=== PATIENT | male | born 1960 | race Caucasian/White ===

== ENCOUNTER 2023-12-04 20:27 | Inpatient (IN) ==
[2023-12-04 21:48] LABS: Basophils # (auto) 0.18 K/uL (0.00-0.20); Basophils % (auto) 0.8 %; Eosinophils # (auto) 0.02 K/uL (0.00-0.50); Eosinophils % (auto) 0.1 %; Hematocrit (blood only) 40.4 % (42.0-52.0); Hemoglobin 13.7 g/dl (14.0-18.0); Immature Granulocytes # (auto) 0.19 K/uL (0.01-0.20); Immature Granulocytes % (auto) 0.9 %; Lymphocytes # (auto) 1.76 K/uL (1.20-3.40); Lymphocytes % (auto) 8.3 %; Mean Corpuscular Hemoglobin 30.2 pg (25.0-34.0); Mean Corpuscular Hgb Conc 33.9 g/dL (32.0-36.0); Mean Corpuscular Volume 89.2 fL (80.0-100.0); Mean Platelet Volume 13.4 fL (9.4-12.4); Monocytes # (auto) 1.16 K/uL (0.11-0.59); Monocytes % (auto) 5.5 %; Neutrophils # (auto) 17.92 K/uL (1.40-6.50); Neutrophils % (auto) 84.4 %; Platelet Count 162 K/uL (130-400); RDW Coefficient of Variation 16.5 % (11.5-14.5); RDW Standard Deviation 53.7 fL (36.4-46.3); Red Blood Count 4.53 M/uL (4.70-6.10); White Blood Count 21.23 K/ul (4.8-10.8)
[2023-12-04 22:14] LABS: Alanine Aminotransferase 20 U/L (7-52); Albumin Globulin Ratio 0.8 (0.9-2); Alkaline Phosphatase 147 U/L (34-104); Anion Gap 19 (3-11); Aspartate Aminotransferase 32 U/L (13-39); BUN Creatinine Ratio 7.9 (10-20); Bilirubin,Total 0.8 mg/dl (0.2-1.0); Blood Urea Nitrogen 39 mg/dl (6-23); Calcium 5.8 mg/dl (8.6-10.3); Carbon Dioxide 15 mmol/L (21-32); Chloride 106 mmol/L (98-107); Est GFR (African American) 13.6 ml/min; Est GFR (Non-African American) 11.8 ml/min; Globulin 4.9 gm/dl (2.5-4.0); Glucose 110 mg/dl (70-99(Fasting)); Lipase 91 U/L (11-82); Potassium 2.3 mmol/L (3.5-5.1); Sodium 140 mmol/L (136-145); Total Protein 8.9 gm/dl (6.0-8.3)
--- NOTE | 2023-12-04 22:50 | Emergency Department Note ---
Impression & Plan Severe sepsis, Hypocalcemia, Acute renal failure (ARF), Hypomagnesemia, Acute dehydration, Complicated urinary tract infection ED Provider Note NAME: DOREEN HERNANDEZ AGE: 62 SEX: M : 1960 ARRIVES VIA: Walk-In INFORMANT: Patient, ED PROVIDER(S): Andrea Lyons MD CHIEF COMPLAINT: Weakness MEDICAL DECISION MAKING: Patient presented due to concern for increasing weakness IV was established and blood work was obtained. Patient did have significant electrolyte derangements and associated acute renal failure. Patient is still making urine. Patient does have a history of complicated UTI and was ordered empiric antibiotics and CT abdomen pelvis without contrast. Patient's blood work showed a white count of 20 with mild anemia hemoglobin 13. Platelet count is unremarkable. Acute renal failure noted creatinine 4.9. Per review of the patient's prior baseline kidney function this was in the twos. Calcium of 5.8. The patient was ordered a calcium for appointment. Lactate of 2 with a magnesium 1.1. The patient states he is still making urine. Procalcitonin not elevated at 0.4. Bacteria leuks and whites noted in the urine with epithelial cells noted. Patient CT abdomen pelvis shows bladder wall thickening renal atrophy with perirenal edema. 1.4 cm nodular structure noted off of the mid right kidney. Chest x-ray negative. Given the patient's white counts and acute renal failure and electrolyte derangements I did speak with the on-call hospitalist and the patient was admitted by Dr. Gongora. Critical Care: I have personally spent 35 minutes of critical care time in direct management of this patient. This includes bedside care, interpretation of diagnostic studies, and testing, discussion with consultants, patient, and family members, and other require inpatient management activities. This 35 minutes is in excess of all separately billable procedures. Discussion w/ other healthcare providers: Dr. Gongora inpatient medicine [facility] Prior /Outside records reviewed: Reviewed prior outside kidney function w/ creat of around 2 Differential diagnosis: Infection, dehydration, metabolic abnormality, hypo/hyperglycemia, electrolyte imbalance, anemia, UTI, pneumonia, thyroid dysfunction among others were considered. Diagnostics, as interpreted by me: ECG: none Cardiac monitoring: An order was placed for continuous cardiac monitoring. The monitor shows a rate of 92 with sinus rhythm. Patient was placed on pulse oximetry Medical decision rules: none Imaging studies: I informally interpreted the patient's CXR w/o obvious PNA or PNX with formal report to follow. HPI: Patient presents due to concern for decreased p.o. intake. Patient reportedly does have a history of neurogenic bladder and did have a history of childhood polymyositis. Patient did have bronchitis about 2 weeks prior and did receive antibiotic prescription Z-Herminio. Patient states that his breathing had improved his appetite was relatively poor patient has lost weight since the time of his illness. Patient does have some abdominal discomfort no nausea or vomiting and the patient denies any chest pain or shortness of breath. The patient has felt increasingly weak. Patient denies any recent falls or trauma. The patient does have to intermittently self catheter due to his his history of polio. PAST MEDICAL HISTORY: See Below PAST SURGICAL HISTORY: See Below SOCIAL HISTORY: See Below HOME MEDICATIONS: See Below ALLERGIES: See Below VITALS: See Below PHYSICAL EXAMINATION: GENERAL: NAD, non-toxic. EYE EXAM: Normal conjunctiva. PERRL, no anisocoria and EOM's grossly intact w/o pain. OROPHARYNX: Dry mucus membranes, grossly normal dentition. NECK: Trachea midline, no stridor. Supple, no nuchal rigidity, no adenopathy, non-tender. No signs of meningismus. FROM of the neck with good chin to chest and neck extension. LUNGS: Clear to auscultation. Normal chest wall mechanics. HEART: NSR, no MRG. ABDOMEN: Abdomen soft, mild diffuse pain, not peritonitic, no masses, no rebound or guarding. BACK: No CVA TTP. SKIN: No rashes and no bruising. UPPER EXTREMITIES: Upper extremities are grossly normal. LOWER EXTREMITIES: Grossly normal, no edema. NEURO EXAM: A&O x3, cranial nerves II-XII grossly intact, normal speech, moves all 4 extremities. 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 Beliefs That Will Affect Care: None Current Living Situation: Spouse Feels Safe at Home: Yes Assistive Devices: Walker and Wheelchair Allergies Allergies Allergy/AdvReac Type Severity Reaction Status Date / Time No Known Allergies Allergy Unverified 12/09/23 11:07 Home Meds Home Medications Medication Instructions Recorded Confirmed citalopram 40 mg tablet 40 mg PO QAM 12/05/23 12/05/23 cyanocobalamin (vitamin B-12) 1,000 mcg IM MONTHLY 12/05/23 12/05/23 1,000 mcg/mL injection solution doxepin 25 mg capsule 50 mg PO HS 12/05/23 12/05/23 metoprolol succinate 50 mg 50 mg PO QAM 12/05/23 12/05/23 tablet,extended release 24 hr tramadol 50 mg tablet 50 mg PO BID PRN Pain 12/05/23 12/05/23 Previous Rx's Medication Instructions Recorded amiloride 5 mg tablet 5 mg PO BID #60 tabs 12/10/23 calcitriol 0.25 mcg capsule 0.5 mcg (2 x 0.25 mcg) PO DAILY 90 12/10/23 days #180 caps calcium carbonate 500 mg-vitamin 2.5 tab PO TID #90 tabs 12/10/23 D3 15 mcg (600 unit) tablet (Os-Andre 500 + D3) cholecalciferol (vitamin D3) 25 25 mcg PO QAM 90 days #90 caps 12/10/23 mcg (1,000 unit) capsule loperamide 2 mg capsule 4 mg (2 x 2 mg) PO TID PRN 12/10/23 diarrhea #20 caps magnesium chloride 64 mg 64 mg PO BID #60 tabs 12/10/23 (magnesium chloride) tablet,delayed release (Mag 64) potassium bicarbonate-citric acid 40 meq (2 x 20 mEq) PO TID #90 ea 12/10/23 20 mEq effervescent tablet Results & Data (ED) Vital Signs Vital Signs - 24 hr 12/04/23 20:38 12/04/23 20:42 12/04/23 21:05 Temperature 36.9 C Temperature Source Temporal Artery Scan Pulse Rate 92 H 88 94 H Pulse Rhythm Regular Respiratory Rate 19 16 Respiratory Effort / Characteristics Non-Labored Spontaneous Respiratory Depth Normal Blood Pressure 107/75 Blood Pressure Mean 85 Pulse Oximetry 95 98 Oxygen Delivery Method Room Air Room Air Sepsis Recent Fever Within 48 Hours No Sepsis New/Unexplained Change in Mental Status N/A Sepsis Action Taken by Nursing No Action Required Home Medications Current Medication List: was personally reviewed by me Laboratory Data Attestation: I reviewed the patient's lab results. 12/10/23 07:43 12/10/23 07:43 Lab Results 12/04/23 12/04/23 12/04/23 Range/Units 21:06 22:59 23:53 WBC 21.23 H (4.8-10.8) K/ul RBC 4.53 L (4.70-6.10) M/uL Hgb 13.7 L (14.0-18.0) g/dl Hct 40.4 L (42.0-52.0) % MCV 89.2 (80.0-100.0) fL MCH 30.2 (25.0-34.0) pg MCHC 33.9 (32.0-36.0) g/dL RDW Std Deviation 53.7 H (36.4-46.3) fL RDW Coeff of Thao 16.5 H (11.5-14.5) % Plt Count 162 (130-400) K/uL MPV 13.4 H (9.4-12.4) fL Immature Gran % (Auto) 0.9 % Neut % (Auto) 84.4 % Lymph % (Auto) 8.3 % Cooke % (Auto) 5.5 % Eos % (Auto) 0.1 % Baso % (Auto) 0.8 % Neut # (Auto) 17.92 H (1.40-6.50) K/uL Lymph # (Auto) 1.76 (1.20-3.40) K/uL Cooke # (Auto) 1.16 H (0.11-0.59) K/uL Eos # (Auto) 0.02 (0.00-0.50) K/uL Baso # (Auto) 0.18 (0.00-0.20) K/uL Immature Gran # (Auto) 0.19 (0.01-0.20) K/uL Sodium 140 (136-145) mmol/L Potassium 2.3 L* (3.5-5.1) mmol/L Chloride 106 (98-107) mmol/L Carbon Dioxide 15 L (21-32) mmol/L Anion Gap 19 H (3-11) BUN 39 H (6-23) mg/dl Creatinine 4.93 H* (0.6-1.4) mg/dl Est Cr Clr Drug Dosing Not Reportable Est GFR ( Amer) 13.6 ml/min Est GFR (Non-Af Amer) 11.8 ml/min BUN/Creatinine Ratio 7.9 L (10-20) Glucose 110 H (70-99(Fasting)) mg/dl Lactate 2.0 (0.4-2.0) mmol/L Calcium 5.8 L* (8.6-10.3) mg/dl Magnesium 1.1 L (1.7-2.4) mg/dl Total Bilirubin 0.8 (0.2-1.0) mg/dl AST 32 (13-39) U/L ALT 20 (7-52) U/L Alkaline Phosphatase 147 H (34-104) U/L Total Protein 8.9 H (6.0-8.3) gm/dl Albumin 4.0 (3.4-5.0) gm/dl Globulin 4.9 H (2.5-4.0) gm/dl Albumin/Globulin Ratio 0.8 L (0.9-2) Lipase 91 H (11-82) U/L Procalcitonin 0.44 (0-0.5) ng/ml Urine Color Yellow Urine Appearance Cloudy A (Clear) Urine pH 6.0 (4.5-7.5) Ur Specific Manning 1.013 (1.000-1.030) Urine Protein 2+ H (Negative) Urine Glucose (UA) Negative (Negative) Urine Ketones Trace H (Negative) Urine Blood 2+ H (Negative) Urine Nitrite Negative (Negative) Urine Bilirubin Negative (Negative) Urine Urobilinogen Negative (Negative) Ur Leukocyte Esterase 3+ H (Negative) Urine WBC (Auto) >50 H (0-5) /hpf Urine RBC (Auto) 3-5 H (0-2) /hpf U Hyaline Cast (Auto) 0-2 (0-2) /lpf U Epithel Cells (Auto) 3-5 H (0-2) /hpf Urine Bacteria (Auto) 2+ H (None Seen) Administered Medications Discontinued Medications Amiloride HCl (Amiloride Hcl 5 Mg Tab) 5 mg PO DAILY THOMAS Stop: 01/05/24 09:59 Last Admin: 12/06/23 10:27 Dose: Not Given Documented By: KANDICE Amiloride HCl (Amiloride Hcl 5 Mg Tab) 5 mg PO NOW STA Stop: 12/06/23 10:01 Last Admin: 12/06/23 10:54 Dose: 5 mg Documented By: KANDICE Amiloride HCl (Amiloride Hcl 5 Mg Tab) 5 mg PO DAILY THOMAS Stop: 01/06/24 08:59 Last Admin: 12/07/23 09:33 Dose: Not Given Documented By: KANDICE Amiloride HCl (Amiloride Hcl 5 Mg Tab) 5 mg PO BID THOMAS Stop: 01/06/24 20:59 Last Admin: 12/10/23 08:26 Dose: 5 mg Documented By: Admin: 12/09/23 20:52 Dose: 5 mg Documented By: Admin: 12/09/23 09:51 Dose: 5 mg Documented By: Admin: 12/08/23 21:12 Dose: 5 mg Documented By: Admin: 12/08/23 08:34 Dose: 5 mg Documented By: Admin: 12/07/23 20:57 Dose: 5 mg Documented By: KATIE Calcitriol (Calcitriol 0.25 Mcg Capsule) 0.5 mcg PO BID THOMAS Stop: 01/04/24 12:29 Last Admin: 12/06/23 20:05 Dose: 0.5 mcg Documented By: Admin: 12/06/23 09:24 Dose: 0.5 mcg Documented By: RAMONA Co-signed By: RASHMI Admin: 12/05/23 20:15 Dose: 0.5 mcg Documented By: Admin: 12/05/23 13:26 Dose: 0.5 mcg Documented By: NIDHI Calcitriol (Calcitriol 0.25 Mcg Capsule) 0.5 mcg PO DAILY THOMAS Stop: 01/06/24 08:59 Last Admin: 12/10/23 08:26 Dose: 0.5 mcg Documented By: Admin: 12/09/23 09:49 Dose: 0.5 mcg Documented By: Admin: 12/08/23 08:34 Dose: 0.5 mcg Documented By: Admin: 12/07/23 09:27 Dose: 0.5 mcg Documented By: KANDICE Calcium Carbonate (Calcium Carbonate 1250mg Tab) 1,250 mg PO BID THOMAS Stop: 01/04/24 12:29 Last Admin: 12/07/23 09:33 Dose: Not Given Documented By: Admin: 12/06/23 20:05 Dose: 1,250 mg Documented By: Admin: 12/06/23 09:24 Dose: 1,250 mg Documented By: RAMONA Co-signed By: RASHMI Admin: 12/05/23 20:16 Dose: 1,250 mg Documented By: Admin: 12/05/23 13:26 Dose: 1,250 mg Documented By: NIDHI Calcium Carbonate (Calcium Carbonate 1250mg Tab) 1,250 mg PO TID THOMAS Stop: 01/06/24 13:59 Last Admin: 12/10/23 13:55 Dose: 1,250 mg Documented By: Admin: 12/10/23 08:26 Dose: 1,250 mg Documented By: Admin: 12/09/23 20:52 Dose: 1,250 mg Documented By: Admin: 12/09/23 13:02 Dose: 1,250 mg Documented By: Admin: 12/09/23 09:49 Dose: 1,250 mg Documented By: Admin: 12/08/23 21:12 Dose: 1,250 mg Documented By: Admin: 12/08/23 13:53 Dose: 1,250 mg Documented By: Admin: 12/08/23 08:35 Dose: 1,250 mg Documented By: Admin: 12/07/23 20:56 Dose: 1,250 mg Documented By: Admin: 12/07/23 13:56 Dose: 1,250 mg Documented By: KANDICE Ciprofloxacin (Ciprofloxacin Hcl 0.3% Op Soln 2.5 Ml Btl) 2 drops OP Q4H THOMAS Stop: 12/13/23 20:59 Last Admin: 12/10/23 13:52 Dose: 2 drops Documented By: Admin: 12/10/23 08:28 Dose: 2 drops Documented By: Admin: 12/10/23 04:17 Dose: 2 drops Documented By: Admin: 12/10/23 00:49 Dose: 2 drops Documented By: Admin: 12/09/23 20:51 Dose: 2 drops Documented By: Admin: 12/09/23 17:05 Dose: 2 drops Documented By: Admin: 12/09/23 13:01 Dose: 2 drops Documented By: Admin: 12/09/23 09:49 Dose: 2 drops Documented By: Admin: 12/09/23 04:20 Dose: 2 drops Documented By: Admin: 12/09/23 01:13 Dose: 2 drops Documented By: Admin: 12/08/23 21:56 Dose: 2 drops Documented By: Admin: 12/08/23 17:12 Dose: 2 drops Documented By: Admin: 12/08/23 13:54 Dose: 2 drops Documented By: Admin: 12/08/23 08:35 Dose: 2 drops Documented By: Admin: 12/08/23 04:27 Dose: 2 drops Documented By: Admin: 12/08/23 01:34 Dose: 2 drops Documented By: Admin: 12/07/23 20:56 Dose: 2 drops Documented By: Admin: 12/07/23 17:16 Dose: 2 drops Documented By: Admin: 12/07/23 13:57 Dose: 2 drops Documented By: Admin: 12/07/23 09:25 Dose: 2 drops Documented By: Admin: 12/07/23 05:35 Dose: 2 drops Documented By: Admin: 12/07/23 01:53 Dose: 2 drops Documented By: Admin: 12/06/23 21:57 Dose: 2 drops Documented By: KATIE Citalopram Hydrobromide (Citalopram 40 Mg Tab) 40 mg PO QAM THOMAS Stop: 01/04/24 08:59 Last Admin: 12/05/23 09:09 Dose: 40 mg Documented By: AMS Sodium Chloride (Nss) 1,000 mls @ 999 mls/hr IV .Q1H1M ONE Stop: 12/05/23 00:04 Last Infusion: 12/05/23 02:14 Dose: Infused Documented By: Admin: 12/04/23 23:59 Dose: 999 mls/hr Documented By: Sodium Chloride (Nss) 500 mls @ 999 mls/hr IV .Q31M ONE Stop: 12/04/23 23:34 Last Infusion: 12/05/23 02:32 Dose: Infused Documented By: Admin: 12/05/23 02:00 Dose: 999 mls/hr Documented By: Calcium Gluconate () 1,000 mg in 60 mls @ 240 mls/hr IV Q15M THOMAS Stop: 12/04/23 23:44 Last Infusion: 12/05/23 01:05 Dose: Infused Documented By: Admin: 12/05/23 00:39 Dose: 240 mls/hr Documented By: Infusion: 12/05/23 00:38 Dose: Infused Documented By: Admin: 12/04/23 23:59 Dose: 240 mls/hr Documented By: Piperacillin Sod/Tazobactam Sod (Zosyn) 4.5 gm in 100 mls @ 200 mls/hr IV NOW ONE Stop: 12/04/23 23:33 Last Infusion: 12/05/23 01:54 Dose: Infused Documented By: Infusion: 12/05/23 01:54 Dose: Infused Documented By: Admin: 12/05/23 01:06 Dose: 200 mls/hr Documented By: Magnesium Sulfate/Dextrose (Magnesium Sulfate / D5w) 1 gm in 100 mls @ 50 mls/hr IV Q2H THOMAS Stop: 12/05/23 07:59 Last Infusion: 12/05/23 09:15 Dose: Infused Documented By: Admin: 12/05/23 06:55 Dose: 50 mls/hr Documented By: Infusion: 12/05/23 06:55 Dose: Infused Documented By: Admin: 12/05/23 05:02 Dose: 50 mls/hr Documented By: Infusion: 12/05/23 05:01 Dose: Infused Documented By: Admin: 12/05/23 03:03 Dose: 50 mls/hr Documented By: Lactated Ringer's (Lr) 1,000 mls @ 100 mls/hr IV .Q10H ONE Stop: 12/05/23 12:50 Last Infusion: 12/05/23 12:44 Dose: Infused Documented By: Admin: 12/05/23 03:03 Dose: 100 mls/hr Documented By: Piperacillin Sod/Tazobactam (Sod 4.5 gm/ Dextrose) 100 mls @ 25 mls/hr IV Q12H THOMAS; Protocol Stop: 12/07/23 15:00 Last Infusion: 12/07/23 13:56 Dose: Infused Documented By: Admin: 12/07/23 09:46 Dose: 25 mls/hr Documented By: Infusion: 12/07/23 00:17 Dose: Infused Documented By: Admin: 12/06/23 20:02 Dose: 25 mls/hr Documented By: Infusion: 12/06/23 13:36 Dose: Infused Documented By: Admin: 12/06/23 09:26 Dose: 25 mls/hr Documented By: RAMONA Co-signed By: RASHMI Infusion: 12/06/23 00:19 Dose: Infused Documented By: Admin: 12/05/23 20:14 Dose: 25 mls/hr Documented By: Infusion: 12/05/23 14:47 Dose: Infused Documented By: Admin: 12/05/23 10:47 Dose: 25 mls/hr Documented By: GEOFFREY Promethazine HCl 6.25 mg/ (Sodium Chloride) 50.25 mls @ 201 mls/hr IV Q6H PRN PRN Reason: Nausea And Vomiting Stop: 01/04/24 02:58 Last Infusion: 12/10/23 11:12 Dose: Infused Documented By: Admin: 12/10/23 10:47 Dose: 201 mls/hr Documented By: Infusion: 12/08/23 16:00 Dose: Infused Documented By: Admin: 12/08/23 15:41 Dose: 201 mls/hr Documented By: Infusion: 12/07/23 10:02 Dose: Infused Documented By: Admin: 12/07/23 09:24 Dose: 201 mls/hr Documented By: Infusion: 12/05/23 10:43 Dose: Infused Documented By: Admin: 12/05/23 10:12 Dose: 201 mls/hr Documented By: GEOFFREY Potassium Chloride (K Wero / Wtr) 10 meq in 100 mls @ 100 mls/hr IV Q1H THOMAS Stop: 12/05/23 08:14 Last Infusion: 12/05/23 10:43 Dose: Infused Documented By: Admin: 12/05/23 08:59 Dose: 100 mls/hr Documented By: Infusion: 12/05/23 08:58 Dose: Infused Documented By: Admin: 12/05/23 07:52 Dose: 100 mls/hr Documented By: Infusion: 12/05/23 07:52 Dose: Infused Documented By: Admin: 12/05/23 06:55 Dose: 100 mls/hr Documented By: Infusion: 12/05/23 06:55 Dose: Infused Documented By: Admin: 12/05/23 05:37 Dose: 100 mls/hr Documented By: Calcium Gluconate 1,000 mg/ (Sodium Chloride) 60 mls @ 240 mls/hr IV Q15M THOMAS Stop: 12/05/23 12:14 Last Infusion: 12/05/23 13:24 Dose: Infused Documented By: GinaKP Admin: 12/05/23 12:57 Dose: 240 mls/hr Documented By: Infusion: 12/05/23 12:53 Dose: Infused Documented By: GinaKP Admin: 12/05/23 12:38 Dose: 240 mls/hr Documented By: GinaKP Potassium Chloride 40 meq/ (Parenteral Electrolytes) 1,020 mls @ 70 mls/hr IV .[id number] THOMAS Stop: 01/04/24 12:14 Last Infusion: 12/07/23 14:00 Dose: Infused Documented By: Infusion: 12/07/23 12:50 Dose: 70 mls/hr Documented By: Infusion: 12/07/23 10:47 Dose: 0 mls/hr Documented By: Admin: 12/07/23 09:54 Dose: 70 mls/hr Documented By: Infusion: 12/07/23 09:44 Dose: Infused Documented By: Admin: 12/06/23 18:30 Dose: 70 mls/hr Documented By: Infusion: 12/06/23 18:10 Dose: Infused Documented By: Infusion: 12/06/23 16:15 Dose: 70 mls/hr Documented By: Admin: 12/06/23 09:46 Dose: 150 mls/hr Documented By: Infusion: 12/06/23 09:46 Dose: Infused Documented By: Admin: 12/06/23 04:57 Dose: Not Given Documented By: Infusion: 12/06/23 04:56 Dose: 150 mls/hr Documented By: Infusion: 12/05/23 22:10 Dose: 0 mls/hr Documented By: [facility] Admin: 12/05/23 20:11 Dose: 150 mls/hr Documented By: Infusion: 12/05/23 20:11 Dose: Infused Documented By: Admin: 12/05/23 13:26 Dose: 150 mls/hr Documented By: NIDHI Potassium Chloride (K Wero / Wtr) 10 meq in 100 mls @ 100 mls/hr IV Q1H THOMAS Stop: 12/06/23 01:14 Last Infusion: 12/06/23 04:57 Dose: Infused Documented By: [facility] Admin: 12/06/23 03:39 Dose: 60 mls/hr Documented By: Infusion: 12/06/23 03:15 Dose: Infused Documented By: [facility] Admin: 12/06/23 01:34 Dose: 60 mls/hr Documented By: Infusion: 12/06/23 01:34 Dose: Infused Documented By: [facility] Admin: 12/05/23 23:56 Dose: 60 mls/hr Documented By: [facility] Infusion: 12/05/23 23:10 Dose: Infused Documented By: [facility] Admin: 12/05/23 22:10 Dose: 100 mls/hr Documented By: DANILO Magnesium Sulfate/Dextrose (Magnesium Sulfate / D5w) 1 gm in 100 mls @ 50 mls/hr IV ONE ONE Stop: 12/06/23 02:55 Last Infusion: 12/06/23 03:39 Dose: Infused Documented By: [facility] Admin: 12/06/23 01:34 Dose: 50 mls/hr Documented By: DANILO Calcium Gluconate 1,000 mg/ (Sodium Chloride) 60 mls @ 240 mls/hr IV Q15M THOMAS Stop: 12/06/23 10:44 Last Infusion: 12/06/23 12:05 Dose: Infused Documented By: Admin: 12/06/23 11:47 Dose: 240 mls/hr Documented By: Infusion: 12/06/23 11:47 Dose: Infused Documented By: Admin: 12/06/23 11:46 Dose: 240 mls/hr Documented By: Infusion: 12/06/23 11:09 Dose: Infused Documented By: Admin: 12/06/23 10:54 Dose: 240 mls/hr Documented By: KANDICE Calcium Gluconate 1,000 mg/ (Sodium Chloride) 60 mls @ 240 mls/hr IV Q15M THOMAS Stop: 12/07/23 09:29 Last Infusion: 12/07/23 11:44 Dose: Infused Documented By: Admin: 12/07/23 11:15 Dose: 240 mls/hr Documented By: Infusion: 12/07/23 10:02 Dose: Infused Documented By: Admin: 12/07/23 09:47 Dose: 240 mls/hr Documented By: KANDICE Magnesium Sulfate/Dextrose (Magnesium Sulfate / D5w) 1 gm in 100 mls @ 50 mls/hr IV Q2H THOMAS Stop: 12/07/23 12:59 Last Infusion: 12/07/23 14:00 Dose: Infused Documented By: Admin: 12/07/23 11:41 Dose: 50 mls/hr Documented By: Infusion: 12/07/23 11:41 Dose: Infused Documented By: Admin: 12/07/23 09:47 Dose: 50 mls/hr Documented By: KANDICE Calcium Gluconate 1,000 mg/ (Sodium Chloride) 60 mls @ 240 mls/hr IV Q15M THOMAS Stop: 12/07/23 10:44 Last Infusion: 12/07/23 12:03 Dose: Infused Documented By: Admin: 12/07/23 11:40 Dose: 240 mls/hr Documented By: Infusion: 12/07/23 11:30 Dose: Infused Documented By: Admin: 12/07/23 11:15 Dose: 240 mls/hr Documented By: Infusion: 12/07/23 11:04 Dose: Infused Documented By: Admin: 12/07/23 10:49 Dose: 240 mls/hr Documented By: KANDICE Piperacillin Sod/Tazobactam (Sod 4.5 gm/ Dextrose) 100 mls @ 25 mls/hr IV Q8H THOMAS; Protocol Stop: 12/21/23 19:59 Last Admin: 12/10/23 10:53 Dose: 25 mls/hr Documented By: Infusion: 12/10/23 08:29 Dose: Infused Documented By: Admin: 12/10/23 04:14 Dose: 25 mls/hr Documented By: Infusion: 12/10/23 04:09 Dose: Infused Documented By: Infusion: 12/10/23 00:49 Dose: 25 mls/hr Documented By: Infusion: 12/09/23 21:30 Dose: 0 mls/hr Documented By: Admin: 12/09/23 20:50 Dose: 25 mls/hr Documented By: Infusion: 12/09/23 17:05 Dose: Infused Documented By: Admin: 12/09/23 13:00 Dose: 25 mls/hr Documented By: Infusion: 12/09/23 08:33 Dose: Infused Documented By: Admin: 12/09/23 04:19 Dose: 25 mls/hr Documented By: Infusion: 12/09/23 01:44 Dose: Infused Documented By: Admin: 12/08/23 21:11 Dose: 25 mls/hr Documented By: Infusion: 12/08/23 16:00 Dose: Infused Documented By: Admin: 12/08/23 11:55 Dose: 25 mls/hr Documented By: Infusion: 12/08/23 08:45 Dose: Infused Documented By: Admin: 12/08/23 04:28 Dose: 25 mls/hr Documented By: Infusion: 12/08/23 00:18 Dose: Infused Documented By: Admin: 12/07/23 20:50 Dose: 25 mls/hr Documented By: KATIE Loperamide HCl (Loperamide Hcl 2 Mg Cap) 2 mg PO BID PRN PRN Reason: Diarrhea Stop: 01/06/24 11:38 Last Admin: 12/10/23 10:47 Dose: 2 mg Documented By: Admin: 12/09/23 21:03 Dose: 2 mg Documented By: Admin: 12/09/23 09:51 Dose: 2 mg Documented By: Admin: 12/08/23 21:11 Dose: 2 mg Documented By: Admin: 12/08/23 08:42 Dose: 2 mg Documented By: Admin: 12/07/23 13:57 Dose: 2 mg Documented By: KANDICE Magnesium Chloride (Magnesium Chloride W/Calcium 64mg Delayed Rel Tab) 64 mg PO BID THOMAS Stop: 01/06/24 20:59 Last Admin: 12/10/23 08:28 Dose: 64 mg Documented By: Admin: 12/09/23 20:52 Dose: 64 mg Documented By: Admin: 12/09/23 09:47 Dose: 64 mg Documented By: Admin: 12/08/23 21:12 Dose: 64 mg Documented By: Admin: 12/08/23 08:34 Dose: 64 mg Documented By: Admin: 12/07/23 20:57 Dose: 64 mg Documented By: KATIE Metoprolol Succinate (Metoprolol Succ 50mg Ext Rel Tab) 50 mg PO QAM [facility] Stop: 01/04/24 08:59 Last Admin: 12/09/23 09:50 Dose: Not Given Documented By: Admin: 12/08/23 08:34 Dose: 50 mg Documented By: Admin: 12/07/23 09:27 Dose: Not Given Documented By: Admin: 12/06/23 09:25 Dose: 50 mg Documented By: RAMONA Co-signed By: RASHMI Admin: 12/05/23 09:08 Dose: 50 mg Documented By: GEOFFREY Metoprolol Succinate (Metoprolol Succ 25mg Ext Rel Tab) 25 mg PO QAM [facility] Stop: 01/09/24 08:59 Last Admin: 12/10/23 08:28 Dose: 25 mg Documented By: NANO Miscellaneous Information (Patient's Allergy Info Needs Entered) 1 each N/A NOW STA Stop: 12/05/23 04:21 Last Admin: 12/05/23 05:29 Dose: Not Given Documented By: Miscellaneous Information (Patient's Allergy Info Needs Entered) 1 each N/A Q30M [facility] Stop: 01/08/24 09:59 Last Admin: 12/09/23 10:52 Dose: 1 each Documented By: VIKA Morphine Sulfate (Morphine Sulfate 2 Mg/Ml Carp) 2 mg IV NOW STA Stop: 12/05/23 01:50 Last Admin: 12/05/23 01:58 Dose: 2 mg Documented By: Pantoprazole Sodium (Pantoprazole 40 Mg Tab) 40 mg PO BID [facility] Stop: 01/04/24 10:14 Last Admin: 12/10/23 08:29 Dose: 40 mg Documented By: Admin: 12/09/23 20:52 Dose: 40 mg Documented By: Admin: 12/09/23 10:48 Dose: 40 mg Documented By: Admin: 12/08/23 21:12 Dose: 40 mg Documented By: Admin: 12/08/23 08:34 Dose: 40 mg Documented By: Admin: 12/07/23 20:57 Dose: 40 mg Documented By: Admin: 12/07/23 09:27 Dose: 40 mg Documented By: Admin: 12/06/23 20:05 Dose: 40 mg Documented By: Admin: 12/06/23 09:25 Dose: 40 mg Documented By: RAMONA Co-signed By: RASHMI Admin: 12/05/23 20:16 Dose: 40 mg Documented By: Admin: 12/05/23 11:08 Dose: 40 mg Documented By: NIDHI Potassium Chloride (Potassium Chloride Pwd 20 Meq Pack) 40 meq PO NOW STA Stop: 12/05/23 02:00 Last Admin: 12/05/23 03:16 Dose: Not Given Documented By: Potassium Chloride (Potassium Chloride Crtab 20 Meq Tabcr) 40 meq PO NOW STA Stop: 12/05/23 02:43 Last Admin: 12/05/23 03:29 Dose: 40 meq Documented By: Potassium Chloride (Potassium Chloride Crtab 20 Meq Tabcr) 40 meq PO ONE ONE Stop: 12/05/23 05:01 Last Admin: 12/05/23 05:37 Dose: 40 meq Documented By: Potassium Chloride (Potassium Chloride Pwd 20 Meq Pack) 40 meq PO QID THOMAS Stop: 01/04/24 12:59 Last Admin: 12/05/23 19:27 Dose: Not Given Documented By: Admin: 12/05/23 12:38 Dose: 40 meq Documented By: NIDHI Potassium Chloride (Potassium Chloride Crtab 20 Meq Tabcr) 40 meq PO NOW STA Stop: 12/05/23 18:34 Last Admin: 12/05/23 21:07 Dose: Not Given Documented By: ALKatelin Potassium Chloride (Potassium Chloride Crtab 20 Meq Tabcr) 40 meq PO QID THOMAS Stop: 01/04/24 18:40 Last Admin: 12/06/23 20:05 Dose: 40 meq Documented By: Admin: 12/06/23 17:09 Dose: 40 meq Documented By: JOSH Co-signed By: PRAKASH Admin: 12/06/23 13:01 Dose: 40 meq Documented By: Admin: 12/06/23 09:27 Dose: 40 meq Documented By: RAMONA Co-signed By: LUCINDAR Admin: 12/05/23 20:21 Dose: Not Given Documented By: Admin: 12/05/23 20:15 Dose: 40 meq Documented By: DANILO Potassium Chloride (Potassium Chloride Crtab 20 Meq Tabcr) 40 meq PO TID THOMAS Stop: 01/06/24 08:59 Last Admin: 12/08/23 08:35 Dose: 40 meq Documented By: Admin: 12/07/23 20:56 Dose: 40 meq Documented By: Admin: 12/07/23 13:56 Dose: 40 meq Documented By: Admin: 12/07/23 09:26 Dose: 40 meq Documented By: KANDICE Potassium Citrate (Potassium Citrate 10 Meq Tab) 40 meq PO TID THOMAS Stop: 01/07/24 13:59 Last Admin: 12/10/23 08:29 Dose: 40 meq Documented By: Admin: 12/09/23 20:52 Dose: 40 meq Documented By: Admin: 12/09/23 13:02 Dose: 40 meq Documented By: Admin: 12/09/23 09:50 Dose: 40 meq Documented By: Admin: 12/08/23 21:12 Dose: 40 meq Documented By: Admin: 12/08/23 13:53 Dose: 40 meq Documented By: VIKA Tramadol HCl (Tramadol Hcl 50 Mg Tablet) 25 - 50 mg PO Q4H PRN PRN Reason: Pain Stop: 01/04/24 02:58 Last Admin: 12/05/23 22:11 Dose: 50 mg Documented By: DANILO Vitamin D (Cholecalciferol 25 Mcg (1000 Units) Tab) 25 mcg PO QAM THOMAS Stop: 01/06/24 08:59 Last Admin: 12/10/23 08:27 Dose: 25 mcg Documented By: Admin: 12/09/23 09:47 Dose: 25 mcg Documented By: Admin: 12/08/23 08:34 Dose: 25 mcg Documented By: Admin: 12/07/23 09:45 Dose: 25 mcg Documented By: KANDICE Imaging Data Radiologist's Impression: Abdomen/Pelvis CT 12/04/23 23:04 Exam(s): CT ABDOMEN + PELVIS Without Contrast EXAM: CT Abdomen and Pelvis Without Intravenous Contrast CLINICAL HISTORY: Reason for exam: abdominal pain, straight cath, WBC 20s. TECHNIQUE: Axial computed tomography images of the abdomen and pelvis without intravenous contrast. CTDI is 24.84 mGy and DLP is 1187.28 mGy-cm. Automated exposure control was utilized for the study. A dose lowering technique was utilized adhering to the principles of ALARA. COMPARISON: No relevant prior studies available. FINDINGS: Lung bases: Unremarkable. No mass. No consolidation. ABDOMEN: Liver: Unremarkable. Gallbladder and bile ducts: Previous cholecystectomy. No biliary duct dilation is seen. Pancreas: Unremarkable. No ductal dilation. Spleen: Unremarkable. No splenomegaly. Adrenals: Unremarkable. No mass. Kidneys and ureters: Mild bilateral renal atrophy with slight perirenal edema. There is mild thickening of the wall of the renal pelvis bilaterally. Consider ascending urinary tract infection. 1.4 cm nodular structure extending anteriorly off the mid right kidney measuring 45 HU. No obstructing stones. No hydronephrosis. Stomach and bowel: Bowel loops are nondilated. No acute inflammatory changes are seen involving the bowel. No mucosal thickening. PELVIS: Appendix: No findings to suggest acute appendicitis. Bladder: There is a 1 cm circumferential urinary bladder wall thickening. No stones. Reproductive: Unremarkable as visualized. ABDOMEN and PELVIS: Intraperitoneal space: Unremarkable. No free air. No significant fluid collection. Bones/joints: Moderate to severe multilevel degenerative throughout the spine. No developmental hypoplasia and fusion of T10-T12. No acute fracture is seen. Right hip arthroplasty. There are moderate degenerative changes in the left hip. No acute fracture or dislocation. Soft tissues: See above. Vasculature: Unremarkable. No abdominal aortic aneurysm. Lymph nodes: Unremarkable. No enlarged lymph nodes. IMPRESSION: 1. There is a 1 cm circumferential urinary bladder wall thickening. This may be due to cystitis or decompressed status. 2. Mild bilateral renal atrophy with slight perirenal edema. There is mild thickening of the wall of the renal pelvis bilaterally. Consider ascending urinary tract infection. 3. 1.4 cm nodular structure extending anteriorly off the mid right kidney measuring 45 HU. This is nonspecific. Recommend MRI or CT without and with intravenous contrast. 4. Bowel loops are nondilated. No acute inflammatory changes are seen involving the bowel. Electronically signed by: Willem Tapia MD 12/05/23 01:25 AM Chest X-Ray 12/05/23 01:56 XR chest 1V portable HISTORY: 62 years-old Male arf acute shortness of breath with renal failure COMPARISON: CT of same day TECHNIQUE: AP view of the chest FINDINGS: Patient is mildly rotated. The cardiac silhouette is upper limits of normal in size. No pneumothorax, pleural effusion, airspace consolidation or pulmonary edema. Eventration of the right hemidiaphragm. Bones appear grossly intact. IMPRESSION: No acute process. ACT 112: Negative or not required by law. The above report was generated using voice recognition software. It may contain grammatical, syntax or spelling errors. Electronically signed by: Jose Redmond M.D. 12/05/2023 6:51 AM Discharge Plan Visit Data Chief Complaint: Nausea Stated Complaint: POOR APPETITE, DIZZY, NAUSEA ED Provider: Andrea Lyons Discharge Problem: Severe sepsis, Hypocalcemia, Acute renal failure (ARF), Hypomagnesemia, Acute dehydration, Complicated urinary tract infection Patient Disposition: Admitted As Inpatient Discharge Instructions Interventions: ED Discharge Assessment Last Done: 12/05/23 14:41 Discharge Problem: Acute renal failure (ARF) Qualifiers: Acute renal failure type: unspecified Qualified Code(s): N17.9 - Acute kidney failure, unspecified
[2023-12-04 23:23] LABS: Appearance Urine Cloudy (Clear); Bacteria Urine Automated 2+ (None Seen); Bilirubin Urine Negative (Negative); Blood Urine 2+ (Negative); Color Urine Yellow; Glucose Urine UA Negative (Negative); Ketones Urine Trace (Negative); Leukocyte Esterase Urine 3+ (Negative); Nitrite Urine Negative (Negative); Protein Urine 2+ (Negative); Specific Gravity Urine 1.013 (1.000-1.030); Urobilinogen Urine Negative (Negative); WBC Urine Automated >50 /hpf (0-5)
[2023-12-04 23:33] LABS: Cast Urine Automated 0-2 /lpf (0-2)
[2023-12-04] MEDS: CALCIUM GLUCONATE 1,000 MG/60 ML BAG IV SCH (23:59)
[2023-12-04] MEDS: SODIUM CHLORIDE 0.9% 1,000 ML IV ONE (23:59)
[2023-12-05] MEDS: PIPERACILLIN/TAZOBACTAM 4.5 GM/100 ML BAG IV ONE (01:06)
--- NOTE | 2023-12-05 01:25 | CT Scan Report ---
Exam(s): CT ABDOMEN + PELVIS Without Contrast EXAM: CT Abdomen and Pelvis Without Intravenous Contrast CLINICAL HISTORY: Reason for exam: abdominal pain, straight cath, WBC 20s. TECHNIQUE: Axial computed tomography images of the abdomen and pelvis without intravenous contrast. CTDI is 24.84 mGy and DLP is 1187.28 mGy-cm. Automated exposure control was utilized for the study. A dose lowering technique was utilized adhering to the principles of ALARA. COMPARISON: No relevant prior studies available. FINDINGS: Lung bases: Unremarkable. No mass. No consolidation. ABDOMEN: Liver: Unremarkable. Gallbladder and bile ducts: Previous cholecystectomy. No biliary duct dilation is seen. Pancreas: Unremarkable. No ductal dilation. Spleen: Unremarkable. No splenomegaly. Adrenals: Unremarkable. No mass. Kidneys and ureters: Mild bilateral renal atrophy with slight perirenal edema. There is mild thickening of the wall of the renal pelvis bilaterally. Consider ascending urinary tract infection. 1.4 cm nodular structure extending anteriorly off the mid right kidney measuring 45 HU. No obstructing stones. No hydronephrosis. Stomach and bowel: Bowel loops are nondilated. No acute inflammatory changes are seen involving the bowel. No mucosal thickening. PELVIS: Appendix: No findings to suggest acute appendicitis. Bladder: There is a 1 cm circumferential urinary bladder wall thickening. No stones. Reproductive: Unremarkable as visualized. ABDOMEN and PELVIS: Intraperitoneal space: Unremarkable. No free air. No significant fluid collection. Bones/joints: Moderate to severe multilevel degenerative throughout the spine. No developmental hypoplasia and fusion of T10-T12. No acute fracture is seen. Right hip arthroplasty. There are moderate degenerative changes in the left hip. No acute fracture or dislocation. Soft tissues: See above. Vasculature: Unremarkable. No abdominal aortic aneurysm. Lymph nodes: Unremarkable. No enlarged lymph nodes. IMPRESSION: 1. There is a 1 cm circumferential urinary bladder wall thickening. This may be due to cystitis or decompressed status. 2. Mild bilateral renal atrophy with slight perirenal edema. There is mild thickening of the wall of the renal pelvis bilaterally. Consider ascending urinary tract infection. 3. 1.4 cm nodular structure extending anteriorly off the mid right kidney measuring 45 HU. This is nonspecific. Recommend MRI or CT without and with intravenous contrast. 4. Bowel loops are nondilated. No acute inflammatory changes are seen involving the bowel. Electronically signed by: Willem Tapia MD 12/05/23 01:25 AM
[2023-12-05] MEDS: MoRPHine SULFATE 2 MG/ML CARP IV STA (01:58)
[2023-12-05] MEDS: SODIUM CHLORIDE 0.9% 500 ML IV ONE (02:00)
--- NOTE | 2023-12-05 02:41 | History & Physical Report ---
Date of Service December 05, 2023 Assessment & Plan (1) Severe sepsis: Plan: SIRS plus ARF on CKD Secondary to complicated UTI history of neurogenic bladder attributed to childhood poliomyelitis Patient does intermittent straight cath at home. Progressive dysphagia to solids HTN, stable Hypokalemia, hypocalcemia, hypomagnesemia secondary to illness IBS, diarrhea predominant chronic anemia, hemoglobin at baseline Hyperglycemia rule out DM Incidental finding of right kidney nodule on CT mood disorder, stable hx medical noncompliance PCU given multiple electrolyte abnormalities CS, Zosyn Monitor creatinine response to IVF Replace electrolytes Nephrology consult Re: ARF on CKD, multiple electrolyte abnormalities Retrieve outpatient [facility] PCP and Nephrology records. GI consult re: progressive dysphagia to solids Check hemoglobin A1c Outpatient follow-up with [facility] urologist regarding right kidney nodule DVT prophylaxis. Heparin subcu Full code Patient requesting updates providers. Ms. Hannah Gonzalez, contact #[phone]. Text document was generated using [email or web address] voice recognition software. It may contain grammatical or spelling errors. Kindly contact undersigned for clarification of any documentation item in question. History of Present Illness Chief Complaint: Weakness, poor appetite Primary Care Provider: Som Silvestre MD History obtained from patient, family, and records. Medical history significant for HTN, history of neurogenic bladder attributed to childhood poliomyelitis, chronic diarrhea from IBS, CRI (baseline creatinine 1.8-2s from 2020), recurrent hypokalemia, chronic anemia (baseline hemoglobin 12-13), mood disorder, medical noncompliance. Patient has had kidney problems for a number of years now as per . Did not like last [facility] entry level sales consultant seen about 5 years ago. Patient does not like going for blood work. Last blood draw was in 2020 as per . Patient has not been feeling well since bronchitis episode from 2 weeks ago status post Z-Herminio Rx. Breathing symptoms better but appetite not good. More than 10 pound weight loss since illness as per patient/family. Denies depression. Solid food dysphagia. Intermittent abdominal pain. Chronic diarrhea symptoms from IBS. Denies flank discomfort or hematuria symptoms. No chest pain, no SOB. Increasing weakness. Patient consulted [facility] ER last night because [facility] ER was too busy. IV Zosyn administered at the ER. Medical History as above Surgical History : Cholecystectomy, hip fracture surgery Family History : DM Personal/Social history : Non-smoker, no EtOH intake, disabled Allergies Allergy/AdvReac Type Severity Reaction Status Date / Time milk Allergy Diarrhea Verified 12/05/23 01:29 Home Medications Medication Instructions Recorded Confirmed Type citalopram 40 mg tablet 40 mg PO QAM 12/05/23 12/05/23 History cyanocobalamin (vitamin B-12) 1,000 mcg IM MONTHLY 12/05/23 12/05/23 History 1,000 mcg/mL injection solution doxepin 25 mg capsule 50 mg PO HS 12/05/23 12/05/23 History loperamide 2 mg capsule 4 mg PO TID PRN diarrhea 12/05/23 12/05/23 History metoprolol succinate 50 mg 50 mg PO QAM 12/05/23 12/05/23 History tablet,extended release 24 hr ondansetron HCl 4 mg tablet 4 mg PO TID 12/05/23 12/05/23 History tramadol 50 mg tablet 50 mg PO BID PRN Pain 12/05/23 12/05/23 History Past Med/Surg History Social History Smoking Status: Never smoker Hx Alcohol Use: No Hx Substance Use: No Preferred Language: Chinese Communication Ability: Effective 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 Beliefs That Will Affect Care: None Current Living Situation: Spouse Feels Safe at Home: Yes Assistive Devices: Cane and Wheelchair Review of Systems Review of Systems: As per HPI, all other systems reviewed and negative Physical Exam Physical Exam: GENERAL: Comfortable, slightly anxious, obese, no respiratory distress SKIN: Pallor, warm HEENT: Alopecia, pale palpebral conjunctivae, no ptosis, dry buccal mucosa NECK : Supple, no tenderness CHEST : CTA, no tenderness HEART : RRR, no obvious murmurs ABDOMEN: Some distention, minimal hypogastric tenderness EXTREMITIES : Erythema over both lower legs (chronic as per patient), no tenderness, no other conspicuous deformities noted NEUROLOGIC : Coherent, no facial asymmetry, no other gross focality Results & Data Results & Data Vital Signs (Past 12 Hours) Vital Signs Temp Pulse Resp BP Pulse Ox O2 Del Method 12/05/23 02:00 79 17 140/77 100 12/05/23 01:30 83 18 136/82 96 12/05/23 01:01 91 H 12/05/23 01:00 106 H 17 136/79 12/05/23 00:00 89 22 113/87 94 12/04/23 23:30 106 H 16 95/79 L 12/04/23 23:00 97 H 28 H 120/83 96 Room Air 12/04/23 22:30 92 H 22 109/86 12/04/23 22:00 116 H 19 92/74 L 12/04/23 21:30 91 H 19 124/61 12/04/23 21:12 95 H 17 111/86 12/04/23 21:06 94 H 18 12/04/23 21:05 94 H 12/04/23 20:42 88 16 98 Room Air 12/04/23 20:38 36.9 C 92 H 19 107/75 95 Room Air Laboratory Results Laboratory Results WBC 21.23 K/ul (4.8-10.8) H 12/04/23 21:06 RBC 4.53 M/uL (4.70-6.10) L 12/04/23 21:06 Hgb 13.7 g/dl (14.0-18.0) L 12/04/23 21:06 Hct 40.4 % (42.0-52.0) L 12/04/23 21:06 MCV 89.2 fL (80.0-100.0) 12/04/23 21:06 MCH 30.2 pg (25.0-34.0) 12/04/23 21:06 MCHC 33.9 g/dL (32.0-36.0) 12/04/23 21:06 RDW Std Deviation 53.7 fL (36.4-46.3) H 12/04/23 21:06 RDW Coeff of Thao 16.5 % (11.5-14.5) H 12/04/23 21:06 Plt Count 162 K/uL (130-400) 12/04/23 21:06 MPV 13.4 fL (9.4-12.4) H 12/04/23 21:06 Immature Gran % (Auto) 0.9 % 12/04/23 21:06 Neut % (Auto) 84.4 % 12/04/23 21:06 Lymph % (Auto) 8.3 % 12/04/23 21:06 Roberts % (Auto) 5.5 % 12/04/23 21:06 Eos % (Auto) 0.1 % 12/04/23 21:06 Baso % (Auto) 0.8 % 12/04/23 21:06 Neut # (Auto) 17.92 K/uL (1.40-6.50) H 12/04/23 21:06 Lymph # (Auto) 1.76 K/uL (1.20-3.40) 12/04/23 21:06 Roberts # (Auto) 1.16 K/uL (0.11-0.59) H 12/04/23 21:06 Eos # (Auto) 0.02 K/uL (0.00-0.50) 12/04/23 21:06 Baso # (Auto) 0.18 K/uL (0.00-0.20) 12/04/23 21:06 Immature Gran # (Auto) 0.19 K/uL (0.01-0.20) 12/04/23 21:06 Sodium 140 mmol/L (136-145) 12/04/23 21:06 Potassium 2.3 mmol/L (3.5-5.1) L* 12/04/23 21:06 Chloride 106 mmol/L (98-107) 12/04/23 21:06 Carbon Dioxide 15 mmol/L (21-32) L 12/04/23 21:06 Anion Gap 19 (3-11) H 12/04/23 21:06 BUN 39 mg/dl (6-23) H 12/04/23 21:06 Creatinine 4.93 mg/dl (0.6-1.4) H* 12/04/23 21:06 Est Cr Clr Drug Dosing Not Reportable 12/04/23 21:06 Est GFR ( Amer) 13.6 ml/min 12/04/23 21:06 Est GFR (Non-Af Amer) 11.8 ml/min 12/04/23 21:06 BUN/Creatinine Ratio 7.9 (10-20) L 12/04/23 21:06 Glucose 110 mg/dl (70-99(Fasting)) H 12/04/23 21:06 Lactate 2.0 mmol/L (0.4-2.0) 12/04/23 23:53 Calcium 5.8 mg/dl (8.6-10.3) L* 12/04/23 21:06 Magnesium 1.1 mg/dl (1.7-2.4) L 12/04/23 23:53 Total Bilirubin 0.8 mg/dl (0.2-1.0) 12/04/23 21:06 AST 32 U/L (13-39) 12/04/23 21:06 ALT 20 U/L (7-52) 12/04/23 21:06 Alkaline Phosphatase 147 U/L (34-104) H 12/04/23 21:06 Total Protein 8.9 gm/dl (6.0-8.3) H 12/04/23 21:06 Albumin 4.0 gm/dl (3.4-5.0) 12/04/23 21:06 Globulin 4.9 gm/dl (2.5-4.0) H 12/04/23 21:06 Albumin/Globulin Ratio 0.8 (0.9-2) L 12/04/23 21:06 Lipase 91 U/L (11-82) H 12/04/23 21:06 Procalcitonin 0.44 ng/ml (0-0.5) 12/04/23 23:53 Urine Color Yellow 12/04/23 22:59 Urine Appearance Cloudy (Clear) A 12/04/23 22:59 Urine pH 6.0 (4.5-7.5) 12/04/23 22:59 Ur Specific [place] 1.013 (1.000-1.030) 12/04/23 22:59 Urine Protein 2+ (Negative) H 12/04/23 22:59 Urine Glucose (UA) Negative (Negative) 12/04/23 22:59 Urine Ketones Trace (Negative) H 12/04/23 22:59 Urine Blood 2+ (Negative) H 12/04/23 22:59 Urine Nitrite Negative (Negative) 12/04/23 22:59 Urine Bilirubin Negative (Negative) 12/04/23 22:59 Urine Urobilinogen Negative (Negative) 12/04/23 22:59 Ur Leukocyte Esterase 3+ (Negative) H 12/04/23 22:59 Urine WBC (Auto) >50 /hpf (0-5) H 12/04/23 22:59 Urine RBC (Auto) 3-5 /hpf (0-2) H 12/04/23 22:59 U Hyaline Cast (Auto) 0-2 /lpf (0-2) 04/09/24 22:59 U Epithel Cells (Auto) 3-5 /hpf (0-2) H 12/04/23 22:59 Urine Bacteria (Auto) 2+ (None Seen) H 12/04/23 22:59 Impressions Abdomen/Pelvis CT 12/04/23 23:04 Exam(s): CT ABDOMEN + PELVIS Without Contrast EXAM: CT Abdomen and Pelvis Without Intravenous Contrast CLINICAL HISTORY: Reason for exam: abdominal pain, straight cath, WBC 20s. TECHNIQUE: Axial computed tomography images of the abdomen and pelvis without intravenous contrast. CTDI is 24.84 mGy and DLP is 1187.28 mGy-cm. Automated exposure control was utilized for the study. A dose lowering technique was utilized adhering to the principles of ALARA. COMPARISON: No relevant prior studies available. FINDINGS: Lung bases: Unremarkable. No mass. No consolidation. ABDOMEN: Liver: Unremarkable. Gallbladder and bile ducts: Previous cholecystectomy. No biliary duct dilation is seen. Pancreas: Unremarkable. No ductal dilation. Spleen: Unremarkable. No splenomegaly. Adrenals: Unremarkable. No mass. Kidneys and ureters: Mild bilateral renal atrophy with slight perirenal edema. There is mild thickening of the wall of the renal pelvis bilaterally. Consider ascending urinary tract infection. 1.4 cm nodular structure extending anteriorly off the mid right kidney measuring 45 HU. No obstructing stones. No hydronephrosis. Stomach and bowel: Bowel loops are nondilated. No acute inflammatory changes are seen involving the bowel. No mucosal thickening. PELVIS: Appendix: No findings to suggest acute appendicitis. Bladder: There is a 1 cm circumferential urinary bladder wall thickening. No stones. Reproductive: Unremarkable as visualized. ABDOMEN and PELVIS: Intraperitoneal space: Unremarkable. No free air. No significant fluid collection. Bones/joints: Moderate to severe multilevel degenerative throughout the spine. No developmental hypoplasia and fusion of T10-T12. No acute fracture is seen. Right hip arthroplasty. There are moderate degenerative changes in the left hip. No acute fracture or dislocation. Soft tissues: See above. Vasculature: Unremarkable. No abdominal aortic aneurysm. Lymph nodes: Unremarkable. No enlarged lymph nodes. IMPRESSION: 1. There is a 1 cm circumferential urinary bladder wall thickening. This may be due to cystitis or decompressed status. 2. Mild bilateral renal atrophy with slight perirenal edema. There is mild thickening of the wall of the renal pelvis bilaterally. Consider ascending urinary tract infection. 3. 1.4 cm nodular structure extending anteriorly off the mid right kidney measuring 45 HU. This is nonspecific. Recommend MRI or CT without and with intravenous contrast. 4. Bowel loops are nondilated. No acute inflammatory changes are seen involving the bowel. Electronically signed by: Willem Tapia MD 12/05/23 01:25 AM Diagnostic Findings Chest x-ray as per my interpretation borderline cardiomegaly, elevated right hemidiaphragm
[2023-12-05] MEDS ORDERED: LORazepam 0.5 MG TAB PO PRN (02:59)
[2023-12-05] MEDS: LACTATED RINGER'S 1,000 ML IV ONE (03:03)
[2023-12-05] MEDS: MAGNESIUM SULFATE / D5W 1 GM/100 ML BAG IV SCH (03:03)
[2023-12-05] MEDS: POTASSIUM CHLORIDE PWD 20 MEQ PACK PO STA (03:16)
[2023-12-05] MEDS: POTASSIUM CHLORIDE CRTAB 20 MEQ TABCR PO STA ×2 (03:29→21:07)
[2023-12-05 03:38] LABS: Base Excess VBG -10.6 mEq/L; HCO3 VBG 15 mmol/L; Oxygen Saturation VBG < 60.0 %; PCO2 VBG 33 mmHg (38-50); PO2 VBG 32 mmHg; pH VBG 7.27 (7.36-7.41)
[2023-12-05 03:57] LABS: Basophils # (auto) 0.12 K/uL (0.00-0.20); Basophils % (auto) 0.6 %; Eosinophils # (auto) 0.03 K/uL (0.00-0.50); Eosinophils % (auto) 0.2 %; Hematocrit (blood only) 34.4 % (42.0-52.0); Hemoglobin 11.6 g/dl (14.0-18.0); Immature Granulocytes # (auto) 0.12 K/uL (0.01-0.20); Immature Granulocytes % (auto) 0.6 %; Lymphocytes # (auto) 2.23 K/uL (1.20-3.40); Lymphocytes % (auto) 11.8 %; Mean Corpuscular Hgb Conc 33.7 g/dL (32.0-36.0); Mean Corpuscular Volume 88.9 fL (80.0-100.0); Mean Platelet Volume 13.9 fL (9.4-12.4); Monocytes # (auto) 1.06 K/uL (0.11-0.59); Monocytes % (auto) 5.6 %; Neutrophils # (auto) 15.31 K/uL (1.40-6.50); Neutrophils % (auto) 81.2 %; Platelet Count 120 K/uL (130-400); RDW Coefficient of Variation 16.6 % (11.5-14.5); RDW Standard Deviation 53.9 fL (36.4-46.3); Red Blood Count 3.87 M/uL (4.70-6.10); White Blood Count 18.87 K/ul (4.8-10.8)
[2023-12-05 04:10] LABS: Anion Gap 16 (3-11); BUN Creatinine Ratio 7.9 (10-20); Blood Urea Nitrogen 38 mg/dl (6-23); Calcium 5.6 mg/dl (8.6-10.3); Carbon Dioxide 14 mmol/L (21-32); Chloride 110 mmol/L (98-107); Est GFR (Non-African American) 12.1 ml/min; Glucose 90 mg/dl (70-99(Fasting)); Sodium 140 mmol/L (136-145)
[2023-12-05 04:56] LABS: Magnesium 1.1 mg/dl (1.7-2.4)
[2023-12-05] MEDS: Patient's ALLERGY Info needs ENTERED STA (05:29)
[2023-12-05] MEDS: POTASSIUM CHLORIDE CRTAB 20 MEQ TABCR PO ONE (05:37)
[2023-12-05] MEDS: POTASSIUM CHLORIDE / WTR 10 MEQ/100 ML PLCT IV SCH ×2 (05:37→22:10)
--- NOTE | 2023-12-05 06:52 | XRay Report ---
XR chest 1V portable HISTORY: 62 years-old Male arf acute shortness of breath with renal failure COMPARISON: CT of same day TECHNIQUE: AP view of the chest FINDINGS: Patient is mildly rotated. The cardiac silhouette is upper limits of normal in size. No pneumothorax, pleural effusion, airspace consolidation or pulmonary edema. Eventration of the right hemidiaphragm. Bones appear grossly intact. IMPRESSION: No acute process. ACT 112: Negative or not required by law. The above report was generated using voice recognition software. It may contain grammatical, syntax o r spelling errors. Electronically signed by: Jose Redmond M.D. 12/05/2023 6:51 AM
[2023-12-05 07:57] LABS: Estimated Average Glucose 100 mg/dl; Hemoglobin A1C 5.1 % (4.5-5.6)
[2023-12-05] MEDS: METOPROLOL SUCC 50MG EXT REL TAB PO SCH (09:08)
[2023-12-05] MEDS: CITALOPRAM 40 MG TAB PO SCH (09:09)
--- NOTE | 2023-12-05 10:09 | Gastrointestinal Consultation ---
Date of Consultation December 05, 2023 Assessment & Plan (1) Nausea: (2) Pelvic pain: Plan I suspect that his urinary issues and electrolyte abnormalities are causing many of his symptoms including the nausea and the pelvic pain. Suspect that as these are corrected that symptoms should improve. He denies any dysphagia specifically, and tells me it is more of a nausea issue. He reports unremarkable EGD recently from [facility] in [facility]. - will start protonix 40mg PO BID in case there is a component of gastritis. - recommend supportive care and correction of electrolyte abnormalities. Supervising Physician Co-Signing Physician Notes Agree with WINSTON Saleh as above Interviewed and examined patient and agree with above noted findings Abd: Soft, NT, ND, +BS Continue current therapy and supportive care Will obtain records from prior EGD Further recommendations to follow History of Present Illness Reason for Consultation: dysphagia Requesting Physician: Darien Gongora MD Attending Physician: Armando Logan MD History of Present Illness Patient is a 62 year old male with history of neurogenic bladder secondary to childhood polio, who presented to the ED for evaluation of nausea that had been ongoing for the past 2 weeks. He tells me that the nausea has been fairly constant but can be worse with eating. He has had episodes of vomiting. GI was consulted for dysphagia, but patient specifically denies any feelings of dysphagia. He tells me it is more the nausea sensation that he feels. He does have some lower pelvic pain, but otherwise no other pain. bowel movements are regular. no bleeding or melena. rest of GI ROS unremarkable. He tells me that he has had recent egd and colonoscopy through [facility] in [facility], but he was not sure of results though doesn't believe there was much on there. I do not have these records. 12/05/23 wbc 18.87, hgb 11.6, potassium 2, BUN 38, creatinine 4.82, calcium 5.6, mg 1.1. CT 12/04/23 bladder wall thickening, b/l renal atrophy with slight edema concerning for an ascending UTI. no acute inflammatory change of bowel. Allergies Allergy/AdvReac Type Severity Reaction Status Date / Time milk Allergy Diarrhea Verified 12/05/23 01:29 Home Medications Medication Instructions Recorded Confirmed Type citalopram 40 mg tablet 40 mg PO QAM 12/05/23 12/05/23 History cyanocobalamin (vitamin B-12) 1,000 mcg IM MONTHLY 12/05/23 12/05/23 History 1,000 mcg/mL injection solution doxepin 25 mg capsule 50 mg PO HS 12/05/23 12/05/23 History loperamide 2 mg capsule 4 mg PO TID PRN diarrhea 12/05/23 12/05/23 History metoprolol succinate 50 mg 50 mg PO QAM 12/05/23 12/05/23 History tablet,extended release 24 hr ondansetron HCl 4 mg tablet 4 mg PO TID 12/05/23 12/05/23 History tramadol 50 mg tablet 50 mg PO BID PRN Pain 12/05/23 12/05/23 History Patient History Medical History (Updated 12/05/23 @ 11:54 by Nichole Corbin MD, PhD) Poliomyelitis as child CKD (chronic kidney disease) stage 4, GFR 15-29 ml/min baseline creat 2 in 2020 Neurogenic bladder Surgical History (Updated 12/05/23 @ 11:51 by Nichole Corbin MD, PhD) History of hip surgery Hx of cholecystectomy Family History (Updated 12/05/23 @ 11:50 by Nichole Corbin MD, PhD) Other Diabetes Social History Smoking Status: Never smoker Hx Alcohol Use: No Hx Substance Use: No Preferred Language: French Communication Ability: Effective Wrapper Layer Required: No Beliefs That Will Affect Care: None Current Living Situation: Spouse Feels Safe at Home: Yes Assistive Devices: Cane and Wheelchair Review of Systems Review of Systems: All systems reviewed & are unremarkable except as noted in HPI & below Physical Exam Constitutional: WD/WN, vitals as above Respiratory: normal respiratory effort, lungs clear to auscultation Cardiovascular: RRR, no murmur, no edema Gastrointestinal (Abdomen): normal bowel sounds, soft, nontender, no hepatosplenomegaly Skin: no rashes, warm and dry Psychiatric: Orientation: alert and oriented x 3 Affect: euthymic affect Results & Data Vital Signs (Past 12 Hours) Vital Signs Pulse Pulse Resp BP BP Pulse Ox O2 Del Method 12/05/23 09:07 74 17 133/66 98 Room Air 12/05/23 07:13 78 12/05/23 05:00 85 16 12/05/23 04:01 112/73 12/05/23 04:01 82 19 100 04/10/24 04:00 86 20 126/82 99 12/05/23 03:01 90 16 12/05/23 03:00 93 H 17 114/72 12/05/23 02:31 93 H 13 117/80 12/05/23 02:00 79 17 140/77 100 12/05/23 01:30 83 18 136/82 96 12/05/23 01:01 91 H 12/05/23 01:00 106 H 17 136/79 12/05/23 00:00 89 22 113/87 94 12/04/23 23:30 106 H 16 95/79 L 12/04/23 23:00 97 H 28 H 120/83 96 Room Air 12/04/23 22:30 92 H 22 109/86 Coding Level of Care Code 31784 IN/OBS CONSULT LVL 4,60M Diagnoses Nausea R11.0 Pelvic pain R10.2
[2023-12-05] MEDS: PROMETHAZINE HCL 6.25 MG in SODIUM CHLORIDE 0.9% 50 ML IV PRN (10:12)
[2023-12-05 10:42] LABS: Base Excess VBG -10.4 mEq/L; HCO3 VBG 16 mmol/L; Oxygen Saturation VBG < 60.0 %; PCO2 VBG 38 mmHg (38-50); PO2 VBG 24 mmHg; pH VBG 7.24 (7.36-7.41)
[2023-12-05] MEDS: PIPERACILLIN/TAZOBACTAM 4.5 GM in DEXTROSE 5% MINI-B 100 ML IV SCH (10:47)
[2023-12-05] MEDS: PANTOprazole 40 MG TAB PO SCH (11:08)
[2023-12-05 11:23] LABS: Albumin Level 3.5 gm/dl (3.4-5.0); BUN Creatinine Ratio 7.7 (10-20); Calcium 5.9 mg/dl (8.6-10.3); Creatinine Clr Calc Pharmacy 15.7 ml/min; Phosphorus 2.6 mg/dl (2.5-4.9); Potassium 2.2 mmol/L (3.5-5.1)
[2023-12-05] MEDS ORDERED: STAT IV/IM STA (11:38)
--- NOTE | 2023-12-05 11:39 | Nephrology Consultation ---
Date of Consultation December 05, 2023 Assessment & Plan (1) Disorders of fluid, electrolyte, and acid-base balance: critical mag, K, calcium on presentation and ongoing; acuity undetermined. hypocalcemia likeliest d/t hypomagnesemia and less likely to renal dz. anion gap metabolic acidosis from renal failure +/- starvation ketoacidosis > lactate has normalized >continuous residential monitor >changed LR to plasmalyte w/ added K for high K & mag content, lower Cl >> plasmalyte + 40 mEq/L K at 150 mL hourly and hold if pt refuses labs (d/t renal function, K) >start slow mag IF mag drops again > which it may well do after IV repletion >started calcitriol 0.5 mcg bid >started calcium supplements po -cont qid po K 40 mEq as well as IV K as needed >needs labs likely at least TID and timed to be drawn AFTER infusions of lytes completed > so next one 1400 ; then 2000 >> will repeat bmp again AM given minimal response so far ->monitor phosphorus daily >> wnl currently but may be relatively elevated d/t renal dz -f/u 25 OHD; TSH, PTH are both appropriate (PTH appropriately elevated for low Ca at least in part) (2) Renal insufficiency: unknown baseline creatinine recently w/ last known creat of 2 in 2020 > eGFR by CKD EPI of 38 and this is quite certainly an overestimation given his weight, stature, polio hx all of which point to relatively less mm mass than average 63 y/o M. Presume therefore baseline CKD4. -avoid nephrotoxins -frequent BMP > at least BID hector w/ aggressive K repletion and poor function -strict I/o History of Present Illness Reason for Consultation: DARRIAN on CKD w/ multiple electrolyte abnormalities Requesting Physician: Dr Gongora Attending Physician: Armando Logan MD History of Present Illness 62 y/o M whom I'm asked to see for DARRIAN on CKD and multiple electrolyte abnormalities was admitted overnight for same in the wake of 2 weeks of nausea, dry heaves, diarrhea, poor po intake. PMH includes neurogenic bladder after childhood polio on [facility]IC, presumably advanced CKD, IBS-D, recurrent hypokalemia, mood disorder NOS, nonadherence to medical recommendations. Past hip fracture surgery and cholecystectomy. Pt w/ long hx of CKD but no recent bloodwork or nephrology care; last baseline creatinine from 2020 and 1.8-2. He had bronchitis about 2 wks back treated w/ Zpak in wake of which above sx started. His gives most of the hx and reports poor po intake x weeks. his presenting K was 2, mag 1.1, ca 5.6, creatinine 4.8; WBC 19. He had 2L NS and was changed to LR at 100 mL/hr. He has had massive electrolyte repletion > 80 mEq po K so far w/ 40 mEq qid ordered to start soon; also 40 mEq IV K plus 3 gm mag IV plus 2 gm calcium IV and 2 more gm IV to start soon. Blood and urine cxs are pending. He was started on zosyn; GI evaluated pt and is waiting on outside EGD/colo report but not inclined to dx acute GI concern. N/v much improved. some lower abdominal pain else none; no musculoskeletal c/o cramp or pain. ongoing diarrhea/fecal urgency; no constipation. no dysuria/gross hematuria/flank pain - no issues w/ CIC. no rash or F; at least 10 lb wt loss past few wks and worsening weakness. Lives in [place] but came here b/c too long a wait at that ER Allergies Allergy/AdvReac Type Severity Reaction Status Date / Time milk Allergy Diarrhea Verified 12/05/23 01:29 Home Medications Medication Instructions Recorded Confirmed Type citalopram 40 mg tablet 40 mg PO QAM 12/05/23 12/05/23 History cyanocobalamin (vitamin B-12) 1,000 mcg IM MONTHLY 12/05/23 12/05/23 History 1,000 mcg/mL injection solution doxepin 25 mg capsule 50 mg PO HS 12/05/23 12/05/23 History loperamide 2 mg capsule 4 mg PO TID PRN diarrhea 12/05/23 12/05/23 History metoprolol succinate 50 mg 50 mg PO QAM 12/05/23 12/05/23 History tablet,extended release 24 hr ondansetron HCl 4 mg tablet 4 mg PO TID 12/05/23 12/05/23 History tramadol 50 mg tablet 50 mg PO BID PRN Pain 12/05/23 12/05/23 History Patient History Medical History (Updated 12/05/23 @ 11:54 by Nichole Corbin MD, PhD) Poliomyelitis as child CKD (chronic kidney disease) stage 4, GFR 15-29 ml/min baseline creat 2 in 2020 Neurogenic bladder Surgical History (Updated 12/05/23 @ 11:51 by Nichole Corbin MD, PhD) History of hip surgery Hx of cholecystectomy Family History (Updated 12/05/23 @ 11:50 by Nichole Corbin MD, PhD) Other Diabetes Social History Smoking Status: Never smoker Second Hand Exposure: No; Do You Dip or Chew Tobacco: No; Hx Alcohol Use: No Hx Substance Use: No Preferred Language: Samoan Communication Ability: Effective Communication Ability Comment: Hard of hearing Motor Vehicle Lecturer Required: No Beliefs That Will Affect Care: None Current Living Situation: Spouse Feels Safe at Home: Yes Assistive Devices: Denture - Upper, Glasses, Walker and Other Review of Systems 2 Review of Systems: All systems reviewed & are unremarkable except as noted in HPI & below Physical Exam 2 Constitutional: well developed (small stature), well nourished and + physical limitations; no acute distress Eyes: EOM intact bilaterally ENMT: Ears: no external ear abnormality Nose: no external nose abnormality Mouth: + dry oral mucous membranes Neck: no nuchal rigidity Respiratory: normal respiratory effort Auscultation: + diminished lung sounds Gastrointestinal (Abdomen): Inspection/Auscultation: normal bowel sounds P ercussion/Palpation: abdomen soft; abdomen nontender Musculoskeletal: Extremities: strength 5/5 throughout Skin: no rashes, warm and dry Neurologic: alcala, fluent speech, no tremor Results & Data Vital Signs (Past 12 Hours) Vital Signs Pulse Pulse Resp BP BP Pulse Ox O2 Del Method 12/05/23 09:07 74 17 133/66 98 Room Air 12/05/23 07:13 78 12/05/23 05:00 85 16 12/05/23 04:01 112/73 12/05/23 04:01 82 19 100 12/05/23 04:00 86 20 126/82 99 12/05/23 03:01 90 16 12/05/23 03:00 93 H 17 114/72 12/05/23 02:31 93 H 13 117/80 12/05/23 02:00 79 17 140/77 100 12/05/23 01:30 83 18 136/82 96 12/05/23 01:01 91 H 12/05/23 01:00 106 H 17 136/79 12/05/23 00:00 89 22 113/87 94 Laboratory Results 12/05/23 03:23 12/05/23 10:[address] a/p no con Lung bases: Unremarkable. No mass. No consolidation. ABDOMEN: Liver: Unremarkable. Gallbladder and bile ducts: Previous cholecystectomy. No biliary duct dilation is seen. Pancreas: Unremarkable. No ductal dilation. Spleen: Unremarkable. No splenomegaly. Adrenals: Unremarkable. No mass. Kidneys and ureters: Mild bilateral renal atrophy with slight perirenal edema. There is mild thickening of the wall of the renal pelvis bilaterally. Consider ascending urinary tract infection. 1.4 cm nodular structure extending anteriorly off the mid right kidney measuring 45 HU. No obstructing stones. No hydronephrosis. Stomach and bowel: Bowel loops are nondilated. No acute inflammatory changes are seen involving the bowel. No mucosal thickening. PELVIS: Appendix: No findings to suggest acute appendicitis. Bladder: There is a 1 cm circumferential urinary bladder wall thickening. No stones. Reproductive: Unremarkable as visualized. ABDOMEN and PELVIS: Intraperitoneal space: Unremarkable. No free air. No significant fluid collection. Bones/joints: Moderate to severe multilevel degenerative throughout the spine. No developmental hypoplasia and fusion of T10-T12. No acute fracture is seen. Right hip arthroplasty. There are moderate degenerative changes in the left hip. No acute fracture or dislocation. Soft tissues: See above. Vasculature: Unremarkable. No abdominal aortic aneurysm. Lymph nodes: Unremarkable. No enlarged lymph nodes. IMPRESSION: 1. There is a 1 cm circumferential urinary bladder wall thickening. This may be due to cystitis or decompressed status. 2. Mild bilateral renal atrophy with slight perirenal edema. There is mild thickening of the wall of the renal pelvis bilaterally. Consider ascending urinary tract infection. 3. 1.4 cm nodular structure extending anteriorly off the mid right kidney measuring 45 HU. This is nonspecific. Recommend MRI or CT without and with intravenous contrast. 4. Bowel loops are nondilated. No acute inflammatory changes are seen involving the bowel.
[2023-12-05] MEDS ORDERED: ACETAMINOPHEN 325 MG TAB PO PRN (11:44)
[2023-12-05] MEDS ORDERED: HYDROmorphone INJ 0.5 MG/0.5 ML SYR IV PRN (11:44)
[2023-12-05 12:04] LABS: Thyroid Stimulating Hormone 1.361 uIu/ml (0.300-4.500)
[2023-12-05] MEDS: CALCIUM GLUCONATE 10% 1,000 MG in SODIUM CHLOR 0.9% MINI-B 50 ML IV SCH (12:38)
[2023-12-05] MEDS: POTASSIUM CHLORIDE PWD 20 MEQ PACK PO SCH (12:38)
[2023-12-05] MEDS: POTASSIUM CHLORIDE 40 MEQ in PLASMA-LYTE A 1,000 ML IV SCH (13:26)
[2023-12-05] MEDS: CALCIUM CARBONATE 1250MG TAB PO SCH (13:26)
[2023-12-05] MEDS: CALCITRIOL 0.25 MCG CAPSULE PO SCH (13:26)
[2023-12-05 15:21] LABS: Calcium 6.1 mg/dl (8.6-10.3); Creatinine Clr Calc Pharmacy 16.3 ml/min; Est GFR (African American) 15.7 ml/min; Est GFR (Non-African American) 13.6 ml/min; Magnesium 1.9 mg/dl (1.7-2.4); Phosphorus 2.7 mg/dl (2.5-4.9); Potassium 2.3 mmol/L (3.5-5.1)
--- NOTE | 2023-12-05 17:24 | Communication Note ---
Date of Service: December 05, 2023 Patient seen and examined in the ED. He is lying in the bed comfortably; not in distress. Work-up reveals persistent hypokalemia, DARRIAN on CKD or Progressive CKD (unknown baseline, remote creatinine of 2 in 2020) Replete potassium with IV and oral supplement IV fluid with Plasma-Lyte with potassium Started on calcitriol and calcium supplement Continue antibiotics for possible UTI. Urine culture and blood culture pending Full progress note to follow tomorrow Straight cath as necessary On physical exam; Constitutional: Alert oriented x 3; not in any distress. Respiratory: Bilateral vesicular breath sound Cardiovascular: RRR, no murmur, no edema Vessels: no JVD or carotid bruit Chest: normal inspection of chest Abdomen: normal bowel sounds, soft, nontender, no hepatosplenomegaly Neurologic: PERRL, EOMI, accommodation nl, no face palsy, no dysarthria CN's II- XI intact bilaterally and moves all extremities Psychiatric: A+Ox3, euthymic affect
[2023-12-05] MEDS: POTASSIUM CHLORIDE CRTAB 20 MEQ TABCR PO SCH (20:15)
[2023-12-05 21:05] LABS: BUN Creatinine Ratio 7.8 (10-20); Calcium 6.1 mg/dl (8.6-10.3); Creatinine Clr Calc Pharmacy 16.4 ml/min; Est GFR (African American) 15.8 ml/min; Est GFR (Non-African American) 13.6 ml/min; Potassium 2.4 mmol/L (3.5-5.1)
[2023-12-05] MEDS: traMADol HCL 50 MG TABLET PO PRN (22:11)
[2023-12-06 00:13] LABS: BUN Creatinine Ratio 7.8 (10-20); Calcium 6.1 mg/dl (8.6-10.3); Creatinine Clr Calc Pharmacy 16.9 ml/min; Est GFR (African American) 16.4 ml/min; Est GFR (Non-African American) 14.2 ml/min; Potassium 2.6 mmol/L (3.5-5.1)
[2023-12-06] MEDS: MAGNESIUM SULFATE / D5W 1 GM/100 ML BAG IV ONE (01:34)
[2023-12-06 03:36] LABS: Adenovirus F 40/41 PCR Not Detected (NotDetected); Astrovirus PCR Not Detected (NotDetected); Campylobacter PCR Not Detected (NotDetected); Cryptosporidium PCR Not Detected (NotDetected); Cyclospora cayetanensis PCR Not Detected (NotDetected); Entamoeba histolytica PCR Not Detected (NotDetected); Enteroaggregative E.coli(EAEC) Not Detected (NotDetected); Enteropathogenic E.coli (EPEC) Not Detected (NotDetected); Enterotoxigenic E.coli (ETEC) Not Detected (NotDetected); Giardia lamblia PCR Not Detected (NotDetected); Plesiomonas shigelloides PCR Not Detected (NotDetected); Rotavirus A PCR Not Detected (NotDetected); Salmonella PCR Not Detected (NotDetected); Sapovirus PCR Not Detected (NotDetected); Shiga-like Toxin E.coli (STEC) Not Detected (NotDetected); Shigella/Enteroinvasive E.coli Not Detected (NotDetected); Vibrio cholerae PCR Not Detected (NotDetected); Vibrio species PCR Not Detected (NotDetected); Yersinia enterocolitica PCR Not Detected (NotDetected)
[2023-12-06 03:51] LABS: Norovirus GI/GII PCR DETECTED (NotDetected)
[2023-12-06 08:10] LABS: Basophils % (auto) 1.3 %; Eosinophils # (auto) 0.52 K/uL (0.00-0.50); Eosinophils % (auto) 3.3 %; Hematocrit (blood only) 30.2 % (42.0-52.0); Hemoglobin 10.4 g/dl (14.0-18.0); Immature Granulocytes # (auto) 0.11 K/uL (0.01-0.20); Immature Granulocytes % (auto) 0.7 %; Lymphocytes # (auto) 2.76 K/uL (1.20-3.40); Lymphocytes % (auto) 17.3 %; Mean Corpuscular Hemoglobin 30.1 pg (25.0-34.0); Mean Corpuscular Hgb Conc 34.4 g/dL (32.0-36.0); Mean Corpuscular Volume 87.3 fL (80.0-100.0); Monocytes # (auto) 0.93 K/uL (0.11-0.59); Monocytes % (auto) 5.8 %; Neutrophils # (auto) 11.39 K/uL (1.40-6.50); Neutrophils % (auto) 71.6 %; Platelet Count 113 K/uL (130-400); RDW Coefficient of Variation 16.9 % (11.5-14.5); RDW Standard Deviation 53.5 fL (36.4-46.3); Red Blood Count 3.46 M/uL (4.70-6.10); White Blood Count 15.91 K/ul (4.8-10.8)
[2023-12-06 08:31] LABS: BUN Creatinine Ratio 7.1 (10-20); Creatinine Clr Calc Pharmacy 17.9 ml/min; Est GFR (African American) 17.1 ml/min; Est GFR (Non-African American) 14.8 ml/min; Magnesium 1.9 mg/dl (1.7-2.4); Potassium 2.7 mmol/L (3.5-5.1)
[2023-12-06] MEDS ORDERED: STAT IV/IM STA (09:57)
[2023-12-06] MEDS: aMILoride HCL 5 MG TAB PO SCH (10:27)
[2023-12-06] MEDS: CALCIUM GLUCONATE 10% 1,000 MG in SODIUM CHLOR 0.9% MINI-B 50 ML IV SCH (10:54)
[2023-12-06] MEDS: aMILoride HCL 5 MG TAB PO STA (10:54)
--- NOTE | 2023-12-06 13:11 | Nephrology Progress Note ---
Date of Service December 06, 2023 Assessment & Plan Admission and Anticipated Discharge Date Admission Date: December 05, 2023 Subjective Assessment & Plan (1) Disorders of fluid, electrolyte, and acid-base balance: critical low mag, K, calcium on presentation and ongoing. hypocalcemia likeliest d/t hypomagnesemia and less likely to renal dz. present at bedside. according to the and the patient-- he has had low potassium and low magnesium for many years. " interestingly even as a little child patient was given a concoction of mashed banana to give extra potassium"-- this could very well mean that he had low potassium and magnesium even as a little kid. 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 in this situation it becomes increasingly difficult almost impossible no matter how much supplement we give. would like to try amiloride 5 mg now and continue current oral and intravenous potassium supplementation. amiloride can reverse or slow down the renal potassium and magnesium wasting. (2) Renal insufficiency: unknown baseline creatinine recently w/ last known creat of 2 in 2020 > eGFR by CKD EPI of 38 and this is quite certainly an overestimation given his weight, stature, polio hx all of which point to relatively less mm mass than average 63 y/o M. Presume therefore baseline CKD4. I will like to see his previous outpatient labs. he has seen portfolio administrator in [place] but has not gone back and would like to follow with [facility]. I have asked my clinic nurse to obtain his outpatient labs from PCP office. S---Feels little bit Better. Less weak and less cramps. making urine. Blood pressure somewhat low. No longer has diarrhea Physical Exam Constitutional: well developed (small stature), well nourished and + physical limitations; no acute distress Eyes: EOM intact bilaterally ENMT: Ears: no external ear abnormality Nose: no external nose abnormality Mouth: + dry oral mucous membranes Neck: no nuchal rigidity Respiratory: normal respiratory effort Auscultation: + diminished lung sounds Gastrointestinal (Abdomen): Inspection/Auscultation: normal bowel sounds Percussion/Palpation: abdomen soft; abdomen nontender Musculoskeletal: Extremities: strength 5/5 throughout Skin: no rashes, warm and dry Neurologic: alcala, fluent speech, no tremor Results & Data Vital Signs (Past 12 Hours) Vital Signs Temp Pulse Pulse Pulse Resp BP BP 12/06/23 11:22 36.4 C L 62 18 99/63 L 12/06/23 09:58 64 12/06/23 09:02 70 105/70 12/06/23 08:37 68 112/70 12/06/23 07:49 36.7 C 61 18 98/67 L 12/06/23 03:43 36.3 C L 57 L 16 104/68 Pulse Ox O2 Del Method 12/06/23 11:22 100 Room Air 12/06/23 09:58 12/06/23 09:02 12/06/23 08:37 99 Room Air 12/06/23 07:49 100 Room Air 12/06/23 03:43 100 Room Air
[2023-12-06] MEDS ORDERED: ARTIFICIAL TEARS OPB PRN (13:35)
--- NOTE | 2023-12-06 13:38 | Hospitalist Progress Note ---
Date of Service December 06, 2023 Assessment & Plan (1) Severe sepsis: Plan: Sepsis, POA Catheter-associated UTI due to self catheterization for neurogenic bladder history of neurogenic bladder attributed to childhood poliomyelitis Norovirus infection History of neurogenic bladder; patient does intermittent straight cath at home. Presents with tiredness and fatigue and fever Leukocytosis present Urine culture positive for gram-negative bacilli, Staphylococcus species. Blood culture no growth in 24 hours Continue on current antibiotics; follow-up on final culture and sensitivity Continue intermittent cath; history of difficult Shea catheterization in the past. Uses sterile technique DARRIAN on CKD Severe hypokalemia Hypomagnesemia Hypocalcemia, vitamin D deficiency Presented with creatinine of 4.93; remote creatinine of 2 in 2020. Unknown recent baseline Downtrending with IV hydration to 4.08 History of severe hypokalemia; suspect renal wasting. Vitamin D level less than 7 ng/per DL Continue repletion. Started on amiloride IV fluids as per nephrology Strict input and output monitoring Incidental finding of right kidney nodule on CT- follow up on outpatient. mood disorder, stable - continue citalopram Time spent evaluating patient, direct bedside care, chart review, placing orders, interpretation of diagnostic studies, discussion with consultants, patient, and family members, as well as other required patient management activities is 50 minutes Please note the above document was generated using voice recognition software. It may contain grammatical, syntax or spelling errors. Any formal questions or concerns about the content, text or information contained within the body of this dictation should be directly addressed to the provider for clarification Admission and Anticipated Discharge Date Admission Date: December 05, 2023 Subjective Patient seen and examined at bedside. Comfortable; not in distress. Denies fever, chills, chest pain, shortness of breath, abdominal pain or urinary symptoms. No significant overnight events Review of Systems Review of Systems: All systems reviewed & are unremarkable except as noted in Subjective Physical Exam Physical Exam: Constitutional: Alert oriented x 3; not in any distress. Respiratory: Bilateral vesicular breath sound Cardiovascular: RRR, no murmur, no edema Vessels: no JVD or carotid bruit Chest: normal inspection of chest Abdomen: normal bowel sounds, soft, nontender, no hepatosplenomegaly Neurologic: PERRL, EOMI, accommodation nl, no face palsy, no dysarthria CN's II- XI intact bilaterally and moves all extremities Psychiatric: A+Ox3, euthymic affect Results & Data Results & Data Vital Signs (Past 12 Hours) Vital Signs Temp Pulse Pulse Pulse Resp BP BP 12/06/23 11:22 36.4 C L 62 18 99/63 L 12/06/23 09:58 64 12/06/23 09:02 70 105/70 12/06/23 08:37 68 112/70 12/06/23 07:49 36.7 C 61 18 98/67 L 12/06/23 03:43 36.3 C L 57 L 16 104/68 Pulse Ox O2 Del Method 12/06/23 11:22 100 Room Air 12/06/23 09:58 12/06/23 09:02 12/06/23 08:37 99 Room Air 12/06/23 07:49 100 Room Air 12/06/23 03:43 100 Room Air
[2023-12-06 15:09] LABS: Potassium Random Urine 9.2 mmol/L
[2023-12-06 15:18] LABS: Creatinine Urine Random 54.4 mg/dl
[2023-12-06 15:22] LABS: Albumin Level 3.1 gm/dl (3.4-5.0); BUN Creatinine Ratio 6.7 (10-20); Calcium 6.9 mg/dl (8.6-10.3); Creatinine Clr Calc Pharmacy 19.6 ml/min; Est GFR (African American) 19.1 ml/min; Est GFR (Non-African American) 16.5 ml/min; Magnesium 1.9 mg/dl (1.7-2.4); Potassium 3.3 mmol/L (3.5-5.1)
[2023-12-06] MEDS: CIPROFLOXACIN HCL 0.3% OP SOLN 2.5 ML BTL OP SCH (21:57)
[2023-12-07 08:08] LABS: Basophils # (auto) 0.19 K/uL (0.00-0.20); Basophils % (auto) 1.4 %; Eosinophils # (auto) 0.72 K/uL (0.00-0.50); Eosinophils % (auto) 5.2 %; Hemoglobin 10.3 g/dl (14.0-18.0); Immature Granulocytes # (auto) 0.09 K/uL (0.01-0.20); Immature Granulocytes % (auto) 0.6 %; Lymphocytes # (auto) 2.26 K/uL (1.20-3.40); Lymphocytes % (auto) 16.3 %; Mean Corpuscular Hemoglobin 29.9 pg (25.0-34.0); Mean Corpuscular Hgb Conc 33.2 g/dL (32.0-36.0); Mean Corpuscular Volume 90.1 fL (80.0-100.0); Mean Platelet Volume 13.1 fL (9.4-12.4); Monocytes # (auto) 0.63 K/uL (0.11-0.59); Monocytes % (auto) 4.5 %; Neutrophils # (auto) 9.98 K/uL (1.40-6.50); Platelet Count 103 K/uL (130-400); RDW Coefficient of Variation 17.4 % (11.5-14.5); RDW Standard Deviation 57.5 fL (36.4-46.3); Red Blood Count 3.44 M/uL (4.70-6.10); White Blood Count 13.87 K/ul (4.8-10.8)
[2023-12-07 08:10] LABS: BUN Creatinine Ratio 5.7 (10-20); Calcium 6.5 mg/dl (8.6-10.3); Est GFR (African American) 21.7 ml/min; Est GFR (Non-African American) 18.7 ml/min; Magnesium 1.7 mg/dl (1.7-2.4); Potassium 3.2 mmol/L (3.5-5.1)
[2023-12-07] MEDS ORDERED: STAT IV/IM STA ×2 (08:47→09:09)
--- NOTE | 2023-12-07 09:06 | Nephrology Progress Note ---
Date of Service December 07, 2023 Assessment & Plan Admission and Anticipated Discharge Date Admission Date: December 05, 2023 Subjective Assessment & Plan (1) Disorders of fluid, electrolyte, and acid-base balance: critical low mag, K, calcium on presentation and ongoing. hypocalcemia likeliest d/t hypomagnesemia and less likely to renal dz. present at bedside. according to the and the patient-- he has had low potassium and low magnesium for many years. " interestingly even as a little child patient was given a concoction of mashed banana to give extra potassium"-- this could very well mean that he had low potassium and magnesium even as a little kid. 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 in this situation it becomes increasingly difficult almost impossible no matter how much supplement we give. would like to try amiloride 5 mg bid now and continue oral and intravenous potassium supplementation. Lowered Kcl to 40 tid. amiloride can reverse or slow down the renal potassium and magnesium wasting. However Correcting Ca has been very difficult--Ca actually went down.so---Add Cholecalciferol ( vit d < 7) , Raise oral ca++ to 1250 tid. Give Ca gluconate 1 gm iv slowly x 5. Add Slow-mag 64 bid + iv mag. (2) Renal insufficiency: unknown baseline creatinine recently w/ last known creat of 2 in 2020. Creat trending down with iv fluids. I will like to see his previous outpatient labs. His last labs were from --ca was low 7 creat 1.8 k was low 3. he has seen button riveter in [place] but has not gone back and would like to follow with [facility]. S---Feels little bit Better. Less weak and less cramps. making urine. Blood pressure somewhat low. No longer has diarrhea Physical Exam Constitutional: well developed (small stature), well nourished and + physical limitations; no acute distress Eyes: EOM intact bilaterally ENMT: Ears: no external ear abnormality Nose: no external nose abnormality Mouth: + dry oral mucous membranes Neck: no nuchal rigidity Respiratory: normal respiratory effort Auscultation: + diminished lung sounds Gastrointestinal (Abdomen): Inspection/Auscultation: normal bowel sounds Percussion/Palpation: abdomen soft; abdomen nontender Musculoskeletal: Extremities: strength 5/5 throughout Skin: no rashes, warm and dry Neurologic: alcala, fluent speech, no tremor Results & Data Vital Signs (Past 12 Hours) Vital Signs Temp Pulse Pulse Resp BP Pulse Ox O2 Del Method 12/07/23 07:59 36.5 C 77 18 98/62 L 99 Room Air 12/07/23 03:54 36.6 C 62 16 101/66 98 Room Air 12/06/23 23:03 66 12/06/23 22:51 36.6 C 60 16 105/65 98 Room Air
[2023-12-07] MEDS: POTASSIUM CHLORIDE CRTAB 20 MEQ TABCR PO SCH (09:26)
[2023-12-07] MEDS: CALCITRIOL 0.25 MCG CAPSULE PO SCH (09:27)
[2023-12-07] MEDS: aMILoride HCL 5 MG TAB PO SCH ×2 (09:33→20:57)
[2023-12-07] MEDS: CHOLECALCIFEROL 25 MCG (1000 UNITS) TAB PO SCH (09:45)
[2023-12-07] MEDS: CALCIUM GLUCONATE 10% 1,000 MG in SODIUM CHLOR 0.9% MINI-B 50 ML IV SCH ×2 (09:47→10:49)
[2023-12-07] MEDS: MAGNESIUM SULFATE / D5W 1 GM/100 ML BAG IV SCH (09:47)
--- NOTE | 2023-12-07 13:39 | Hospitalist Progress Note ---
Date of Service December 07, 2023 Assessment & Plan (1) Severe sepsis: Plan: Sepsis, POA Catheter-associated UTI due to self catheterization for neurogenic bladder history of neurogenic bladder attributed to childhood poliomyelitis Norovirus infection History of neurogenic bladder; patient does intermittent straight cath at home. Presents with tiredness and fatigue and fever Leukocytosis present Urine culture positive for Pseudomonas aeruginosa Staphylococcus species. Blood culture no growth in 24 hours Continue on Zosyn; will require 7 days of antibiotic treatment Continue intermittent cath; history of difficult Shea catheterization in the past. Recommended to use sterile technique Monitor for diarrhea DARRIAN on CKD Severe hypokalemia Hypomagnesemia Hypocalcemia, vitamin D deficiency Presented with creatinine of 4.93; remote creatinine of 2 in 2020. Unknown recent baseline Downtrending with IV hydration History of severe hypokalemia; suspect renal wasting. Vitamin D level less than 7 ng/per DL Continue repletion. Started on amiloride Strict input and output monitoring Incidental finding of right kidney nodule on CT- follow up on outpatient. mood disorder, stable -citalopram on hold due to elevated QTc Time spent evaluating patient, direct bedside care, chart review, placing orders, interpretation of diagnostic studies, discussion with consultants, patient, and family members, as well as other required patient management activities is 50 minutes Please note the above document was generated using voice recognition software. It may contain grammatical, syntax or spelling errors. Any formal questions or concerns about the content, text or information contained within the body of this dictation should be directly addressed to the provider for clarification Admission and Anticipated Discharge Date Admission Date: December 05, 2023 Subjective Patient reports tiredness and fatigue. He continues to have diarrhea. No significant event overnight Review of Systems Review of Systems: All systems reviewed & are unremarkable except as noted in Subjective Physical Exam Physical Exam: Constitutional: Alert oriented x 3; not in any distress. Appears tired Respiratory: Bilateral vesicular breath sound Cardiovascular: RRR, no murmur, no edema Vessels: no JVD or carotid bruit Chest: normal inspection of chest Abdomen: normal bowel sounds, soft, nontender, no hepatosplenomegaly Neurologic: PERRL, EOMI, accommodation nl, no face palsy, no dysarthria CN's II- XI intact bilaterally and moves all extremities Psychiatric: A+Ox3, euthymic affect Results & Data Results & Data Vital Signs (Past 12 Hours) Vital Signs Temp Pulse Pulse Resp BP Pulse Ox O2 Del Method 12/07/23 11:35 36.6 C 77 18 114/70 98 Room Air 12/07/23 10:46 75 12/07/23 07:59 36.5 C 77 18 98/62 L 99 Room Air 12/07/23 03:54 36.6 C 62 16 101/66 98 Room Air
[2023-12-07] MEDS: CALCIUM CARBONATE 1250MG TAB PO SCH (13:56)
[2023-12-07] MEDS: LOPERAMIDE HCL 2 MG CAP PO PRN (13:57)
[2023-12-07] MEDS: PIPERACILLIN/TAZOBACTAM 4.5 GM in DEXTROSE 5% MINI-B 100 ML IV SCH (20:50)
[2023-12-07] MEDS: MAGNESIUM CHLORIDE W/CALCIUM 64MG DELAYED REL TAB PO SCH (20:57)
--- NOTE | 2023-12-07 22:40 | Electrocardiogram Report ---
Test Reason : Blood Pressure : / mmHG Vent. Rate : 063 BPM Atrial Rate : 063 BPM P-R Int : 144 ms QRS Dur : 104 ms QT Int : 532 ms P-R-T Axes : 035 017 041 degrees QTc Int : 544 ms Normal sinus rhythm Nonspecific T wave abnormality Prolonged QT Abnormal ECG No previous ECGs available Confirmed by Wellington Fish ([id number]) on 12/07/2023 10:39:39 PM Referred By: REFERRED SELF Confirmed By:Wellington Fish
[2023-12-08 08:48] LABS: Basophils % (auto) 1.4 %; Eosinophils # (auto) 0.57 K/uL (0.00-0.50); Eosinophils % (auto) 3.9 %; Hematocrit (blood only) 34.7 % (42.0-52.0); Hemoglobin 11.3 g/dl (14.0-18.0); Immature Granulocytes # (auto) 0.14 K/uL (0.01-0.20); Lymphocytes # (auto) 1.99 K/uL (1.20-3.40); Lymphocytes % (auto) 13.6 %; Mean Corpuscular Hemoglobin 29.7 pg (25.0-34.0); Mean Corpuscular Hgb Conc 32.6 g/dL (32.0-36.0); Mean Corpuscular Volume 91.3 fL (80.0-100.0); Mean Platelet Volume 12.9 fL (9.4-12.4); Monocytes # (auto) 0.88 K/uL (0.11-0.59); Neutrophils # (auto) 10.82 K/uL (1.40-6.50); Neutrophils % (auto) 74.1 %; Platelet Count 130 K/uL (130-400); RDW Coefficient of Variation 17.8 % (11.5-14.5)
[2023-12-08 09:06] LABS: Calcium 7.2 mg/dl (8.6-10.3); Creatinine Clr Calc Pharmacy 24.7 ml/min; Est GFR (African American) 25.1 ml/min; Est GFR (Non-African American) 21.7 ml/min; Magnesium 1.7 mg/dl (1.7-2.4); Potassium 3.4 mmol/L (3.5-5.1)
--- NOTE | 2023-12-08 12:16 | Hospitalist Progress Note ---
Date of Service December 08, 2023 Assessment & Plan (1) Severe sepsis: Plan: Sepsis, POA Catheter-associated UTI due to self catheterization for neurogenic bladder history of neurogenic bladder attributed to childhood poliomyelitis Norovirus infection History of neurogenic bladder; patient does intermittent straight cath at home. Presents with tiredness and fatigue and fever Leukocytosis present Urine culture positive for Pseudomonas aeruginosa Staphylococcus species. Blood culture no growth in 24 hours Continue on Zosyn; will require 7 days of antibiotic treatment Continue intermittent cath; history of difficult Shea catheterization in the past. Recommended to use sterile technique Monitor for diarrhea DARRIAN on CKD Severe hypokalemia Hypomagnesemia Hypocalcemia, vitamin D deficiency Presented with creatinine of 4.93; remote creatinine of 2 in 2020. Unknown recent baseline Downtrending with IV hydration History of severe hypokalemia; suspect renal wasting. Vitamin D level less than 7 ng/per DL Continue supplement of potassium with potassium citrate 40 mEq tid. Also ordered magnesium, calcium supplement. Strict input and output monitoring Incidental finding of right kidney nodule on CT- follow up on outpatient. mood disorder, stable -citalopram on hold due to elevated QTc. QTc personally reviewed; QTc of 510 Time spent evaluating patient, direct bedside care, chart review, placing orders, interpretation of diagnostic studies, discussion with consultants, patient, and family members, as well as other required patient management activities is 50 minutes Please note the above document was generated using voice recognition software. It may contain grammatical, syntax or spelling errors. Any formal questions or concerns about the content, text or information contained within the body of this dictation should be directly addressed to the provider for clarification Admission and Anticipated Discharge Date Admission Date: December 05, 2023 Subjective Patient reports that he is feeling slightly better. No significant events overnight. Urine output of 2200 cc in last 24 hours Continues to have intermittent diarrhea Review of Systems Review of Systems: All systems reviewed & are unremarkable except as noted in Subjective Physical Exam Physical Exam: Constitutional: Alert oriented x 3; not in any distress. Appears tired Respiratory: Bilateral vesicular breath sound Cardiovascular: RRR, no murmur, no edema Vessels: no JVD or carotid bruit Chest: normal inspection of chest Abdomen: normal bowel sounds, soft, nontender, no hepatosplenomegaly Neurologic: PERRL, EOMI, accommodation nl, no face palsy, no dysarthria CN's II- XI intact bilaterally and moves all extremities Psychiatric: A+Ox3, euthymic affect Results & Data Results & Data Vital Signs (Past 12 Hours) Vital Signs Temp Pulse Pulse Pulse Resp BP BP 12/08/23 11:18 36.6 C 89 18 119/73 12/08/23 08:00 12/08/23 07:42 94 H 12/08/23 07:20 36.7 C 95 H 17 111/76 12/08/23 03:00 36.4 C L 82 16 120/62 Pulse Ox O2 Del Method 12/08/23 11:18 92 Room Air 12/08/23 08:00 Room Air 12/08/23 07:42 12/08/23 07:20 99 Room Air 12/08/23 03:00 97 Room Air
[2023-12-08] MEDS: POTASSIUM CITRATE 10 MEQ TAB PO SCH (13:53)
--- NOTE | 2023-12-09 07:19 | Electrocardiogram Report ---
Test Reason : Blood Pressure : / mmHG Vent. Rate : 101 BPM Atrial Rate : 101 BPM P-R Int : 140 ms QRS Dur : 096 ms QT Int : 394 ms P-R-T Axes : 012 -16 053 degrees QTc Int : 510 ms Sinus tachycardia Possible Inferior infarct , age undetermined Poor R wave progression, consider anterior [place] vs. lead placement vs. LVH Abnormal ECG When compared with ECG of 06-DEC-2023 00:51, Vent. rate has increased BY 38 BPM Borderline criteria for Inferior infarct are now Present Nonspecific T wave abnormality now evident in Lateral leads Confirmed by Zac Florian ([id number]) on 12/09/2023 7:18:52 AM Referred By: REFERRED SELF Confirmed By:Ron Florian
[2023-12-09 08:36] LABS: Calcium 7.5 mg/dl (8.6-10.3); Creatinine Clr Calc Pharmacy 26.4 ml/min; Est GFR (African American) 27.2 ml/min; Est GFR (Non-African American) 23.5 ml/min; Potassium 3.9 mmol/L (3.5-5.1)
[2023-12-09 08:42] LABS: Basophils # (auto) 0.19 K/uL (0.00-0.20); Basophils % (auto) 1.4 %; Eosinophils # (auto) 0.56 K/uL (0.00-0.50); Hematocrit (blood only) 35.9 % (42.0-52.0); Hemoglobin 11.4 g/dl (14.0-18.0); Immature Granulocytes # (auto) 0.14 K/uL (0.01-0.20); Lymphocytes # (auto) 2.18 K/uL (1.20-3.40); Lymphocytes % (auto) 15.7 %; Mean Corpuscular Hemoglobin 29.8 pg (25.0-34.0); Mean Corpuscular Hgb Conc 31.8 g/dL (32.0-36.0); Mean Platelet Volume 13.2 fL (9.4-12.4); Monocytes # (auto) 0.84 K/uL (0.11-0.59); Neutrophils # (auto) 10.01 K/uL (1.40-6.50); Neutrophils % (auto) 71.9 %; Platelet Count 120 K/uL (130-400); RDW Standard Deviation 61.9 fL (36.4-46.3); Red Blood Count 3.82 M/uL (4.70-6.10); White Blood Count 13.92 K/ul (4.8-10.8)
[2023-12-09] MEDS: Patient's ALLERGY Info needs ENTERED SCH (10:52)
--- NOTE | 2023-12-09 12:24 | Hospitalist Progress Note ---
Date of Service December 09, 2023 Assessment & Plan (1) Severe sepsis: Plan: Sepsis, POA Catheter-associated UTI due to self catheterization for neurogenic bladder history of neurogenic bladder attributed to childhood poliomyelitis Norovirus infection History of neurogenic bladder; patient does intermittent straight cath at home. Presents with tiredness and fatigue and fever Leukocytosis present Urine culture positive for Pseudomonas aeruginosa coagulase-negative Staphylococcus species. Blood culture no growth in 24 hours Continue on Zosyn; will require 7 days of antibiotic treatment Continue intermittent cath; history of difficult Shea catheterization in the past. Recommended to use sterile technique Monitor for diarrhea DARRIAN on CKD Severe hypokalemia Hypomagnesemia Hypocalcemia, vitamin D deficiency Presented with creatinine of 4.93; remote creatinine of 2 in 2020. Unknown recent baseline Downtrended with IV hydration History of severe hypokalemia; suspect renal wasting. Vitamin D level less than 7 ng/per DL Continue supplement of potassium with potassium citrate 40 mEq tid. Also ordered magnesium, calcium supplement. Strict input and output monitoring Incidental finding of right kidney nodule on CT- follow up on outpatient. mood disorder, stable -citalopram on hold due to elevated QTc. EKG personally reviewed; QTc of 510 Time spent evaluating patient, direct bedside care, chart review, placing orders, interpretation of diagnostic studies, discussion with consultants, patient, and family members, as well as other required patient management activities is 50 minutes Please note the above document was generated using voice recognition software. It may contain grammatical, syntax or spelling errors. Any formal questions or concerns about the content, text or information contained within the body of this dictation should be directly addressed to the provider for clarification Admission and Anticipated Discharge Date Admission Date: December 05, 2023 Subjective Patient seen and examined at bedside. Patient is comfortable; reports improvement in tiredness and fatigue Urine output is improving No significant events overnight Review of Systems Review of Systems: All systems reviewed & are unremarkable except as noted in Subjective Physical Exam Physical Exam: Constitutional: Alert oriented x 3; not in any distress. Appears tired Respiratory: Bilateral vesicular breath sound Cardiovascular: RRR, no murmur, no edema Vessels: no JVD or carotid bruit Chest: normal inspection of chest Abdomen: normal bowel sounds, soft, nontender, no hepatosplenomegaly Neurologic: PERRL, EOMI, accommodation nl, no face palsy, no dysarthria CN's II- XI intact bilaterally and moves all extremities Psychiatric: A+Ox3, euthymic affect Results & Data Results & Data Vital Signs (Past 12 Hours) Vital Signs Temp Pulse Pulse Resp BP Pulse Ox O2 Del Method 12/09/23 11:37 86 18 94/66 L 96 Room Air 12/09/23 08:00 Room Air 12/09/23 07:48 72 18 96/64 L 99 Room Air 12/09/23 07:39 68 12/09/23 02:30 36.8 C 74 18 105/64 98 Room Air
--- NOTE | 2023-12-09 14:16 | Nephrology Progress Note ---
Date of Service December 09, 2023 Assessment & Plan (1) Disorders of fluid, electrolyte, and acid-base balance: Plan: critical mag, K, calcium on presentation and ongoing; acuity undetermined. hypocalcemia likeliest d/t hypomagnesemia and less likely to renal dz. anion gap metabolic acidosis from renal failure +/- starvation ketoacidosis > lactate has normalized Electrolytes stable now. Continue current calcium supplements, calcitriol and vitamin-D. - Potassium of 3.9 today which is at goal. Continue amiloride and potassium citrate 40 mEq three times daily (2) Renal insufficiency: Plan: unknown baseline creatinine recently w/ last known creat of 2 in 2020 > eGFR by CKD EPI of 38 and this is quite certainly an overestimation given his weight, stature, polio hx all of which point to relatively less mm mass than average 63 y/o M. Presume therefore baseline CKD4. creatinine of 2.78 today -avoid nephrotoxins - daily BMP -strict I/o Admission and Anticipated Discharge Date Admission Date: December 05, 2023 Subjective seen for acute kidney injury on CKD and electrolyte abnormalities. No shortness of breath. Still has loose bowel movements. Main complaint is weakness and poor appetite. at the bedside. Review of Systems 2 Review of Systems: All other systems were reviewed and negative except as noted in HPI Physical Exam 2 Physical Exam: General exam: Appears comfortable, no acute distress HEENT: Pupils are equal and reactive to light Neck: No JVD, neck is supple trachea is midline Respiratory system: Clear breath sounds bilaterally. Gastrointestinal: Abdomen is soft, non distended, non tender, bowel sounds are present CVS: Regular rate and rhythm. No murmurs, rubs or gallops Musculoskeletal: No joint or muscle tenderness Extremities: Non tender, no edema, peripheral pulses are present Neuro: Oriented, no tremors, no focal neurological deficits Skin: No rashes Results & Data Vital Signs (Past 12 Hours) Vital Signs Temp Pulse Pulse Resp BP Pulse Ox O2 Del Method 12/09/23 11:37 86 18 94/66 L 96 Room Air 12/09/23 08:00 Room Air 12/09/23 07:48 72 18 96/64 L 99 Room Air 12/09/23 07:39 68 12/09/23 02:30 36.8 C 74 18 105/64 98 Room Air Laboratory Results 12/09/23 07:49 04/14/24 07:49 WBC 13.92 H RBC 3.82 L MCV 94.0 MCH 29.8 MCHC 31.8 L RDW Std Deviation 61.9 H RDW Coeff of Thao 18.0 H Plt Count 120 L MPV 13.2 H
[2023-12-10 08:21] LABS: Basophils # (auto) 0.21 K/uL (0.00-0.20); Basophils % (auto) 1.5 %; Eosinophils # (auto) 0.68 K/uL (0.00-0.50); Eosinophils % (auto) 4.9 %; Hematocrit (blood only) 32.5 % (42.0-52.0); Hemoglobin 10.7 g/dl (14.0-18.0); Immature Granulocytes # (auto) 0.13 K/uL (0.01-0.20); Immature Granulocytes % (auto) 0.9 %; Lymphocytes # (auto) 1.82 K/uL (1.20-3.40); Lymphocytes % (auto) 13.1 %; Mean Corpuscular Hemoglobin 30.1 pg (25.0-34.0); Mean Corpuscular Hgb Conc 32.9 g/dL (32.0-36.0); Mean Corpuscular Volume 91.5 fL (80.0-100.0); Mean Platelet Volume 13.3 fL (9.4-12.4); Monocytes # (auto) 0.82 K/uL (0.11-0.59); Monocytes % (auto) 5.9 %; Neutrophils # (auto) 10.28 K/uL (1.40-6.50); Neutrophils % (auto) 73.7 %; Platelet Count 133 K/uL (130-400); RDW Coefficient of Variation 17.9 % (11.5-14.5); RDW Standard Deviation 59.7 fL (36.4-46.3); Red Blood Count 3.55 M/uL (4.70-6.10); White Blood Count 13.94 K/ul (4.8-10.8)
[2023-12-10] MEDS: METOPROLOL SUCC 25MG EXT REL TAB PO SCH (08:28)
[2023-12-10 08:31] LABS: Calcium 7.6 mg/dl (8.6-10.3); Creatinine Clr Calc Pharmacy 29.1 ml/min; Est GFR (African American) 30.5 ml/min; Est GFR (Non-African American) 26.3 ml/min; Potassium 3.8 mmol/L (3.5-5.1)
[2023-12-10 09:54] LABS: Magnesium 1.5 mg/dl (1.7-2.4); Phosphorus 3.1 mg/dl (2.5-4.9)
--- NOTE | 2023-12-10 10:30 | Nephrology Progress Note ---
Date of Service December 10, 2023 Assessment & Plan Admission and Anticipated Discharge Date Admission Date: December 05, 2023 Subjective Assessment & Plan (1) Disorders of fluid, electrolyte, and acid-base balance: critical low mag, K, calcium on presentation and ongoing. hypocalcemia likeliest d/t hypomagnesemia and less likely to renal dz. present at bedside. according to the and the patient-- he has had low potassium and low magnesium for many years. " interestingly even as a little child patient was given a concoction of mashed banana to give extra potassium"-- this could very well mean that he had low potassium and magnesium even as a little kid. 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 (2) Renal insufficiency: unknown baseline creatinine recently w/ last known creat of 2 in 2020. Creat trending down with iv fluids. For Discharge: Discussed with patient and primary team 1 f/u with me within 1 week. 2 Amiloride 5 bid. 3 next labs to be ordered by ravi PENALOZA for 12/11 at [facility]. renal panel, Mag and Ionized Ca++. 4 ma AM and 64 PM of Slowmag 5 Ca--Continue current dose of Calcitriol, Vit D and Calcium Supplement. 6 K---K citrate is expensive and he is not liking the taste. Can try potassium bicarbonate given current low Bicarb---equivalent dose of 40 meq tid. Hospital does not have in formulary but can be available outpt even OTC. S---Feels little bit Better. Less weak and less cramps. making urine. Blood pressure somewhat low. No longer has diarrhea Physical Exam Constitutional: well developed (small stature), well nourished and + physical limitations; no acute distress Eyes: EOM intact bilaterally ENMT: Ears: no external ear abnormality Nose: no external nose abnormality Mouth: + dry oral mucous membranes Neck: no nuchal rigidity Respiratory: normal respiratory effort Auscultation: + diminished lung sounds Gastrointestinal (Abdomen): Inspection/Auscultation: normal bowel sounds Percussion/Palpation: abdomen soft; abdomen nontender Musculoskeletal: Extremities: strength 5/5 throughout Skin: no rashes, warm and dry Neurologic: alcala, fluent speech, no tremor Results & Data Vital Signs (Past 12 Hours) Vital Signs Temp Pulse Pulse Resp BP BP Pulse Ox 12/10/23 07:21 36.4 C L 94 H 18 108/75 98 12/10/23 02:01 36.6 C 105 H 20 95/59 L 96 12/09/23 23:22 36.7 C 94 H 20 100/71 98 12/09/23 23:03 89 O2 Del Method 12/10/23 07:21 Room Air 12/10/23 02:01 Room Air 12/09/23 23:22 Room Air 12/09/23 23:03
--- NOTE | 2023-12-12 10:58 | Discharge Summary ---
Date of Service December 10, 2023 Admission HPI Per Admitting Provider History obtained from patient, family, and records. Medical history significant for HTN, history of neurogenic bladder attributed to childhood poliomyelitis, chronic diarrhea from IBS, CRI (baseline creatinine 1.8-2s from 2020), recurrent hypokalemia, chronic anemia (baseline hemoglobin 12-13), mood disorder, medical noncompliance. Patient has had kidney problems for a number of years now as per . Did not like last [facility] [employer] j[employer] and fixture [employer] seen about 5 years ago. Patient does not like going for blood work. Last blood draw was in 2020 as per . Patient has not been feeling well since bronchitis episode from 2 weeks ago status post Z-Herminio Rx. Breathing symptoms better but appetite not good. More than 10 pound weight loss since illness as per patient/family. Denies depression. Solid food dysphagia. Intermittent abdominal pain. Chronic diarrhea symptoms from IBS. Denies flank discomfort or hematuria symptoms. No chest pain, no SOB. Increasing weakness. Patient consulted [facility] ER last night because [facility] ER was too busy. IV Zosyn administered at the ER. Medical History as above Surgical History : Cholecystectomy, hip fracture surgery Family History : DM Personal/Social history : Non-smoker, no EtOH intake, disabled Principal Diagnosis Sepsis, POA Catheter-associated UTI due to self catheterization for neurogenic bladder history of neurogenic bladder attributed to childhood poliomyelitis Norovirus infection DARRIAN on CKD Severe hypokalemia Hypomagnesemia Hypocalcemia, vitamin D deficiency Discharge Exam Constitutional: Alert oriented x 3; not in any distress. Appears tired Respiratory: Bilateral vesicular breath sound Cardiovascular: RRR, no murmur, no edema Vessels: no JVD or carotid bruit Chest: normal inspection of chest Abdomen: normal bowel sounds, soft, nontender, no hepatosplenomegaly Neurologic: PERRL, EOMI, accommodation nl, no face palsy, no dysarthria CN's II- XI intact bilaterally and moves all extremities Psychiatric: A+Ox3, euthymic affect Discharge Data Allergies Allergy/AdvReac Type Severity Reaction Status Date / Time No Known Allergies Allergy Unverified 12/09/23 11:07 Consultations 12/05/23 01:46 ED Decision to Admit Stat 12/05/23 04:17 Consult Gastroenterology Routine Consult Nephrology Routine 12/05/23 04:18 HIM [Consult Health Information Management] Routine Ordered Studies 12/04/23 23:04 CT abd pelvis wo con Stat Hospital Course (1) Severe sepsis: Sepsis, POA Catheter-associated UTI due to self catheterization for neurogenic bladder history of neurogenic bladder attributed to childhood poliomyelitis Norovirus infection History of neurogenic bladder; patient does intermittent straight cath at home. Presents with tiredness and fatigue and fever Leukocytosis present on admission Urine culture positive for Pseudomonas aeruginosa coagulase-negative Staphylococcus species. Blood culture no growth in 24 hours During the hospitalization, patient was treated with iv zosyn for the uti. He reported improvement in the symptoms. patient has hx of neurogenic bladder requiring self-cancerization. Discussed with patient and regarding sterile technique for self-catheterization. DARRIAN on CKD Severe hypokalemia Hypomagnesemia Hypocalcemia, vitamin D deficiency Presented with creatinine of 4.93; remote creatinine of 2 in 2020. Unknown recent baseline Downtrended with IV hydration History of severe hypokalemia; suspect renal wasting. Vitamin D level less than 7 ng/per DL Creatinine downtrended with iv hydration. electrolytes were replaced. Nephrology was consulted for co-management. At discharge, patient was place on amiloride as per nephrology as patient is suspected to have potassium wasting through his urine. He was also prescribed calcium, vitamin d supplements. Patient to follow up with his PCP and Nephrology as outpatient for follow up. Please note the above document was generated using voice recognition software. It may contain grammatical, syntax or spelling errors. Any formal questions or concerns about the content, text or information contained within the body of this dictation should be directly addressed to the provider for clarification Total Time Total Time Spent Total Time Spent (In Minutes): 34 Total Time Includes: Examination of the Patient, Discharge Planning, Medication Reconciliation, Communication With Other Providers and Other Discharge Plan Discharge Items Patient Disposition: Home - Home Health Services Reason For Visit: HYPOKALEMIA, COMP UTI Discharge Diagnosis: DARRIAN on CKD Severe hypokalemia Hypomagnesemia Hypocalcemia, vitamin D deficiency Activity: Resume your previous activity Non-emergency contact: Primary Care Provider Call non-emergency contact if: you have any medication questions and your sympto ms worsen Follow-up/Referrals: Sunil Ge MD [Surgeon] - (The Nephrology office will contact you for a follow up appointment/ lab work.) Som Silvestre MD [Primary Care Provider] - 12/11/23 4:45 pm Diet: Regular Addtl Attending Provider Instructions: You were admitted to the hospital due to UTI, acute on chronic kidney failure, low potassium, low calcium levels. He was treated with antibiotics during the hospitalization. You are prescribed following medications: 1)Take a amiloride 5 mg twice a day. This is to help increase your potassium level. 2)Take calcitriol 0.5 mcg( 2 tablets of 0.25) once a day along with vitamin D 25 mcg once a day for low vitamin D level. You are also prescribed calcium carbonate; please take 3 tablets each day. 3) You are prescribed magnesium supplement to be taken twice daily as well. 4) You are prescribed potassium bicarb tablets; take 2 tablets 3 times a day. Please follow-up with your primary care doctor tomorrow as scheduled. Obtain following blood work: BMP Serum magnesium Ionized calcium You will receive a call from nephrology office for appointment Pending Studies at Discharge: No Stand-Alone Forms: My [facility] [employer], Smoking Cessation Medications and DC Order Prescriptions: New amiloride 5 mg Tablet 5 mg PO BID Qty: 60 0RF calcium carbonate-vitamin D3 [Os-Andre 500 + D3] 500 mg-15 mcg (600 unit) Tablet 2.5 tab PO TID Qty: 90 0RF calcitriol 0.25 mcg Capsule 0.5 mcg PO DAILY 90 Days Qty: 180 0RF cholecalciferol (vitamin D3) 25 mcg (1,000 unit) Capsule 25 mcg PO QAM 90 Days Qty: 90 0RF Mag 64 64 mg Tablet,Delayed Release (Dr/Ec) 64 mg PO BID Qty: 60 0RF potassium bicarb-citric acid 20 mEq tablet, effervescent 40 meq PO TID Qty: 90 0RF Continued metoprolol succinate 50 mg tablet extended release 24 hr 50 mg PO QAM citalopram 40 mg tablet 40 mg PO QAM doxepin 25 mg capsule 50 mg PO HS cyanocobalamin (vitamin B-12) 1,000 mcg/mL solution 1,000 mcg IM MONTHLY tramadol 50 mg tablet 50 mg PO BID PRN (Reason: Pain) Rx Instructions: has some left over from previous order that loperamide 2 mg capsule 4 mg PO TID PRN (Reason: diarrhea ) Qty: 20 0RF Discontinued ondansetron HCl 4 mg tablet 4 mg PO TID Discharge Orders: Discharge Order (Routine); Ordered 12/10/23 Ordered By: Armando Logan Admission Data Admit Date/Time: 12/05/23 02:55 Attending Provider: Armando Logan Admit Provider: Darien Gongora Primary Care Provider: Som Silvestre Other Providers: Darien Gongora; John Ryder; Adiel Harris; Lata Kulkarni; Amara Pastrana; Peri Hoff; Alexandrea Velazquez; Laura Grey; Zacarias Chance; Rashel Pryor; Young Valencia; Venita Morris; Irma Sanderson; Zahraa Garcia; Peggy Rubio; Bettina Gustafson; Rebecca Bazan; Robert Mathis; Balwinder Goddard; Teodoro Morrissey; Miracle La; Alec Fuentes Jr; Nichole Corbin; Sunil Ge; Flory Rondon; Bella Galvin; Nancie Conklin; [facility] Other Interventions: Discharge Summary Assessment (RN) Last Done: 12/10/23 12:56
== END 2023-12-10 14:15 | disposition home health service (06) | DRG 698 ==
LOC: ED 20:27 → EDINP 12-05 02:55 → 2S 12-05 14:41

== ENCOUNTER 2024-08-18 19:07 | Inpatient (IN) ==
[2024-08-18 19:57] LABS: Basophils # (auto) 0.08 K/uL (0.00-0.20); Basophils % (auto) 0.4 %; Eosinophils # (auto) 0.03 K/uL (0.00-0.50); Eosinophils % (auto) 0.2 %; Hematocrit (blood only) 43.7 % (42.0-52.0); Immature Granulocytes # (auto) 0.15 K/uL (0.01-0.20); Immature Granulocytes % (auto) 0.8 %; Lymphocytes # (auto) 1.58 K/uL (1.20-3.40); Lymphocytes % (auto) 8.5 %; Mean Corpuscular Hemoglobin 31.2 pg (25.0-34.0); Mean Corpuscular Hgb Conc 34.3 g/dL (32.0-36.0); Mean Corpuscular Volume 90.9 fL (80.0-100.0); Mean Platelet Volume 12.8 fL (9.4-12.4); Monocytes # (auto) 0.74 K/uL (0.11-0.59); Neutrophils # (auto) 15.98 K/uL (1.40-6.50); Neutrophils % (auto) 86.1 %; Nucleated RBC # (auto) 0.04 K/uL (0.00-0.12); Nucleated RBC % (auto) 0.2 %; Platelet Count 210 K/uL (130-400); RDW Coefficient of Variation 18.6 % (11.5-14.5); RDW Standard Deviation 59.1 fL (36.4-46.3); Red Blood Count 4.81 M/uL (4.70-6.10); White Blood Count 18.56 K/ul (4.8-10.8)
[2024-08-18 20:13] LABS: Alanine Aminotransferase 59 U/L (7-52); Albumin Level 4.4 gm/dl (3.4-5.0); Alkaline Phosphatase 155 U/L (34-104); Anion Gap 12 (3-11); Aspartate Aminotransferase 61 U/L (13-39); BUN Creatinine Ratio 8.6 (10-20); Bilirubin,Total 0.8 mg/dl (0.2-1.0); Blood Urea Nitrogen 35 mg/dl (6-23); Calcium 7.8 mg/dl (8.6-10.3); Carbon Dioxide 13 mmol/L (21-32); Chloride 109 mmol/L (98-107); Globulin 4.2 gm/dl (2.5-4.0); Glucose 104 mg/dl (70-99(Fasting)); Potassium 2.7 mmol/L (3.5-5.1); Sodium 134 mmol/L (136-145); Total Protein 8.6 gm/dl (6.0-8.3)
[2024-08-18] MEDS: ONDANSETRON INJ 2 MG/ML 2 ML VIAL IV STA (20:24)
[2024-08-18] MEDS: MoRPHine SULFATE 4 MG/ML 1 ML CARP\\VIAL IV STA (20:25)
[2024-08-18 20:31] LABS: Adenovirus PCR Not Detected (NotDetected); Bordetella parapertussis PCR Not Detected (NotDetected); Bordetella pertussis PCR Not Detected (NotDetected); Chlamydia pneumoniae PCR Not Detected (NotDetected); Coronavirus 229E PCR Not Detected (NotDetected); Coronavirus CoV-2 (COVID19)PCR Not Detected (NotDetected); Coronavirus HKU1 PCR Not Detected (NotDetected); Coronavirus NL63 PCR Not Detected (NotDetected); Coronavirus OC43PCR Not Detected (NotDetected); Human Metapneumovirus PCR Not Detected (NotDetected); Influenza A PCR Not Detected (NotDetected); Influenza B PCR Not Detected (NotDetected); Mycoplasma pneumoniae PCR Not Detected (NotDetected); Parainfluenza Virus 1 PCR Not Detected (NotDetected); Parainfluenza Virus 2 PCR Not Detected (NotDetected); Parainfluenza Virus 3 PCR Not Detected (NotDetected); Parainfluenza Virus 4 PCR Not Detected (NotDetected); Respiratory Syncytial VirusPCR Not Detected (NotDetected); Rhinovirus/Enterovirus PCR Not Detected (NotDetected)
--- NOTE | 2024-08-18 20:31 | Emergency Department Note ---
Impression & Plan Weakness, Hypocalcemia, Acute dehydration, DARRIAN (acute kidney injury), Acute UTI, Esophageal mass, Hypokalemia ED Provider Note NAME: DOREEN HERNANDEZ AGE: 63 SEX: M : 1960 ARRIVES VIA: Walk-In INFORMANT: [Patient][] ED PROVIDER(S): [Shaun Matos MD] CHIEF COMPLAINT: Illness HISTORY OF PRESENT ILLNESS: The patient is a 63-year-old male who presents to the ER with 10 days of symptoms. He is had no appetite, feels thirsty and weak. There has been no fever. The patient does self catheterize and his doctors felt he may have a UTI. They placed him on Bactrim however, the urine culture returned negative. The patient does complain of some right lower quadrant abdominal pain. This seems to come and go. He states he has had some nausea and some dry heaves as well as a slight cough. He is using Zofran for the nausea. Because of concerns for dehydration, he presents for evaluation. PMHx/PSHx/Social Hx: See Below PHYSICAL EXAM: GENERAL: Patient is in no acute distress. HEENT: No acute trauma, normocephalic atraumatic, mucous membranes dry, no nasal congestion. NECK: No stridor, no adenopathy, no meningismus, trachea is midline. LUNGS: Clear to auscultation bilaterally, no wheeze, no rhonchi, breath sounds equal. HEART: Without murmurs gallops or rubs, regular rate and rhythm. Heart tones are distant. ABDOMEN: Soft, mildly tender along the entire right side of the abdomen, no distention. EXTREMITIES: No cyanosis, full range of motion of all the joints without pain or difficulty. Mild bilateral pedal edema. NEUROLOGIC: Oriented x 3, seen to move all extremities. SKIN: No jaundice, no diaphoresis. DIFFERENTIAL DIAGNOSIS: Dehydration, renal failure, electrolyte imbalance, UTI, pyelonephritis, appendicitis or diverticulitis, among others. EMERGENCY DEPARTMENT PROCEDURES: MEDICAL DECISION MAKING: Patient does have a leukocytosis which would be consistent with infection. There was a normal hemoglobin. There was a normal platelet count. Renal panel testing shows acute kidney injury with a creatinine over 4. The patient has a low potassium, lower sodium and low calcium. Lactic acid level was not elevated making severe sepsis less likely. There were some liver enzyme elevations however, the bilirubin was normal. No evidence for pancreatitis. The patient appeared to be in a euthyroid state. ECG shows a normal sinus rhythm, no obvious ST elevation. Cardiac enzyme testing x 1 is not consistent with acute cardiac injury. Urinalysis does show potential infection. Respiratory bio fire was negative. Chest x-ray does not show pneumonia or CHF. Abdominal and pelvis CT shows a potential esophageal mass, no urinary obstruction or acute surgical pathology. On exam, the patient was dehydrated. The patient received IV saline, IV potassium, IV Zofran, IV morphine and IV calcium. He was given IV Zosyn as antibiotic coverage. Patient presents with weakness, dehydration. He has electrolyte abnormalities, a white count elevation and a UTI. He has acute kidney injury. Hospitalization is indicated. The patient has been aggressively managed, he is currently resting comfortably and doing well. I did speak with the patient and his family. I spoke with case management. The on-call hospitalist was consulted. Prior/Outside records/notes reviewed: None ECG per my interpretation: Indication was weakness. The ECG shows a normal sinus rhythm with a rate of 74. There is a potential old inferior infarct. There is no acute ST elevation, no PVCs. The QTc is 599. Continuous Cardiac Monitoring per my interpretation: An order was placed for continuous cardiac monitoring. The monitor shows a rate of 71 with normal sinus rhythm. Imaging/x-ray results per my interpretation: Chest x-ray does not show mediastinal widening, pneumonia or pneumothorax. Chronic Medical/Social conditions affecting care: History of self- catheterization. Care/Management discussed with: Case management, the on-call hospitalist. Level of care consideration(s): After review of the information above and other included data: --I believe the patient requires escalation of care to admission Critical Care Note: I have personally spent 46 minutes of critical care time in the direct management of this patient. This includes bedside care, interpretation of diagnostic studies, and testing, discussion with consultants, patient, and family members, and other required patient management activities. This 46 minutes is in excess of all separately billable procedures. DISPOSITION: Admission Past Med/Surg History Problem List (Updated 08/18/24 @ 23:21 by Shaun Matos MD) Hypokalemia (Acute) Esophageal mass (Acute) Acute UTI (Acute) DARRIAN (acute kidney injury) (Acute) Acute dehydration (Acute) Hypocalcemia (Acute) Weakness (Acute) Complicated urinary tract infection (Acute) Acute dehydration (Acute) Hypomagnesemia (Acute) Acute renal failure (ARF) (Acute) Hypocalcemia (Acute) Disorders of fluid, electrolyte, and acid-base balance Pelvic pain Nausea Severe sepsis (Acute) Medical History Renal insufficiency Poliomyelitis as child CKD (chronic kidney disease) stage 4, GFR 15-29 ml/min baseline creat 2 in 2020 Neurogenic bladder Surgical History History of hip surgery Hx of cholecystectomy Family History Other Diabetes Social History Smoking Status: Never smoker Second Hand Exposure: No; Do You Dip or Chew Tobacco: No; Hx Alcohol Use: No Hx Substance Use: No Preferred Language: Vietnamese Communication Ability: Effective Communication Ability Comment: Hard of hearing 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 Beliefs That Will Affect Care: None Current Living Situation: Spouse Feels Safe at Home: Yes Assistive Devices: Walker and Wheelchair Allergies Allergies Allergy/AdvReac Type Severity Reaction Status Date / Time No Known Allergies Allergy Unverified 12/09/23 11:07 Home Meds Home Medications Medication Instructions Recorded Confirmed citalopram 40 mg tablet 40 mg PO QAM 12/05/23 12/05/23 cyanocobalamin (vitamin B-12) 1,000 mcg IM MONTHLY 12/05/23 12/05/23 1,000 mcg/mL injection solution doxepin 25 mg capsule 50 mg PO HS 12/05/23 12/05/23 metoprolol succinate 50 mg 50 mg PO QAM 12/05/23 12/05/23 tablet,extended release 24 hr tramadol 50 mg tablet 50 mg PO BID PRN Pain 12/05/23 12/05/23 Previous Rx's Medication Instructions Recorded amiloride 5 mg tablet 5 mg PO BID #60 tabs 12/10/23 calcium 500 mg (as 2.5 tab PO TID #90 tabs 12/10/23 carbonate)-vitamin D3 15 mcg (600 unit) tablet (Os-Andre 500 + D3) loperamide 2 mg capsule 4 mg (2 x 2 mg) PO TID PRN 12/10/23 diarrhea #20 caps magnesium chloride 64 mg 64 mg PO BID #60 tabs 12/10/23 (magnesium chloride) tablet,delayed release (Mag 64) potassium bicarbonate-citric acid 40 meq (2 x 20 mEq) PO TID #90 ea 12/10/23 20 mEq effervescent tablet Results & Data (ED) Vital Signs Vital Signs - 24 hr 08/18/24 19:12 08/18/24 20:52 08/18/24 21:03 Temperature 36.3 C L Temperature Source Skin Pulse Rate 85 72 71 Pulse Rate [Finger] Pulse Rate from SpO2 Sensor Respiratory Rate 16 16 Blood Pressure 107/71 Blood Pressure [Right Arm] Blood Pressure Mean 83 Blood Pressure Mean [Right Arm] Pulse Oximetry 97 Oxygen Delivery Method Room Air Sepsis Recent Fever Within 48 Hours No Sepsis New/Unexplained Change in Mental Status No Sepsis Action Taken by Nursing No Action Required 08/18/24 21:43 08/18/24 22:00 08/18/24 23:00 Temperature Temperature Source Pulse Rate 79 110 H Pulse Rate [Finger] 71 Pulse Rate from SpO2 Sensor 81 Respiratory Rate 18 16 17 Blood Pressure 109/77 103/73 Blood Pressure [Right Arm] 130/71 Blood Pressure Mean 87 83 Blood Pressure Mean [Right Arm] 90 Pulse Oximetry 99 99 Oxygen Delivery Method Room Air Room Air Sepsis Recent Fever Within 48 Hours Sepsis New/Unexplained Change in Mental Status Sepsis Action Taken by Assisted Medications Current Medication List: was personally reviewed by me Laboratory Data Attestation: I reviewed the patient's lab results. 08/18/24 19:39 08/18/24 19:39 Lab Results 08/18/24 08/18/24 08/18/24 Range/Units 19:32 19:39 20:26 WBC 18.56 H (4.8-10.8) K/ul RBC 4.81 (4.70-6.10) M/uL Hgb 15.0 (14.0-18.0) g/dl Hct 43.7 (42.0-52.0) % MCV 90.9 (80.0-100.0) fL MCH 31.2 (25.0-34.0) pg MCHC 34.3 (32.0-36.0) g/dL RDW Std Deviation 59.1 H (36.4-46.3) fL RDW Coeff of Thao 18.6 H (11.5-14.5) % Plt Count 210 (130-400) K/uL MPV 12.8 H (9.4-12.4) fL Immature Gran % (Auto) 0.8 % Neut % (Auto) 86.1 % Lymph % (Auto) 8.5 % [place] % (Auto) 4.0 % Eos % (Auto) 0.2 % Baso % (Auto) 0.4 % Neut # (Auto) 15.98 H (1.40-6.50) K/uL Lymph # (Auto) 1.58 (1.20-3.40) K/uL [place] # (Auto) 0.74 H (0.11-0.59) K/uL Eos # (Auto) 0.03 (0.00-0.50) K/uL Baso # (Auto) 0.08 (0.00-0.20) K/uL Immature Gran # (Auto) 0.15 (0.01-0.20) K/uL Absolute Nucleated RBC 0.04 (0.00-0.12) K/uL Nucleated RBC % (auto) 0.2 % Sodium 134 L (136-145) mmol/L Potassium 2.7 L (3.5-5.1) mmol/L Chloride 109 H (98-107) mmol/L Carbon Dioxide 13 L (21-32) mmol/L Anion Gap 12 H (3-11) BUN 35 H (6-23) mg/dl Creatinine 4.07 H (0.6-1.4) mg/dl Est Cr Clr Drug Dosing Not Reportable eGFR 15.79 BUN/Creatinine Ratio 8.6 L (10-20) Glucose 104 H (70-99(Fasting)) mg/dl Lactate 1.2 (0.4-2.0) mmol/L Calcium 7.8 L (8.6-10.3) mg/dl Magnesium 1.7 (1.7-2.4) mg/dl Total Bilirubin 0.8 (0.2-1.0) mg/dl AST 61 H (13-39) U/L ALT 59 H (7-52) U/L Alkaline Phosphatase 155 H (34-104) U/L Troponin I High Sens 15.4 (0-20) pg/ml Total Protein 8.6 H (6.0-8.3) gm/dl Albumin 4.4 (3.4-5.0) gm/dl Globulin 4.2 H (2.5-4.0) gm/dl Albumin/Globulin Ratio 1.0 (0.9-2) Lipase 73 (11-82) U/L TSH 2.014 (0.300-4.500) uIu/ml Urine Color Urine Appearance (Clear) Urine pH (4.5-7.5) Ur Specific [place] (1.000-1.030) Urine Protein (Negative) Urine Glucose (UA) (Negative) Urine Ketones (Negative) Urine Blood (Negative) Urine Nitrite (Negative) Urine Bilirubin (Negative) Urine Urobilinogen (Negative) Ur Leukocyte Esterase (Negative) Urine WBC (Auto) (0-5) /hpf Urine RBC (Auto) (0-2) /hpf U Hyaline Cast (Auto) (0-2) /lpf U Epithel Cells (Auto) (0-2) /hpf Urine Bacteria (Auto) (None Seen) Hyaline Casts (None Presnt) /lpf Adenovirus (PCR) Not Detected (NotDetected) B. pertussis DNA (PCR) Not Detected (NotDetected) B.parapertussis DNA PCR Not Detected (NotDetected) C. pneumoniae DNA (PCR) Not Detected (NotDetected) Coronavirus OC43 (PCR) Not Detected (NotDetected) Coronavirus HKU1 (PCR) Not Detected (NotDetected) Coronavirus 229E (PCR) Not Detected (NotDetected) SARS-CoV-2 (PCR) Not Detected (NotDetected) Coronavirus NL63 (PCR) Not Detected (NotDetected) Human Metapneumovir PCR Not Detected (NotDetected) Influenza Type A (PCR) Not Detected (NotDetected) Influenza Type B (PCR) Not Detected (NotDetected) M. pneumoniae (PCR) Not Detected (NotDetected) Parainfluenza 1 (PCR) Not Detected (NotDetected) Parainfluenza 2 (PCR) Not Detected (NotDetected) Parainfluenza 3 (PCR) Not Detected (NotDetected) Parainfluenza 4 (PCR) Not Detected (NotDetected) RSV (PCR) Not Detected (NotDetected) Entero/Rhino (PCR) Not Detected (NotDetected) 08/18/24 Range/Units 21:40 WBC (4.8-10.8) K/ul RBC (4.70-6.10) M/uL Hgb (14.0-18.0) g/dl Hct (42.0-52.0) % MCV (80.0-100.0) fL MCH (25.0-34.0) pg MCHC (32.0-36.0) g/dL RDW Std Deviation (36.4-46.3) fL RDW Coeff of Thao (11.5-14.5) % Plt Count (130-400) K/uL MPV (9.4-12.4) fL Immature Gran % (Auto) % Neut % (Auto) % Lymph % (Auto) % [place] % (Auto) % Eos % (Auto) % Baso % (Auto) % Neut # (Auto) (1.40-6.50) K/uL Lymph # (Auto) (1.20-3.40) K/uL [place] # (Auto) (0.11-0.59) K/uL Eos # (Auto) (0.00-0.50) K/uL Baso # (Auto) (0.00-0.20) K/uL Immature Gran # (Auto) (0.01-0.20) K/uL Absolute Nucleated RBC (0.00-0.12) K/uL Nucleated RBC % (auto) % Sodium (136-145) mmol/L Potassium (3.5-5.1) mmol/L Chloride (98-107) mmol/L Carbon Dioxide (21-32) mmol/L Anion Gap (3-11) BUN (6-23) mg/dl Creatinine (0.6-1.4) mg/dl Est Cr Clr Drug Dosing eGFR BUN/Creatinine Ratio (10-20) Glucose (70-99(Fasting)) mg/dl Lactate (0.4-2.0) mmol/L Calcium (8.6-10.3) mg/dl Magnesium (1.7-2.4) mg/dl Total Bilirubin (0.2-1.0) mg/dl AST (13-39) U/L ALT (7-52) U/L Alkaline Phosphatase (34-104) U/L Troponin I High Sens (0-20) pg/ml Total Protein (6.0-8.3) gm/dl Albumin (3.4-5.0) gm/dl Globulin (2.5-4.0) gm/dl Albumin/Globulin Ratio (0.9-2) Lipase (11-82) U/L TSH (0.300-4.500) uIu/ml Urine Color Yellow Urine Appearance Clear (Clear) Urine pH 6.0 (4.5-7.5) Ur Specific [place] 1.012 (1.000-1.030) Urine Protein 2+ H (Negative) Urine Glucose (UA) Negative (Negative) Urine Ketones Negative (Negative) Urine Blood 2+ H (Negative) Urine Nitrite Negative (Negative) Urine Bilirubin Negative (Negative) Urine Urobilinogen Negative (Negative) Ur Leukocyte Esterase 2+ H (Negative) Urine WBC (Auto) 21-50 H (0-5) /hpf Urine RBC (Auto) 3-5 H (0-2) /hpf U Hyaline Cast (Auto) 6-10 H (0-2) /lpf U Epithel Cells (Auto) 0-2 (0-2) /hpf Urine Bacteria (Auto) None Seen (None Seen) Hyaline Casts Present A (None Presnt) /lpf Adenovirus (PCR) (NotDetected) B. pertussis DNA (PCR) (NotDetected) B.parapertussis DNA PCR (NotDetected) C. pneumoniae DNA (PCR) (NotDetected) Coronavirus OC43 (PCR) (NotDetected) Coronavirus HKU1 (PCR) (NotDetected) Coronavirus 229E (PCR) (NotDetected) SARS-CoV-2 (PCR) (NotDetected) Coronavirus NL63 (PCR) (NotDetected) Human Metapneumovir PCR (NotDetected) Influenza Type A (PCR) (NotDetected) Influenza Type B (PCR) (NotDetected) M. pneumoniae (PCR) (NotDetected) Parainfluenza 1 (PCR) (NotDetected) Parainfluenza 2 (PCR) (NotDetected) Parainfluenza 3 (PCR) (NotDetected) Parainfluenza 4 (PCR) (NotDetected) RSV (PCR) (NotDetected) Entero/Rhino (PCR) (NotDetected) Administered Medications Discontinued Medications Sodium Chloride (Nss) 1,000 mls @ 999 mls/hr IV .Q1H1M ONE Stop: 08/18/24 21:13 Last Infusion: 08/18/24 22:36 Dose: Infused Documented By: Admin: 08/18/24 21:14 Dose: 999 mls/hr Documented By: RYAN Potassium Chloride (K Wero / Wtr) 10 meq in 100 mls @ 100 mls/hr IV ONE ONE Stop: 08/18/24 21:17 Last Infusion: 08/18/24 22:36 Dose: Infused Documented By: Admin: 08/18/24 21:14 Dose: 100 mls/hr Documented By: RYAN Calcium Gluconate () 1,000 mg in 60 mls @ 240 mls/hr IV NOW STA Stop: 08/18/24 22:23 Last Admin: 08/18/24 23:04 Dose: 240 mls/hr Documented By: RYAN Morphine Sulfate (Morphine Sulfate 4 Mg/Ml 1 Ml Carp\Vial) 4 mg IV NOW STA Stop: 08/18/24 20:14 Last Admin: 08/18/24 20:25 Dose: 4 mg Documented By: RYAN Ondansetron HCl (Ondansetron Inj 2 Mg/Ml 2 Ml Vial) 4 mg IV NOW STA Stop: 08/18/24 20:14 Last Admin: 08/18/24 20:24 Dose: 4 mg Documented By: RYAN Imaging Data Radiologist's Impression: Abdomen/Pelvis CT 08/18/24 20:17 Exam(s): CT ABDOMEN + PELVIS Without Contrast EXAM: CT Abdomen and Pelvis Without Intravenous Contrast CLINICAL HISTORY: Reason for exam: right sided pain. TECHNIQUE: Axial computed tomography images of the abdomen and pelvis without intravenous contrast. CTDI is 24.69 mGy and DLP is 1217.21 mGy-cm. Automated exposure control was utilized for the study. A dose lowering technique was utilized adhering to the principles of ALARA. COMPARISON: 12/05/2023 FINDINGS: Lung bases: See below. Mediastinum: 1.9 x 1.2 cm mass at the distal esophagus concerning for underlying neoplasm. Direct visual inspection recommended. ABDOMEN: Liver: Unremarkable. Gallbladder and bile ducts: Unremarkable. No calcified stones. No ductal dilation. Pancreas: Unremarkable. No ductal dilation. Spleen: Unremarkable. No splenomegaly. Adrenals: Unremarkable. No mass. Kidneys and ureters: 1.2 cm soft tissue density projecting off of the right kidney. This is unchanged from prior exam. Subtle inflammatory changes about the left renal hilum. This is unchanged from prior exam. No obstructing stones. No hydronephrosis. Stomach and bowel: Unremarkable. No obstruction. No mucosal thickening. PELVIS: Appendix: No findings to suggest acute appendicitis. Bladder: Circumferential wall thickening of the urinary bladder. No stones. Reproductive: Unremarkable as visualized. ABDOMEN and PELVIS: Intraperitoneal space: Unremarkable. No free air. No significant fluid collection. Bones/joints: Postoperative changes right hip arthroplasty. No acute fracture. No dislocation. Soft tissues: Unremarkable. Vasculature: Unremarkable. No abdominal aortic aneurysm. Lymph nodes: Unremarkable. No enlarged lymph nodes. IMPRESSION: 1.9 cm soft tissue density within the distal esophagus. Findings are concerning for underlying neoplasm. Direct visual inspection is recommended Circumferential wall thickening urinary bladder. This may represent cystitis in the appropriate clinical setting 1.4 cm nodularity projecting off of the right kidney measures greater than fluid density. This is stable when compared with prior exam. In the postcontrast CT of the abdomen and pelvis and renal ultrasound may be obtained for further evaluation Electronically signed by: Benton Motley MD 08/18/24 21:54 PM Discharge Plan Visit Data Chief Complaint: Illness Stated Complaint: DEHYDRATED, NAUSEA, NO APPETITE ED Provider: Shaun Matos Discharge Problem: Weakness, Hypocalcemia, Acute dehydration, DARRIAN (acute kidney injury), Acute UTI, Esophageal mass, Hypokalemia Patient Disposition: Admitted As Inpatient Condition: Fair Forms Stand Alone Forms: My [employer] Prescriptions Prescriptions: No Action metoprolol succinate 50 mg tablet extended release 24 hr 50 mg PO QAM citalopram 40 mg tablet 40 mg PO QAM doxepin 25 mg capsule 50 mg PO HS cyanocobalamin (vitamin B-12) 1,000 mcg/mL solution 1,000 mcg IM MONTHLY tramadol 50 mg tablet 50 mg PO BID PRN (Reason: Pain) Rx Instructions: has some left over from previous order that amiloride 5 mg Tablet 5 mg PO BID Qty: 60 0RF calcium carbonate-vitamin D3 [Os-Andre 500 + D3] 500 mg-15 mcg (600 unit) Tablet 2.5 tab PO TID Qty: 90 0RF Mag 64 64 mg Tablet,Delayed Release (Dr/Ec) 64 mg PO BID Qty: 60 0RF potassium bicarb-citric acid 20 mEq tablet, effervescent 40 meq PO TID Qty: 90 0RF loperamide 2 mg capsule 4 mg PO TID PRN (Reason: diarrhea ) Qty: 20 0RF Referrals Referrals: Som Silvestre MD [Primary Care Provider] -
[2024-08-18 20:34] LABS: Lipase 73 U/L (11-82); Magnesium 1.7 mg/dl (1.7-2.4)
[2024-08-18 20:50] LABS: Thyroid Stimulating Hormone 2.014 uIu/ml (0.300-4.500)
[2024-08-18 21:00] LABS: Troponin I High Sensitivity 15.4 pg/ml (0-20)
[2024-08-18] MEDS: SODIUM CHLORIDE 0.9% 1,000 ML IV ONE (21:14)
[2024-08-18] MEDS: POTASSIUM CHLORIDE / WTR 10 MEQ/100 ML PLCT IV ONE (21:14)
--- NOTE | 2024-08-18 21:55 | CT Scan Report ---
Exam(s): CT ABDOMEN + PELVIS Without Contrast EXAM: CT Abdomen and Pelvis Without Intravenous Contrast CLINICAL HISTORY: Reason for exam: right sided pain. TECHNIQUE: Axial computed tomography images of the abdomen and pelvis without intravenous contrast. CTDI is 24.69 mGy and DLP is 1217.21 mGy-cm. Automated exposure control was utilized for the study. A dose lowering technique was utilized adhering to the principles of ALARA. COMPARISON: 12/05/2023 FINDINGS: Lung bases: See below. Mediastinum: 1.9 x 1.2 cm mass at the distal esophagus concerning for underlying neoplasm. Direct visual inspection recommended. ABDOMEN: Liver: Unremarkable. Gallbladder and bile ducts: Unremarkable. No calcified stones. No ductal dilation. Pancreas: Unremarkable. No ductal dilation. Spleen: Unremarkable. No splenomegaly. Adrenals: Unremarkable. No mass. Kidneys and ureters: 1.2 cm soft tissue density projecting off of the right kidney. This is unchanged from prior exam. Subtle inflammatory changes about the left renal hilum. This is unchanged from prior exam. No obstructing stones. No hydronephrosis. Stomach and bowel: Unremarkable. No obstruction. No mucosal thickening. PELVIS: Appendix: No findings to suggest acute appendicitis. Bladder: Circumferential wall thickening of the urinary bladder. No stones. Reproductive: Unremarkable as visualized. ABDOMEN and PELVIS: Intraperitoneal space: Unremarkable. No free air. No significant fluid collection. Bones/joints: Postoperative changes right hip arthroplasty. No acute fracture. No dislocation. Soft tissues: Unremarkable. Vasculature: Unremarkable. No abdominal aortic aneurysm. Lymph nodes: Unremarkable. No enlarged lymph nodes. IMPRESSION: 1.9 cm soft tissue density within the distal esophagus. Findings are concerning for underlying neoplasm. Direct visual inspection is recommended Circumferential wall thickening urinary bladder. This may represent cystitis in the appropriate clinical setting 1.4 cm nodularity projecting off of the right kidney measures greater than fluid density. This is stable when compared with prior exam. In the postcontrast CT of the abdomen and pelvis and renal ultrasound may be obtained for further evaluation Electronically signed by: Benton Motley MD 08/18/24 21:54 PM
[2024-08-18 22:11] LABS: Appearance Urine Clear (Clear); Bacteria Urine Automated None Seen (None Seen); Bilirubin Urine Negative (Negative); Blood Urine 2+ (Negative); Color Urine Yellow; Epithelial Cell Urine Auto 0-2 /hpf (0-2); Glucose Urine UA Negative (Negative); Hyaline Casts Urine Present /lpf (None Presnt); Ketones Urine Negative (Negative); Leukocyte Esterase Urine 2+ (Negative); Nitrite Urine Negative (Negative); Protein Urine 2+ (Negative); Specific Gravity Urine 1.012 (1.000-1.030); Urobilinogen Urine Negative (Negative); WBC Urine Automated 21-50 /hpf (0-5)
[2024-08-18] MEDS: CALCIUM GLUCONATE 1,000 MG/60 ML BAG IV STA (23:04)
[2024-08-18] MEDS: PIPERACILLIN/TAZOBACTAM 4.5 GM/100 ML BAG IV ONE (23:21)
--- NOTE | 2024-08-18 23:22 | XRay Report ---
Exam(s): XR CXR 1 VIEW EXAM: XR Chest, 1 View CLINICAL HISTORY: Reason for exam: weak. TECHNIQUE: Frontal view of the chest. COMPARISON: 12/05/2023 FINDINGS: Lungs: Unremarkable. No consolidation. Pleural space: Unremarkable. No pneumothorax. Heart: Unremarkable. No cardiomegaly. Mediastinum: Unremarkable. Normal mediastinal contour. Bones/joints: Unremarkable. No acute fracture. IMPRESSION: Normal chest x-ray. Electronically signed by: Benton Motley MD 08/18/24 23:21 PM
[2024-08-19] MEDS: MAGNESIUM SULFATE / D5W 1 GM/100 ML BAG IV ONE (00:32)
[2024-08-19] MEDS: POTASSIUM CHLORIDE 20 MEQ/15 ML UDC PO STA (00:43)
[2024-08-19] MEDS: POTASSIUM CHLORIDE CRTAB 20 MEQ TABCR PO STA (01:10)
[2024-08-19] MEDS ORDERED: NITROGLYCERIN SL 0.4 MG/TAB TAB SL PRN (02:20)
[2024-08-19] MEDS ORDERED: ONDANSETRON INJ 2 MG/ML 2 ML VIAL IV PRN (02:20)
[2024-08-19] MEDS ORDERED: ACETAMINOPHEN 325 MG TAB PO PRN (02:20)
[2024-08-19] MEDS: POTASSIUM CHLORIDE / WTR 10 MEQ/100 ML PLCT IV SCH (03:12)
[2024-08-19] MEDS: SODIUM CHLORIDE 0.9% 1,000 ML IV SCH (03:13)
[2024-08-19] MEDS: DAPTOmycin 250 MG in SYRINGE 0 ML IV SCH (03:13)
[2024-08-19] MEDS: PIPERACILLIN/TAZOBACTAM 4.5 GM/100 ML BAG IV SCH (05:17)
--- NOTE | 2024-08-19 06:06 | History & Physical Report ---
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 Not eating much from last 7 to 10 days. Patient straight caths thought could be UTI. Patient supposed to start Bactrim but as per he did not started yet. Patient also complains some abdominal discomfort. Has nausea and dry heaves. Denies any headache. Says his mouth is very dry. When his mouth is dry he has difficulty swallowing. Denies chest pain or shortness of breath. His stools are loose. Micturating a lot as per . Ambulates okay. Currently resting comfortably and hemodynamically stable. Labs showed DARRIAN and hypokalemia and UA is positive for UTI. DARRIAN on CKD Baseline creatinine around 2 presented with creatinine of 4 Poor appetite since last around [address] abdomen pelvis shows possible cystitis and 1.4 cm nodular on the right kidney Will follow renal ultrasound Patient straight caths for neurogenic bladder Gentle fluids Avoid nephrotoxic agents Follow repeat labs Close monitor Nephrology consult for further recommendations Hypokalemia Hypocalcemia Has history of electrolyte abnormalities Will replace Follow repeat labs At home o p.o. calcium carbonate and potassium supplements Will check vitamin D levels Nephrology consulted Acute UTI History of Pseudomonas and coag negative staph in cultures Empiric Zosyn and Dapto Will follow cultures Prolonged QTc QTc 599 History of prolonged QT Will correct electrolytes Avoid QT prolonging drugs Follow repeat EKG Esophageal lesion on CAT scan N.p.o. IV Protonix GI consult Mood disorder Will hold citalopram and doxepin as QTc prolonged Hypertension On metoprolol succinate and amiloride Will hold amiloride as blood pressure is soft Close monitor DVT prophylaxis SCDs for now Disposition Telemetry Full code. 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 Not eating much from last 7 to 10 days. Patient straight caths thought could be UTI. Patient supposed to start Bactrim but as per he did not started yet. Patient also complains some abdominal discomfort. Has nausea and dry heaves. Denies any headache. Says his mouth is very dry. When his mouth is dry he has difficulty swallowing. Denies chest pain or shortness of breath. His stools are loose. Micturating a lot as per . Ambulates okay. Currently resting comfortably and hemodynamically stable. Labs showed DARRIAN and hypokalemia and UA is positive for UTI. Past medical history. As mentioned above Past surgical history. Cholecystectomy. Fracture surgery. Social history. No smoking. No alcohol use. Disabled. Family history. Significant for diabetes. Allergies Allergy/AdvReac Type Severity Reaction Status Date / Time No Known Allergies Allergy Unverified 12/09/23 11:07 Home Medications Medication Instructions Recorded Confirmed Type amiloride 5 mg tablet 5 mg PO DAILY 08/19/24 08/19/24 History calcitriol 0.25 mcg capsule 0.25 mcg PO DAILY 08/19/24 08/19/24 History calcium 500 mg (as 1 tab PO BID 08/19/24 08/19/24 History carbonate)-vitamin D3 15 mcg (600 unit) tablet citalopram 40 mg tablet 40 mg PO DAILY 08/19/24 08/19/24 History cyanocobalamin (vitamin B-12) 1,000 mcg IM MONTHLY 08/19/24 08/19/24 History 1,000 mcg/mL injection solution doxepin 25 mg capsule 25 mg PO HS 08/19/24 08/19/24 History metoprolol succinate 25 mg 25 mg PO DAILY 08/19/24 08/19/24 History tablet,extended release 24 hr potassium chloride 20 mEq 20 meq PO DAILY 08/19/24 08/19/24 History tablet,extended release tramadol 50 mg tablet 50 mg PO BID PRN Pain 08/19/24 08/19/24 History Past Med/Surg History Problem List (Updated 08/19/24 @ 02:14 by Ronak Hendrix) Hypokalemia (Acute) Esophageal mass (Acute) Acute UTI (Acute) DARRIAN (acute kidney injury) (Acute) Acute dehydration (Acute) Hypocalcemia (Acute) Weakness (Acute) Complicated urinary tract infection (Acute) Acute dehydration (Acute) Hypomagnesemia (Acute) Acute renal failure (ARF) (Acute) Hypocalcemia (Acute) Disorders of fluid, electrolyte, and acid-base balance Pelvic pain Nausea Severe sepsis (Acute) Medical History Renal insufficiency Poliomyelitis as child CKD (chronic kidney disease) stage 4, GFR 15-29 ml/min baseline creat 2 in 2020 Neurogenic bladder Surgical History History of hip surgery Hx of cholecystectomy Family History Other Diabetes Social History Smoking Status: Never smoker Second Hand Exposure: No; Do You Dip or Chew Tobacco: No; Tobacco Cessation Education Requested by Patient: No Hx Alcohol Use: No Hx Substance Use: No Preferred Language: Slovenian Communication Ability: Effective Communication Ability Comment: Hard of Heading Business Systems Technician Required: No Beliefs That Will Affect Care: None Current Living Situation: Spouse Other Information That Helps Us Care for You: No Feels Safe at Home: Yes Safety Concerns: Feels Safe At This Time Assistive Devices: Denture - Upper and Walker Review of Systems Review of Systems: All systems reviewed & are unremarkable except as noted in HPI & below Physical Exam Physical Exam: General- Not in acute distress Head- atraumatic Eyes- PERRL. ENT- oropharynx dry Neck- supple, no JVD. Lungs- clear to auscultation no wheezing or crackles Heart- regular rate and rhythm; no murmur, no gallop. Abdomen- normal bowel sounds, soft, nontender, no distension Extremities- chronic skin changes seen in lower extremities. Neuro- alert, oriented PERRL, no facial palsy; no dysarthria; moves extremities Results & Data Results & Data Vital Signs (Past 12 Hours) Vital Signs Temp Pulse Pulse Resp BP BP Pulse Ox 08/19/24 00:50 70 08/18/24 23:00 103 H 18 103/73 95 08/18/24 23:00 110 H 17 103/73 08/18/24 22:00 79 16 109/77 99 08/18/24 21:43 71 18 130/71 99 08/18/24 21:03 71 16 08/18/24 20:52 72 08/18/24 19:12 36.3 C L 85 16 107/71 97 O2 Del Method 08/19/24 00:50 08/18/24 23:00 Room Air 08/18/24 23:00 08/18/24 22:00 Room Air 08/18/24 21:43 Room Air 08/18/24 21:03 08/18/24 20:52 08/18/24 19:12 Room Air Diagnostic Findings Laboratory Results WBC 18.56 K/ul (4.8-10.8) H 08/18/24 19:39 RBC 4.81 M/uL (4.70-6.10) 08/18/24 19:39 Hgb 15.0 g/dl (14.0-18.0) 08/18/24 19:39 Hct 43.7 % (42.0-52.0) 08/18/24 19:39 MCV 90.9 fL (80.0-100.0) 08/18/24 19:39 MCH 31.2 pg (25.0-34.0) 08/18/24 19:39 MCHC 34.3 g/dL (32.0-36.0) 08/18/24 19:39 RDW Std Deviation 59.1 fL (36.4-46.3) H 08/18/24 19:39 RDW Coeff of Thao 18.6 % (11.5-14.5) H 08/18/24 19:39 Plt Count 210 K/uL (130-400) 08/18/24 19:39 MPV 12.8 fL (9.4-12.4) H 08/18/24 19:39 Immature Gran % (Auto) 0.8 % 08/18/24 19:39 Neut % (Auto) 86.1 % 08/18/24 19:39 Lymph % (Auto) 8.5 % 08/18/24 19:39 [place] % (Auto) 4.0 % 08/18/24 19:39 Eos % (Auto) 0.2 % 08/18/24 19:39 Baso % (Auto) 0.4 % 08/18/24 19:39 Neut # (Auto) 15.98 K/uL (1.40-6.50) H 08/18/24 19:39 Lymph # (Auto) 1.58 K/uL (1.20-3.40) 08/18/24 19:39 [place] # (Auto) 0.74 K/uL (0.11-0.59) H 08/18/24 19:39 Eos # (Auto) 0.03 K/uL (0.00-0.50) 08/18/24 19:39 Baso # (Auto) 0.08 K/uL (0.00-0.20) 08/18/24 19:39 Immature Gran # (Auto) 0.15 K/uL (0.01-0.20) 08/18/24 19:39 Absolute Nucleated RBC 0.04 K/uL (0.00-0.12) 08/18/24 19:39 Nucleated RBC % (auto) 0.2 % 08/18/24 19:39 Sodium 134 mmol/L (136-145) L 08/18/24 19:39 Potassium 2.7 mmol/L (3.5-5.1) L 08/18/24 19:39 Chloride 109 mmol/L (98-107) H 08/18/24 19:39 Carbon Dioxide 13 mmol/L (21-32) L 08/18/24 19:39 Anion Gap 12 (3-11) H 08/18/24 19:39 BUN 35 mg/dl (6-23) H 08/18/24 19:39 Creatinine 4.07 mg/dl (0.6-1.4) H 08/18/24 19:39 Est Cr Clr Drug Dosing Not Reportable 08/18/24 19:39 eGFR 15.79 08/18/24 19:39 BUN/Creatinine Ratio 8.6 (10-20) L 08/18/24 19:39 Glucose 104 mg/dl (70-99(Fasting)) H 08/18/24 19:39 Lactate 1.2 mmol/L (0.4-2.0) 08/18/24 20:26 Calcium 7.8 mg/dl (8.6-10.3) L 08/18/24 19:39 Magnesium 1.7 mg/dl (1.7-2.4) 08/18/24 19:39 Total Bilirubin 0.8 mg/dl (0.2-1.0) 08/18/24 19:39 AST 61 U/L (13-39) H 08/18/24 19:39 ALT 59 U/L (7-52) H 08/18/24 19:39 Alkaline Phosphatase 155 U/L (34-104) H 08/18/24 19:39 Troponin I High Sens 15.4 pg/ml (0-20) 08/18/24 19:39 Total Protein 8.6 gm/dl (6.0-8.3) H 08/18/24 19:39 Albumin 4.4 gm/dl (3.4-5.0) 08/18/24 19:39 Globulin 4.2 gm/dl (2.5-4.0) H 08/18/24 19:39 Albumin/Globulin Ratio 1.0 (0.9-2) 08/18/24 19:39 Lipase 73 U/L (11-82) 08/18/24 19:39 TSH 2.014 uIu/ml (0.300-4.500) 08/18/24 19:39 Urine Color Yellow 08/18/24 21:40 Urine Appearance Clear (Clear) 08/18/24 21:40 Urine pH 6.0 (4.5-7.5) 08/18/24 21:40 Ur Specific [place] 1.012 (1.000-1.030) 08/18/24 21:40 Urine Protein 2+ (Negative) H 08/18/24 21:40 Urine Glucose (UA) Negative (Negative) 08/18/24 21:40 Urine Ketones Negative (Negative) 08/18/24 21:40 Urine Blood 2+ (Negative) H 08/18/24 21:40 Urine Nitrite Negative (Negative) 08/18/24 21:40 Urine Bilirubin Negative (Negative) 08/18/24 21:40 Urine Urobilinogen Negative (Negative) 08/18/24 21:40 Ur Leukocyte Esterase 2+ (Negative) H 08/18/24 21:40 Urine WBC (Auto) 21-50 /hpf (0-5) H 08/18/24 21:40 Urine RBC (Auto) 3-5 /hpf (0-2) H 08/18/24 21:40 U Hyaline Cast (Auto) 6-10 /lpf (0-2) H 08/18/24 21:40 U Epithel Cells (Auto) 0-2 /hpf (0-2) 08/18/24 21:40 Urine Bacteria (Auto) None Seen (None Seen) 08/18/24 21:40 Hyaline Casts Present /lpf (None Presnt) A 08/18/24 21:40 Adenovirus (PCR) Not Detected (NotDetected) 08/18/24 19:32 B. pertussis DNA (PCR) Not Detected (NotDetected) 08/18/24 19:32 B.parapertussis DNA PCR Not Detected (NotDetected) 08/18/24 19:32 C. pneumoniae DNA (PCR) Not Detected (NotDetected) 08/18/24 19:32 Coronavirus OC43 (PCR) Not Detected (NotDetected) 08/18/24 19:32 Coronavirus HKU1 (PCR) Not Detected (NotDetected) 08/18/24 19:32 Coronavirus 229E (PCR) Not Detected (NotDetected) 08/18/24 19:32 SARS-CoV-2 (PCR) Not Detected (NotDetected) 08/18/24 19:32 Coronavirus NL63 (PCR) Not Detected (NotDetected) 08/18/24 19:32 Human Metapneumovir PCR Not Detected (NotDetected) 08/18/24 19:32 Influenza Type A (PCR) Not Detected (NotDetected) 08/18/24 19:32 Influenza Type B (PCR) Not Detected (NotDetected) 08/18/24 19:32 M. pneumoniae (PCR) Not Detected (NotDetected) 08/18/24 19:32 Parainfluenza 1 (PCR) Not Detected (NotDetected) 08/18/24 19:32 Parainfluenza 2 (PCR) Not Detected (NotDetected) 08/18/24 19:32 Parainfluenza 3 (PCR) Not Detected (NotDetected) 08/18/24 19:32 Parainfluenza 4 (PCR) Not Detected (NotDetected) 08/18/24 19:32 RSV (PCR) Not Detected (NotDetected) 08/18/24 19:32 Entero/Rhino (PCR) Not Detected (NotDetected) 08/18/24 19:32 Impressions Chest X-Ray 08/18/24 20:13 Exam(s): XR CXR 1 VIEW EXAM: XR Chest, 1 View CLINICAL HISTORY: Reason for exam: weak. TECHNIQUE: Frontal view of the chest. COMPARISON: 12/05/2023 FINDINGS: Lungs: Unremarkable. No consolidation. Pleural space: Unremarkable. No pneumothorax. Heart: Unremarkable. No cardiomegaly. Mediastinum: Unremarkable. Normal mediastinal contour. Bones/joints: Unremarkable. No acute fracture. IMPRESSION: Normal chest x-ray. Electronically signed by: Benton Motley MD 08/18/24 23:21 PM Abdomen/Pelvis CT 08/18/24 20:17 Exam(s): CT ABDOMEN + PELVIS Without Contrast EXAM: CT Abdomen and Pelvis Without Intravenous Contrast CLINICAL HISTORY: Reason for exam: right sided pain. TECHNIQUE: Axial computed tomography images of the abdomen and pelvis without intravenous contrast. CTDI is 24.69 mGy and DLP is 1217.21 mGy-cm. Automated exposure control was utilized for the study. A dose lowering technique was utilized adhering to the principles of ALARA. COMPARISON: 12/05/2023 FINDINGS: Lung bases: See below. Mediastinum: 1.9 x 1.2 cm mass at the distal esophagus concerning for underlying neoplasm. Direct visual inspection recommended. ABDOMEN: Liver: Unremarkable. Gallbladder and bile ducts: Unremarkable. No calcified stones. No ductal dilation. Pancreas: Unremarkable. No ductal dilation. Spleen: Unremarkable. No splenomegaly. Adrenals: Unremarkable. No mass. Kidneys and ureters: 1.2 cm soft tissue density projecting off of the right kidney. This is unchanged from prior exam. Subtle inflammatory changes about the left renal hilum. This is unchanged from prior exam. No obstructing stones. No hydronephrosis. Stomach and bowel: Unremarkable. No obstruction. No mucosal thickening. PELVIS: Appendix: No findings to suggest acute appendicitis. Bladder: Circumferential wall thickening of the urinary bladder. No stones. Reproductive: Unremarkable as visualized. ABDOMEN and PELVIS: Intraperitoneal space: Unremarkable. No free air. No significant fluid collection. Bones/joints: Postoperative changes right hip arthroplasty. No acute fracture. No dislocation. Soft tissues: Unremarkable. Vasculature: Unremarkable. No abdominal aortic aneurysm. Lymph nodes: Unremarkable. No enlarged lymph nodes. IMPRESSION: 1.9 cm soft tissue density within the distal esophagus. Findings are concerning for underlying neoplasm. Direct visual inspection is recommended Circumferential wall thickening urinary bladder. This may represent cystitis in the appropriate clinical setting 1.4 cm nodularity projecting off of the right kidney measures greater than fluid density. This is stable when compared with prior exam. In the postcontrast CT of the abdomen and pelvis and renal ultrasound may be obtained for further evaluation Electronically signed by: Benton Motley MD 08/18/24 21:54 PM ECG Additional Comments: ECG. Normal sinus rhythm rate of 74. Prolonged QT at 599. Code Status & VTE Plan VTE Prophylaxis Plan VTE Prophylaxis will be ordered: Yes
[2024-08-19 06:32] LABS: Albumin Level 3.4 gm/dl (3.4-5.0); Bilirubin Direct 0.2 mg/dl (0-0.2); Bilirubin,Total 0.8 mg/dl (0.2-1.0)
[2024-08-19] MEDS: METOPROLOL SUCC 25MG EXT REL TAB PO SCH (08:11)
[2024-08-19] MEDS: CALCITRIOL 0.25 MCG CAPSULE PO SCH (08:11)
[2024-08-19] MEDS: CALCIUM CARBONATE 1250MG TAB PO SCH (08:11)
[2024-08-19] MEDS: PANTOprazole 40 MG/10 ML SYR IV SCH (08:11)
[2024-08-19 08:12] LABS: BUN Creatinine Ratio 8.4 (10-20); Calcium 7.4 mg/dl (8.6-10.3); Creatinine Clr Calc Pharmacy 17.2 ml/min; Phosphorus 3.3 mg/dl (2.5-4.9); Potassium 2.6 mmol/L (3.5-5.1)
--- NOTE | 2024-08-19 09:10 | Ultrasound Report ---
RENAL ULTRASOUND CLINICAL HISTORY: right kidney nodule? COMPARISON STUDY: CT of the abdomen and pelvis August 18, 2024. TECHNIQUE: Sonography of the kidneys and the urinary bladder was performed. FINDINGS: Moderate bilateral renal atrophy is noted. The right kidney measures 11.3 cm in maximal dim ension and the left measures 10.6 cm. There is no hydronephrosis. Several bilateral anechoic renal le sions represent cysts, including a 1.3 cm right mid pole renal lesion which corresponds to the lesion on CT of August 18, 2024. There are no renal calculi. Ureteral jets were not visualized. IMPRESSION: 1. 1.3 cm right renal cyst which corresponds to the lesion shown on CT of August 18, 2024. This is suggestive of a proteinaceous cyst and is benign. 2. Moderate bilateral renal atrophy. 3. No hydronephrosis. ACT 112: Negative or not required by law. Electronically signed by: Andres Paris M.D. 08/19/2024 9:09 AM
[2024-08-19] MEDS ORDERED: STAT IV/IM STA ×2 (09:35→17:19)
[2024-08-19 09:37] LABS: Basophils # (auto) 0.11 K/uL (0.00-0.20); Basophils % (auto) 0.6 %; Eosinophils # (auto) 0.08 K/uL (0.00-0.50); Eosinophils % (auto) 0.4 %; Hematocrit (blood only) 35.9 % (42.0-52.0); Hemoglobin 12.1 g/dl (14.0-18.0); Immature Granulocytes # (auto) 0.45 K/uL (0.01-0.20); Immature Granulocytes % (auto) 2.5 %; Lymphocytes % (auto) 15.3 %; Mean Corpuscular Hemoglobin 30.9 pg (25.0-34.0); Mean Corpuscular Hgb Conc 33.7 g/dL (32.0-36.0); Mean Corpuscular Volume 91.8 fL (80.0-100.0); Mean Platelet Volume 12.8 fL (9.4-12.4); Monocytes # (auto) 1.02 K/uL (0.11-0.59); Monocytes % (auto) 5.6 %; Neutrophils # (auto) 13.88 K/uL (1.40-6.50); Neutrophils % (auto) 75.6 %; Nucleated RBC # (auto) 0.02 K/uL (0.00-0.12); Nucleated RBC % (auto) 0.1 %; Platelet Count 164 K/uL (130-400); RDW Coefficient of Variation 18.3 % (11.5-14.5); RDW Standard Deviation 60.5 fL (36.4-46.3); Red Blood Count 3.91 M/uL (4.70-6.10); White Blood Count 18.34 K/ul (4.8-10.8)
--- NOTE | 2024-08-19 09:37 | Gastrointestinal Consultation ---
Date of Consultation August 19, 2024 Assessment & Plan (1) Esophageal mass: Plan 63 year old male w/ history of neurogenic bladder secondary to childhood polio, CKD, IBS-D, recurrent hypokalemia, mood disorder and others below admitted through the ED w/ decreased appetite and nausea, CT w/ a 1.9 cm soft tissue density within the distal esophagus. NPO EGD this AM pending AM labs AM labs returned. Persistent e-lyte abnormalities. I was updated by the primary service who recommend optimization prior to EGD and request that we reschedule todays procedure as it is elective. We appreciate assistance in the management of any serological abnormality and corrections to include: hemoglobin >7, INR <2, platelets >50,000, potassium levels >3.5 but <5.3, and sodium levels within 5 points of the reference range prior to endoscopic evaluation. Thank you for allowing us to participate in the care of this patient. Please call with any acute changes, questions or concerns. Please see addendum below with additional recommendation from my supervising physician. I spent a total of 60 minutes on the date of service in review of patient's record, and previously obtained information in person and appropriate medical visit, discussion and education of plan, with patient and/or caregiver, placing orders for tests/referral/procedures as medically necessary and documentation of pertinent clinical information in patient's medical records for their visit today. Supervising Physician Co-Signing Physician Notes I examined the patient and reviewed the medical record, laboratory data and imaging studies. I agree with the assessment and plan of care as suggested by the advanced practice provider. Patient appears comfortable had a detailed discussion with patient and his he does not really have any symptoms of dysphagia per se but has this abnormal imaging on CAT scan in view of his electrolyte abnormalities will wait till they resolve and we will plan for an upper endoscopy to evaluate the lesion seen in the meantime can take diet as tolerated and will follow clinically further recommendations after upper endoscopy Thank you for allowing us to take part in the care of your patient we will continue to follow him with you History of Present Illness Reason for Consultation: ?esophageal mass Requesting Physician: Armando Logan MD Attending Physician: Armando Logan MD History of Present Illness 63 year old male w/ history of neurogenic bladder secondary to childhood polio, CKD, IBS-D, recurrent hypokalemia, mood disorder and others below admitted through the ED w/ decreased appetite and nausea - GI was asked to evaluate for abnormal imaging. Pt was seen and evaluated, chart reviewed. Family aids in history. Suggests he has had some decreased appetite and nausea intermittent for quite some time. They relate this to chronic urinary infections as this is when symptoms seem pronounced. He has had intermittent dysphagia but this is not consistent either. Reports of recent has been tolerating oral intake. Intermittent GERD type symptoms. No fever, chills, CP, SOB. CTAP 2023: 1.9 cm soft tissue density within the distal esophagus. Findings are concerning for underlying neoplasm. Direct visual inspection is recommended EGD 2019: duodenitis, gastritis, small HH, reflux esophagitis Allergies Allergy/AdvReac Type Severity Reaction Status Date / Time No Known Allergies Allergy Unverified 12/09/23 11:07 Home Medications Medication Instructions Recorded Confirmed Type amiloride 5 mg tablet 5 mg PO DAILY 08/19/24 08/19/24 History calcitriol 0.25 mcg capsule 0.25 mcg PO DAILY 08/19/24 08/19/24 History calcium 500 mg (as 1 tab PO BID 08/19/24 08/19/24 History carbonate)-vitamin D3 15 mcg (600 unit) tablet citalopram 40 mg tablet 40 mg PO DAILY 08/19/24 08/19/24 History cyanocobalamin (vitamin B-12) 1,000 mcg IM MONTHLY 08/19/24 08/19/24 History 1,000 mcg/mL injection solution doxepin 25 mg capsule 25 mg PO HS 08/19/24 08/19/24 History metoprolol succinate 25 mg 25 mg PO DAILY 08/19/24 08/19/24 History tablet,extended release 24 hr potassium chloride 20 mEq 20 meq PO DAILY 08/19/24 08/19/24 History tablet,extended release tramadol 50 mg tablet 50 mg PO BID PRN Pain 08/19/24 08/19/24 History Patient History Medical History Renal insufficiency Poliomyelitis as child CKD (chronic kidney disease) stage 4, GFR 15-29 ml/min baseline creat 2 in 2020 Neurogenic bladder Surgical History History of hip surgery Hx of cholecystectomy Family History Other Diabetes Social History Smoking Status: Never smoker Second Hand Exposure: No; Do You Dip or Chew Tobacco: No; Tobacco Cessation Education Requested by Patient: No Hx Alcohol Use: No Hx Substance Use: No Preferred Language: Kyrgyz Communication Ability: Effective Communication Ability Comment: Hard of Heading Medical Record Administrator Required: No Beliefs That Will Affect Care: None Current Living Situation: Spouse Other Information That Helps Us Care for You: No Feels Safe at Home: Yes Safety Concerns: Feels Safe At This Time Assistive Devices: Denture - Upper and Walker Review of Systems Review of Systems: All other findings negative except as noted in HPI. Physical Exam Constitutional: WD/WN, vitals as above Respiratory: normal respiratory effort Cardiovascular: Rate/Rhythm: regular rate and regular rhythm Gastrointestinal (Abdomen): normal bowel sounds, soft, nontender, no hepatosplenomegaly Skin: no rashes, warm and dry Results & Data Vital Signs (Past 12 Hours) Vital Signs Temp Pulse Pulse Resp BP BP Pulse Ox 08/19/24 08:00 79 08/19/24 03:38 71 08/19/24 03:00 36.5 C 69 19 108/70 99 08/19/24 02:25 36.5 C 69 20 108/70 99 08/19/24 01:44 36.8 C 97 H 18 121/83 100 08/19/24 01:00 119 H 20 121/83 100 08/19/24 00:50 70 08/18/24 23:00 103 H 18 103/73 95 08/18/24 23:00 110 H 17 103/73 08/18/24 22:00 79 16 109/77 99 08/18/24 21:43 71 18 130/71 99 O2 Del Method 08/19/24 08:00 08/19/24 03:38 08/19/24 03:00 Room Air 08/19/24 02:25 Room Air 08/19/24 01:44 Room Air 08/19/24 01:00 Room Air 08/19/24 00:50 08/18/24 23:00 Room Air 08/18/24 23:00 08/18/24 22:00 Room Air 08/18/24 21:43 Room Air Laboratory Results 08/19/24 08/19/24 08/19/24 Range/Units 09:13 05:58 05:55 WBC Pending (4.8-10.8) K/ul RBC Pending (4.70-6.10) M/uL Hgb Pending (14.0-18.0) g/dl Hct Pending (42.0-52.0) % MCV Pending (80.0-100.0) fL MCH Pending (25.0-34.0) pg MCHC Pending (32.0-36.0) g/dL RDW Std Deviation (36.4-46.3) fL RDW Coeff of Thao (11.5-14.5) % Plt Count Pending (130-400) K/uL MPV (9.4-12.4) fL Immature Gran % (Auto) % Neut % (Auto) % Lymph % (Auto) % [place] % (Auto) % Eos % (Auto) % Baso % (Auto) % Neut # (Auto) (1.40-6.50) K/uL Lymph # (Auto) (1.20-3.40) K/uL [place] # (Auto) (0.11-0.59) K/uL Eos # (Auto) (0.00-0.50) K/uL Baso # (Auto) (0.00-0.20) K/uL Immature Gran # (Auto) (0.01-0.20) K/uL Absolute Nucleated RBC (0.00-0.12) K/uL Nucleated RBC % (auto) % Sodium Cancelled 137 (136-145) mmol/L Potassium Cancelled 2.6 L (3.5-5.1) mmol/L Chloride Cancelled 115 H (98-107) mmol/L Carbon Dioxide Cancelled 11 L (21-32) mmol/L Anion Gap Cancelled 11 (3-11) BUN Cancelled 34 H (6-23) mg/dl Creatinine Cancelled 4.06 H (0.6-1.4) mg/dl Est Cr Clr Drug Dosing Cancelled 17.2 eGFR Cancelled 15.84 BUN/Creatinine Ratio Cancelled 8.4 L (10-20) Glucose Cancelled 85 (70-99(Fasting)) mg/dl Lactate (0.4-2.0) mmol/L Calcium Cancelled 7.4 L (8.6-10.3) mg/dl Phosphorus Cancelled 3.3 (2.5-4.9) mg/dl Magnesium Cancelled 2.0 (1.7-2.4) mg/dl Total Bilirubin Cancelled 0.8 (0.2-1.0) mg/dl Direct Bilirubin 0.2 (0-0.2) mg/dl AST Cancelled 46 H (13-39) U/L ALT Cancelled 44 (7-52) U/L Alkaline Phosphatase Cancelled 126 H (34-104) U/L Troponin I High Sens (0-20) pg/ml Total Protein Cancelled 7.0 (6.0-8.3) gm/dl Albumin Cancelled 3.4 (3.4-5.0) gm/dl Globulin Cancelled Pending (2.5-4.0) gm/dl Albumin/Globulin Ratio Cancelled Pending (0.9-2) Lipase (11-82) U/L 25-OH Vitamin D Total Pending TSH (0.300-4.500) uIu/ml Urine Color Urine Appearance (Clear) Urine pH (4.5-7.5) Ur Specific [place] (1.000-1.030) Urine Protein (Negative) Urine Glucose (UA) (Negative) Urine Ketones (Negative) Urine Blood (Negative) Urine Nitrite (Negative) Urine Bilirubin (Negative) Urine Urobilinogen (Negative) Ur Leukocyte Esterase (Negative) Urine WBC (Auto) (0-5) /hpf Urine RBC (Auto) (0-2) /hpf U Hyaline Cast (Auto) (0-2) /lpf U Epithel Cells (Auto) (0-2) /hpf Urine Bacteria (Auto) (None Seen) Hyaline Casts (None Presnt) /lpf Adenovirus (PCR) (NotDetected) B. pertussis DNA (PCR) (NotDetected) B.parapertussis DNA PCR (NotDetected) C. pneumoniae DNA (PCR) (NotDetected) Coronavirus OC43 (PCR) (NotDetected) Coronavirus HKU1 (PCR) (NotDetected) Coronavirus 229E (PCR) (NotDetected) SARS-CoV-2 (PCR) (NotDetected) Coronavirus NL63 (PCR) (NotDetected) Human Metapneumovir PCR (NotDetected) Influenza Type A (PCR) (NotDetected) Influenza Type B (PCR) (NotDetected) M. pneumoniae (PCR) (NotDetected) Parainfluenza 1 (PCR) (NotDetected) Parainfluenza 2 (PCR) (NotDetected) Parainfluenza 3 (PCR) (NotDetected) Parainfluenza 4 (PCR) (NotDetected) RSV (PCR) (NotDetected) Entero/Rhino (PCR) (NotDetected) 08/18/24 08/18/24 08/18/24 Range/Units 21:40 20:26 19:39 WBC 18.56 H (4.8-10.8) K/ul RBC 4.81 (4.70-6.10) M/uL Hgb 15.0 (14.0-18.0) g/dl Hct 43.7 (42.0-52.0) % MCV 90.9 (80.0-100.0) fL MCH 31.2 (25.0-34.0) pg MCHC 34.3 (32.0-36.0) g/dL RDW Std Deviation 59.1 H (36.4-46.3) fL RDW Coeff of Thao 18.6 H (11.5-14.5) % Plt Count 210 (130-400) K/uL MPV 12.8 H (9.4-12.4) fL Immature Gran % (Auto) 0.8 % Neut % (Auto) 86.1 % Lymph % (Auto) 8.5 % [place] % (Auto) 4.0 % Eos % (Auto) 0.2 % Baso % (Auto) 0.4 % Neut # (Auto) 15.98 H (1.40-6.50) K/uL Lymph # (Auto) 1.58 (1.20-3.40) K/uL [place] # (Auto) 0.74 H (0.11-0.59) K/uL Eos # (Auto) 0.03 (0.00-0.50) K/uL Baso # (Auto) 0.08 (0.00-0.20) K/uL Immature Gran # (Auto) 0.15 (0.01-0.20) K/uL Absolute Nucleated RBC 0.04 (0.00-0.12) K/uL Nucleated RBC % (auto) 0.2 % Sodium 134 L (136-145) mmol/L Potassium 2.7 L (3.5-5.1) mmol/L Chloride 109 H (98-107) mmol/L Carbon Dioxide 13 L (21-32) mmol/L Anion Gap 12 H (3-11) BUN 35 H (6-23) mg/dl Creatinine 4.07 H (0.6-1.4) mg/dl Est Cr Clr Drug Dosing Not Reportable eGFR 15.79 BUN/Creatinine Ratio 8.6 L (10-20) Glucose 104 H (70-99(Fasting)) mg/dl Lactate 1.2 (0.4-2.0) mmol/L Calcium 7.8 L (8.6-10.3) mg/dl Phosphorus (2.5-4.9) mg/dl Magnesium 1.7 (1.7-2.4) mg/dl Total Bilirubin 0.8 (0.2-1.0) mg/dl Direct Bilirubin (0-0.2) mg/dl AST 61 H (13-39) U/L ALT 59 H (7-52) U/L Alkaline Phosphatase 155 H (34-104) U/L Troponin I High Sens 15.4 (0-20) pg/ml Total Protein 8.6 H (6.0-8.3) gm/dl Albumin 4.4 (3.4-5.0) gm/dl Globulin 4.2 H (2.5-4.0) gm/dl Albumin/Globulin Ratio 1.0 (0.9-2) Lipase 73 (11-82) U/L 25-OH Vitamin D Total Cancelled TSH 2.014 (0.300-4.500) uIu/ml Urine Color Yellow Urine Appearance Clear (Clear) Urine pH 6.0 (4.5-7.5) Ur Specific [place] 1.012 (1.000-1.030) Urine Protein 2+ H (Negative) Urine Glucose (UA) Negative (Negative) Urine Ketones Negative (Negative) Urine Blood 2+ H (Negative) Urine Nitrite Negative (Negative) Urine Bilirubin Negative (Negative) Urine Urobilinogen Negative (Negative) Ur Leukocyte Esterase 2+ H (Negative) Urine WBC (Auto) 21-50 H (0-5) /hpf Urine RBC (Auto) 3-5 H (0-2) /hpf U Hyaline Cast (Auto) 6-10 H (0-2) /lpf U Epithel Cells (Auto) 0-2 (0-2) /hpf Urine Bacteria (Auto) None Seen (None Seen) Hyaline Casts Present A (None Presnt) /lpf Adenovirus (PCR) (NotDetected) B. pertussis DNA (PCR) (NotDetected) B.parapertussis DNA PCR (NotDetected) C. pneumoniae DNA (PCR) (NotDetected) Coronavirus OC43 (PCR) (NotDetected) Coronavirus HKU1 (PCR) (NotDetected) Coronavirus 229E (PCR) (NotDetected) SARS-CoV-2 (PCR) (NotDetected) Coronavirus NL63 (PCR) (NotDetected) Human Metapneumovir PCR (NotDetected) Influenza Type A (PCR) (NotDetected) Influenza Type B (PCR) (NotDetected) M. pneumoniae (PCR) (NotDetected) Parainfluenza 1 (PCR) (NotDetected) Parainfluenza 2 (PCR) (NotDetected) Parainfluenza 3 (PCR) (NotDetected) Parainfluenza 4 (PCR) (NotDetected) RSV (PCR) (NotDetected) Entero/Rhino (PCR) (NotDetected) 08/18/24 Range/Units 19:32 WBC (4.8-10.8) K/ul RBC (4.70-6.10) M/uL Hgb (14.0-18.0) g/dl Hct (42.0-52.0) % MCV (80.0-100.0) fL MCH (25.0-34.0) pg MCHC (32.0-36.0) g/dL RDW Std Deviation (36.4-46.3) fL RDW Coeff of Thao (11.5-14.5) % Plt Count (130-400) K/uL MPV (9.4-12.4) fL Immature Gran % (Auto) % Neut % (Auto) % Lymph % (Auto) % [place] % (Auto) % Eos % (Auto) % Baso % (Auto) % Neut # (Auto) (1.40-6.50) K/uL Lymph # (Auto) (1.20-3.40) K/uL [place] # (Auto) (0.11-0.59) K/uL Eos # (Auto) (0.00-0.50) K/uL Baso # (Auto) (0.00-0.20) K/uL Immature Gran # (Auto) (0.01-0.20) K/uL Absolute Nucleated RBC (0.00-0.12) K/uL Nucleated RBC % (auto) % Sodium (136-145) mmol/L Potassium (3.5-5.1) mmol/L Chloride (98-107) mmol/L Carbon Dioxide (21-32) mmol/L Anion Gap (3-11) BUN (6-23) mg/dl Creatinine (0.6-1.4) mg/dl Est Cr Clr Drug Dosing eGFR BUN/Creatinine Ratio (10-20) Glucose (70-99(Fasting)) mg/dl Lactate (0.4-2.0) mmol/L Calcium (8.6-10.3) mg/dl Phosphorus (2.5-4.9) mg/dl Magnesium (1.7-2.4) mg/dl Total Bilirubin (0.2-1.0) mg/dl Direct Bilirubin (0-0.2) mg/dl AST (13-39) U/L ALT (7-52) U/L Alkaline Phosphatase (34-104) U/L Troponin I High Sens (0-20) pg/ml Total Protein (6.0-8.3) gm/dl Albumin (3.4-5.0) gm/dl Globulin (2.5-4.0) gm/dl Albumin/Globulin Ratio (0.9-2) Lipase (11-82) U/L 25-OH Vitamin D Total TSH (0.300-4.500) uIu/ml Urine Color Urine Appearance (Clear) Urine pH (4.5-7.5) Ur Specific [place] (1.000-1.030) Urine Protein (Negative) Urine Glucose (UA) (Negative) Urine Ketones (Negative) Urine Blood (Negative) Urine Nitrite (Negative) Urine Bilirubin (Negative) Urine Urobilinogen (Negative) Ur Leukocyte Esterase (Negative) Urine WBC (Auto) (0-5) /hpf Urine RBC (Auto) (0-2) /hpf U Hyaline Cast (Auto) (0-2) /lpf U Epithel Cells (Auto) (0-2) /hpf Urine Bacteria (Auto) (None Seen) Hyaline Casts (None Presnt) /lpf Adenovirus (PCR) Not Detected (NotDetected) B. pertussis DNA (PCR) Not Detected (NotDetected) B.parapertussis DNA PCR Not Detected (NotDetected) C. pneumoniae DNA (PCR) Not Detected (NotDetected) Coronavirus OC43 (PCR) Not Detected (NotDetected) Coronavirus HKU1 (PCR) Not Detected (NotDetected) Coronavirus 229E (PCR) Not Detected (NotDetected) SARS-CoV-2 (PCR) Not Detected (NotDetected) Coronavirus NL63 (PCR) Not Detected (NotDetected) Human Metapneumovir PCR Not Detected (NotDetected) Influenza Type A (PCR) Not Detected (NotDetected) Influenza Type B (PCR) Not Detected (NotDetected) M. pneumoniae (PCR) Not Detected (NotDetected) Parainfluenza 1 (PCR) Not Detected (NotDetected) Parainfluenza 2 (PCR) Not Detected (NotDetected) Parainfluenza 3 (PCR) Not Detected (NotDetected) Parainfluenza 4 (PCR) Not Detected (NotDetected) RSV (PCR) Not Detected (NotDetected) Entero/Rhino (PCR) Not Detected (NotDetected) PG Care Time/CCT Total # of Minutes Spent Total Time Spent with Patient: Total time spent is greater than 50% in coordination of care (as documented) at patient's floor/unit and/or counseling patient: Coding Level of Care Code 78085 INT INP/OBS CARE 2/55MIN Diagnoses Esophageal mass K22.89
[2024-08-19] MEDS: POTASSIUM CHLORIDE CRTAB 20 MEQ TABCR PO SCH ×2 (09:44→18:14)
--- NOTE | 2024-08-19 09:56 | Anesthesiology Consultation ---
Date of Service August 19, 2024 Assessment & Plan Chart Review Chart Review: Pending: Refer to Additional Notes / Consult section and Patient NOT seen in Pre Admission Testing Consults Requested medical ASA ASA4 Proposed Anesthesia Anesthesia Type: MAC History Surgery Operation Date: 08/21/24 16:30 Proposed Procedures p Esophagogastroduodenoscopy Karissa Hancock MD Height/Weight Height: 5 ft 2 in Weight: 79.3 kg Allergies Allergy/AdvReac Type Severity Reaction Status Date / Time No Known Allergies Allergy Unverified 12/09/23 11:07 Medications Home Medications Medication Instructions Recorded Confirmed Last Taken amiloride 5 mg tablet 5 mg PO DAILY 08/19/24 08/19/24 Unknown calcitriol 0.25 mcg capsule 0.25 mcg PO DAILY 08/19/24 08/19/24 Unknown calcium 500 mg (as 1 tab PO BID 08/19/24 08/19/24 Unknown carbonate)-vitamin D3 15 mcg (600 unit) tablet citalopram 40 mg tablet 40 mg PO DAILY 08/19/24 08/19/24 Unknown cyanocobalamin (vitamin B-12) 1,000 mcg IM MONTHLY 08/19/24 08/19/24 Unknown 1,000 mcg/mL injection solution doxepin 25 mg capsule 25 mg PO HS 08/19/24 08/19/24 Unknown metoprolol succinate 25 mg 25 mg PO DAILY 08/19/24 08/19/24 Unknown tablet,extended release 24 hr potassium chloride 20 mEq 20 meq PO DAILY 08/19/24 08/19/24 Unknown tablet,extended release tramadol 50 mg tablet 50 mg PO BID PRN Pain 08/19/24 08/19/24 Unknown Active Medications Generic Name Dose Route Start Last Admin Trade Name Suzy PRN Reason Stop Dose Admin Calcitriol 0.25 mcg 08/19/24 09:00 08/19/24 08:11 Calcitriol 0.25 Mcg Capsule PO 09/18/24 08:59 0.25 mcg DAILY THOMAS Administration Calcium Carbonate 1 tab 08/19/24 09:00 08/19/24 08:11 Calcium Carbonate 1250mg Tab PO 09/18/24 08:59 1 tab BID THOMAS Administration Piperacillin Sod/Tazobactam Sod 4.5 gm in 100 mls @ 25 mls/hr 08/19/24 06:00 08/19/24 09:17 Zosyn IV 08/29/24 05:59 Infused Q12H THOMAS Infusion Protocol Daptomycin 250 mg/ Syringe 5 mls @ 2.5 mls/min 08/19/24 03:00 08/19/24 03:13 IV 08/29/24 02:59 2.5 mls/min Q48H THOMAS Administration Protocol Pantoprazole Sodium 40 mg in 10 mls @ 5 mls/min 08/19/24 09:00 08/19/24 08:11 Protonix IV 09/18/24 08:59 5 mls/min DAILY THOMAS Administration Metoprolol Succinate 25 mg 08/19/24 09:00 08/19/24 08:11 Metoprolol Succ 25mg Ext Rel Tab PO 09/18/24 08:59 25 mg DAILY THOMAS Administration Potassium Chloride 20 meq 08/19/24 09:00 08/19/24 09:44 Potassium Chloride Crtab 20 Meq Tabcr PO 09/18/24 08:59 20 meq DAILY THOMAS Administration Past Medical History Medical History Renal insufficiency Poliomyelitis as child CKD (chronic kidney disease) stage 4, GFR 15-29 ml/min baseline creat 2 in 2020 Neurogenic bladder Exercise / Class Metabolic Activity II 4-5 Yardwork/Stairs/Walk up hill Past Family History Family History Other Diabetes Past Surgical History Surgical History History of hip surgery Hx of cholecystectomy Past Anesthesia History No Hx of Anesthesia Complications and No Family Hx of Anesthesia Complications History of PONV No Hx of PONV and No Hx of Motion Sickness Social History Smoking Status: Never smoker Do You Dip or Chew Tobacco: No Hx Alcohol Use: No Hx Substance Use: No Physical Exam Vital Signs Last Vital Signs Temp 36.7 C 08/19/24 09:30 Pulse 62 08/19/24 09:30 Resp 18 08/19/24 09:30 BP 100/67 08/19/24 09:30 Pulse Ox 98 08/19/24 09:30 O2 Del Method Room Air 08/19/24 09:30 Testing Laboratory Results 08/19/24 05:58 08/19/24 05:58 Urine Color Yellow 08/18/24 21:40 Urine Appearance Clear (Clear) 08/18/24 21:40 Urine pH 6.0 (4.5-7.5) 08/18/24 21:40 Ur Specific [place] 1.012 (1.000-1.030) 08/18/24 21:40 Urine Protein 2+ (Negative) H 08/18/24 21:40 Urine Glucose (UA) Negative (Negative) 08/18/24 21:40 Urine Ketones Negative (Negative) 08/18/24 21:40 Urine Nitrite Negative (Negative) 08/18/24 21:40 Ur Leukocyte Esterase 2+ (Negative) H 08/18/24 21:40 Urine WBC (Auto) 21-50 /hpf (0-5) H 08/18/24 21:40 Urine RBC (Auto) 3-5 /hpf (0-2) H 08/18/24 21:40 U Hyaline Cast (Auto) 6-10 /lpf (0-2) H 08/18/24 21:40 U Epithel Cells (Auto) 0-2 /hpf (0-2) 08/18/24 21:40 Urine Bacteria (Auto) None Seen (None Seen) 08/18/24 21:40 Electrocardiogram Date: 08/18/24 Findings: + NSR @ (@ 74;? infer. infarct,age ?;prolonged QT) Chest X-Ray Date: 08/18/24 Findings: + NAD
--- NOTE | 2024-08-19 09:57 | Communication Note ---
Date of Service: August 19, 2024 Pt. potassium is 2.6;case cannot proceed until this is corrected to the extent possible.
[2024-08-19 10:05] LABS: Albumin Globulin Ratio 0.9 (0.9-2); Globulin 3.6 gm/dl (2.5-4.0)
--- NOTE | 2024-08-19 10:25 | Communication Note ---
Date of Service: August 19, 2024 Patient seen and examined at bedside. He is comfortable; not in distress He denies fever, chills, chest pain, abdomen pain or urinary symptoms No significant events overnight On physical examination; Constitutional: Alert oriented x 3; not in any distress. Appears tired Respiratory: Bilateral vesicular breath sound Cardiovascular: RRR, no murmur, no edema Vessels: no JVD or carotid bruit Chest: normal inspection of chest Abdomen: normal bowel sounds, soft, nontender, no hepatosplenomegaly Neurologic: PERRL, EOMI, accommodation nl, no face palsy, no dysarthria CN's II- XI intact bilaterally and moves all extremities Psychiatric: A+Ox3, euthymic affect Assessment/plan DARRIAN on CKD Severe persistent hypokalemia Possible UTI Neurogenic bladder with history of self-catheterization Patient currently on bicarb drip with potassium; continue to replete potassium aggressively. Nephrology on board Continue on antibiotics; will follow-up on final culture results Abnormal CT abdomen/pelvis CT abdomen pelvis shows 1.9 cm soft tissue density within distal esophagus. GI consulted; EGD postponed for now given severe hypokalemia/DARRIAN. Possible EGD in next couple of days Continue IV Protonix for now Continue other home medication as appropriate. Please note the above document was generated using voice recognition software. It may contain grammatical, syntax or spelling errors. Any formal questions or concerns about the content, text or information contained within the body of this dictation should be directly addressed to the provider for clarification
[2024-08-19] MEDS: SODIUM BICARBONATE 8.4% 150 MEQ, POTASSIUM CHLORIDE 20 MEQ in DEXTROSE 5% 1,000 ML IV SCH (10:35)
[2024-08-19] MEDS: aMILoride HCL 5 MG TAB PO SCH ×2 (10:36→20:01)
[2024-08-19 11:06] LABS: BUN Creatinine Ratio 8.3 (10-20); Calcium 7.4 mg/dl (8.6-10.3); Potassium 2.7 mmol/L (3.5-5.1)
--- NOTE | 2024-08-19 13:01 | Nephrology Consultation ---
Date of Consultation August 19, 2024 Assessment & Plan (1) DARRIAN (acute kidney injury): he does have baseline CKD stage IIIB with a baseline creatinine in the low 2s. given his history of nausea poor appetite and not eating drinking for the last 1 week we have to assume this is prerenal. however severe prerenal state with hypotension can progress to ATN and we would know this in the next 24-48 hours. despite IV fluid creatinine has not changed in the last 12 hours and has remained at around same level of 4.1. Obstructive uropathy has already been ruled out as he does not have hydronephrosis and he has a Shea catheter at this time. if his renal function does not improve within the next 24-48 hours then ATN becomes the most likely diagnosis. for the next 24 hours will continue the IV fluid. his bicarb is very low so I would like to give him bicarb drip. But then his potassium is also very low. electrolyte derangements will be discussed below (2) Hypokalemia: patient has longstanding history of hypomagnesemia as well as hypokalemia and hypocalcemia. This was established during his previous hospitalization and his outpatient visit with me in January 2024. he has apparently had low magnesium low calcium and low potassium for most of his life. but he has severe problem with nonadherence and intermittent adherence which makes management of electrolytes very difficult. in any case since the addition of amiloride as electrolyte derangements has been managed relatively easily compared to before the amiloride. as outpatient he was supposed to take 1 tablet of Slow-Mag 20 mEq of potassium calcium supplement with calcitriol and amiloride 5 daily. on this regimen he had normal electrolytes when checked as an outpatient. at this time patient has not been eating well and I am not sure whether he is actually taking his med indications. this maybe the reason why his potassium is so low. aggressively correct the potassium with both oral and intravenous route. restart amiloride 5 mg daily to help correct the potassium faster and easier. will check BMP every 6 hours will also restart his magnesium supplement once daily follow-up calcium magnesium potassium and bicarb very closely with the blood work. his potassium was 2.6 which means the deficit is more than 140 mEq. The true deficit might even be more given that this level was with presence of metabolic acidosis. (3) Esophageal mass: supposed to have gastro evaluation with endoscopy today. I discussed with hospitalist and had delayed the procedure for now as we will try to fix the electrolyte derangements as with the acute kidney injury before we do this procedure. 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 Follow urine culture and empiric antibiotics for now. for now he is getting Zosyn and daptomycin. This is being used to cover both complicated UTI as well as pneumonia which was reported on the imaging Plan Case complexity high. Total time spent was 65 minutes History of Present Illness Reason for Consultation: Acute kidney injury severe electrolyte derangements Attending Physician: Armando Logan MD History of Present Illness 63-year-old male with pre-existing CKD 3B with the last baseline creatinine in the low 2s, neurogenic bladder chronic intermittent catheterization, severe multiple electrolyte derangements including hypokalemia hypomagnesemia hypocalcemia, Chronic anemia, mood disorder, chronic diarrhea from IBS, severe medical nonadherence. he presented to the hospital last night because of not feeling well, poor appetite and nausea. Not eating much from last 7 to 10 days. Patient straight caths and he was thought to have UTI. Patient wassupposed to start Bactrim but as per he has not started yet. Patient also complains some abdominal discomfort. Has nausea and dry heaves. patient is sleeping and was not really able to give me any detailed history but was at the bedside and provided clinical details. labs done in the emergency department is significant for acute renal failure with a creatinine up to 4+ very low potassium of 2.6. has been getting IV fluid as well as potassium supplementation. he has a Shea catheter. renal ultrasound did not show hydronephrosis. CT abdomen and pelvis showed concerning lesion in the esophagus for which Gastroenterology has been consulted. he was supposed to have endoscopy today Review of systems as detailed in HPI. Unless stated otherwise 12 systems reviewed and negative Physical Exam Physical Exam: General- Not in acute distress Head- atraumatic Eyes- PERRL. ENT- oropharynx dry Neck- supple, no JVD. Lungs- clear to auscultation no wheezing or crackles Heart- regular rate and rhythm; no murmur, no gallop. Abdomen- normal bowel sounds, soft, nontender, no distension Extremities- chronic skin changes seen in lower extremities. Neuro- alert, oriented PERRL, no facial palsy; no dysarthria; moves extremities Allergies Allergy/AdvReac Type Severity Reaction Status Date / Time No Known Allergies Allergy Unverified 12/09/23 11:07 Home Medications Medication Instructions Recorded Confirmed Type amiloride 5 mg tablet 5 mg PO DAILY 08/19/24 08/19/24 History calcitriol 0.25 mcg capsule 0.25 mcg PO DAILY 08/19/24 08/19/24 History calcium 500 mg (as 1 tab PO BID 08/19/24 08/19/24 History carbonate)-vitamin D3 15 mcg (600 unit) tablet citalopram 40 mg tablet 40 mg PO DAILY 08/19/24 08/19/24 History cyanocobalamin (vitamin B-12) 1,000 mcg IM MONTHLY 08/19/24 08/19/24 History 1,000 mcg/mL injection solution doxepin 25 mg capsule 25 mg PO HS 08/19/24 08/19/24 History metoprolol succinate 25 mg 25 mg PO DAILY 08/19/24 08/19/24 History tablet,extended release 24 hr potassium chloride 20 mEq 20 meq PO DAILY 08/19/24 08/19/24 History tablet,extended release tramadol 50 mg tablet 50 mg PO BID PRN Pain 08/19/24 08/19/24 History Patient History Medical History Renal insufficiency Poliomyelitis as child CKD (chronic kidney disease) stage 4, GFR 15-29 ml/min baseline creat 2 in 2020 Neurogenic bladder Surgical History History of hip surgery Hx of cholecystectomy Family History Other Diabetes Social History Smoking Status: Never smoker Second Hand Exposure: No; Do You Dip or Chew Tobacco: No; Tobacco Cessation Education Requested by Patient: No Hx Alcohol Use: No Hx Substance Use: No Preferred Language: Yi Communication Ability: Effective Communication Ability Comment: Hard of Heading Audio Visual Engineer Required: No Beliefs That Will Affect Care: None Current Living Situation: Spouse Other Information That Helps Us Care for You: No Feels Safe at Home: Yes Safety Concerns: Feels Safe At This Time Assistive Devices: Denture - Upper and Walker Results & Data Vital Signs (Past 12 Hours) Vital Signs Temp Pulse Pulse Resp BP BP Pulse Ox 08/19/24 09:30 36.7 C 62 18 100/67 98 08/19/24 08:00 79 08/19/24 03:38 71 08/19/24 03:00 36.5 C 69 19 108/70 99 08/19/24 02:25 36.5 C 69 20 108/70 99 08/19/24 01:44 36.8 C 97 H 18 121/83 100 08/19/24 01:00 119 H 20 121/83 100 O2 Del Method 08/19/24 09:30 Room Air 08/19/24 08:00 08/19/24 03:38 08/19/24 03:00 Room Air 08/19/24 02:25 Room Air 08/19/24 01:44 Room Air 08/19/24 01:00 Room Air Laboratory Results CBC renal panel from this admission as well as a previous admission in November 2023 as well as outpatient was reviewed in detail Diagnostic Findings chest x-ray renal ultrasound and CT abdomen and pelvis done this admission reviewed
[2024-08-19] MEDS: MAGNESIUM CHLORIDE W/CALCIUM 64MG DELAYED REL TAB PO SCH (13:07)
[2024-08-19] MEDS: POTASSIUM CHLORIDE 20 MEQ/15 ML UDC PO SCH (13:07)
[2024-08-19] MEDS: CHOLECALCIFEROL 25 MCG (1000 UNITS) TAB PO SCH (13:36)
--- NOTE | 2024-08-19 16:18 | Electrocardiogram Report ---
Test Reason : Blood Pressure : */* mmHG Vent. Rate : 74 BPM Atrial Rate : 74 BPM P-R Int : 138 ms QRS Dur : 106 ms QT Int : 540 ms P-R-T Axes : 49 13 50 degrees QTcB Int : 599 ms Normal sinus rhythm Prolonged QT Abnormal ECG When compared with ECG of 08-Dec-2023 09:04, Nonspecific T wave abnormality no longer evident in Anterolateral leads QT has lengthened Confirmed by Zac Florian ([id number]) on 08/19/2024 4:18:19 PM Referred By: REFERRED SELF Confirmed By: Zac Florian
--- NOTE | 2024-08-19 16:24 | Electrocardiogram Report ---
Test Reason : Blood Pressure : */* mmHG Vent. Rate : 60 BPM Atrial Rate : 60 BPM P-R Int : 150 ms QRS Dur : 116 ms QT Int : 542 ms P-R-T Axes : 57 8 42 degrees QTcB Int : 542 ms Normal sinus rhythm Inferior infarct (cited on or before 08-Dec-2023) Prolonged QT Abnormal ECG When compared with ECG of 18-Aug-2024 21:19, (unconfirmed) QT has shortened Confirmed by Zac Florian ([id number] on 08/19/2024 4:23:38 PM Referred By: REFERRED SELF Confirmed By: Zac Florian
[2024-08-19] MEDS ORDERED: POTASSIUM CHLORIDE CRTAB 20 MEQ TABCR PO SCH (17:00)
[2024-08-19 17:04] LABS: Potassium 4.1 mmol/L (3.5-5.1)
[2024-08-19 17:05] LABS: BUN Creatinine Ratio 8.7 (10-20); Calcium 7.3 mg/dl (8.6-10.3); Creatinine Clr Calc Pharmacy 17.8 ml/min
--- NOTE | 2024-08-19 17:23 | Communication Note ---
Date of Service: August 19, 2024 Recent BMP reviewed; serum potassium improved. However bicarb is 9 with normal anion gap. Suspect hyperchloremic metabolic acidosis. Will change bicarb drip without potassium chloride. Continue to monitor BMP; will prefer potassium citrate over potassium chloride.
[2024-08-19 17:51] LABS: Base Excess VBG -15.1 mEq/L; HCO3 VBG 13 mmol/L; Oxygen Saturation VBG < 60.0 %; PCO2 VBG 37 mmHg (38-50); PO2 VBG 27 mmHg; pH VBG 7.15 (7.36-7.41)
[2024-08-19] MEDS: SODIUM BICARBONATE 8.4% 150 MEQ in DEXTROSE 5% 1,000 ML IV SCH (18:15)
[2024-08-19 22:21] LABS: BUN Creatinine Ratio 7.4 (10-20); Calcium 6.9 mg/dl (8.6-10.3); Creatinine Clr Calc Pharmacy 16.7 ml/min; Potassium 2.8 mmol/L (3.5-5.1)
[2024-08-19] MEDS: HYDROmorphone INJ 0.5 MG/0.5 ML SYR IV STA (22:38)
[2024-08-20] MEDS: SODIUM CHLORIDE 0.9% 500 ML IV SCH (01:05)
[2024-08-20] MEDS: POTASSIUM CHLORIDE / WTR 10 MEQ/100 ML PLCT IV SCH (08:00)
[2024-08-20] MEDS: LOPERAMIDE HCL 2 MG CAP PO PRN ×2 (10:23→17:02)
[2024-08-20] MEDS: MICONAZOLE NITRATE POWDER 85 GM EXT PRN (10:24)
--- NOTE | 2024-08-20 12:34 | Nephrology Progress Note ---
Date of Service August 20, 2024 Assessment & Plan Admission and Anticipated Discharge Date Admission Date: August 19, 2024 Subjective Assessment & Plan (1) DARRIAN (acute kidney injury): he does have baseline CKD stage IIIB with a baseline creatinine in the low 2s with b/l renal Atrophy already noted. given his history of nausea poor appetite and not eating drinking for the last 1 week we have to assume this is prerenal. however severe prerenal state with hypotension can progress to ATN and we would know this in the next 24-48 hours. despite IV fluid creatinine has not changed in the last 36 hours and has remained at around same level of 4.3 . Obstructive uropathy has already been ruled out as he does not have hydronephrosis and he has a Shea catheter at this time. if his renal function does not improve within the next 24-48 hours then ATN becomes the most likely diagnosis. for the next 24 hours will continue the IV fluid. his bicarb is very low so I would like to give him bicarb drip. But then his potassium is also very low. electrolyte derangements will be discussed below Change to d5with 150 sodium bicarb + 20 meq kcl at 100/hr (2) Hypokalemia: patient has longstanding history of hypomagnesemia as well as hypokalemia and hypocalcemia. This was established during his previous hospitalization and his outpatient visit with me in January 2024. he has apparently had low magnesium low calcium and low potassium for most of his life. but he has severe problem with nonadherence and intermittent adherence which makes management of electrolytes very difficult. in any case since the addition of amiloride as electrolyte derangements has been managed relatively easily compared to before the amiloride. as outpatient he was supposed to take 1 tablet of Slow-Mag 20 mEq of potassium calcium supplement with calcitriol and amiloride 5 daily. on this regimen he had normal electrolytes when checked as an outpatient. at this time patient has not been eating well and I am not sure whether he is actually taking his med indications. this maybe the reason why his potassium is so low. aggressively correct the potassium with both oral and intravenous route. Continue amiloride 5 mg twice daily to help correct the potassium faster and easier. will check BMP every 8 hours magnesium supplement once daily follow-up calcium magnesium potassium and bicarb very closely with the blood work. will do urgent Renal panel, Ca++, mag and PTH now,. his potassium was 2.8 on last check which means the deficit is more than 140 mEq. The true deficit might even be more given that this level was with presence of metabolic acidosis. Discussed in detail with RN and discussed labs that are being done multiple times a day. (3) Esophageal mass: supposed to have gastro evaluation with endoscopy today. I discussed with hospitalist and had delayed the procedure for now as we will try to fix the electrolyte derangements as well as the acute kidney injury before we do this procedure. 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 Follow urine culture and empiric antibiotics for now. for now he is getting Zosyn and daptomycin. This is being used to cover both complicated UTI as well as pneumonia which was reported on the imaging time spent 50 mins. S--having Some Diarrhea and Not able to eat much. still has nausea. No labs this AM Physical Exam Physical Exam: General- Not in acute distress Head- atraumatic Eyes- PERRL. ENT- oropharynx dry Neck- supple, no JVD. Lungs- clear to auscultation no wheezing or crackles Heart- regular rate and rhythm; no murmur, no gallop. Abdomen- normal bowel sounds, soft, nontender, no distension Extremities- chronic skin changes seen in lower extremities. Neuro- alert, oriented PERRL, no facial palsy; no dysarthria; moves extremities Results & Data Vital Signs (Past 12 Hours) Vital Signs Temp Pulse Pulse Resp BP BP Pulse Ox 08/20/24 11:47 36.3 C L 64 14 127/84 100 08/20/24 08:33 36.4 C L 63 19 103/69 99 08/20/24 08:00 54 L 08/20/24 02:11 36.6 C 59 L 18 109/63 99 08/20/24 00:50 36.4 C L 100 H 16 87/71 L 97 O2 Del Method 08/20/24 11:47 Room Air 08/20/24 08:33 Room Air 08/20/24 08:00 08/20/24 02:11 Room Air 08/20/24 00:50 Room Air
[2024-08-20] MEDS: SODIUM BICARBONATE 8.4% 150 MEQ, POTASSIUM CHLORIDE 20 MEQ in DEXTROSE 5% 1,000 ML IV SCH (13:18)
[2024-08-20] MEDS: CALCIUM CARBONATE 1250MG TAB PO SCH (13:18)
[2024-08-20 13:24] LABS: Albumin Level 3.4 gm/dl (3.4-5.0); BUN Creatinine Ratio 7.4 (10-20); Calcium 6.9 mg/dl (8.6-10.3); Creatinine Clr Calc Pharmacy 17.9 ml/min; Magnesium 1.7 mg/dl (1.7-2.4); Potassium 2.7 mmol/L (3.5-5.1)
--- NOTE | 2024-08-20 13:53 | Gastroenterology Progress Note ---
Date of Service August 20, 2024 Assessment & Plan (1) Esophageal mass: Plan: Patient is not having any dysphagia per se at present clinically from the GI standpoint he is stable his electrolytes are still abnormal I discussed with nephrology who hope that they will improve by tomorrow we will plan EGD in a.m. if the electrolytes are normal further recommendations after upper endoscopy Admission and Anticipated Discharge Date Admission Date: August 19, 2024 Subjective Patient appears more awake alert and a little better today his electrolytes are still abnormal he denies any dysphagia per se and as per the nurse he is also wants to eat but he does not like the food that he is given no nausea vomiting or abdominal pain no new GI complaints and is feeling better Review of Systems Review of Systems: A 10 point review of systems was done Physical Exam Physical Exam: Middle-aged male appears comfortable Constitutional: Well-developed and well-nourished developed and well-nourished Eyes: Sclera anicteric Neck: Supple Respiratory: Clear anteriorly Cardiovascular: S1 and S2 Gastrointestinal (Abdomen): Soft no tenderness or masses appreciated Results & Data Results & Data Vital Signs (Past 12 Hours) Vital Signs Temp Pulse Pulse Resp BP Pulse Ox O2 Del Method 08/20/24 11:47 36.3 C L 64 14 127/84 100 Room Air 08/20/24 08:33 36.4 C L 63 19 103/69 99 Room Air 08/20/24 08:00 54 L 08/20/24 02:11 36.6 C 59 L 18 109/63 99 Room Air PG Care Time/CCT Total # of Minutes Spent Total Time Spent with Patient: Total time spent is greater than 50% in coordination of care (as documented) at patient's floor/unit and/or counseling patient: Coding Level of Care Code 44441 SUB INP/OBS CARE 2/35MIN Diagnoses Esophageal mass K22.89
[2024-08-20] MEDS ORDERED: POTASSIUM PHOS 3 MMOL/1 ML INFUSION IV STA (14:02)
[2024-08-20] MEDS: POTASSIUM CHLORIDE CRTAB 20 MEQ TABCR PO STA (14:39)
[2024-08-20] MEDS: aMILoride HCL 5 MG TAB PO SCH (14:40)
[2024-08-20] MEDS: CALCIUM GLUCONATE 1,000 MG/60 ML BAG IV SCH (14:40)
[2024-08-20] MEDS: POTASSIUM PHOSPHATE 30 MMOL in SODIUM CHLORIDE 0.9% 500 ML IV ONE (14:40)
--- NOTE | 2024-08-20 15:04 | Hospitalist Progress Note ---
Date of Service August 20, 2024 Assessment & Plan (1) Hypokalemia: (2) Metabolic acidosis: (3) Esophageal mass: (4) Hypocalcemia: (5) Acute renal failure superimposed on stage 4 chronic kidney disease: (6) Hypomagnesemia: Plan Patient with ongoing severe hypokalemia and metabolic acidosis despite aggressive replacement Continue to replace potassium Continue bicarb drip Replace calcium Imodium for loose stool x 1 Nephrology notes reviewed GI hoping to proceed with EGD tomorrow if electrolytes improved Continue telemetry monitoring due to severe hypokalemia Updated via phone Admission and Anticipated Discharge Date Admission Date: August 19, 2024 Subjective Patient just not feeling well. Not really to eat a build to eat much. Having some diarrhea Physical Exam Physical Exam: Constitutional: Alert, ill in appearance HEENT: Mucous membranes moist. Lungs: Clear to auscultation, decreased, no wheezes rales or rhonchi CV: S1-S2, regular Abdomen: Soft, nontender, nondistended Extremities: No significant edema Neuro: No focal deficits, generalized weakness Psych: Cooperative, normal mood Results & Data Results & Data Vital Signs (Past 12 Hours) Vital Signs Temp Pulse Pulse Resp BP Pulse Ox O2 Del Method 08/20/24 11:47 36.3 C L 64 14 127/84 100 Room Air 08/20/24 08:33 36.4 C L 63 19 103/69 99 Room Air 08/20/24 08:00 54 L Diagnostic Findings Reviewed imaging, laboratory and diagnostic studies. Pertinent findings as below. Potassium 2.7 Bicarb 16 Creatinine 3.92 Phosphorus 2.0 Ionized calcium 1.0 PTH intact 60.8 Stool for C. difficile negative
[2024-08-20 18:40] LABS: Albumin Globulin Ratio 0.9 (0.9-2); Albumin Level 3.1 gm/dl (3.4-5.0); Bilirubin,Total 0.8 mg/dl (0.2-1.0); Calcium 7.6 mg/dl (8.6-10.3); Creatinine Clr Calc Pharmacy 18.9 ml/min; Globulin 3.6 gm/dl (2.5-4.0); Magnesium 1.7 mg/dl (1.7-2.4); Phosphorus 2.6 mg/dl (2.5-4.9); Potassium 2.9 mmol/L (3.5-5.1); Total Protein 6.7 gm/dl (6.0-8.3)
[2024-08-20] MEDS: POTASSIUM CHLORIDE CRTAB 20 MEQ TABCR PO ONE (19:42)
[2024-08-21 00:48] LABS: BUN Creatinine Ratio 6.3 (10-20); Calcium 7.1 mg/dl (8.6-10.3); Creatinine Clr Calc Pharmacy 19.3 ml/min; Potassium 3.3 mmol/L (3.5-5.1)
[2024-08-21] MEDS: CALCIUM GLUCONATE 1,000 MG/60 ML BAG IV STA (01:17)
[2024-08-21] MEDS: POTASSIUM CHLORIDE CRTAB 20 MEQ TABCR PO STA (01:23)
[2024-08-21] MEDS: MAGNESIUM SULFATE / D5W 1 GM/100 ML BAG IV ONE (01:39)
[2024-08-21 08:02] LABS: BUN Creatinine Ratio 6.2 (10-20); Calcium 7.4 mg/dl (8.6-10.3); Creatinine Clr Calc Pharmacy 20.9 ml/min; Magnesium 1.8 mg/dl (1.7-2.4); Phosphorus 2.5 mg/dl (2.5-4.9); Potassium 3.3 mmol/L (3.5-5.1)
[2024-08-21 08:05] LABS: Hematocrit (blood only) 35.2 % (42.0-52.0); Hemoglobin 11.5 g/dl (14.0-18.0); Mean Corpuscular Hemoglobin 30.1 pg (25.0-34.0); Mean Corpuscular Hgb Conc 32.7 g/dL (32.0-36.0); Mean Corpuscular Volume 92.1 fL (80.0-100.0); Mean Platelet Volume 12.4 fL (9.4-12.4); Platelet Count 143 K/uL (130-400); RDW Coefficient of Variation 19.5 % (11.5-14.5); RDW Standard Deviation 63.3 fL (36.4-46.3); Red Blood Count 3.82 M/uL (4.70-6.10); White Blood Count 13.15 K/ul (4.8-10.8)
[2024-08-21] MEDS: STAT IV/IM STA (08:55)
--- NOTE | 2024-08-21 08:58 | Anesthesiology Consultation ---
Date of Service August 21, 2024 Assessment & Plan ASA ASA3 Proposed Anesthesia Anesthesia Type: MAC Risk / Benefits Reviewed With: PT / POA / Parent / Guardian, Accepts Plan and Informed Consent Obtained History Surgery Operation Date: 08/21/24 16:30 Proposed Procedures p Esophagogastroduodenoscopy Karissa Hancock MD Height/Weight Height: 5 ft 2 in Weight: 81.1 kg Allergies Allergy/AdvReac Type Severity Reaction Status Date / Time No Known Allergies Allergy Unverified 12/09/23 11:07 Medications Home Medications Medication Instructions Recorded Confirmed Last Taken amiloride 5 mg tablet 5 mg PO DAILY 08/19/24 08/19/24 Unknown calcitriol 0.25 mcg capsule 0.25 mcg PO DAILY 08/19/24 08/19/24 Unknown calcium 500 mg (as 1 tab PO BID 08/19/24 08/19/24 Unknown carbonate)-vitamin D3 15 mcg (600 unit) tablet citalopram 40 mg tablet 40 mg PO DAILY 08/19/24 08/19/24 Unknown cyanocobalamin (vitamin B-12) 1,000 mcg IM MONTHLY 08/19/24 08/19/24 Unknown 1,000 mcg/mL injection solution doxepin 25 mg capsule 25 mg PO HS 08/19/24 08/19/24 Unknown metoprolol succinate 25 mg 25 mg PO DAILY 08/19/24 08/19/24 Unknown tablet,extended release 24 hr potassium chloride 20 mEq 20 meq PO DAILY 08/19/24 08/19/24 Unknown tablet,extended release tramadol 50 mg tablet 50 mg PO BID PRN Pain 08/19/24 08/19/24 Unknown Active Medications Generic Name Dose Route Start Last Admin Trade Name Johnq PRN Reason Stop Dose Admin Amiloride HCl 5 mg 08/20/24 14:00 08/20/24 21:28 Amiloride Hcl 5 Mg Tab PO 09/19/24 13:59 5 mg TID THOMAS Administration Calcitriol 0.25 mcg 08/19/24 09:00 08/20/24 07:48 Calcitriol 0.25 Mcg Capsule PO 09/18/24 08:59 0.25 mcg DAILY THOMAS Administration Calcium Carbonate 1 tab 08/20/24 14:00 08/20/24 21:29 Calcium Carbonate 1250mg Tab PO 09/19/24 13:59 1 tab TID THOMAS Administration Pantoprazole Sodium 40 mg in 10 mls @ 5 mls/min 08/19/24 09:00 08/20/24 07:47 Protonix IV 09/18/24 08:59 5 mls/min DAILY THOMAS Administration Sodium Bicarbonate 150 meq/ 1,160 mls @ 100 mls/hr 08/20/24 13:00 08/21/24 01:12 Potassium Chloride 20 meq/ IV 09/18/24 17:29 100 mls/hr Dextrose .[id number] THOMAS Administration Loperamide HCl 2 mg 08/20/24 15:18 08/21/24 01:31 Loperamide Hcl 2 Mg Cap PO 09/19/24 10:02 2 mg Q8H PRN Administration Diarrhea Magnesium Chloride 64 mg 08/19/24 12:45 08/20/24 07:48 Magnesium Chloride W/Calcium 64mg Delayed Rel Tab PO 09/18/24 12:44 64 mg QAM THOMAS Administration Metoprolol Succinate 25 mg 08/19/24 09:00 08/20/24 07:48 Metoprolol Succ 25mg Ext Rel Tab PO 09/18/24 08:59 Not Given DAILY THOMAS Miconazole Nitrate 1 appln 08/20/24 09:19 08/20/24 10:24 Miconazole Nitrate Powder 85 Gm EXT 09/19/24 09:18 1 appln PRN PRN Administration Affected Skin Folds Potassium Chloride 40 meq 08/19/24 17:00 08/20/24 21:29 Potassium Chloride Crtab 20 Meq Tabcr PO 09/18/24 16:59 40 meq QID THOMAS Administration Vitamin D 25 mcg 08/19/24 13:00 08/20/24 07:49 Cholecalciferol 25 Mcg (1000 Units) Tab PO 09/18/24 12:59 25 mcg QAM THOMAS Administration NPO Date Last Intake of Fluids: 08/21/24 Time Last Intake of Fluids: 07:00 Date Last Intake of Solids: 08/20/24 Time Last Intake of Solids: 21:00 Past Medical History Medical History Renal insufficiency Poliomyelitis as child CKD (chronic kidney disease) stage 4, GFR 15-29 ml/min baseline creat 2 in 2020 Neurogenic bladder Exercise / Class Metabolic Activity II 4-5 Yardwork/Stairs/Walk up hill Past Family History Family History Other Diabetes Past Surgical History Surgical History History of hip surgery Hx of cholecystectomy Past Anesthesia History No Hx of Anesthesia Complications and No Family Hx of Anesthesia Complications History of PONV No Hx of PONV and No Hx of Motion Sickness Social History Smoking Status: Never smoker Do You Dip or Chew Tobacco: No Hx Alcohol Use: No Hx Substance Use: No Review of Systems denies fever/cough/ colds/ chest pain/ SOB/ PHYLLIS denies PHYLLIS Physical Exam Vital Signs Last Vital Signs Temp 36.5 C 08/21/24 08:35 Pulse 75 08/21/24 08:35 Resp 16 08/21/24 08:35 BP 103/67 08/21/24 08:35 Pulse Ox 100 08/21/24 08:35 O2 Del Method Room Air 08/21/24 08:35 ENMT Mouth: + poor dentition Thyromental Distance: > or= 3.5 Finger Breadths Mallampati Class: II Neck neck extension not limited Respiratory normal respiratory effort; no respiratory distress Auscultation: lungs clear to auscultation bilaterally Cardiovascular Rate/Rhythm: regular rate and regular rhythm Neurologic moves all extremities Psychiatric Orientation: alert and oriented x 3 Testing Laboratory Results 08/21/24 06:29 08/21/24 06:29 Urine Color Yellow 08/18/24 21:40 Urine Appearance Clear (Clear) 08/18/24 21:40 Urine pH 6.0 (4.5-7.5) 08/18/24 21:40 Ur Specific [place] 1.012 (1.000-1.030) 08/18/24 21:40 Urine Protein 2+ (Negative) H 08/18/24 21:40 Urine Glucose (UA) Negative (Negative) 08/18/24 21:40 Urine Ketones Negative (Negative) 08/18/24 21:40 Urine Nitrite Negative (Negative) 08/18/24 21:40 Ur Leukocyte Esterase 2+ (Negative) H 08/18/24 21:40 Urine WBC (Auto) 21-50 /hpf (0-5) H 08/18/24 21:40 Urine RBC (Auto) 3-5 /hpf (0-2) H 08/18/24 21:40 U Hyaline Cast (Auto) 6-10 /lpf (0-2) H 08/18/24 21:40 U Epithel Cells (Auto) 0-2 /hpf (0-2) 08/18/24 21:40 Urine Bacteria (Auto) None Seen (None Seen) 08/18/24 21:40 08/18/24 21:40 Urine Culture - Final Urine,Clean Catch Three types of organisms present, all low counts probable skin cristiano. No further identifications or sensitivities to follow. 08/18/24 20:26 Aerobic Blood Culture - Preliminary Blood No growth in Aerobic bottle after 48 hours. Anaerobic Blood Culture - Preliminary No growth in Anaerobic bottle after 48 hours. 08/18/24 20:35 Aerobic Blood Culture - Preliminary Blood No growth in Aerobic bottle after 48 hours. Anaerobic Blood Culture - Preliminary No growth in Anaerobic bottle after 48 hours. Electrocardiogram Date: 08/18/24 Findings: + NSR @ (@ 74;? infer. infarct,age ?;prolonged QT) Chest X-Ray Date: 08/18/24 Findings: + NAD
--- NOTE | 2024-08-21 09:10 | Gastroenterology Progress Note ---
Date of Service August 21, 2024 Assessment & Plan (1) Abnormal findings on imaging test: Plan: 63 year old male w/ history of neurogenic bladder secondary to childhood polio, CKD, IBS-D, recurrent hypokalemia, mood disorder and others below admitted through the ED w/ UTI, DARRIAN on CKD - GI was asked to evaluate for decreased appetite and nausea, CT w/ a 1.9 cm soft tissue density within the distal esophagus. Maintain NPO status for EGD evaluation this AM. We appreciate assistance in the management of any serological abnormality and corrections to include: hemoglobin >7, INR <2, platelets >50,000, potassium levels >3.5 but <5.3, and sodium levels within 5 points of the reference range prior to endoscopic evaluation. Thank you for allowing us to participate in the care of this patient. Please call with any acute changes, questions or concerns. Please see addendum below with additional recommendation from my supervising physician. Admission and Anticipated Discharge Date Admission Date: August 19, 2024 Supervising Physician Co-Signing Physician Notes I examined the patient and reviewed the medical record, laboratory data and imaging studies. I agree with the assessment and plan of care as suggested by the advanced practice provider. Patient had EGD and please see recommendations in the EGD report regarding further management Subjective Pt was seen and evaluated in pre-op. No concerns. Remains NPO for EGD this AM. Denies dysphagia. Review of Systems Review of Systems: All other findings negative except as noted in HPI. Physical Exam Constitutional: WD/WN, vitals as above Respiratory: normal respiratory effort, lungs clear to auscultation Cardiovascular: Rate/Rhythm: regular rate and regular rhythm Gastrointestinal (Abdomen): normal bowel sounds, soft, nontender, no hepatosplenomegaly Results & Data Results & Data Vital Signs (Past 12 Hours) Vital Signs Temp Pulse Pulse Resp BP BP Pulse Ox 08/21/24 08:35 36.5 C 75 16 103/67 100 08/21/24 07:46 36.3 C L 64 18 112/78 96 08/21/24 02:56 36.5 C 72 16 131/84 99 08/20/24 23:27 36.7 C 71 20 111/72 99 08/20/24 22:00 70 O2 Del Method 08/21/24 08:35 Room Air 08/21/24 07:46 Room Air 08/21/24 02:56 Room Air 08/20/24 23:27 Room Air 08/20/24 22:00 Laboratory Results 08/21/24 08/21/24 08/20/24 Range/Units 06:29 00:02 18:07 WBC 13.15 H (4.8-10.8) K/ul RBC 3.82 L (4.70-6.10) M/uL Hgb 11.5 L (14.0-18.0) g/dl Hct 35.2 L (42.0-52.0) % MCV 92.1 (80.0-100.0) fL MCH 30.1 (25.0-34.0) pg MCHC 32.7 (32.0-36.0) g/dL RDW Std Deviation 63.3 H (36.4-46.3) fL RDW Coeff of Thao 19.5 H (11.5-14.5) % Plt Count 143 (130-400) K/uL MPV 12.4 (9.4-12.4) fL Sodium 141 141 139 (136-145) mmol/L Potassium 3.3 L 3.3 L 2.9 L (3.5-5.1) mmol/L Chloride 116 H 116 H 114 H (98-107) mmol/L Carbon Dioxide 16 L 16 L 16 L (21-32) mmol/L Anion Gap 9 9 9 (3-11) BUN 21 23 26 H (6-23) mg/dl Creatinine 3.38 H 3.63 H 3.70 H (0.6-1.4) mg/dl Est Cr Clr Drug Dosing 20.9 19.3 18.9 ml/min eGFR 19.73 18.11 17.70 BUN/Creatinine Ratio 6.2 L 6.3 L 7.0 L (10-20) Glucose 88 96 88 (70-99(Fasting)) mg/dl Calcium 7.4 L 7.1 L 7.6 L (8.6-10.3) mg/dl Ionized Calcium (1.12-1.32) mmol/L Phosphorus 2.5 2.6 (2.5-4.9) mg/dl Magnesium 1.8 1.7 (1.7-2.4) mg/dl Total Bilirubin 0.8 (0.2-1.0) mg/dl AST 38 (13-39) U/L ALT 29 (7-52) U/L Alkaline Phosphatase 96 (34-104) U/L Total Protein 6.7 (6.0-8.3) gm/dl Albumin 3.1 L (3.4-5.0) gm/dl Globulin 3.6 (2.5-4.0) gm/dl Albumin/Globulin Ratio 0.9 (0.9-2) PTH Intact (12.0-88.0) pg/ml 08/20/24 Range/Units 12:47 WBC (4.8-10.8) K/ul RBC (4.70-6.10) M/uL Hgb (14.0-18.0) g/dl Hct (42.0-52.0) % MCV (80.0-100.0) fL MCH (25.0-34.0) pg MCHC (32.0-36.0) g/dL RDW Std Deviation (36.4-46.3) fL RDW Coeff of Thao (11.5-14.5) % Plt Count (130-400) K/uL MPV (9.4-12.4) fL Sodium 137 (136-145) mmol/L Potassium 2.7 L (3.5-5.1) mmol/L Chloride 111 H (98-107) mmol/L Carbon Dioxide 16 L (21-32) mmol/L Anion Gap 10 (3-11) BUN 29 H (6-23) mg/dl Creatinine 3.92 H (0.6-1.4) mg/dl Est Cr Clr Drug Dosing 17.9 ml/min eGFR 16.52 BUN/Creatinine Ratio 7.4 L (10-20) Glucose 88 (70-99(Fasting)) mg/dl Calcium 6.9 L (8.6-10.3) mg/dl Ionized Calcium 1.00 L (1.12-1.32) mmol/L Phosphorus 2.0 L D (2.5-4.9) mg/dl Magnesium 1.7 (1.7-2.4) mg/dl Total Bilirubin (0.2-1.0) mg/dl AST (13-39) U/L ALT (7-52) U/L Alkaline Phosphatase (34-104) U/L Total Protein (6.0-8.3) gm/dl Albumin 3.4 (3.4-5.0) gm/dl Globulin (2.5-4.0) gm/dl Albumin/Globulin Ratio (0.9-2) PTH Intact 60.8 (12.0-88.0) pg/ml PG Care Time/CCT Total # of Minutes Spent Total Time Spent with Patient: Total time spent is greater than 50% in coordination of care (as documented) at patient's floor/unit and/or counseling patient: Coding Level of Care Code None Diagnoses Abnormal findings on imaging test R93.89
--- NOTE | 2024-08-21 09:46 | GI REPORT ---
[facility] Patient: DOREEN HERNANDEZ : 1960 Sex at : Male Age: 63 Years Procedure: Upper GI endoscopy Date: 08/21/2024 Attending Physician: Michael Hancock MD Referring MD: Referred Self Indications: - Abnormal imaging nausea and vomiting Medications: - Monitored Anesthesia Care Complications: - No immediate complications. Estimated Blood Loss: - Estimated blood loss: None. Procedure: - The the endoscope was introduced through the mouth and advanced to the second part of the duodenum. - The upper GI endoscopy was accomplished with ease. - The patient tolerated the procedure well. Findings: - Diffuse candidiasis throughout his esophagus brushing done grade D esophagitis diffuse gastritis biopsy done for H. pylori duodenitis in the bulb Impression: - Diffuse candidiasis throughout his esophagus brushing done grade D esophagitis diffuse gastritis biopsy done for H. pylori duodenitis in the bulb Recommendation: - PPI twice daily would empirically treat for candidiasis awaiting brushings avoid NSAIDs repeat EGD in 2 to 3 months after intensive PPI therapy to ensure healing of the esophagus and rule out underlying Bhatt's follow-up with GI as outpatient Procedure Code(s): - 44904, Esophagogastroduodenoscopy, flexible, transoral; diagnostic, including collection of specimen(s) by brushing or washing, when performed (separate procedure) CPT(R) - 2023 copyright [employer]. All Rights Reserved. The CPT codes, CCI edits and ICD codes generated are intended as suggestions and were generated based on input data. These codes are preliminary and upon wet process miller head review may be revised to meet current compliance and payer requirements. The provider is responsible for the final determination of appropriate codes, and modifiers. Michael Hancock MD This document has been electronically signed. Note Initiated:08/21/2024 Note Completed:08/21/2024 9:46 AM \\[email or web address]\LIVE\[id number]
--- NOTE | 2024-08-21 09:55 | Anesthesiology Progress Note ---
Date of Service August 21, 2024 Anesthesia Post Procedure Vital Signs Vital Signs: Temp Pulse Pulse Resp BP BP Pulse Ox 08/21/24 09:46 36 C L 78 14 88/58 L 98 08/21/24 08:35 36.5 C 75 16 103/67 100 08/21/24 07:46 36.3 C L 64 18 112/78 96 08/21/24 02:56 36.5 C 72 16 131/84 99 08/20/24 23:27 36.7 C 71 20 111/72 99 08/20/24 22:00 70 08/20/24 19:25 36.3 C L 68 16 108/71 100 08/20/24 17:30 36.5 C 72 19 116/76 100 08/20/24 16:00 64 08/20/24 11:47 36.3 C L 64 14 127/84 100 O2 Del Method 08/21/24 09:46 Room Air 08/21/24 08:35 Room Air 08/21/24 07:46 Room Air 08/21/24 02:56 Room Air 08/20/24 23:27 Room Air 08/20/24 22:00 08/20/24 19:25 Room Air 08/20/24 17:30 Room Air 08/20/24 16:00 08/20/24 11:47 Room Air Transfer of Care Handoff Completed per policy Notes Mental Status: alert / awake / arousable and participated in evaluation Patient Amnestic to Procedure: Yes Nausea / Vomiting: adequately controlled Pain: adequately controlled Airway Patency, RR, SpO2: stable & adequate BP & HR: stable & adequate Hydration State: stable & adequate Anesthetic Complications: no major complications apparent and Pt Satisfied with anesthetic care
[2024-08-21] MEDS: PROPOFOL IV EMULSION 10 MG/ML 20 ML VIAL IV ONE (11:11)
[2024-08-21] MEDS: LIDOCAINE 2% 2 ML VIAL/AMP(20MG/ML) INFIL ONE (11:11)
[2024-08-21] MEDS: FLUCONAZOLE 100 MG TAB PO ONE (12:05)
--- NOTE | 2024-08-21 15:16 | Hospitalist Progress Note ---
Date of Service August 21, 2024 Assessment & Plan (1) Esophageal candidiasis: (2) Acute renal failure superimposed on stage 4 chronic kidney disease: (3) Hypokalemia: (4) Irritable bowel syndrome with diarrhea: (5) Malnutrition: (6) Metabolic acidosis: (7) Hypocalcemia: (8) Hypomagnesemia: (9) Neurogenic bladder: Plan Start fluconazole for oral candidiasis, loading dose 400 mg x 1 then continue 100 mg daily based on his renal function for total of 21 days Continue potassium supplementation Nephrology to manage bicarb drip, suspect ongoing metabolic alkalosis due to chronic diarrhea. Creatinine slowly improving Education patient of adequate/nutritional diet. Continue to monitor electrolytes and renal function Between patient's IBS diarrhea prominent and Dr. Jacobo diet. Concern patient will have ongoing loose stools with ongoing issues with electrolyte abn ormalities and progressive renal dysfunction. Communication with GI team to coordinate additional interventions on his IBS. Admission and Anticipated Discharge Date Admission Date: August 19, 2024 Subjective Patient seen post EGD. Toller procedure well. Eager to try something to eat. at bedside. informed the nurse that at home patient really does not eat anything at all. The only thing he drinks is Dr. Jacobo. Otherwise very poor nutrition. She also confirmed that he rarely takes his medications as prescribed. Physical Exam Physical Exam: Constitutional: Alert, nontoxic HEENT: Mucous membranes moist. Lungs: Clear to auscultation, decreased, no wheezes rales or rhonchi CV: S1-S2, regular Abdomen: Soft, nontender, nondistended Extremities: No significant edema Neuro: No focal deficits Psych: Cooperative, normal mood Results & Data Results & Data Vital Signs (Past 12 Hours) Vital Signs Temp Pulse Resp BP Pulse Ox O2 Del Method 08/21/24 11:15 36.6 C 79 19 125/87 98 Room Air 08/21/24 10:18 72 16 106/70 99 Room Air 08/21/24 09:46 36 C L 78 14 88/58 L 98 Room Air 08/21/24 08:35 36.5 C 75 16 103/67 100 Room Air 08/21/24 07:46 36.3 C L 64 18 112/78 96 Room Air Diagnostic Findings Reviewed imaging, laboratory and diagnostic studies. Pertinent findings as below. Reviewed EGD report and pictures. Significant esophageal candidiasis WBCs 13.1 Hemoglobin 11.5 Potassium 3.3 Bicarb 16 Creatinine 3.38 Personally reviewed EKG done on 08/21/2024. QT interval significantly improved, less than 500 C. difficile negative Nursing reports patient had 8 loose stools overnight
--- NOTE | 2024-08-21 19:48 | Nephrology Progress Note ---
Date of Service August 21, 2024 Assessment & Plan (1) DARRIAN (acute kidney injury): Plan: Stage 1 DARRIAN on CKD 3B w/ baseline creatinine in the low 2s. presented w/ creat 4.1, down to 3.4 today. given his history of nausea poor appetite and not eating drinking for the last 1 week [employer] we have to assume this is prerenal; also c/w slow/mild response to IVF. Obstructive uropathy has already been ruled out as he does not have hydronephrosis and he has a Shea catheter at this time. -continue bicarb gtt current rate -daily bmp -strict I/O (2) Hypokalemia: Plan: patient has longstanding history of hypomagnesemia as well as hypokalemia and hypocalcemia. This was established during his previous hospitalization and his outpatient visit with me in January 2024. he has apparently had low magnesium low calcium and low potassium for most of his life. but he has severe problem with nonadherence and intermittent adherence which makes management of electrolytes very difficult. in any case since the addition of amiloride as electrolyte derangements has been managed relatively easily compared to before the amiloride. as outpatient he was supposed to take 1 tablet of Slow-Mag 20 mEq of potassium calcium supplement with calcitriol and amiloride 5 daily. on this regimen he had normal electrolytes when checked as an outpatient. >>continue efforts to aggressively correct the potassium with both oral and intravenous route. -continue amiloride 5 mg daily to help correct the potassium faster and easier. -continue potassium chloride 40 mEq qid -continue magnesium supplement once daily > reluctant to do bid given diarrhea -continue rocaltrol, daily D supplements current doses >>non AG metabolic acidosis c/w diarrhea >> stable past few days and significantly improved since admission >>cont daily mag, phos and BMP at least bid his potassium was 2.6 on presentation which means the deficit is more than 140 mEq. The true deficit might even be more given that this level was with presence of metabolic acidosis. (3) Esophageal candidiasis: Plan: EGD today w/ diffuse mid/distal esophageal candidiasis and esophagitis/gastritis >started on fluconazole 100 mg daily >off of abtx Admission and Anticipated Discharge Date Admission Date: August 19, 2024 Subjective 7 BM today; EGD today results as below; seen on evening rounds; pt feeling better; no complaints; at bedside; he is str cathing w/o difficulty; states he often responds better to 2 imodium at a time rather than 1 Review of Systems 2 Review of Systems: All systems reviewed & are unremarkable except as noted in Subjective Physical Exam 2 Constitutional: well developed and well nourished Eyes: EOM intact bilaterally ENMT: Mouth: + dry oral mucous membranes Respiratory: normal respiratory effort Auscultation: + diminished lung sounds Cardiovascular: RRR, no murmur, no edema Gastrointestinal (Abdomen): Inspection/Auscultation: normal bowel sounds P ercussion/Palpation: abdomen soft; abdomen nontender Skin: no rashes, warm and dry Neurologic: generalized weakness, moves LUE easily, fluent speech, no tremor Results & Data Vital Signs (Past 12 Hours) Vital Signs Temp Pulse Resp BP Pulse Ox O2 Del Method 08/21/24 15:24 36.8 C 73 18 117/80 99 Room Air 08/21/24 11:15 36.6 C 79 19 125/87 98 Room Air 08/21/24 10:18 72 16 106/70 99 Room Air 08/21/24 09:46 36 C L 78 14 88/58 L 98 Room Air 08/21/24 08:35 36.5 C 75 16 103/67 100 Room Air 08/21/24 07:46 36.3 C L 64 18 112/78 96 Room Air Laboratory Results 08/21/24 06:29 08/21/24 06:29
[2024-08-21] MEDS: PANTOprazole 40 MG TAB PO SCH (20:20)
[2024-08-21] MEDS: HEPARIN SOD 5,000 UNIT/0.5 ML VIAL SQ SCH (20:20)
[2024-08-21] MEDS: DIPHENOXYLATE/ATROPINE 2.5/0.025MG TAB PO SCH (20:52)
[2024-08-21] MEDS: LOPERAMIDE HCL 2 MG CAP PO STA (21:34)
--- NOTE | 2024-08-22 07:45 | Hospitalist Progress Note ---
Date of Service August 22, 2024 Assessment & Plan (1) Esophageal candidiasis: (2) Acute renal failure superimposed on stage 4 chronic kidney disease: (3) Hypokalemia: (4) Irritable bowel syndrome with diarrhea: (5) Malnutrition: (6) Metabolic acidosis: (7) Hypocalcemia: (8) Hypomagnesemia: (9) Neurogenic bladder: Plan Mr. Gonzalez is a 63 year old male w/ history of neurogenic bladder secondary to childhood polio, CKD, IBS-D, recurrent hypokalemia, mood disorder and others below admitted on 08/19 due to acute UTI and DARRIAN on CKD. GI was asked to evaluate for decreased appetite and nausea, CT w/ a 1.9 cm soft tissue density within the distal esophagus. #Diffuse esophageal candidiasis #Esophageal lesion on imaging EGD on 08/21 with grade D esophagitis continue PPI bid, avoid NSAIDS EGD in 2-3 months started on fluconazole forl candidiasis, loading dose 400 mg x 1 then continue 100 mg daily based on his renal function for total of 21 days ID consult as patient with a propensity for prolonged QTc and would like firm recommendations for contingency plan as an op of follow up QTc prolonged prior to completion of therapy #IBS-D trial of lomitil loperamide prn #DARRIAN on CKD III #NAGMA iso diarrhea Baseline creatinine around 2 presented with creatinine of 4 Poor appetite since last around 10 days, presumptive prerenal CT abdomen pelvis shows possible cystitis and 1.4 cm nodular on the right kidney Nephrology consulted on bicarb drip strict IO #Hypokalemia #Hypocalcemia aggressively placement continue amiloride 5mg TID continue KCL QID continue mag supplement Continue rocaltrol and Vit D #Abnormal UA History of Pseudomonas and coag negative staph in cultures Empiric Zosyn and Dapto started initially, discontinued as UA with skin cristiano #Prolonged QTc resolved QTc 599 History of prolonged QT improved with corrected electrolytes however high risk Repeat EKG in am #Mood disorder Held citalopram and doxepin as QTc prolonged resume as able #Hypertension On metoprolol succinate and amiloride DVT prophylaxis SCDs for now Disposition Telemetry Full code. Admission and Anticipated Discharge Date Admission Date: August 19, 2024 Subjective NAEO reports feeling better today, though still some discomfort with eating Denies chest pain, dizziness, or other acute concerns Discussed the need to finalize safe plan for discharge given so many electrolyte abnormalities Physical Exam Constitutional: chronically ill appearing gentleman Respiratory: normal respiratory effort, lungs clear to auscultation Gastrointestinal (Abdomen): protuberant but soft, actively passing stool on exam Results & Data Results & Data Vital Signs (Past 12 Hours) Vital Signs Temp Pulse Resp BP Pulse Ox O2 Del Method 08/21/24 20:40 36.7 C 72 18 133/80 100 Room Air Laboratory Results Short CBC 08/22/24 Range/Units 08:40 WBC 11.13 H (4.8-10.8) K/ul Hgb 11.1 L (14.0-18.0) g/dl Hct 33.9 L (42.0-52.0) % Plt Count 124 L (130-400) K/uL BMP 08/22/24 08:39 Sodium 139 Potassium 3.2 L Chloride 112 H Carbon Dioxide 21 BUN 14 Creatinine 2.86 H D Glucose 101 H Calcium 7.0 L Medications Administered Home Medications Medication Instructions Recorded Confirmed Last Taken amiloride 5 mg tablet 5 mg PO DAILY 08/19/24 08/19/24 Unknown calcitriol 0.25 mcg capsule 0.25 mcg PO DAILY 08/19/24 08/19/24 Unknown calcium 500 mg (as 1 tab PO BID 08/19/24 08/19/24 Unknown carbonate)-vitamin D3 15 mcg (600 unit) tablet citalopram 40 mg tablet 40 mg PO DAILY 08/19/24 08/19/24 Unknown cyanocobalamin (vitamin B-12) 1,000 mcg IM MONTHLY 08/19/24 08/19/24 Unknown 1,000 mcg/mL injection solution doxepin 25 mg capsule 25 mg PO HS 08/19/24 08/19/24 Unknown metoprolol succinate 25 mg 25 mg PO DAILY 08/19/24 08/19/24 Unknown tablet,extended release 24 hr potassium chloride 20 mEq 20 meq PO DAILY 08/19/24 08/19/24 Unknown tablet,extended release tramadol 50 mg tablet 50 mg PO BID PRN Pain 08/19/24 08/19/24 Unknown Active Medications Generic Name Dose Route Start Last Admin Trade Name Freq PRN Reason Stop Dose Admin Amiloride HCl 5 mg 08/20/24 14:00 08/22/24 07:54 Amiloride Hcl 5 Mg Tab PO 09/19/24 13:59 5 mg TID THOMAS Administration Calcitriol 0.25 mcg 08/19/24 09:00 08/22/24 07:55 Calcitriol 0.25 Mcg Capsule PO 09/18/24 08:59 0.25 mcg DAILY THOMAS Administration Calcium Carbonate 1 tab 08/20/24 14:00 08/22/24 07:55 Calcium Carbonate 1250mg Tab PO 09/19/24 13:59 1 tab TID THOMAS Administration Diphenoxylate HCl/Atropine 1 tab 08/21/24 18:50 08/22/24 08:24 Diphenoxylate/Atropine 2.5/0.025mg Tab PO 09/20/24 18:49 1 tab TID THOMAS Administration Fluconazole 100 mg 08/22/24 09:00 08/22/24 07:54 Fluconazole 100 Mg Tab PO 09/01/24 08:59 100 mg QAM THOMAS Administration Heparin Sodium (Porcine) 5,000 units 08/19/24 09:00 08/22/24 08:00 Heparin Sod 5,000 Unit/0.5 Ml Vial SQ 09/18/24 08:59 5,000 units Q12 THOMAS Administration Sodium Bicarbonate 150 meq/ 1,160 mls @ 100 mls/hr 08/20/24 13:00 08/21/24 23:05 Potassium Chloride 20 meq/ IV 09/18/24 17:29 100 mls/hr Dextrose .[id number] THOMAS Administration Magnesium Chloride 64 mg 08/19/24 12:45 08/22/24 07:55 Magnesium Chloride W/Calcium 64mg Delayed Rel Tab PO 09/18/24 12:44 64 mg QAM THOMAS Administration Metoprolol Succinate 25 mg 08/19/24 09:00 08/22/24 07:55 Metoprolol Succ 25mg Ext Rel Tab PO 09/18/24 08:59 25 mg DAILY THOMAS Administration Miconazole Nitrate 1 appln 08/20/24 09:19 08/20/24 10:24 Miconazole Nitrate Powder 85 Gm EXT 09/19/24 09:18 1 appln PRN PRN Administration Affected Skin Folds Pantoprazole Sodium 40 mg 08/21/24 21:00 08/22/24 08:51 Pantoprazole 40 Mg Tab PO 09/20/24 20:59 40 mg BID THOMAS Administration Potassium Chloride 40 meq 08/19/24 17:00 08/22/24 07:59 Potassium Chloride Crtab 20 Meq Tabcr PO 09/18/24 16:59 40 meq QID THOMAS Administration Vitamin D 25 mcg 08/19/24 13:00 08/22/24 07:54 Cholecalciferol 25 Mcg (1000 Units) Tab PO 09/18/24 12:59 25 mcg QAM THOMAS Administration
[2024-08-22] MEDS: FLUCONAZOLE 100 MG TAB PO SCH (07:54)
[2024-08-22 09:17] LABS: BUN Creatinine Ratio 4.9 (10-20); Creatinine Clr Calc Pharmacy 24.7 ml/min; Potassium 3.2 mmol/L (3.5-5.1)
[2024-08-22 09:33] LABS: Hematocrit (blood only) 33.9 % (42.0-52.0); Hemoglobin 11.1 g/dl (14.0-18.0); Mean Corpuscular Hemoglobin 30.7 pg (25.0-34.0); Mean Corpuscular Hgb Conc 32.7 g/dL (32.0-36.0); Mean Corpuscular Volume 93.6 fL (80.0-100.0); Mean Platelet Volume 12.5 fL (9.4-12.4); Platelet Count 124 K/uL (130-400); RDW Coefficient of Variation 19.5 % (11.5-14.5); RDW Standard Deviation 66.1 fL (36.4-46.3); Red Blood Count 3.62 M/uL (4.70-6.10); White Blood Count 11.13 K/ul (4.8-10.8)
--- NOTE | 2024-08-22 10:08 | Nephrology Progress Note ---
Date of Service August 22, 2024 Assessment & Plan (1) DARRIAN (acute kidney injury): Plan: Stage 1 DARRIAN on CKD 3B w/ baseline creatinine in the low 2s. presented w/ creat 4.1, down to 2.9 today ( a big improvement but w/ early e/o vol OL on exam). given his history of nausea poor appetite and not eating drinking for the last 1 week [employer] we have to assume this is prerenal; also c/w slow/mild response to IVF. Obstructive uropathy has already been ruled out as he does not have hydronephrosis ; he is back to customary intermittent self caths at this time. he is very anxious for hospital d/c. will stop IVF and see how he does; concerns though about ability to maintain on po -hold IVF as of this PM; CXR ordered for AM -daily bmp -strict I/O >platelets are intermittently mildly low and dropped today >monitor daily; doubt role in RF Care coordinated extensively w/ Dr Scruggs by phone re abtx, electrolytes, volume status; we are in agreement. (2) Hypokalemia: Plan: patient has longstanding history of hypomagnesemia as well as hypokalemia and hypocalcemia. This was established during his previous hospitalization and his outpatient visit with Dr Ge in January 2024. he has apparently had low magnesium low calcium and low potassium for most of his life. but he has severe problem with nonadherence and intermittent adherence which makes management of electrolytes very difficult. in any case since the addition of amiloride as electrolyte derangements has been managed relatively easy compared to before the amiloride. as outpatient he was supposed to take 1 tablet of Slow-Mag 20 mEq of potassium calcium supplement with calcitriol and amiloride 5 daily. on this regimen he had normal electrolytes when checked as an outpatient. >>shift focus to maintain/correct potassium by po route alone -continue amiloride 5 mg tid to help correct the potassium faster and easier. -continue potassium chloride 40 mEq qid -continue magnesium supplement once daily > reluctant to do bid given diarrhea -continue rocaltrol, daily D supplements current doses >>non AG metabolic acidosis c/w diarrhea >> better today and overall significantly improved since admission >>cont daily mag, phos and BMP at least daily his potassium was 2.6 on presentation which means the deficit is more than 140 mEq. The true deficit might even be more given that this level was with presence of metabolic acidosis. (3) Esophageal candidiasis: Plan: EGD today w/ diffuse mid/distal esophageal candidiasis and esophagitis/gastritis >started on fluconazole 100 mg daily 08/22; long QTc noted by hospitalist and ID c/s pending for mgt plan/ alternatives >off of abtx Admission and Anticipated Discharge Date Admission Date: August 19, 2024 Subjective no interval events. bedside; pt denies sob, n/v, poor po, edema, or concerns about CIC. 5 BM today. he and (today more ) remain very eager for d/c home soon. Review of Systems 2 Review of Systems: All systems reviewed & are unremarkable except as noted in Subjective Physical Exam 2 Constitutional: well developed and well nourished Eyes: EOM intact bilaterally ENMT: Mouth: + dry oral mucous membranes Respiratory: normal respiratory effort Auscultation: + diminished lung sounds, + crackles (R>L) and + wheezes (exp ) Cardiovascular: RRR, no murmur, no edema Gastrointestinal (Abdomen): Inspection/Auscultation: normal bowel sounds P ercussion/Palpation: abdomen soft; abdomen nontender Skin: no rashes, warm and dry Results & Data Vital Signs (Past 12 Hours) Vital Signs Temp Pulse Resp BP Pulse Ox O2 Del Method 08/22/24 07:45 36.7 C 72 18 104/69 99 Room Air Laboratory Results 08/22/24 08:40 08/22/24 08:39
[2024-08-22] MEDS: POTASSIUM CHLORIDE / WTR 10 MEQ/100 ML PLCT IV SCH (12:03)
[2024-08-22] MEDS: traMADol HCL 50 MG TABLET PO PRN (14:39)
--- NOTE | 2024-08-22 15:47 | Electrocardiogram Report ---
Test Reason : Blood Pressure : */* mmHG Vent. Rate : 73 BPM Atrial Rate : 73 BPM P-R Int : 136 ms QRS Dur : 94 ms QT Int : 416 ms P-R-T Axes : 72 6 40 degrees QTcB Int : 458 ms Poor data quality, interpretation may be adversely affected Normal sinus rhythm Abnormal ECG When compared with ECG of 19-Aug-2024 10:52, QRS duration has decreased QT has shortened Confirmed by Zac Florian ([id number]) on 08/22/2024 3:47:42 PM Referred By: REFERRED SELF Confirmed By: Zac Florian
--- NOTE | 2024-08-22 15:51 | Electrocardiogram Report ---
Test Reason : Blood Pressure : */* mmHG Vent. Rate : 67 BPM Atrial Rate : 67 BPM P-R Int : 138 ms QRS Dur : 90 ms QT Int : 442 ms P-R-T Axes : 21 -1 57 degrees QTcB Int : 467 ms Normal sinus rhythm possible Inferior infarct (cited on or before 08-Dec-2023) Abnormal ECG When compared with ECG of 21-Aug-2024 12:10, (unconfirmed) No significant change was found Confirmed by Zac Florian ([id number]) on 08/22/2024 3:51:01 PM Referred By: REFERRED SELF Confirmed By: Zac Florian
[2024-08-22] MEDS ORDERED: TROLAMINE SALICYLATE 10% CRM 255 APPLN/85 GM TUBE EXT PRN (17:04)
[2024-08-22] MEDS: LOPERAMIDE HCL 2 MG CAP PO PRN (19:37)
[2024-08-22] MEDS: MIDODRINE HCL 2.5 MG TAB PO ONE (19:37)
[2024-08-23 07:10] LABS: Hematocrit (blood only) 34.2 % (42.0-52.0); Mean Corpuscular Hemoglobin 30.8 pg (25.0-34.0); Mean Corpuscular Hgb Conc 32.2 g/dL (32.0-36.0); Mean Corpuscular Volume 95.8 fL (80.0-100.0); Mean Platelet Volume 12.4 fL (9.4-12.4); Platelet Count 118 K/uL (130-400); RDW Coefficient of Variation 19.5 % (11.5-14.5); RDW Standard Deviation 67.2 fL (36.4-46.3); Red Blood Count 3.57 M/uL (4.70-6.10); White Blood Count 11.59 K/ul (4.8-10.8)
[2024-08-23 07:25] LABS: BUN Creatinine Ratio 4.7 (10-20); Calcium 6.9 mg/dl (8.6-10.3); Creatinine Clr Calc Pharmacy 25.7 ml/min; Magnesium 1.6 mg/dl (1.7-2.4); Phosphorus 3.2 mg/dl (2.5-4.9); Potassium 4.2 mmol/L (3.5-5.1)
[2024-08-23] MEDS ORDERED: MIDODRINE HCL 2.5 MG TAB PO SCH (08:00)
[2024-08-23] MEDS: CALCIUM GLUCONATE 1,000 MG/60 ML BAG IV SCH (08:12)
--- NOTE | 2024-08-23 08:41 | XRay Report ---
EXAM: XR chest 1V portable CLINICAL HISTORY: Crackles/wheezes on exam TECHNIQUE: An X-ray image of the chest is obtained in 1 AP projection. COMPARISON: Prior study dated 08/18/2024 FINDINGS: Pulmonary Parenchyma: Lungs are clear bilaterally. No evidence of consolidation, collapse, or focal opacities. No pulmonary nodules are identified. No evidence of pleural effusion or pleural thickening. Heart and Mediastinum: Dilated unfolded aorta Heart size and shape are normal. No mediastinal widening or masses. No hilar or mediastinal lymphadenopathy. Bony Thorax: Bony thorax appears intact without fractures or deformities. Soft Tissues: Soft tissues overlying the chest wall are unremarkable. IMPRESSION: 1. No acute cardiopulmonary abnormalities are identified. 2. Dilated unfolded aorta. 3. No interval changes. Electronically signed by Cindy Vasquez 08-23-2024 08:41 AM
[2024-08-23] MEDS: DICYCLOMINE HCL 10 MG CAP PO SCH (11:37)
[2024-08-23] MEDS: FAMOTIDINE 20MG IV PUSH 20 MG/5 ML SYR IV STA (12:42)
--- NOTE | 2024-08-23 13:28 | Hospitalist Progress Note ---
Date of Service August 23, 2024 Assessment & Plan (1) Esophageal candidiasis: (2) Acute renal failure superimposed on stage 4 chronic kidney disease: (3) Hypokalemia: (4) Irritable bowel syndrome with diarrhea: (5) Malnutrition: (6) Metabolic acidosis: (7) Hypocalcemia: (8) Hypomagnesemia: (9) Neurogenic bladder: Plan Mr. Gonzalez is a 63 year old male w/ history of neurogenic bladder secondary to childhood polio, CKD, IBS-D, recurrent hypokalemia, mood disorder and others below admitted on 08/19 due to acute UTI and DARRIAN on CKD. GI was asked to evaluate for decreased appetite and nausea, CT w/ a 1.9 cm soft tissue density within the distal esophagus. EGD revealed diffuse candidiasis. QTC on admission 599 now 468 on repeat. Nephrology following with multiple IV/PO electrolyte replacements on going. Bicarb drip discontinued 08/22. #Diffuse esophageal candidiasis #Esophageal lesion on imaging EGD on 08/21 with grade D esophagitis continue PPI bid, avoid NSAIDS EGD in 2-3 months started on fluconazole forl candidiasis, loading dose 400 mg x 1 then continue 100 mg daily based on his renal function for total of 21 days ID consult as patient with a propensity for prolonged QTc and would like firm recommendations for contingency plan as an op of follow up QTc prolonged prior to completion of therapy #IBS-D trial of lomitil loperamide prn Bentyl QID #DARRIAN on CKD III #NAGMA iso diarrhea Baseline creatinine around 2 presented with creatinine of 4 Poor appetite since last around 10 days, presumptive prerenal CT abdomen pelvis shows possible cystitis and 1.4 cm nodular on the right kidney Nephrology consulted discontinued bicarb strict IO await final recommendations and stable PO regimen #Hypokalemia #Hypocalcemia aggressively placement continue amiloride 5mg TID continue KCL QID continue mag supplement Continue rocaltrol and Vit D #Abnormal UA History of Pseudomonas and coag negative staph in cultures Empiric Zosyn and Dapto started initially, discontinued as UA with skin cristiano #Prolonged QTc resolved QTc 599 History of prolonged QT improved with corrected electrolytes however high risk EKG 468 #Mood disorder Held citalopram and doxepin as QTc prolonged resume as able #Hypertension On metoprolol succinate and amiloride DVT prophylaxis SCDs for now Disposition Telemetry Full code. Admission and Anticipated Discharge Date Admission Date: August 19, 2024 Subjective NAEO reports notable abdominal cramping discussed possible HH for labs and med management as patient will likely d/c with multiple supplements and will need close follow up--agreed that when d/c coordinated this will be helpful Physical Exam Constitutional: chronically ill appearing gentleman Cardiovascular: coarse breath sounds Gastrointestinal (Abdomen): nontender, protuberant, BS+ Results & Data Results & Data Vital Signs (Past 12 Hours) Vital Signs Temp Pulse Resp BP Pulse Ox O2 Del Method 08/23/24 07:30 Room Air 08/23/24 07:24 36.4 C L 60 18 91/64 L 97 Room Air Laboratory Results Short CBC 08/23/24 Range/Units 05:37 WBC 11.59 H (4.8-10.8) K/ul Hgb 11.0 L (14.0-18.0) g/dl Hct 34.2 L (42.0-52.0) % Plt Count 118 L (130-400) K/uL BMP 08/23/24 05:37 Sodium 140 Potassium 4.2 D Chloride 114 H Carbon Dioxide 21 BUN 13 Creatinine 2.75 H Glucose 81 Calcium 6.9 L Medications Administered Home Medications Medication Instructions Recorded Confirmed Last Taken amiloride 5 mg tablet 5 mg PO DAILY 08/19/24 08/19/24 Unknown calcitriol 0.25 mcg capsule 0.25 mcg PO DAILY 08/19/24 08/19/24 Unknown calcium 500 mg (as 1 tab PO BID 08/19/24 08/19/24 Unknown carbonate)-vitamin D3 15 mcg (600 unit) tablet citalopram 40 mg tablet 40 mg PO DAILY 08/19/24 08/19/24 Unknown cyanocobalamin (vitamin B-12) 1,000 mcg IM MONTHLY 08/19/24 08/19/24 Unknown 1,000 mcg/mL injection solution doxepin 25 mg capsule 25 mg PO HS 08/19/24 08/19/24 Unknown metoprolol succinate 25 mg 25 mg PO DAILY 08/19/24 08/19/24 Unknown tablet,extended release 24 hr potassium chloride 20 mEq 20 meq PO DAILY 08/19/24 08/19/24 Unknown tablet,extended release tramadol 50 mg tablet 50 mg PO BID PRN Pain 08/19/24 08/19/24 Unknown Active Medications Generic Name Dose Route Start Last Admin Trade Name Freq PRN Reason Stop Dose Admin Amiloride HCl 5 mg 08/20/24 14:00 08/23/24 12:45 Amiloride Hcl 5 Mg Tab PO 09/19/24 13:59 5 mg TID THOMAS Administration Calcitriol 0.25 mcg 08/19/24 09:00 08/23/24 08:14 Calcitriol 0.25 Mcg Capsule PO 09/18/24 08:59 0.25 mcg DAILY THOMAS Administration Calcium Carbonate 1 tab 08/20/24 14:00 08/23/24 12:46 Calcium Carbonate 1250mg Tab PO 09/19/24 13:59 1 tab TID THOMAS Administration Dicyclomine HCl 10 mg 08/23/24 10:30 08/23/24 12:11 Dicyclomine Hcl 10 Mg Cap PO 09/22/24 10:29 Not Given QID THOMAS Diphenoxylate HCl/Atropine 1 tab 08/21/24 18:50 08/23/24 12:45 Diphenoxylate/Atropine 2.5/0.025mg Tab PO 09/20/24 18:49 1 tab TID THOMAS Administration Fluconazole 100 mg 08/22/24 09:00 08/23/24 08:16 Fluconazole 100 Mg Tab PO 09/01/24 08:59 100 mg QAM THOMAS Administration Loperamide HCl 2 mg 08/22/24 10:45 08/22/24 19:37 Loperamide Hcl 2 Mg Cap PO 09/21/24 10:44 2 mg Q6H PRN Administration Diarrhea Magnesium Chloride 64 mg 08/19/24 12:45 08/23/24 08:14 Magnesium Chloride W/Calcium 64mg Delayed Rel Tab PO 09/18/24 12:44 64 mg QAM THOMAS Administration Metoprolol Succinate 25 mg 08/19/24 09:00 08/23/24 08:15 Metoprolol Succ 25mg Ext Rel Tab PO 09/18/24 08:59 Not Given DAILY THOMAS Miconazole Nitrate 1 appln 08/20/24 09:19 08/20/24 10:24 Miconazole Nitrate Powder 85 Gm EXT 09/19/24 09:18 1 appln PRN PRN Administration Affected Skin Folds Pantoprazole Sodium 40 mg 08/21/24 21:00 08/23/24 08:14 Pantoprazole 40 Mg Tab PO 09/20/24 20:59 40 mg BID THOMAS Administration Potassium Chloride 40 meq 08/19/24 17:00 08/23/24 12:48 Potassium Chloride Crtab 20 Meq Tabcr PO 09/18/24 16:59 40 meq QID THOMAS Administration Tramadol HCl 50 mg 08/19/24 06:06 08/23/24 11:37 Tramadol Hcl 50 Mg Tablet PO 09/18/24 06:05 50 mg BID PRN Administration Pain Vitamin D 25 mcg 08/19/24 13:00 08/23/24 08:14 Cholecalciferol 25 Mcg (1000 Units) Tab PO 09/18/24 12:59 25 mcg QAM THOMAS Administration
--- NOTE | 2024-08-23 16:42 | Electrocardiogram Report ---
Test Reason : Blood Pressure : */* mmHG Vent. Rate : 60 BPM Atrial Rate : 60 BPM P-R Int : 142 ms QRS Dur : 100 ms QT Int : 468 ms P-R-T Axes : 28 1 39 degrees QTcB Int : 468 ms Normal sinus rhythm Inferior infarct (cited on or before 08-Dec-2023) NS-septal T wave abnormaily Abnormal ECG When compared with ECG of 22-Aug-2024 07:14, No significant change was found Confirmed by Leah Freeman ([id number]) on 08/23/2024 4:42:17 PM Referred By: REFERRED SELF Confirmed By: Leah Freeman
--- NOTE | 2024-08-23 19:14 | Nephrology Progress Note ---
Date of Service August 23, 2024 Assessment & Plan (1) DARRIAN (acute kidney injury): Plan: Stage 1 DARRIAN on CKD 3B w/ baseline creatinine in the low 2s. presented w/ creat 4.1, plateau'd at 2.8 today; e/o vol OL on yesterday's exam better/resolved today; CXR this AM was clear (images personally reviewed). given his history of nausea poor appetite and not eating drinking for the last 1 week [employer] we have to assume this is prerenal; also c/w slow/mild response to IVF. Obstructive uropathy has already been ruled out as he does not have hydronephrosis ; he is back to customary intermittent self caths at this time. he is very anxious for hospital d/c. continue to hold IVF; monitor his ability to maintain on po -daily bmp, mag, phos -strict I/O >platelets are intermittently mildly low and dropped again today to 118 >monitor daily; doubt role in RF Care coordinated w/ Dr Scruggs by phone re electrolyte supplements/doses, volume status; we are in agreement. (2) Hypokalemia: Plan: patient has longstanding history of hypomagnesemia as well as hypokalemia and hypocalcemia. This was established during his previous hospitalization and his outpatient visit with Dr Ge in January 2024. he has apparently had low magnesium low calcium and low potassium for most of his life. but he has severe problem with nonadherence and intermittent adherence which makes management of electrolytes very difficult. in any case since the addition of amiloride as electrolyte derangements has been managed relatively easy compared to before the amiloride. as outpatient he was supposed to take 1 tablet of Slow-Mag 20 mEq of potassium calcium supplement with calcitriol and amiloride 5 daily. on this regimen he had normal electrolytes when checked as an outpatient. >>shift focus to maintain/correct potassium by po route alone -continue amiloride 5 mg tid to help correct the potassium faster and easier. -continue potassium chloride 40 mEq but lower to tid from qid -continue magnesium supplement once daily > reluctant to do bid given diarrhea -continue rocaltrol, daily D and calcium supplements current doses EXCEPT i ncreased D3 from 25 mcg daily > 125 mcg daily and rocaltrol from 0.25 mcg daily to 0.75 mcg daily >>non AG metabolic acidosis c/w diarrhea >> better today and overall significantly improved since admission >>cont daily mag, phos and BMP at least daily his potassium was 2.6 on presentation which means the deficit is more than 140 mEq. The true deficit might even be more given that this level was with presence of metabolic acidosis. (3) Esophageal candidiasis: Plan: EGD today w/ diffuse mid/distal esophageal candidiasis and esophagitis/gastritis >started on fluconazole 100 mg daily 08/22; long QTc noted by hospitalist and ID c/s pending for mgt plan/ alternatives >off of abtx Admission and Anticipated Discharge Date Admission Date: August 19, 2024 Subjective seen on evening rounds; at bedside. diarrhea has slowed some; no sob, no wheezing; still minimal food intake but drinks well Review of Systems 2 Review of Systems: All systems reviewed & are unremarkable except as noted in Subjective Physical Exam 2 Constitutional: well developed and well nourished Eyes: EOM intact bilaterally ENMT: Mouth: + dry oral mucous membranes Respiratory: normal respiratory effort Auscultation: lungs clear to auscultation bilaterally and + diminished lung sounds Cardiovascular: RRR, no murmur, no edema Gastrointestinal (Abdomen): Inspection/Auscultation: normal bowel sounds P ercussion/Palpation: abdomen soft; abdomen nontender Skin: no rashes, warm and dry Results & Data Vital Signs (Past 12 Hours) Vital Signs Temp Pulse Resp BP Pulse Ox O2 Del Method 08/23/24 14:49 36.4 C L 68 16 136/61 97 Room Air 08/23/24 07:30 Room Air 08/23/24 07:24 36.4 C L 60 18 91/64 L 97 Room Air Laboratory Results 08/23/24 05:37 08/23/24 05:37
[2024-08-23 19:54] VITALS: RESP 18
[2024-08-23] MEDS: POTASSIUM CHLORIDE CRTAB 20 MEQ TABCR PO SCH (21:17)
[2024-08-23] MEDS: CHOLECALCIFEROL 125 MCG (5,000 UNITS) TAB PO SCH (21:17)
[2024-08-24 06:40] LABS: Hematocrit (blood only) 37.3 % (42.0-52.0); Hemoglobin 11.9 g/dl (14.0-18.0); Mean Corpuscular Hemoglobin 30.7 pg (25.0-34.0); Mean Corpuscular Hgb Conc 31.9 g/dL (32.0-36.0); Mean Corpuscular Volume 96.4 fL (80.0-100.0); Mean Platelet Volume 12.8 fL (9.4-12.4); Platelet Count 126 K/uL (130-400); RDW Coefficient of Variation 18.6 % (11.5-14.5); RDW Standard Deviation 65.8 fL (36.4-46.3); Red Blood Count 3.87 M/uL (4.70-6.10); White Blood Count 12.74 K/ul (4.8-10.8)
[2024-08-24 07:03] LABS: BUN Creatinine Ratio 5.2 (10-20); Calcium 7.9 mg/dl (8.6-10.3); Creatinine Clr Calc Pharmacy 26.2 ml/min; Magnesium 1.6 mg/dl (1.7-2.4); Phosphorus 3.7 mg/dl (2.5-4.9); Potassium 4.8 mmol/L (3.5-5.1)
[2024-08-24 07:21] VITALS: BP 117/76; PULSE 87; TEMP 98.1; O2SAT 99
[2024-08-24] MEDS: CALCITRIOL 0.25 MCG CAPSULE PO SCH (08:36)
--- NOTE | 2024-08-24 11:49 | Communication Note ---
Date of Service: August 24, 2024 Care reviewed this AM w/ Dr Kemp x 2; pt appropriately for d/c today likely before I arrive to hospital to eval in person d/t other clinical duties. NEPHRO D/C RECS -d/c on the following meds -amiloride 5 mg tid -calcitriol 0.75 mcg daily -Ca/D supplements same tabs and mg/units as prior to admission tid -D3 supplements 5000 units daily -slo mag 2 tablets bid -potassium Cl 40 mEq bid -sodium bicarbonate 650 mg tid -it is very important to take meds as rx'd and to get labs on time; he is at risk for over/undercorrection w/o close monitoring and even with close monitoring >I have placed orders for stat BMP, phos, mag to be drawn 08/26 in AM first thing and again Aug 28 >timing of further labs to depend on results of above >suggest preemptively scheduling appt at [facility] for IV fluids on 08/28 or 08/29; we can always cancel if not needed >needs hospital d/c nephro appt w/ Dr Ge wk of 09/01 > I have messaged neph schedulers Updated Dr Kemp on above via TText; we are in agreement
--- NOTE | 2024-08-24 12:24 | Discharge Summary ---
Discharge Summary Date of Service August 24, 2024 Principal Dx & Hospital Course #1 = Principal Diagnosis (1) Esophageal candidiasis: (2) Acute renal failure superimposed on stage 4 chronic kidney disease: (3) Hypokalemia: (4) Irritable bowel syndrome with diarrhea: (5) Malnutrition: (6) Metabolic acidosis: (7) Hypocalcemia: (8) Hypomagnesemia: (9) Neurogenic bladder: Plan Patient presented to the emergency room with several days of not eating well, poor appetite and nausea and some abdominal discomfort. In the emergency room was noted to have severe electrolyte abnormalities and was referred for further evaluation. Patient was cared for in the hospital. He is on a monitored unit. There is no significant arrhythmias. He was aggressively replaced with his electrolytes. Nephrology consultation was obtained due to his acute on chronic renal failure mostly due to dehydration and severe electrolyte abnormalities. He also had significant metabolic acidosis most likely due to GI losses. Patient has chronic irritable bowel syndrome diarrhea prominent. GI consultation was obtained due to his nausea and abdominal pain. After his electrolyte status stabilized he underwent EGD. EGD revealed extensive esop hageal candidiasis and Bhatt's esophagus. He was placed on aggressive PPI as well as started on fluconazole. On admission the patient did have a significantly prolonged QT, however this corrected when his electrolytes corrected. As long as electrolytes have stabilized I believe we can continue with the fluconazole and risks of severe prolonged QT syndrome is very low. Patient started eating better here in the hospital. Was learned that at home he is really noncompliant with his supplements and drinks Dr. Jacobo as pretty much his solel dietary intake. Along with his at the bedside educated on improved diet. is committed to making sure he takes his supplements and eats at least some solid food and decreases some of his intake of the Pepper. On the day of discharge nephrology made recommendations for home supplement dosing. He was tolerating the fluconazole. His strength was returning. And he was tolerating at least solid meals of his brought him in so Mixon's and he was able to tolerate that without difficulty. Understands he will need follow-up with GI for repeat EGD to ensure improvement of his candidiasis as well as monitoring of his of Bhatt's. He will follow-up with nephrology as his usual. Home health care will assist in monitoring his blood draws and getting his electrolytes monitored. 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 Not eating much from last 7 to 10 days. Patient straight caths thought could be UTI. Patient supposed to start Bactrim but as per he did not started yet. Patient also complains some abdominal discomfort. Has nausea and dry heaves. Denies any headache. Says his mouth is very dry. When his mouth is dry he has difficulty swallowing. Denies chest pain or shortness of breath. His stools are loose. Micturating a lot as per . Ambulates okay. Currently resting comfortably and hemodynamically stable. Labs showed DARRIAN and hypokalemia and UA is positive for UTI. Past medical history. As mentioned above Past surgical history. Cholecystectomy. Fracture surgery. Social history. No smoking. No alcohol use. Disabled. Family history. Significant for diabetes. Admission Exam Per Admitting Provider See H&P Discharge Exam Constitutional: Alert, nontoxic HEENT: Mucous membranes moist. Lungs: Clear to auscultation, decreased, no wheezes rales or rhonchi CV: S1-S2, regular Abdomen: Soft, nontender, nondistended Extremities: No significant edema Neuro: No focal deficits Psych: Cooperative, normal mood Updated Medication List Medication Instructions Recorded Confirmed Type calcium 500 mg (as 1 tab PO BID 08/19/24 08/19/24 History carbonate)-vitamin D3 15 mcg (600 unit) tablet citalopram 40 mg tablet 40 mg PO DAILY 08/19/24 08/19/24 History cyanocobalamin (vitamin B-12) 1,000 mcg IM MONTHLY 08/19/24 08/19/24 History 1,000 mcg/mL injection solution doxepin 25 mg capsule 25 mg PO HS 08/19/24 08/19/24 History metoprolol succinate 25 mg 25 mg PO DAILY 08/19/24 08/19/24 History tablet,extended release 24 hr tramadol 50 mg tablet 50 mg PO BID PRN Pain 08/19/24 08/19/24 History amiloride 5 mg tablet 5 mg PO TID 30 days #90 tabs 08/24/24 Rx calcitriol 0.25 mcg capsule 0.75 mcg (3 x 0.25 mcg) PO DAILY 08/24/24 Rx #90 caps cholecalciferol (vitamin D3) 125 125 mcg PO QAM #30 tabs 08/24/24 Rx mcg (5,000 unit) tablet dicyclomine 10 mg capsule 10 mg PO QID #120 caps 08/24/24 Rx diphenoxylate-atropine 2.5 1 tab PO TID #90 tabs 08/24/24 Rx mg-0.025 mg tablet fluconazole 100 mg tablet 100 mg PO QAM #16 tabs 08/24/24 Rx (Diflucan) magnesium chloride 64 mg 64 mg PO QAM #30 tabs 08/24/24 Rx (magnesium chloride) tablet,delayed release (Mag 64) pantoprazole 40 mg tablet,delayed 40 mg PO BID #60 tabs 08/24/24 Rx release potassium chloride 20 mEq 40 meq (2 x 20 mEq) PO BID #120 08/24/24 Rx tablet,extended release tabs Hospital Stay Data Consultations 08/18/24 22:09 ED Decision to Admit Stat 08/19/24 08:00 Consult Gastroenterology Routine Consult Nephrology Routine 08/22/24 10:31 Consult Infectious Diseases Routine Procedures Performed Operation Date: 08/21/24 16:30 Actual Procedures p EGD Biopsy Cytology - Michael Hancock MD Diagnostic Imagining Performed 08/18/24 20:17 CT abd pelvis wo con Stat 08/19/24 02:20 US Renal Bladder [US renal/blad retro comp] Routine Reviewed imaging, laboratory and diagnostic studies. Pertinent findings as below. WBCs 12.7 Hemoglobin 11.9 Platelets 126 Sodium 136 Potassium 4.8 Bicarb 17 Creatinine 2.7, baseline Phosphorus 3.7 Magnesium 1.6 Renal ultrasound shows renal cyst and moderate atrophy, no hydronephrosis Most recent EKG personally reviewed showed sinus rhythm QT interval 468 ms I refer you to the EGD report for findings on EGD which is extensive Bhatt's and candidiasis Blood cultures no growth Urine culture multiple bacteria growing, no single bacterial growth Pathology of stomach biopsies negative for H. pylori, consistent gastritis Pending Results Patient Have Any Pending Studies at Discharge: No Discharge Instructions Given to Patient (Per Discharging Provider) Recommend that you eat solid foods, if you do not have much appetite recommend several small meals scattered throughout the day BMP, magnesium, phosphorus weekly through home health Follow-up with gastroenterology as coordinated through their office for repeat EGD and follow-up on biopsies Home Health Attestation I certify that this patient is under my care and that I, or a physicians assistant plant manager working with me, had a face to-face encounter that meets the home health [id number] encounter requirements with this patient. The encounter with the patient was in whole, or in part, for the following medical condition, which is the primary reason for home health care (list medical condition): I certify that, based on my findings, the following services are medically necessary home health services: My clinical findings support the need for the above services because: Further, I certify that my clinical findings support that this patient is homebound (i.e. absences from home require considerable and taxing effort and are for medical reasons or scientology services or infrequently or of short dur ation when for other reasons) because: Certification for Home Health Services: Based on the above findings, I certify that this patient is confined to the home and needs intermittent fci care, physical therapy and/or speech therapy or continues to need occupational therapy. The patient is under my care, and I have initiated the establishment of the plan of care. This patient will be followed by a physician who will periodically review the plan of care. Total Time Total Time Spent Total Time Spent (In Minutes): 40
== END 2024-08-24 14:55 | disposition home health service (06) | DRG 683 ==
LOC: ED 19:07 → 2E 08-19 00:59 → SUATTDRO 08-19 00:59 → 2E 08-19 01:44 → 3W 08-21 18:44
DX: R63.0 Anorexia; I12.9 Hypertensive chronic kidney disease with stage 1 through stage 4 chronic kidney disease, or unspecified chronic kidney disease; Z79.899 Other long term (current) drug therapy; E87.6 Hypokalemia; N31.8 Other neuromuscular dysfunction of bladder; E46 Unspecified protein-calorie malnutrition; K29.70 Gastritis, unspecified, without bleeding; E87.20 Acidosis, unspecified; K29.80 Duodenitis without bleeding; N17.9 Acute kidney failure, unspecified; Z86.12 Personal history of poliomyelitis; Z91.148 Patient's other noncompliance with medication regimen for other reason; K22.89 Other specified disease of esophagus; N18.4 Chronic kidney disease, stage 4 (severe); B37.81 Candidal esophagitis; E83.51 Hypocalcemia; N28.89 Other specified disorders of kidney and ureter; F39 Unspecified mood [affective] disorder; E83.42 Hypomagnesemia; Z90.49 Acquired absence of other specified parts of digestive tract; K58.0 Irritable bowel syndrome with diarrhea

== ENCOUNTER 2024-09-02 14:01 | Inpatient (IN) ==
--- NOTE | 2024-09-02 14:15 | ED Triage Note ---
Date of Service September 02, 2024 Provider in Triage Author: Edelmira West History of Present Illness This patient was briefly evaluated while in triage. An abbreviated physical exam was performed. This patient is a 63-year-old Male who presents to the ED for evaluation recent admission until 08/23 for DARRIAN, UTI, hypotension today, was weak and slumped to the floor, seems confused per -->seeing things that aren't there poor eating and drinking straight cath's for urine Physical Exam GENERAL: hypotensive, oriented to person, place CARDIOVASCULAR: RRR RESPIRATORY: CTA ABDOMEN: BS x 4. Nontender to palpation. Initial orders for labs and / or imaging were placed and patient was placed in the waiting area until a bed is available. Please see further documentation for the full ED course.
--- NOTE | 2024-09-02 14:32 | Emergency Department Note ---
Impression & Plan Sepsis, Hypocalcemia, Acute renal failure, Acute hyperkalemia, Acute hyponatremia, Elevated procalcitonin, Acute UTI (urinary tract infection) ED Provider Note HISTORY OF PRESENT ILLNESS: Patient is a 63-year-old male presenting with altered mental status. provides history. Reports that the patient woke up today and seemed his normal self but then started acting strangely and speaking to other people who were in the room. She reports that he is hallucinating and seeing things that are not there. Patient was seen by [facility] this morning and had a slightly low blood pressure. He was being transported to the hospital with his for routine laboratory work today, but the reports that and route the patient's confusion got significantly worse, prompting her to present him to the emergency department. She reports that yesterday he was his normal self. Patient denies any abdominal pain, nausea or vomiting. He is alert to person. No reported fevers per the . Patient does have a history of neurogenic bladder and straight caths at home. ROS: as above PHYSICAL EXAM: Constitutional: Patient appears in no acute distress. HENT: Head: Normocephalic and atraumatic. Eyes: EOMI, PERRL Mouth/Throat: Mucous membranes moist. Neck: Trachea midline. Neck supple. Cardiovascular: Tachycardic with regular rhythm. No murmurs, rubs or gallops. Intact distal pulses. Pulmonary/Chest: No respiratory distress. Breath sounds clear and equal bilaterally. No wheezes or rales. Abdominal: Abdomen soft, no tenderness, rebound or guarding. Musculoskeletal: No edema, tenderness or deformity noted. Skin: Warm and dry. Patient has diffuse excoriations on the bilateral upper and lower extremities. Neurological: Alert to self but confused to place. CN II-XII grossly intact, moving all extremities equally and fully. MDM: - Vitals signs showed hypotension and tachycardia. - History obtained via patient's , given patient's confusion. History as above. - Chronic conditions affecting care: poliomyelitis; CKD stage 4; neurogenic bladder - Differential diagnoses include, but are not limited to: UTI; pneumonia; viral syndrome; dysrhythmia; electrolyte abnormality; uremia; CVA; intracranial hemorrhage - Order placed for continuous cardiac monitoring. At this time, monitor showed rate of 70 bpm with normal sinus rhythm, per my interpretation. - External medical records reviewed. Discharge summary dated 08/24/2024 was reviewed. Patient was admitted at that time for poor appetite, nausea and abdominal pain. He had multiple electrolyte abnormalities during his admission and had acute renal failure superimposed on CKD. - EKG interpreted by myself showed normal sinus rhythm. Rate 77 bpm. QT 392. No acute ischemic changes. - Laboratory workup interpreted by myself showed leukocytosis (WBC 19.19) with neutrophil predominance; anemia (Hgb 12.5); elevated INR (1.5); hyponatremia (Na 123); hyperkalemia (K 6.6); DARRIAN on CKD (Cr 5.63); low biacrb (12); hypocalcemia (Ca 8.2); normal ammonia; normal troponin; elevated procalcitonin (0.98); normal lactate - CXR negative for pneumonia, per my interpretation. - Blood cultures obtained. - Patient was immediately brought back from triage and brought to the resuscitation bay. Repeat blood pressure with a systolic in the 1 teens. Repeat heart rate in the 90s. Patient is confused but provides most of history. IV access obtained and patient given a total of 2 L normal saline. - CT head wo contrast negative for acute pathology. - VBG shows metabolic acidosis with a pH of 7.01. - Multiple attempts were made by nursing staff to attempt to place a Shea catheter for monitoring of the patient's eyes and nose. However, patient has an abnormal urethral meatus and passing Shea's has been difficult. - Viral respiratory panel positive coronavirus type NL63 - Patient given 5 units insulin, 50 mL dextrose and 1g IV calcium for hyperkalemia. - Given IV cefepime for sepsis coverage, as patient has grown Pseudomonas in his urine cultures previously. - Discussed case with hot room attendant on-call, given patient's acidosis, acute renal failure and hyperkalemia. Discussed case with Dr. Ge at 17:15. He states that the patient does not need emergent dialysis at this time. Recommends fluid resuscitation and recommended starting the patient on a bicarb drip (150 mEq bicarb in D5 at 150 cc/hr). He reports treating the patient's sepsis, but does not feel the patient requires emergent dialysis at this time. Bicarb drip was ordered. - Discussion was had with returned case inspector about patient's case and need for admission - UA shows acute infection. - Hospitalist consulted for admission - [facility]. I have personally spent 62 minutes of critical care time in the direct management of this patient. This includes bedside care, interpretation of diagnostic studies, and testing, discussion with consultants, patient, and family members, and other required patient management activities. This 62 minutes is in excess of all separately billable procedures. ASSESSMENT AND PLAN: Diagnosis: Sepsis; acute renal failure; acute hyperkalemia; acute hyponatremia; hypocalcemia; elevated procalcitonin; acute UTI Plan: Admit Past Med/Surg History Problem List (Updated 09/02/24 @ 17:48 by Concepción Rodriguez MD) Acute UTI (urinary tract infection) (Acute) Elevated procalcitonin (Acute) Acute hyponatremia (Acute) Acute hyperkalemia (Acute) Acute renal failure (Acute) Hypocalcemia (Acute) Sepsis (Acute) Irritable bowel syndrome with diarrhea Malnutrition Esophageal candidiasis Abnormal findings on imaging test Acute renal failure superimposed on stage 4 chronic kidney disease Metabolic acidosis Hypokalemia (Acute) Esophageal mass (Acute) Acute UTI (Acute) DARRIAN (acute kidney injury) (Acute) Acute dehydration (Acute) Hypocalcemia (Acute) Weakness (Acute) Complicated urinary tract infection (Acute) Acute dehydration (Acute) Hypomagnesemia (Acute) Acute renal failure (ARF) (Acute) Hypocalcemia (Acute) Disorders of fluid, electrolyte, and acid-base balance Pelvic pain Nausea Severe sepsis (Acute) Medical History Renal insufficiency Poliomyelitis as child CKD (chronic kidney disease) stage 4, GFR 15-29 ml/min baseline creat 2 in 2020 Neurogenic bladder Surgical History History of hip surgery Hx of cholecystectomy Family History Other Diabetes Social History Smoking Status: Never smoker Second Hand Exposure: No; Do You Dip or Chew Tobacco: No; Hx Alcohol Use: No Hx Substance Use: No Preferred Language: Thai Communication Ability: Effective Communication Ability Comment: Hard of Heading Clinical Social Work Therapist Required: No Beliefs That Will Affect Care: None Current Living Situation: Spouse Feels Safe at Home: Yes Assistive Devices: None Allergies Allergies Allergy/AdvReac Type Severity Reaction Status Date / Time No Known Allergies Allergy Unverified 09/02/24 15:30 Home Meds Home Medications Medication Instructions Recorded Confirmed calcium 500 mg (as 1 tab PO BID 08/19/24 09/02/24 carbonate)-vitamin D3 15 mcg (600 unit) tablet citalopram 40 mg tablet 40 mg PO DAILY 08/19/24 09/02/24 cyanocobalamin (vitamin B-12) 1,000 mcg IM MONTHLY 08/19/24 09/02/24 1,000 mcg/mL injection solution doxepin 25 mg capsule 25 - 50 mg PO HS 08/19/24 09/02/24 metoprolol succinate 25 mg 25 mg PO DAILY 08/19/24 09/02/24 tablet,extended release 24 hr tramadol 50 mg tablet 50 mg PO BID Pain 08/19/24 09/02/24 amiloride 5 mg tablet 5 mg PO UD 09/02/24 09/02/24 loperamide 2 mg capsule 4 mg PO TID PRN as directed 09/02/24 09/02/24 Previous Rx's Medication Instructions Recorded calcitriol 0.25 mcg capsule 0.75 mcg (3 x 0.25 mcg) PO DAILY 08/24/24 #90 caps cholecalciferol (vitamin D3) 125 125 mcg PO QAM #30 tabs 08/24/24 mcg (5,000 unit) tablet dicyclomine 10 mg capsule 10 mg PO QID #120 caps 08/24/24 diphenoxylate-atropine 2.5 1 tab PO TID #90 tabs 08/24/24 mg-0.025 mg tablet fluconazole 100 mg tablet 100 mg PO QAM #16 tabs 08/24/24 (Diflucan) magnesium chloride 64 mg 64 mg PO QAM #30 tabs 08/24/24 (magnesium chloride) tablet,delayed release (Mag 64) pantoprazole 40 mg tablet,delayed 40 mg PO BID #60 tabs 08/24/24 release potassium chloride 20 mEq 40 meq (2 x 20 mEq) PO BID #120 08/24/24 tablet,extended release tabs Results & Data (ED) Vital Signs Vital Signs - 24 hr 09/02/24 14:14 09/02/24 14:24 09/02/24 14:26 Temperature 35.9 C L Temperature Source Temporal Artery Scan Pulse Rate 128 H 80 Pulse Rate [Apical] Pulse Rate from SpO2 Sensor 76 Pulse Rhythm [Apical] Pulse Strength [Apical] Respiratory Rate 18 22 Respiratory Effort / Characteristics Non-Labored Spontaneous Respiratory Depth Normal Respiratory Pattern Blood Pressure 61/46 L 114/78 Blood Pressure [Right Arm] Blood Pressure Mean 51 87 Blood Pressure Mean [Right Arm] Pulse Oximetry 95 100 Oxygen Delivery Method Room Air Sepsis Recent Fever Within 48 Hours No Sepsis New/Unexplained Change in Mental Status No Sepsis Action Taken by Nursing Adv Provider Notified 09/02/24 14:30 09/02/24 14:30 09/02/24 14:30 Temperature Temperature Source Pulse Rate Pulse Rate [Apical] 74 Pulse Rate from SpO2 Sensor Pulse Rhythm [Apical] Regular Pulse Strength [Apical] Normal Respiratory Rate 20 Respiratory Effort / Characteristics Non-Labored Respiratory Depth Normal Respiratory Pattern Blood Pressure 114/77 114/77 Blood Pressure [Right Arm] 114/77 Blood Pressure Mean 85 85 Blood Pressure Mean [Right Arm] 89 Pulse Oximetry 100 Oxygen Delivery Method Room Air Sepsis Recent Fever Within 48 Hours Sepsis New/Unexplained Change in Mental Status Sepsis Action Taken by Nursing 09/02/24 14:32 09/02/24 14:41 09/02/24 14:41 Temperature Temperature Source Pulse Rate 82 81 Pulse Rate [Apical] Pulse Rate from SpO2 Sensor Pulse Rhythm [Apical] Pulse Strength [Apical] Respiratory Rate 15 19 Respiratory Effort / Characteristics Respiratory Depth Respiratory Pattern Blood Pressure Blood Pressure [Right Arm] Blood Pressure Mean Blood Pressure Mean [Right Arm] Pulse Oximetry Oxygen Delivery Method Room Air Sepsis Recent Fever Within 48 Hours Sepsis New/Unexplained Change in Mental Status Sepsis Action Taken by Nursing 09/02/24 14:42 09/02/24 14:50 09/02/24 14:50 Temperature Temperature Source Pulse Rate 78 Pulse Rate [Apical] Pulse Rate from SpO2 Sensor Pulse Rhythm [Apical] Pulse Strength [Apical] Respiratory Rate Respiratory Effort / Characteristics Respiratory Depth Respiratory Pattern Blood Pressure 95/60 L 95/60 L Blood Pressure [Right Arm] Blood Pressure Mean 71 71 Blood Pressure Mean [Right Arm] Pulse Oximetry Oxygen Delivery Method Sepsis Recent Fever Within 48 Hours Sepsis New/Unexplained Change in Mental Status Sepsis Action Taken by Nursing 09/02/24 14:50 09/02/24 14:53 09/02/24 14:59 Temperature Temperature Source Pulse Rate 74 73 Pulse Rate [Apical] Pulse Rate from SpO2 Sensor 73 73 Pulse Rhythm [Apical] Pulse Strength [Apical] Respiratory Rate 16 18 Respiratory Effort / Characteristics Respiratory Depth Respiratory Pattern Blood Pressure 95/60 L Blood Pressure [Right Arm] Blood Pressure Mean 71 Blood Pressure Mean [Right Arm] Pulse Oximetry 98 99 Oxygen Delivery Method Sepsis Recent Fever Within 48 Hours Sepsis New/Unexplained Change in Mental Status Sepsis Action Taken by Nursing 09/02/24 15:11 09/02/24 15:11 09/02/24 15:11 Temperature Temperature Source Pulse Rate Pulse Rate [Apical] Pulse Rate from SpO2 Sensor Pulse Rhythm [Apical] Pulse Strength [Apical] Respiratory Rate Respiratory Effort / Characteristics Respiratory Depth Respiratory Pattern Blood Pressure 100/82 100/82 100/82 Blood Pressure [Right Arm] Blood Pressure Mean 93 93 93 Blood Pressure Mean [Right Arm] Pulse Oximetry Oxygen Delivery Method Sepsis Recent Fever Within 48 Hours Sepsis New/Unexplained Change in Mental Status Sepsis Action Taken by Nursing 09/02/24 15:14 09/02/24 15:16 09/02/24 15:16 Temperature Temperature Source Pulse Rate 76 Pulse Rate [Apical] Pulse Rate from SpO2 Sensor 77 Pulse Rhythm [Apical] Pulse Strength [Apical] Respiratory Rate 16 Respiratory Effort / Characteristics Respiratory Depth Respiratory Pattern Blood Pressure 110/56 L 110/56 L Blood Pressure [Right Arm] Blood Pressure Mean 71 71 Blood Pressure Mean [Right Arm] Pulse Oximetry 100 Oxygen Delivery Method Sepsis Recent Fever Within 48 Hours Sepsis New/Unexplained Change in Mental Status Sepsis Action Taken by Nursing 09/02/24 15:26 09/02/24 15:30 09/02/24 15:30 Temperature Temperature Source Pulse Rate 75 Pulse Rate [Apical] Pulse Rate from SpO2 Sensor 76 Pulse Rhythm [Apical] Pulse Strength [Apical] Respiratory Rate 28 H Respiratory Effort / Characteristics Respiratory Depth Respiratory Pattern Blood Pressure 102/85 102/85 Blood Pressure [Right Arm] Blood Pressure Mean 89 89 Blood Pressure Mean [Right Arm] Pulse Oximetry 100 Oxygen Delivery Method Sepsis Recent Fever Within 48 Hours Sepsis New/Unexplained Change in Mental Status Sepsis Action Taken by Nursing 09/02/24 15:39 09/02/24 15:42 09/02/24 15:46 Temperature Temperature Source Pulse Rate 76 75 Pulse Rate [Apical] Pulse Rate from SpO2 Sensor 76 75 Pulse Rhythm [Apical] Pulse Strength [Apical] Respiratory Rate 18 20 Respiratory Effort / Characteristics Respiratory Depth Respiratory Pattern Blood Pressure 110/78 Blood Pressure [Right Arm] Blood Pressure Mean 93 Blood Pressure Mean [Right Arm] Pulse Oximetry 97 96 Oxygen Delivery Method Sepsis Recent Fever Within 48 Hours Sepsis New/Unexplained Change in Mental Status Sepsis Action Taken by Nursing 09/02/24 15:46 09/02/24 15:46 09/02/24 15:51 Temperature Temperature Source Pulse Rate 73 Pulse Rate [Apical] Pulse Rate from SpO2 Sensor 73 Pulse Rhythm [Apical] Pulse Strength [Apical] Respiratory Rate 17 Respiratory Effort / Characteristics Respiratory Depth Respiratory Pattern Blood Pressure 110/78 110/78 Blood Pressure [Right Arm] Blood Pressure Mean 93 93 Blood Pressure Mean [Right Arm] Pulse Oximetry 100 Oxygen Delivery Method Sepsis Recent Fever Within 48 Hours Sepsis New/Unexplained Change in Mental Status Sepsis Action Taken by Nursing 09/02/24 16:00 09/02/24 16:02 09/02/24 16:06 Temperature 36.9 C Temperature Source Oral Pulse Rate 79 83 Pulse Rate [Apical] 73 Pulse Rate from SpO2 Sensor 79 83 Pulse Rhythm [Apical] Regular Pulse Strength [Apical] Normal Respiratory Rate 18 20 20 Respiratory Effort / Characteristics Non-Labored Respiratory Depth Normal Respiratory Pattern Regular Blood Pressure Blood Pressure [Right Arm] 93/69 L Blood Pressure Mean Blood Pressure Mean [Right Arm] 77 Pulse Oximetry 99 100 100 Oxygen Delivery Method Room Air Sepsis Recent Fever Within 48 Hours Sepsis New/Unexplained Change in Mental Status Sepsis Action Taken by Nursing 09/02/24 16:16 09/02/24 16:31 09/02/24 16:31 Temperature Temperature Source Pulse Rate Pulse Rate [Apical] Pulse Rate from SpO2 Sensor Pulse Rhythm [Apical] Pulse Strength [Apical] Respiratory Rate Respiratory Effort / Characteristics Respiratory Depth Respiratory Pattern Blood Pressure 114/67 124/74 124/74 Blood Pressure [Right Arm] Blood Pressure Mean 90 86 86 Blood Pressure Mean [Right Arm] Pulse Oximetry Oxygen Delivery Method Sepsis Recent Fever Within 48 Hours Sepsis New/Unexplained Change in Mental Status Sepsis Action Taken by Nursing 09/02/24 16:31 09/02/24 16:36 09/02/24 16:54 Temperature Temperature Source Pulse Rate 82 75 Pulse Rate [Apical] Pulse Rate from SpO2 Sensor 82 73 Pulse Rhythm [Apical] Pulse Strength [Apical] Respiratory Rate 17 15 Respiratory Effort / Characteristics Respiratory Depth Respiratory Pattern Blood Pressure 124/74 Blood Pressure [Right Arm] Blood Pressure Mean 86 Blood Pressure Mean [Right Arm] Pulse Oximetry 99 100 Oxygen Delivery Method Sepsis Recent Fever Within 48 Hours Sepsis New/Unexplained Change in Mental Status Sepsis Action Taken by Nursing 09/02/24 17:00 09/02/24 17:01 09/02/24 17:01 Temperature Temperature Source Pulse Rate 75 Pulse Rate [Apical] Pulse Rate from SpO2 Sensor 75 Pulse Rhythm [Apical] Pulse Strength [Apical] Respiratory Rate 16 Respiratory Effort / Characteristics Respiratory Depth Respiratory Pattern Blood Pressure 93/69 L 93/69 L Blood Pressure [Right Arm] Blood Pressure Mean 74 74 Blood Pressure Mean [Right Arm] Pulse Oximetry 99 Oxygen Delivery Method Sepsis Recent Fever Within 48 Hours Sepsis New/Unexplained Change in Mental Status Sepsis Action Taken by Nursing 09/02/24 17:01 09/02/24 17:01 09/02/24 17:12 Temperature Temperature Source Pulse Rate 72 Pulse Rate [Apical] Pulse Rate from SpO2 Sensor 73 Pulse Rhythm [Apical] Pulse Strength [Apical] Respiratory Rate 18 Respiratory Effort / Characteristics Respiratory Depth Respiratory Pattern Blood Pressure 93/69 L 93/69 L Blood Pressure [Right Arm] Blood Pressure Mean 74 74 Blood Pressure Mean [Right Arm] Pulse Oximetry 99 Oxygen Delivery Method Sepsis Recent Fever Within 48 Hours Sepsis New/Unexplained Change in Mental Status Sepsis Action Taken by Nursing 09/02/24 17:15 09/02/24 17:15 09/02/24 17:21 Temperature Temperature Source Pulse Rate 68 Pulse Rate [Apical] Pulse Rate from SpO2 Sensor 68 Pulse Rhythm [Apical] Pulse Strength [Apical] Respiratory Rate 14 Respiratory Effort / Characteristics Respiratory Depth Respiratory Pattern Blood Pressure 112/78 112/78 Blood Pressure [Right Arm] Blood Pressure Mean 86 86 Blood Pressure Mean [Right Arm] Pulse Oximetry 99 Oxygen Delivery Method Sepsis Recent Fever Within 48 Hours Sepsis New/Unexplained Change in Mental Status Sepsis Action Taken by Nursing Laboratory Data 09/02/24 14:39 09/02/24 14:39 Lab Results 09/02/24 09/02/24 09/02/24 Range/Units 14:39 15:27 15:36 WBC 19.19 H (4.8-10.8) K/ul RBC 4.10 L (4.70-6.10) M/uL Hgb 12.5 L (14.0-18.0) g/dl Hct 40.1 L (42.0-52.0) % MCV 97.8 (80.0-100.0) fL MCH 30.5 (25.0-34.0) pg MCHC 31.2 L (32.0-36.0) g/dL RDW Std Deviation 62.1 H (36.4-46.3) fL RDW Coeff of Thao 17.2 H (11.5-14.5) % Plt Count 207 (130-400) K/uL MPV 12.5 H (9.4-12.4) fL Immature Gran % (Auto) 0.8 % Neut % (Auto) 82.2 % Lymph % (Auto) 10.4 % Newton % (Auto) 5.7 % Eos % (Auto) 0.2 % Baso % (Auto) 0.7 % Neut # (Auto) 15.79 H (1.40-6.50) K/uL Lymph # (Auto) 1.99 (1.20-3.40) K/uL Newton # (Auto) 1.09 H (0.11-0.59) K/uL Eos # (Auto) 0.03 (0.00-0.50) K/uL Baso # (Auto) 0.13 (0.00-0.20) K/uL Immature Gran # (Auto) 0.16 (0.01-0.20) K/uL Absolute Nucleated RBC 0.08 (0.00-0.12) K/uL Nucleated RBC % (auto) 0.4 % PT 15.6 H (9.0-12.0) Seconds INR 1.5 H (0.9-1.1) APTT 31 (21-31) Seconds PTT Ratio 1.2 VBG pH Cancelled 7.01 L VBG pCO2 Cancelled 43 VBG pO2 Cancelled 36 VBG HCO3 Cancelled 11 VBG O2 Saturation Cancelled < 60.0 VBG Base Excess Cancelled -19.4 Barometric Pressure Cancelled Sodium 123 L (136-145) mmol/L Potassium 6.6 H* (3.5-5.1) mmol/L Chloride 103 (98-107) mmol/L Carbon Dioxide 12 L (21-32) mmol/L Anion Gap 8 (3-11) BUN 41 H (6-23) mg/dl Creatinine 5.63 H* (0.6-1.4) mg/dl Est Cr Clr Drug Dosing 12.3 ml/min eGFR 10.70 BUN/Creatinine Ratio 7.3 L (10-20) Glucose 83 (70-99(Fasting)) mg/dl Lactate 1.6 (0.4-2.0) mmol/L Calcium 8.2 L (8.6-10.3) mg/dl Magnesium 2.4 (1.7-2.4) mg/dl Total Bilirubin 0.4 (0.2-1.0) mg/dl AST 38 (13-39) U/L ALT 14 (7-52) U/L Alkaline Phosphatase 146 H (34-104) U/L Ammonia 24.0 (18-72) umol/L Troponin I High Sens 9.4 (0-20) pg/ml Total Protein 8.5 H (6.0-8.3) gm/dl Albumin 3.9 (3.4-5.0) gm/dl Globulin 4.6 H (2.5-4.0) gm/dl Albumin/Globulin Ratio 0.8 L (0.9-2) Procalcitonin 0.98 H (0-0.5) ng/ml Urine Color Urine Appearance (Clear) Urine pH (4.5-7.5) Ur Specific [place] (1.000-1.030) Urine Protein (Negative) Urine Glucose (UA) (Negative) Urine Ketones (Negative) Urine Blood (Negative) Urine Nitrite (Negative) Urine Bilirubin (Negative) Urine Urobilinogen (Negative) Ur Leukocyte Esterase (Negative) Urine WBC (Auto) (0-5) /hpf Urine RBC (Auto) (0-2) /hpf U Hyaline Cast (Auto) (0-2) /lpf U Epithel Cells (Auto) (0-2) /hpf Urine Bacteria (Auto) (None Seen) Adenovirus (PCR) Not Detected (NotDetected) B. pertussis DNA (PCR) Not Detected (NotDetected) B.parapertussis DNA PCR Not Detected (NotDetected) C. pneumoniae DNA (PCR) Not Detected (NotDetected) Coronavirus OC43 (PCR) Not Detected (NotDetected) Coronavirus HKU1 (PCR) Not Detected (NotDetected) Coronavirus 229E (PCR) Not Detected (NotDetected) SARS-CoV-2 (PCR) Not Detected (NotDetected) Coronavirus NL63 (PCR) DETECTED A (NotDetected) Human Metapneumovir PCR Not Detected (NotDetected) Influenza Type A (PCR) Not Detected (NotDetected) Influenza Type B (PCR) Not Detected (NotDetected) M. pneumoniae (PCR) Not Detected (NotDetected) Parainfluenza 1 (PCR) Not Detected (NotDetected) Parainfluenza 2 (PCR) Not Detected (NotDetected) Parainfluenza 3 (PCR) Not Detected (NotDetected) Parainfluenza 4 (PCR) Not Detected (NotDetected) RSV (PCR) Not Detected (NotDetected) Entero/Rhino (PCR) Not Detected (NotDetected) 09/02/24 Range/Units 16:57 WBC (4.8-10.8) K/ul RBC (4.70-6.10) M/uL Hgb (14.0-18.0) g/dl Hct (42.0-52.0) % MCV (80.0-100.0) fL MCH (25.0-34.0) pg MCHC (32.0-36.0) g/dL RDW Std Deviation (36.4-46.3) fL RDW Coeff of Thao (11.5-14.5) % Plt Count (130-400) K/uL MPV (9.4-12.4) fL Immature Gran % (Auto) % Neut % (Auto) % Lymph % (Auto) % Newton % (Auto) % Eos % (Auto) % Baso % (Auto) % Neut # (Auto) (1.40-6.50) K/uL Lymph # (Auto) (1.20-3.40) K/uL [place] # (Auto) (0.11-0.59) K/uL Eos # (Auto) (0.00-0.50) K/uL Baso # (Auto) (0.00-0.20) K/uL Immature Gran # (Auto) (0.01-0.20) K/uL Absolute Nucleated RBC (0.00-0.12) K/uL Nucleated RBC % (auto) % PT (9.0-12.0) Seconds INR (0.9-1.1) APTT (21-31) Seconds PTT Ratio VBG pH VBG pCO2 VBG pO2 VBG HCO3 VBG O2 Saturation VBG Base Excess Barometric Pressure Sodium (136-145) mmol/L Potassium (3.5-5.1) mmol/L Chloride (98-107) mmol/L Carbon Dioxide (21-32) mmol/L Anion Gap (3-11) BUN (6-23) mg/dl Creatinine (0.6-1.4) mg/dl Est Cr Clr Drug Dosing ml/min eGFR BUN/Creatinine Ratio (10-20) Glucose (70-99(Fasting)) mg/dl Lactate (0.4-2.0) mmol/L Calcium (8.6-10.3) mg/dl Magnesium (1.7-2.4) mg/dl Total Bilirubin (0.2-1.0) mg/dl AST (13-39) U/L ALT (7-52) U/L Alkaline Phosphatase (34-104) U/L Ammonia (18-72) umol/L Troponin I High Sens (0-20) pg/ml Total Protein (6.0-8.3) gm/dl Albumin (3.4-5.0) gm/dl Globulin (2.5-4.0) gm/dl Albumin/Globulin Ratio (0.9-2) Procalcitonin (0-0.5) ng/ml Urine Color Yellow Urine Appearance Turbid A (Clear) Urine pH 5.5 (4.5-7.5) Ur Specific [place] 1.010 (1.000-1.030) Urine Protein 1+ H (Negative) Urine Glucose (UA) Negative (Negative) Urine Ketones Negative (Negative) Urine Blood 3+ H (Negative) Urine Nitrite Positive A (Negative) Urine Bilirubin Negative (Negative) Urine Urobilinogen Negative (Negative) Ur Leukocyte Esterase 3+ H (Negative) Urine WBC (Auto) >50 H (0-5) /hpf Urine RBC (Auto) 0-2 (0-2) /hpf U Hyaline Cast (Auto) >20 H (0-2) /lpf U Epithel Cells (Auto) 0-2 (0-2) /hpf Urine Bacteria (Auto) 3+ H (None Seen) Adenovirus (PCR) (NotDetected) B. pertussis DNA (PCR) (NotDetected) B.parapertussis DNA PCR (NotDetected) C. pneumoniae DNA (PCR) (NotDetected) Coronavirus OC43 (PCR) (NotDetected) Coronavirus HKU1 (PCR) (NotDetected) Coronavirus 229E (PCR) (NotDetected) SARS-CoV-2 (PCR) (NotDetected) Coronavirus NL63 (PCR) (NotDetected) Human Metapneumovir PCR (NotDetected) Influenza Type A (PCR) (NotDetected) Influenza Type B (PCR) (NotDetected) M. pneumoniae (PCR) (NotDetected) Parainfluenza 1 (PCR) (NotDetected) Parainfluenza 2 (PCR) (NotDetected) Parainfluenza 3 (PCR) (NotDetected) Parainfluenza 4 (PCR) (NotDetected) RSV (PCR) (NotDetected) Entero/Rhino (PCR) (NotDetected) Administered Medications Sodium Bicarbonate 150 meq/ (Dextrose) 1,150 mls @ 150 mls/hr IV .[id number] THOMAS Stop: 10/02/24 17:14 Last Admin: 09/02/24 17:35 Dose: 150 mls/hr Documented By: CAW Discontinued Medications Dextrose (Dextrose 50% 50 Ml Syringe) 50 ml IV NOW ONE Stop: 09/02/24 15:27 Last Admin: 09/02/24 15:49 Dose: 50 ml Documented By: TODW Sodium Chloride (Nss) 2,000 mls @ 999 mls/hr IV .Q2H1M ONE Stop: 09/02/24 16:29 Last Infusion: 09/02/24 17:33 Dose: Infused Documented By: Admin: 09/02/24 14:45 Dose: 999 mls/hr Documented By: HB Cefepime HCl (Maxipime 2000mg) 2,000 mg in 20 mls @ 5 mls/min IV NOW STA; Protocol Stop: 09/02/24 14:36 Last Admin: 09/02/24 14:45 Dose: 5 mls/min Documented By: HB Calcium Gluconate () 1,000 mg in 60 mls @ 240 mls/hr IV NOW STA Stop: 09/02/24 15:40 Last Infusion: 09/02/24 17:33 Dose: Infused Documented By: Admin: 09/02/24 15:49 Dose: 240 mls/hr Documented By: JESSE Sodium Chloride (Nss) 1,000 mls @ 999 mls/hr IV .Q1H1M ONE Stop: 09/02/24 17:07 Last Admin: 09/02/24 17:19 Dose: Not Given Documented By: JESSE Insulin Human Regular (Novolin-R Insulin Per Unit Charge) 5 units IV NOW STA Stop: 09/02/24 15:27 Last Admin: 09/02/24 15:49 Dose: 5 units Documented By: JESSE Co-signed By: [facility] Imaging Data Radiologist's Impression: Chest X-Ray 09/02/24 14:29 XR chest 1V portable CLINICAL HISTORY: Sepsis TECHNIQUE: Single frontal radiograph of the chest was obtained. Comparison: Comparison is made to chest radiograph 08/23/2024 FINDINGS: No lines and tubes are seen. The cardiomediastinal silhouette is normal. The lungs are clear. No evidence of pleural effusion or pneumothorax. IMPRESSION: No acute abnormalities and in particular no radiographic evidence of pneumonia. ACT 112: Negative or not required by law. Electronically signed by: Raman Mcgarry M.D. 09/02/2024 2:[address] 09/02/24 14:30 CT head/brain wo con CLINICAL HISTORY: 63 years-old Male with confusion. Acutely altered mental status TECHNIQUE: Multiple axial CT images of the head were obtained without contrast. A dose lowering technique was utilized adhering to the principles of ALARA. CT DOSE: 1016.05 mGy.cm COMPARISON: None. FINDINGS: No acute intracranial hemorrhage, midline shift, intracranial mass, hydrocephalus, territorial ischemia or abnormal extra-axial collection. Involutional changes with white matter hypodensities suggestive of chronic microvascular ischemic disease. Study is motion degraded. Millimeter calcification of the posterior falx cerebri on image 13 series 2. The calvarium is intact. Polypoid mucosal thickening of the maxillary sinuses. The mastoid air cells appear clear. Developmental incomplete bony fusion of all of the posterior arch of C1. IMPRESSION: Motion degraded exam without acute intracranial abnormality identified. ACT 112: Negative or not required by law. The above report was generated using voice recognition software. It may contain grammatical, syntax or spelling errors. Electronically signed by: Jose Redmond M.D. 09/02/2024 3:44 PM Discharge Plan Visit Data Chief Complaint: Confusion Stated Complaint: LETHARGIC, SOME CONFUSION, POSSIBLE DEHYDRATION ED Provider: Concepción Rodriguez Discharge Problem: Sepsis, Hypocalcemia, Acute renal failure, Acute hyperkalemia, Acute hyponatremia, Elevated procalcitonin, Acute UTI (urinary tract infection) Forms Stand Alone Forms: [facility] Prescriptions Prescriptions: No Action citalopram 40 mg tablet 40 mg PO DAILY doxepin 25 mg capsule 25 - 50 mg PO HS tramadol 50 mg tablet 50 mg PO BID cyanocobalamin (vitamin B-12) 1,000 mcg/mL solution 1,000 mcg IM MONTHLY metoprolol succinate 25 mg tablet extended release 24 hr 25 mg PO DAILY calcium carbonate-vitamin D3 500 mg-15 mcg (600 unit) Tablet 1 tab PO BID fluconazole [Diflucan] 100 mg Tablet 100 mg PO QAM Qty: 16 0RF dicyclomine 10 mg Capsule 10 mg PO QID Qty: 120 0RF magnesium chloride [Mag 64] 64 mg Tablet,Delayed Release (Dr/Ec) 64 mg PO QAM Qty: 30 0RF diphenoxylate-atropine 2.5-0.025 mg Tablet 1 tab PO TID Qty: 90 0RF pantoprazole 40 mg Tablet,Delayed Release (Dr/Ec) 40 mg PO BID Qty: 60 0RF cholecalciferol (vitamin D3) 125 mcg (5,000 unit) Tablet 125 mcg PO QAM Qty: 30 0RF calcitriol 0.25 mcg capsule 0.75 mcg PO DAILY Qty: 90 0RF potassium chloride 20 mEq tablet extended release 40 meq PO BID Qty: 120 0RF loperamide 2 mg capsule 4 mg PO TID PRN (Reason: as directed) amiloride 5 mg tablet 5 mg PO UD Referrals Referrals: Som Silvestre MD [Primary Care Provider] -
[2024-09-02] MEDS: SODIUM CHLORIDE 0.9% 2,000 ML IV ONE (14:45)
[2024-09-02] MEDS: CEFEPIME 2000MG 2,000 MG/20 ML SYR IV STA (14:45)
--- NOTE | 2024-09-02 14:54 | XRay Report ---
XR chest 1V portable CLINICAL HISTORY: Sepsis TECHNIQUE: Single frontal radiograph of the chest was obtained. Comparison: Comparison is made to chest radiograph 08/23/2024 FINDINGS: No lines and tubes are seen. The cardiomediastinal silhouette is normal. The lungs are clear. No evid ence of pleural effusion or pneumothorax. IMPRESSION: No acute abnormalities and in particular no radiographic evidence of pneumonia. ACT 112: Negative or not required by law. Electronically signed by: Raman Mcgarry M.D. 09/02/2024 2:52 PM
[2024-09-02 15:06] LABS: Basophils # (auto) 0.13 K/uL (0.00-0.20); Basophils % (auto) 0.7 %; Eosinophils # (auto) 0.03 K/uL (0.00-0.50); Eosinophils % (auto) 0.2 %; Hematocrit (blood only) 40.1 % (42.0-52.0); Hemoglobin 12.5 g/dl (14.0-18.0); Immature Granulocytes # (auto) 0.16 K/uL (0.01-0.20); Immature Granulocytes % (auto) 0.8 %; Lymphocytes # (auto) 1.99 K/uL (1.20-3.40); Lymphocytes % (auto) 10.4 %; Mean Corpuscular Hemoglobin 30.5 pg (25.0-34.0); Mean Corpuscular Hgb Conc 31.2 g/dL (32.0-36.0); Mean Corpuscular Volume 97.8 fL (80.0-100.0); Mean Platelet Volume 12.5 fL (9.4-12.4); Monocytes # (auto) 1.09 K/uL (0.11-0.59); Monocytes % (auto) 5.7 %; Neutrophils # (auto) 15.79 K/uL (1.40-6.50); Neutrophils % (auto) 82.2 %; Nucleated RBC # (auto) 0.08 K/uL (0.00-0.12); Nucleated RBC % (auto) 0.4 %; Platelet Count 207 K/uL (130-400); RDW Coefficient of Variation 17.2 % (11.5-14.5); RDW Standard Deviation 62.1 fL (36.4-46.3); White Blood Count 19.19 K/ul (4.8-10.8)
[2024-09-02 15:26] LABS: INR 1.5 (0.9-1.1); Partial Thromboplastin Ratio 1.2; Partial Thromboplastin Time 31 Seconds (21-31); Prothrombin Time 15.6 Seconds (9.0-12.0)
[2024-09-02 15:27] LABS: Albumin Globulin Ratio 0.8 (0.9-2); Albumin Level 3.9 gm/dl (3.4-5.0); BUN Creatinine Ratio 7.3 (10-20); Bilirubin,Total 0.4 mg/dl (0.2-1.0); Calcium 8.2 mg/dl (8.6-10.3); Creatinine Clr Calc Pharmacy 12.3 ml/min; Globulin 4.6 gm/dl (2.5-4.0); Magnesium 2.4 mg/dl (1.7-2.4); Potassium 6.6 mmol/L (3.5-5.1); Total Protein 8.5 gm/dl (6.0-8.3); Troponin I High Sensitivity 9.4 pg/ml (0-20)
[2024-09-02 15:34] LABS: Base Excess VBG -19.4 mEq/L; HCO3 VBG 11 mmol/L; Oxygen Saturation VBG < 60.0 %; PCO2 VBG 43 mmHg (38-50); PO2 VBG 36 mmHg; pH VBG 7.01 (7.36-7.41)
--- NOTE | 2024-09-02 15:46 | CT Scan Report ---
CT head/brain wo con CLINICAL HISTORY: 63 years-old Male with confusion. Acutely altered mental status TECHNIQUE: Multiple axial CT images of the head were obtained without contrast. A dose lowering tech nique was utilized adhering to the principles of ALARA. CT DOSE: 1016.05 mGy.cm COMPARISON: None. FINDINGS: No acute intracranial hemorrhage, midline shift, intracranial mass, hydrocephalus, territorial ischem ia or abnormal extra-axial collection. Involutional changes with white matter hypodensities suggestiv e of chronic microvascular ischemic disease. Study is motion degraded. Millimeter calcification of th e posterior falx cerebri on image 13 series 2. The calvarium is intact. Polypoid mucosal thickening of the maxillary sinuses. The mastoid air cells appear clear. Developmental incomplete bony fusion of all of the posterior arch of C1. IMPRESSION: Motion degraded exam without acute intracranial abnormality identified. ACT 112: Negative or not required by law. The above report was generated using voice recognition software. It may contain grammatical, syntax o r spelling errors. Electronically signed by: Jose Redmond M.D. 09/02/2024 3:44 PM
[2024-09-02] MEDS: DEXTROSE 50% 50 ML SYRINGE IV ONE (15:49)
[2024-09-02] MEDS: NovoLIN-R INSULIN PER UNIT CHARGE IV STA (15:49)
[2024-09-02] MEDS: CALCIUM GLUCONATE 1,000 MG/60 ML BAG IV STA ×2 (15:49→21:24)
--- NOTE | 2024-09-02 16:22 | Electrocardiogram Report ---
Test Reason : Blood Pressure : */* mmHG Vent. Rate : 77 BPM Atrial Rate : 77 BPM P-R Int : 88 ms QRS Dur : 108 ms QT Int : 392 ms P-R-T Axes : 51 12 52 degrees QTcB Int : 443 ms Sinus rhythm with short TN Low voltage QRS Abnormal ECG When compared with ECG of 23-Aug-2024 06:57, TN interval has decreased T-wave inversion in Septal leads no longer present Confirmed by Joel Steven ([id number]) on 09/02/2024 4:22:21 PM Referred By: Confirmed By: Joel Steven
[2024-09-02 16:36] LABS: Adenovirus PCR Not Detected (NotDetected); Bordetella parapertussis PCR Not Detected (NotDetected); Bordetella pertussis PCR Not Detected (NotDetected); Chlamydia pneumoniae PCR Not Detected (NotDetected); Coronavirus 229E PCR Not Detected (NotDetected); Coronavirus CoV-2 (COVID19)PCR Not Detected (NotDetected); Coronavirus HKU1 PCR Not Detected (NotDetected); Coronavirus NL63 PCR DETECTED (NotDetected); Coronavirus OC43PCR Not Detected (NotDetected); Human Metapneumovirus PCR Not Detected (NotDetected); Influenza A PCR Not Detected (NotDetected); Influenza B PCR Not Detected (NotDetected); Mycoplasma pneumoniae PCR Not Detected (NotDetected); Parainfluenza Virus 1 PCR Not Detected (NotDetected); Parainfluenza Virus 2 PCR Not Detected (NotDetected); Parainfluenza Virus 3 PCR Not Detected (NotDetected); Parainfluenza Virus 4 PCR Not Detected (NotDetected); Respiratory Syncytial VirusPCR Not Detected (NotDetected); Rhinovirus/Enterovirus PCR Not Detected (NotDetected)
[2024-09-02] MEDS: SODIUM CHLORIDE 0.9% 1,000 ML IV ONE (17:19)
[2024-09-02] MEDS: NA BICARBONATE 8.4% 150 MEQ in D5W 1,000 ML IV SCH (17:35)
[2024-09-02 17:40] LABS: Appearance Urine Turbid (Clear); Bacteria Urine Automated 3+ (None Seen); Bilirubin Urine Negative (Negative); Blood Urine 3+ (Negative); Cast Urine Automated >20 /lpf (0-2); Color Urine Yellow; Epithelial Cell Urine Auto 0-2 /hpf (0-2); Glucose Urine UA Negative (Negative); Ketones Urine Negative (Negative); Leukocyte Esterase Urine 3+ (Negative); Nitrite Urine Positive (Negative); Protein Urine 1+ (Negative); RBC Urine Automated 0-2 /hpf (0-2); Urobilinogen Urine Negative (Negative); WBC Urine Automated >50 /hpf (0-5); pH Urine 5.5 (4.5-7.5)
--- NOTE | 2024-09-02 18:00 | History & Physical Report ---
Date of Service September 02, 2024 Assessment & Plan (1) Acute UTI (urinary tract infection): (2) Sepsis: (3) SIRS with acute organ dysfunction due to infectious process: (4) Elevated procalcitonin: (5) Acute hyponatremia: (6) Acute hyperkalemia: (7) Acute renal failure: (8) Esophageal candidiasis: (9) Neurogenic bladder: (10) Poliomyelitis: Plan 63 year old male w/ history of neurogenic bladder secondary to childhood polio, CKD, IBS-D, recurrent hypokalemia, mood disorder and others below admitted through the ED w/ UTI, OMAIRA on CKD. Patient found to have severe sepsis on arrival with uncompensated metabolic acidosis and was given insulin/dextrose and started on a NaHCO3 infusion. Will continue IV abx, await cx results, avoid meds contributing to mental status /nephrotoxicity, and will check BMP [id number]. SIRS urosepsis with urinary retention: hypotensive, tachycardic (128) and leukocytosis (19.19k) on arrival. Procalcitonin 0.98 Urine WBC > 50, Nitrate +, LE3+ Lactate normal, Troponin negative, Mg+ 2.4 Blood cx/Urine cx pending Received 2LNSB in ED; will hold on add'l fluids given that he is on HCO3 Started on Cefepime; will shift to Dapto + Zosyn and adjust based on urine culture results Difficulty with catheter placement; appreciate Urology assistance avoid meds that could contribute to AMS. Strict I/O monitoring NPO for now Uncompensated Metabolic Acidosis: Acute on chronic renal failure: Acute Hyperkalemia: Acute hyponatremia: Serum creatinine 5.63; baseline 2-4. Serum K+ 6.6, serum Na+ 123 pH 7.01, CO2 43, HCO3 11; 2 amps HCO3 given in ED and was started on HCO3 gtt Insulin/Dextrose 5 units administered in ED Check BMP Q4 until hyper K+ normalizes Veltessa ordered Nephro consulted; does not anticipate patient needs urgent HD; will monitor avoid any nephrotoxic agents coronavirus: incidental finding on biofire Droplet precautions Supportive treatment Mucinex Esophageal candidiasis: Previous EGD 08/[address] results indicating a 1.9 cm soft tissue density within the distal esophagus, but no mass was found on EGD Results indicate diffuse mid/distal esophageal candidiasis and esophagitis/gastritis. On 08/22 was started on fluconazole 100 mg daily; continue QTc: 443; was 599 previous admission; close monitoring IBS: On Lomotil; continue Poliomyelitis: Neurogenic bladder: Polio as a child Difficulty with catheter placement; appreciate Urology assistance Disposition: PCP: Code Status: Full Code VTE Prophylaxis: Heparin SQ I spent a total of 84 minutes coordinating, documenting, and providing care for this patient excluding time spent in the performance of separately billed services. All of the aforementioned completed while collaborating with the assigned attending physician for a full treatment plan. Please see their addendum for further details. History of Present Illness Chief Complaint: altered mental status Primary Care Provider: Som Silvestre MD Patient presented to the ED with his with visual/auditory hallucinations and altered mental status. His stated that over the past 48 hours he 'just has not been acting like himself' and talking 'nonsense'. He has a recent inpatient hospitalization from 08/22-08/24. His , was at bedside and was providing all of the information. He has not been drinking a lot of water, was drinking Walter [place] but overall intake has been down. He was found to be septic on arrival with leukocytosis 19.19, hyperk+ 6.6m elevated creatinine 5.63 and elevated procalcitonin 0.98. Troponin was normal. His complex PMH includes: neurogenic bladder secondary to childhood polio, CKD, IBS-D, recurrent hypokalemia, mood disorder and others. Nephrology saw him last admission and obstructive uropathy has already been ruled out as he does not have hydronephrosis. He was placed on Lomotil prior to discharge which was going well for him. Patient is arousable to verbal stimuli and is able to answer simple questions but is not not reliable with ROS. He reports that his stomach was hurting and he is confused. See Dr. Scrgugs addendum for physical exam findings, but roughly he was able to open his eyes to verbal stimuli, but was quite confused and unable to recall the events leading to his hospital stay. I spent a total of 86 minutes coordinating, documenting, and providing care for this patient excluding time spent in the performance of separately billed services. All of the aforementioned completed while collaborating with the assigned attending physician for a full treatment plan. Please see their addendum for further details. Patient will be admitted for further evaluation and management of his urosepsis and uncompensated metabolic acidosis Please see A/P for further details. Allergies Allergy/AdvReac Type Severity Reaction Status Date / Time No Known Allergies Allergy Unverified 09/02/24 15:30 Home Medications Medication Instructions Recorded Confirmed Type calcium 500 mg (as 1 tab PO BID 08/19/24 09/02/24 History carbonate)-vitamin D3 15 mcg (600 unit) tablet citalopram 40 mg tablet 40 mg PO DAILY 08/19/24 09/02/24 History cyanocobalamin (vitamin B-12) 1,000 mcg IM MONTHLY 08/19/24 09/02/24 History 1,000 mcg/mL injection solution doxepin 25 mg capsule 25 - 50 mg PO HS 08/19/24 09/02/24 History metoprolol succinate 25 mg 25 mg PO DAILY 08/19/24 09/02/24 History tablet,extended release 24 hr tramadol 50 mg tablet 50 mg PO BID Pain 08/19/24 09/02/24 History calcitriol 0.25 mcg capsule 0.75 mcg (3 x 0.25 mcg) PO DAILY 08/24/24 09/02/24 Rx #90 caps cholecalciferol (vitamin D3) 125 125 mcg PO QAM #30 tabs 08/24/24 09/02/24 Rx mcg (5,000 unit) tablet dicyclomine 10 mg capsule 10 mg PO QID #120 caps 08/24/24 09/02/24 Rx diphenoxylate-atropine 2.5 1 tab PO TID #90 tabs 08/24/24 09/02/24 Rx mg-0.025 mg tablet fluconazole 100 mg tablet 100 mg PO QAM #16 tabs 08/24/24 09/02/24 Rx (Diflucan) magnesium chloride 64 mg 64 mg PO QAM #30 tabs 08/24/24 09/02/24 Rx (magnesium chloride) tablet,delayed release (Mag 64) pantoprazole 40 mg tablet,delayed 40 mg PO BID #60 tabs 08/24/24 09/02/24 Rx release potassium chloride 20 mEq 40 meq (2 x 20 mEq) PO BID #120 08/24/24 09/02/24 Rx tablet,extended release tabs amiloride 5 mg tablet 5 mg PO UD 09/02/24 09/02/24 History loperamide 2 mg capsule 4 mg PO TID PRN as directed 09/02/24 09/02/24 History Past Med/Surg History Problem List SIRS with acute organ dysfunction due to infectious process Acute UTI (urinary tract infection) (Acute) Elevated procalcitonin (Acute) Acute hyponatremia (Acute) Acute hyperkalemia (Acute) Acute renal failure (Acute) Hypocalcemia (Acute) Sepsis (Acute) Irritable bowel syndrome with diarrhea Malnutrition Esophageal candidiasis Abnormal findings on imaging test Acute renal failure superimposed on stage 4 chronic kidney disease Metabolic acidosis Hypokalemia (Acute) Esophageal mass (Acute) Acute UTI (Acute) OMAIRA (acute kidney injury) (Acute) Acute dehydration (Acute) Hypocalcemia (Acute) Weakness (Acute) Complicated urinary tract infection (Acute) Acute dehydration (Acute) Hypomagnesemia (Acute) Acute renal failure (ARF) (Acute) Hypocalcemia (Acute) Disorders of fluid, electrolyte, and acid-base balance Pelvic pain Nausea Severe sepsis (Acute) Medical History Renal insufficiency Poliomyelitis as child CKD (chronic kidney disease) stage 4, GFR 15-29 ml/min baseline creat 2 in 2020 Neurogenic bladder Surgical History History of hip surgery Hx of cholecystectomy Family History Other Diabetes Social History Smoking Status: Never smoker Second Hand Exposure: No; Do You Dip or Chew Tobacco: No; Hx Alcohol Use: No Hx Substance Use: No Preferred Language: Mozambican Communication Ability: Effective Communication Ability Comment: Hard of Heading Laminating Machine Offbearer Required: No Beliefs That Will Affect Care: None Current Living Situation: Spouse Feels Safe at Home: Yes Assistive Devices: None Review of Systems Review of Systems: Unobtainable due to cognitive status Physical Exam Physical Exam: See Dr. Scruggs addendum for physical exam findings Results & Data Results & Data Vital Signs (Past 12 Hours) Vital Signs Temp Pulse Pulse Resp BP BP Pulse Ox 09/02/24 17:21 68 14 99 09/02/24 17:15 112/78 09/02/24 17:15 112/78 09/02/24 17:12 72 18 99 09/02/24 17:01 93/69 L 09/02/24 17:01 93/69 L 09/02/24 17:01 93/69 L 09/02/24 17:01 93/69 L 09/02/24 17:00 75 16 99 09/02/24 16:54 75 15 100 09/02/24 16:36 82 17 99 09/02/24 16:31 124/74 09/02/24 16:31 124/74 09/02/24 16:31 124/74 09/02/24 16:16 114/67 09/02/24 16:06 83 20 100 09/02/24 16:02 36.9 C 73 20 93/69 L 100 09/02/24 16:00 79 18 99 09/02/24 15:51 73 17 100 09/02/24 15:46 110/78 09/02/24 15:46 110/78 09/02/24 15:46 110/78 09/02/24 15:42 75 20 96 09/02/24 15:39 76 18 97 09/02/24 15:30 102/85 09/02/24 15:30 102/85 09/02/24 15:26 75 28 H 100 09/02/24 15:16 110/56 L 09/02/24 15:16 110/56 L 09/02/24 15:14 76 16 100 09/02/24 15:11 100/82 09/02/24 15:11 100/82 09/02/24 15:11 100/82 09/02/24 14:59 73 18 99 09/02/24 14:53 74 16 98 09/02/24 14:50 95/60 L 09/02/24 14:50 95/60 L 09/02/24 14:50 95/60 L 09/02/24 14:42 78 09/02/24 14:41 81 19 09/02/24 14:41 09/02/24 14:32 82 15 09/02/24 14:30 114/77 09/02/24 14:30 114/77 09/02/24 14:30 74 20 114/77 100 09/02/24 14:26 80 22 100 09/02/24 14:24 114/78 09/02/24 14:14 35.9 C L 128 H 18 61/46 L 95 O2 Del Method 09/02/24 17:21 09/02/24 17:15 09/02/24 17:15 09/02/24 17:12 09/02/24 17:01 09/02/24 17:01 09/02/24 17:01 09/02/24 17:01 09/02/24 17:00 09/02/24 16:54 09/02/24 16:36 09/02/24 16:31 09/02/24 16:31 09/02/24 16:31 09/02/24 16:16 09/02/24 16:06 09/02/24 16:02 Room Air 09/02/24 16:00 09/02/24 15:51 09/02/24 15:46 09/02/24 15:46 09/02/24 15:46 09/02/24 15:42 09/02/24 15:39 09/02/24 15:30 09/02/24 15:30 09/02/24 15:26 09/02/24 15:16 09/02/24 15:16 09/02/24 15:14 09/02/24 15:11 09/02/24 15:11 09/02/24 15:11 09/02/24 14:59 09/02/24 14:53 09/02/24 14:50 09/02/24 14:50 09/02/24 14:50 09/02/24 14:42 09/02/24 14:41 09/02/24 14:41 Room Air 09/02/24 14:32 09/02/24 14:30 09/02/24 14:30 09/02/24 14:30 Room Air 09/02/24 14:26 09/02/24 14:24 09/02/24 14:14 Room Air Laboratory Results Short CBC 09/02/24 Range/Units 14:39 WBC 19.19 H (4.8-10.8) K/ul Hgb 12.5 L (14.0-18.0) g/dl Hct 40.1 L (42.0-52.0) % Plt Count 207 (130-400) K/uL BMP 09/02/24 14:39 Sodium 123 L Potassium 6.6 H* Chloride 103 Carbon Dioxide 12 L BUN 41 H Creatinine 5.63 H* Glucose 83 Calcium 8.2 L Liver Function 09/02/24 Range/Units 14:39 Total Bilirubin 0.4 (0.2-1.0) mg/dl AST 38 (13-39) U/L ALT 14 (7-52) U/L Alkaline Phosphatase 146 H (34-104) U/L Albumin 3.9 (3.4-5.0) gm/dl Urine 09/02/24 Range/Units 16:57 Urine Color Yellow Urine Appearance Turbid A (Clear) Urine pH 5.5 (4.5-7.5) Ur Specific [place] 1.010 (1.000-1.030) Urine Protein 1+ H (Negative) Urine Glucose (UA) Negative (Negative) Diagnostic Findings Chest X-Ray 09/02/24 14:29 XR chest 1V portable CLINICAL HISTORY: Sepsis TECHNIQUE: Single frontal radiograph of the chest was obtained. Comparison: Comparison is made to chest radiograph 08/23/2024 FINDINGS: No lines and tubes are seen. The cardiomediastinal silhouette is normal. The lungs are clear. No evidence of pleural effusion or pneumothorax. IMPRESSION: No acute abnormalities and in particular no radiographic evidence of pneumonia. ACT 112: Negative or not required by law. Electronically signed by: Raman Mcgarry M.D. 09/02/2024 2:[address] 09/02/24 14:30 CT head/brain wo con CLINICAL HISTORY: 63 years-old Male with confusion. Acutely altered mental status TECHNIQUE: Multiple axial CT images of the head were obtained without contrast. A dose lowering technique was utilized adhering to the principles of ALARA. CT DOSE: 1016.05 mGy.cm COMPARISON: None. FINDINGS: No acute intracranial hemorrhage, midline shift, intracranial mass, hydrocephalus, territorial ischemia or abnormal extra-axial collection. Involutional changes with white matter hypodensities suggestive of chronic microvascular ischemic disease. Study is motion degraded. Millimeter calcification of the posterior falx cerebri on image 13 series 2. The calvarium is intact. Polypoid mucosal thickening of the maxillary sinuses. The mastoid air cells appear clear. Developmental incomplete bony fusion of all of the posterior arch of C1. IMPRESSION: Motion degraded exam without acute intracranial abnormality identified. ACT 112: Negative or not required by law. The above report was generated using voice recognition software. It may contain grammatical, syntax or spelling errors. Electronically signed by: Jose Redmond M.D. 09/02/2024 3:44 PM Code Status & VTE Plan Code Status Full Code in the event of cardiac or respiratory arrest VTE Prophylaxis Plan VTE Prophylaxis will be ordered: Yes Supervising Physician Co-Signing Physician Notes I have seen and discussed the case with the collaborating advanced practitioner. I agree with the above H&P. I have reviewed and confirmed the patients medical history, the findings on physical examination, and the patients diagnosis and treatment plan with David DEMPSEY and agree with the information documented. Mr. Gonzalez is a 63 year old male w/ history of neurogenic bladder secondary to childhood polio, CKD, IBS-D, recurrent hypokalemia, CKD 3B who is being readmitted with OMAIRA on CKD, hyperkalemia, and coronavirus. Per , patient doing well up until 48 hours when he became confused/dis oriented and hallucinating. Patient unable to participate meaningfully in exam GENERAL APPEARANCE: AxOx1, chronically ill appearing man HEENT: dry mucous membranes HEART: Normal rate and regular rhythm, normal S1/S1, no m/r/g LUNGS: CTAB, moving air well. No crackles or wheezes are heard. ABDOMEN: Soft, nontender, nondistended with good bowel sounds heard. EXTREMITIES: Without cyanosis, clubbing or edema. NEUROLOGICAL: Grossly nonfocal. moving all extremities Skin: multiple excoriations on all extremities, venous stasis changes BLE, small abrasions on knees #OMAIRA on CKD #NAGMA #Hyperkalemia unable able to assess degree on po intake, states "less dr pepper than usual" but some intake Holding K supplements and other electrolytes recently discharged with s/p calcium gluconate start valtessa bicarb drip continued from ed nephrology consult -no urgent HD at this time #Metabolic encephalopathy likely multifactorial hold tramadol treat above omaira symptom management for URI and sepsis delirium precautions #Sepsis #Coronavirus infection droplet precautions WBC 19, hypotension empiric abx follow cultures #esophageal candidiasis continue recently started fluconazole qtc stable rest of plan as above I spent a total of 25 minutes coordinating, documenting, and providing care for this patient excluding time spent in the performance of separately billed services. All of the aforementioned completed outside of collaborating with the assigned advanced practitioner for a full treatment plan. I have reviewed the advanced practitioner's documentation, and I agree with, and take responsibility for the plan of care
--- NOTE | 2024-09-02 18:49 | Urology Consultation ---
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 but the catheter advanced without difficulty and returned clear urine If difficulty with these catheters, it would not be an appropriate to continue CIC utilizing his own catheters Additionally, his can help him pass catheters in the event of urinary retention For the time being, I think the current catheter should suffice please remove it when he is medically stable History of Present Illness History of Present Illness 63-year-old male with a long history of neurogenic bladder and urinary retention Admitted with significant altered mental status and coronavirus Normally perform CIC at home, his occasionally assists him He has a history of polio and some limb effects from his prior disease Nursing has tried several times to place a catheter during this hospitalization and been unsuccessful thus leading to a call to urology His was able to straight cath him in the past hourthe use low fric single use catheters at home without incident Allergies Allergy/AdvReac Type Severity Reaction Status Date / Time No Known Allergies Allergy Unverified 09/02/24 15:30 Home Medications Medication Instructions Recorded Confirmed Type calcium 500 mg (as 1 tab PO BID 08/19/24 09/02/24 History carbonate)-vitamin D3 15 mcg (600 unit) tablet citalopram 40 mg tablet 40 mg PO DAILY 08/19/24 09/02/24 History cyanocobalamin (vitamin B-12) 1,000 mcg IM MONTHLY 08/19/24 09/02/24 History 1,000 mcg/mL injection solution doxepin 25 mg capsule 25 - 50 mg PO HS 08/19/24 09/02/24 History metoprolol succinate 25 mg 25 mg PO DAILY 08/19/24 09/02/24 History tablet,extended release 24 hr tramadol 50 mg tablet 50 mg PO BID Pain 08/19/24 09/02/24 History calcitriol 0.25 mcg capsule 0.75 mcg (3 x 0.25 mcg) PO DAILY 12/29/24 01/07/25 Rx #90 caps cholecalciferol (vitamin D3) 125 125 mcg PO QAM #30 tabs 08/24/24 09/02/24 Rx mcg (5,000 unit) tablet dicyclomine 10 mg capsule 10 mg PO QID #120 caps 08/24/24 09/02/24 Rx diphenoxylate-atropine 2.5 1 tab PO TID #90 tabs 08/24/24 09/02/24 Rx mg-0.025 mg tablet fluconazole 100 mg tablet 100 mg PO QAM #16 tabs 08/24/24 09/02/24 Rx (Diflucan) magnesium chloride 64 mg 64 mg PO QAM #30 tabs 08/24/24 09/02/24 Rx (magnesium chloride) tablet,delayed release (Mag 64) pantoprazole 40 mg tablet,delayed 40 mg PO BID #60 tabs 08/24/24 09/02/24 Rx release potassium chloride 20 mEq 40 meq (2 x 20 mEq) PO BID #120 08/24/24 09/02/24 Rx tablet,extended release tabs amiloride 5 mg tablet 5 mg PO UD 09/02/24 09/02/24 History loperamide 2 mg capsule 4 mg PO TID PRN as directed 09/02/24 09/02/24 History Patient History Medical History Renal insufficiency Poliomyelitis as child CKD (chronic kidney disease) stage 4, GFR 15-29 ml/min baseline creat 2 in 2020 Neurogenic bladder Surgical History History of hip surgery Hx of cholecystectomy Family History Other Diabetes Social History Smoking Status: Never smoker Second Hand Exposure: No; Do You Dip or Chew Tobacco: No; Hx Alcohol Use: No Hx Substance Use: No Preferred Language: Mauritanian Communication Ability: Effective Communication Ability Comment: Hard of Heading Associate Attorney Required: No Beliefs That Will Affect Care: None Current Living Situation: Spouse Feels Safe at Home: Yes Assistive Devices: None Review of Systems Review of Systems: Unobtainable due to cognitive status Physical Exam Physical Exam: Legs bent upward, he does respond and attempt to flatten these He is somnolent Abdomen is soft He has numerous excoriations across his knees and bruising on his left hip He has an acquired hypospadias from penile erosion secondary to an indwelling Shea catheter, the urethral meatus now resides buried within the scrotum Results & Data Vital Signs (Past 12 Hours) Vital Signs Temp Pulse Pulse Resp BP BP Pulse Ox 09/02/24 18:20 68 09/02/24 17:21 68 14 99 09/02/24 17:15 112/78 09/02/24 17:15 112/78 09/02/24 17:12 72 18 99 09/02/24 17:01 93/69 L 09/02/24 17:01 93/69 L 09/02/24 17:01 93/69 L 09/02/24 17:01 93/69 L 09/02/24 17:00 75 16 99 09/02/24 16:54 75 15 100 09/02/24 16:36 82 17 99 09/02/24 16:31 124/74 09/02/24 16:31 124/74 09/02/24 16:31 124/74 09/02/24 16:16 114/67 09/02/24 16:06 83 20 100 09/02/24 16:02 36.9 C 73 20 93/69 L 100 09/02/24 16:00 79 18 99 09/02/24 15:51 73 17 100 09/02/24 15:46 110/78 09/02/24 15:46 110/78 09/02/24 15:46 110/78 09/02/24 15:42 75 20 96 09/02/24 15:39 76 18 97 09/02/24 15:30 102/85 09/02/24 15:30 102/85 09/02/24 15:26 75 28 H 100 09/02/24 15:16 110/56 L 09/02/24 15:16 110/56 L 09/02/24 15:14 76 16 100 09/02/24 15:11 100/82 09/02/24 15:11 100/82 09/02/24 15:11 100/82 09/02/24 14:59 73 18 99 09/02/24 14:53 74 16 98 09/02/24 14:50 95/60 L 09/02/24 14:50 95/60 L 09/02/24 14:50 95/60 L 09/02/24 14:42 78 09/02/24 14:41 81 19 09/02/24 14:41 09/02/24 14:32 82 15 09/02/24 14:30 114/77 09/02/24 14:30 114/77 09/02/24 14:30 74 20 114/77 100 09/02/24 14:26 80 22 100 09/02/24 14:24 114/78 09/02/24 14:14 35.9 C L 128 H 18 61/46 L 95 O2 Del Method 09/02/24 18:20 09/02/24 17:21 09/02/24 17:15 09/02/24 17:15 09/02/24 17:12 09/02/24 17:01 09/02/24 17:01 09/02/24 17:01 09/02/24 17:01 09/02/24 17:00 09/02/24 16:54 09/02/24 16:36 09/02/24 16:31 09/02/24 16:31 09/02/24 16:31 09/02/24 16:16 09/02/24 16:06 09/02/24 16:02 Room Air 09/02/24 16:00 09/02/24 15:51 09/02/24 15:46 09/02/24 15:46 09/02/24 15:46 09/02/24 15:42 09/02/24 15:39 09/02/24 15:30 09/02/24 15:30 09/02/24 15:26 09/02/24 15:16 09/02/24 15:16 09/02/24 15:14 09/02/24 15:11 09/02/24 15:11 09/02/24 15:11 09/02/24 14:59 09/02/24 14:53 09/02/24 14:50 09/02/24 14:50 09/02/24 14:50 09/02/24 14:42 09/02/24 14:41 09/02/24 14:41 Room Air 09/02/24 14:32 09/02/24 14:30 09/02/24 14:30 09/02/24 14:30 Room Air 09/02/24 14:26 09/02/24 14:24 09/02/24 14:14 Room Air PG Care Time/CCT Total # of Minutes Spent Total Time Spent with Patient: Total time spent is greater than 50% in coordination of care (as documented) at patient's floor/unit and/or counseling patient: Coding Level of Care Code 12302 IN/OBS CONSULT LVL 4,60M Diagnoses Neurogenic bladder N31.9
[2024-09-02] MEDS: REMDESIVIR 200 MG in SODIUM CHLORIDE 0.9% 210 ML IV STA (19:04)
[2024-09-02] MEDS: SODIUM CHLORIDE 0.9% 1,000 ML IV SCH (19:35)
[2024-09-02] MEDS ORDERED: POLYETHYLENE (MIRALAX) 17 GM PACK PO PRN (20:09)
[2024-09-02] MEDS ORDERED: ALUMINUM/MAGNESIUM SUSP 30 ML UDC PO PRN (20:09)
[2024-09-02] MEDS ORDERED: MAGNESIUM HYDROXIDE SUSP 30 ML UDC PO PRN (20:09)
[2024-09-02] MEDS ORDERED: ONDANSETRON INJ 2 MG/ML 2 ML VIAL IV PRN (20:09)
[2024-09-02] MEDS: DAPTOmycin 375 MG in SYRINGE 0 ML IV SCH (20:14)
[2024-09-02] MEDS: 4.5GM X1 IV ONE (20:16)
[2024-09-02 20:25] LABS: BUN Creatinine Ratio 7.5 (10-20); Calcium 7.5 mg/dl (8.6-10.3); Potassium 6.4 mmol/L (3.5-5.1)
[2024-09-02] MEDS: CEFEPIME 2000MG 2,000 MG/20 ML SYR IV SCH (20:27)
[2024-09-02] MEDS: PATIROMER CALCIUM SORBITEX 8.4 GM PACK PO SCH (21:14)
[2024-09-02] MEDS: INSULIN HUMAN REGULAR PER UNIT 10 UNITS in SYRINGE 9.9 ML IV STA (21:17)
[2024-09-02] MEDS: DEXTROSE 50% 50 ML SYRINGE IV STA ×2 (21:19→22:52)
[2024-09-02] MEDS: HEPARIN SOD 5,000 UNIT/0.5 ML VIAL SQ SCH (21:45)
[2024-09-02 23:54] LABS: Amphetamines+Metham, Urine Neg (Neg); Barbiturates, Urine Neg (Neg); Benzodiazepine, Urine Neg (Neg); Cocaine, Urine Neg (Neg); Fentanyl, Urine Neg (Neg); MDMA (Ecstacy), Urine Neg (Neg); Marijuana, Urine Neg (Neg); Methadone, Urine Neg (Neg); Opiate, Urine Neg (Neg); Phencyclidine, Urine Neg (Neg)
[2024-09-03 00:04] LABS: BUN Creatinine Ratio 7.3 (10-20); Calcium 7.9 mg/dl (8.6-10.3); Creatinine Clr Calc Pharmacy 13.4 ml/min; Potassium 5.1 mmol/L (3.5-5.1)
[2024-09-03] MEDS: ACETAMINOPHEN 325 MG TAB PO PRN (01:16)
[2024-09-03 02:26] LABS: Hematocrit (blood only) 32.4 % (42.0-52.0); Hemoglobin 10.3 g/dl (14.0-18.0); Mean Corpuscular Hemoglobin 30.7 pg (25.0-34.0); Mean Corpuscular Hgb Conc 31.8 g/dL (32.0-36.0); Mean Corpuscular Volume 96.7 fL (80.0-100.0); Mean Platelet Volume 12.3 fL (9.4-12.4); Nucleated RBC # (auto) 0.02 K/uL (0.00-0.12); Nucleated RBC % (auto) 0.2 %; Platelet Count 113 K/uL (130-400); RDW Coefficient of Variation 16.9 % (11.5-14.5); RDW Standard Deviation 60.1 fL (36.4-46.3); Red Blood Count 3.35 M/uL (4.70-6.10); White Blood Count 10.92 K/ul (4.8-10.8)
[2024-09-03 02:31] LABS: Calcium 7.7 mg/dl (8.6-10.3)
[2024-09-03 02:41] LABS: BUN Creatinine Ratio 7.6 (10-20); Creatinine Clr Calc Pharmacy 13.5 ml/min; Phosphorus 4.8 mg/dl (2.5-4.9)
[2024-09-03 06:47] LABS: BUN Creatinine Ratio 7.9 (10-20); Calcium 7.1 mg/dl (8.6-10.3); Creatinine Clr Calc Pharmacy 13.8 ml/min
[2024-09-03] MEDS: PIPERACILLIN/TAZOBACTAM 4.5 GM/100 ML BAG IV SCH (09:05)
[2024-09-03] MEDS: FLUCONAZOLE 100 MG TAB PO SCH (09:05)
[2024-09-03] MEDS: METOPROLOL SUCC 25MG EXT REL TAB PO SCH (09:05)
[2024-09-03] MEDS: CITALOPRAM 40 MG TAB PO SCH (09:05)
--- NOTE | 2024-09-03 10:19 | Nephrology Consultation ---
Date of Consultation September 03, 2024 Assessment & Plan (1) Acute renal failure superimposed on stage 4 chronic kidney disease: 63/M with CKD 3b/4 with baseline creat low to mid 2's. he currently has JERRY now with peak creat of 5.6 Likely pre renal in the setting of Low BP and Sepsis. Creat did come down with Iv fluids which is encouraging. Continue to give IVF--Continue bicarb drip ( isotonic type with 150 meq na bicarb) at 100 ml /hr. this will also bring down K and raise na and Bicarb. Hold Kcl and Also Amiloride. No dialysis needed as of now with improving labs but still not out of danger. will assess him on a daily basis for dialysis need. I also instructed him that he needs to find a derrick boat runner for regular care in [place] area given that he is getting closer and closer to dialysis and since she lives in [place] he need to have dialysis there when it is needed (2) Acute hyperkalemia: from 6.5 now normal with medical management. Difficult as he has h/o very very low K last admission. for now no kcl and no Amiloride. No dialysis needed. Can d/c patiromer now. Continue Bicarb drip. Can check labs daily now--renal panel. (3) Acute hyponatremia: Hypovolemic type Plus related with Severe JERRY. na rising with isotonic Sodium bicarb. continue bicarb drip at 100 mL/hour (4) SIRS with acute organ dysfunction due to infectious process: Unclear source. also has Coronovirus. broad spectrum Abx for now Plan Case complexity moderately high. Total time spent 62 minutes History of Present Illness Reason for Consultation: Jerry on CKD 4 Attending Physician: Adrianne Puente MD History of Present Illness 63/M with CKD 3b/4 with baseline creat low to mid 2's, presented to the ED with his with visual/auditory hallucinations and altered mental status. His stated that over the last few days he has had theses symptoms. He had a recent inpatient hospitalization from 08/22-08/24. That admission he had severe pre renal JERRY on background CKD with Severe electrolyte problems-- super low K, Bicarb, na and mag. was discharged on high dose Kcl supplement. In the ED He was found to be septic on arrival with leukocytosis 19K, hyperk+ 6.6 low bicarb of 12 elevated creatinine 5.63. He has complex PMH includes: neurogenic bladder secondary to childhood polio, CKD 4 , IBS-D, recurrent hypokalemia, mood disorder and others. Since admission has got NS and currently Bicarb drip Plus medical Rx for hhigh K. renal function slightly better and K is normal now. has skaggs--placed by urology. he feels much better also and is actually talking now. On Zosyn and Daptomicin. Cultures pending. resp panel +ve for regular coronavirus ROS--As per HPI. patient not Able to tell. not at bedside. Physical Exam Physical Exam: General- Not in acute distress. still somewhat confused but better than yesterday Head- atraumatic ENT- oropharynx dry Neck- supple, no JVD. Lungs- clear to auscultation no wheezing or crackles Heart- regular rate and rhythm; no murmur, no gallop. Abdomen- normal bowel sounds, soft, nontender, no distension Extremities- chronic skin changes seen in lower extremities. Trace edema Neuro- alert, no dysarthria; moves extremities Allergies Allergy/AdvReac Type Severity Reaction Status Date / Time No Known Allergies Allergy Unverified 09/02/24 15:30 Home Medications Medication Instructions Recorded Confirmed Type calcium 500 mg (as 1 tab PO BID 08/19/24 09/02/24 History carbonate)-vitamin D3 15 mcg (600 unit) tablet citalopram 40 mg tablet 40 mg PO DAILY 08/19/24 09/02/24 History cyanocobalamin (vitamin B-12) 1,000 mcg IM MONTHLY 08/19/24 09/02/24 History 1,000 mcg/mL injection solution doxepin 25 mg capsule 25 - 50 mg PO HS 08/19/24 09/02/24 History metoprolol succinate 25 mg 25 mg PO DAILY 08/19/24 09/02/24 History tablet,extended release 24 hr tramadol 50 mg tablet 50 mg PO BID Pain 08/19/24 09/02/24 History calcitriol 0.25 mcg capsule 0.75 mcg (3 x 0.25 mcg) PO DAILY 08/24/24 09/02/24 Rx #90 caps cholecalciferol (vitamin D3) 125 125 mcg PO QAM #30 tabs 08/24/24 09/02/24 Rx mcg (5,000 unit) tablet dicyclomine 10 mg capsule 10 mg PO QID #120 caps 08/24/24 09/02/24 Rx diphenoxylate-atropine 2.5 1 tab PO TID #90 tabs 08/24/24 09/02/24 Rx mg-0.025 mg tablet fluconazole 100 mg tablet 100 mg PO QAM #16 tabs 08/24/24 09/02/24 Rx (Diflucan) magnesium chloride 64 mg 64 mg PO QAM #30 tabs 08/24/24 09/02/24 Rx (magnesium chloride) tablet,delayed release (Mag 64) pantoprazole 40 mg tablet,delayed 40 mg PO BID #60 tabs 08/24/24 09/02/24 Rx release potassium chloride 20 mEq 40 meq (2 x 20 mEq) PO BID #120 08/24/24 09/02/24 Rx tablet,extended release tabs amiloride 5 mg tablet 5 mg PO UD 09/02/24 09/02/24 History loperamide 2 mg capsule 4 mg PO TID PRN as directed 09/02/24 09/02/24 History Patient History Medical History Renal insufficiency Poliomyelitis as child CKD (chronic kidney disease) stage 4, GFR 15-29 ml/min baseline creat 2 in 2020 Neurogenic bladder Surgical History History of hip surgery Hx of cholecystectomy Family History Other Diabetes Social History Smoking Status: Never smoker Second Hand Exposure: No; Do You Dip or Chew Tobacco: No; Hx Alcohol Use: Yes Hx Substance Use: No Preferred Language: Gabonese Communication Ability: Impaired Communication Ability Comment: Hard of Heading Border Patrol Agent Required: No Beliefs That Will Affect Care: None Current Living Situation: Spouse Feels Safe at Home: Yes Assistive Devices: Denture - Upper, Walker and Other Results & Data Vital Signs (Past 12 Hours) Vital Signs Temp Pulse Pulse Resp BP Pulse Ox O2 Del Method 09/03/24 09:27 Room Air 09/03/24 07:53 36.3 C L 71 20 96/60 L 100 Room Air 09/03/24 04:03 36.4 C L 85 20 100/58 L 97 Room Air 09/02/24 22:40 78 Laboratory Results Reviewed this admission and previous as well as outpt labs from PCP office
[2024-09-03] MEDS ORDERED: PATIROMER CALCIUM SORBITEX 8.4 GM PACK PO SCH (12:00)
--- NOTE | 2024-09-03 13:15 | Hospitalist Progress Note ---
Date of Service September 03, 2024 Assessment & Plan (1) Acute UTI (urinary tract infection): (2) Sepsis: (3) SIRS with acute organ dysfunction due to infectious process: (4) Elevated procalcitonin: (5) Acute hyponatremia: (6) Acute hyperkalemia: (7) Acute renal failure: (8) Esophageal candidiasis: (9) Neurogenic bladder: (10) Poliomyelitis: Plan 63 year old male w/ history of neurogenic bladder secondary to childhood polio, CKD, IBS-D, recurrent hypokalemia, mood disorder and others below admitted through the ED w/ UTI, DARRIAN on CKD. Patient found to have severe sepsis on arrival with uncompensated metabolic acidosis and was given insulin/dextrose and started on a NaHCO3 infusion. DARRIAN on CKD NAGMA Hyperkalemia unable able to assess degree on po intake, states "less dr pepper than usual" but some intake Holding K supplements and other electrolytes recently discharged with s/p calcium gluconate start valtessa bicarb drip continued from ed nephrology consult -no urgent HD at this time Metabolic encephalopathy likely multifactorial Pt with noted sepsis and UTI hold tramadol treat above darrian symptom management for URI and sepsis delirium precautions Improved Sepsis Complicated UTI Coronavirus infection UA suggestive of infection, urine Cx pending droplet precautions WBC 19, hypotension Blood Cx x2 sets pending empiric abx with IV dapto and Zosyn follow cultures esophageal candidiasis diffuse candidiasis noted on EGD completed last admission in Jul Throat Cx grew sachi glabarata and few albicans Was on po fluconazole discussed with pharmacy, recommended switching to med like caspo after discussion with ID Formal ID consult placed as well qtc stable continue to monitor IBS: On Lomotil; continue Poliomyelitis: Neurogenic bladder: Polio as a child Difficulty with catheter placement; appreciate Urology assistance Code Status: Full Code VTE Prophylaxis: Heparin SQ Admission and Anticipated Discharge Date Admission Date: September 02, 2024 Subjective Pt was seen with at bedside. AAOx3 Notes he picks at his skin Review of Systems Review of Systems: All systems reviewed & are unremarkable except as noted in Subjective Physical Exam Physical Exam: General: Alert, oriented. Skin: bleeding at sites Psych: Appropriate mood and affect Neuro: oriented x 3 HEENT: NC CV: RRR Resp: Breath sounds clear bilaterally, no increased effort of breathing Abdomen: Soft, nontender, nondistended Extremities: edema in lower extremities bilaterally. Results & Data Results & Data Vital Signs (Past 12 Hours) Vital Signs Temp Pulse Resp BP Pulse Ox O2 Del Method 09/03/24 11:46 36.7 C 86 19 90/41 L 92 Room Air 09/03/24 09:27 Room Air 09/03/24 07:53 36.3 C L 71 20 96/60 L 100 Room Air 09/03/24 04:03 36.4 C L 85 20 100/58 L 97 Room Air
[2024-09-03] MEDS ORDERED: REMDESIVIR 100 MG in SODIUM CHLORIDE 0.9% 230 ML IV SCH (18:15)
[2024-09-03] MEDS: CASPOFUNGIN 70 MG in SODIUM CHLORIDE 0.9% 250 ML IV ONE (23:47)
[2024-09-04 06:52] LABS: Albumin Level 2.6 gm/dl (3.4-5.0); BUN Creatinine Ratio 7.3 (10-20); Bilirubin,Total 0.3 mg/dl (0.2-1.0); Calcium 5.9 mg/dl (8.6-10.3); Creatinine Clr Calc Pharmacy 15.8 ml/min; Globulin 2.6 gm/dl (2.5-4.0); Magnesium 1.6 mg/dl (1.7-2.4); Phosphorus 4.5 mg/dl (2.5-4.9); Potassium 2.9 mmol/L (3.5-5.1); Total Protein 5.2 gm/dl (6.0-8.3)
--- NOTE | 2024-09-04 06:57 | Electrocardiogram Report ---
Test Reason : Blood Pressure : */* mmHG Vent. 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
--- NOTE | 2024-09-04 07:07 | Electrocardiogram Report ---
Test Reason : Blood Pressure : */* mmHG Vent. 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
[2024-09-04 08:08] LABS: Basophils # (auto) 0.12 K/uL (0.00-0.20); Basophils % (auto) 2.2 %; Eosinophils # (auto) 0.11 K/uL (0.00-0.50); Eosinophils % (auto) 2.1 %; Hematocrit (blood only) 25.1 % (42.0-52.0); Hemoglobin 8.5 g/dl (14.0-18.0); Immature Granulocytes # (auto) 0.03 K/uL (0.01-0.20); Immature Granulocytes % (auto) 0.6 %; Lymphocytes # (auto) 0.75 K/uL (1.20-3.40); Mean Corpuscular Hemoglobin 30.8 pg (25.0-34.0); Mean Corpuscular Hgb Conc 33.9 g/dL (32.0-36.0); Mean Corpuscular Volume 90.9 fL (80.0-100.0); Mean Platelet Volume 12.3 fL (9.4-12.4); Monocytes # (auto) 0.38 K/uL (0.11-0.59); Monocytes % (auto) 7.1 %; Neutrophils # (auto) 3.95 K/uL (1.40-6.50); Platelet Count 70 K/uL (130-400); RDW Coefficient of Variation 16.5 % (11.5-14.5); RDW Standard Deviation 54.7 fL (36.4-46.3); Red Blood Count 2.76 M/uL (4.70-6.10); White Blood Count 5.34 K/ul (4.8-10.8)
[2024-09-04 08:18] LABS: Basophils # (auto) 0.11 K/uL (0.00-0.20); Basophils % (auto) 2.1 %; Eosinophils # (auto) 0.11 K/uL (0.00-0.50); Eosinophils % (auto) 2.1 %; Hematocrit (blood only) 25.7 % (42.0-52.0); Hemoglobin 8.6 g/dl (14.0-18.0); Immature Granulocytes # (auto) 0.05 K/uL (0.01-0.20); Immature Granulocytes % (auto) 0.9 %; Lymphocytes # (auto) 0.77 K/uL (1.20-3.40); Lymphocytes % (auto) 14.5 %; Mean Corpuscular Hemoglobin 30.9 pg (25.0-34.0); Mean Corpuscular Hgb Conc 33.5 g/dL (32.0-36.0); Mean Corpuscular Volume 92.4 fL (80.0-100.0); Mean Platelet Volume 12.2 fL (9.4-12.4); Monocytes # (auto) 0.31 K/uL (0.11-0.59); Monocytes % (auto) 5.8 %; Neutrophils # (auto) 3.97 K/uL (1.40-6.50); Neutrophils % (auto) 74.6 %; Platelet Count 75 K/uL (130-400); RDW Coefficient of Variation 16.2 % (11.5-14.5); RDW Standard Deviation 54.4 fL (36.4-46.3); Red Blood Count 2.78 M/uL (4.70-6.10); White Blood Count 5.32 K/ul (4.8-10.8)
[2024-09-04 08:42] LABS: Albumin Level 2.7 gm/dl (3.4-5.0); BUN Creatinine Ratio 7.4 (10-20); Bilirubin,Total 0.3 mg/dl (0.2-1.0); Calcium 5.8 mg/dl (8.6-10.3); Globulin 2.7 gm/dl (2.5-4.0); Magnesium 1.6 mg/dl (1.7-2.4); Phosphorus 4.4 mg/dl (2.5-4.9); Potassium 2.9 mmol/L (3.5-5.1); Total Protein 5.4 gm/dl (6.0-8.3)
[2024-09-04] MEDS: POTASSIUM CHLORIDE CRTAB 20 MEQ TABCR PO STA (08:49)
[2024-09-04] MEDS: CALCIUM GLUCONATE 1,000 MG/60 ML BAG IV SCH (08:50)
[2024-09-04] MEDS: MAGNESIUM SULFATE / D5W 1 GM/100 ML BAG IV SCH (08:53)
[2024-09-04] MEDS: SODIUM CHLORIDE 0.9% 1,000 ML IV SCH (09:42)
--- NOTE | 2024-09-04 09:52 | Nephrology Progress Note ---
Date of Service September 04, 2024 Assessment & Plan Admission and Anticipated Discharge Date Admission Date: September 02, 2024 Subjective Assessment & Plan (1) Acute renal failure superimposed on stage 4 chronic kidney disease: 63/M with CKD 3b/4 with baseline creat low to mid 2's. he currently has DARRIAN now with peak creat of 5.6 Likely pre renal in the setting of Low BP and Sepsis. Creat did come down with Iv fluids which is encouraging. Continue to give IVF--d/c bicarb drip and Change to NS at 100 ml /hr. No dialysis needed as of now with improving labs but still not out of danger. will assess him on a daily basis for dialysis need. I also instructed him that he needs to find a outboard technician for regular care in [place] area given that he is getting closer and closer to dialysis and since she lives in [place] he need to have dialysis there when it is needed (2) Acute hyperkalemia: from 6.5 now actually low. Difficult as he has h/o very very low K last admission. true to his regular pattern he is back being very low. will put him back on kcl 40 bid. BP too low so will hold off on Amiloride D/c Bicarb drip. (3) Acute hyponatremia: Hypovolemic type Plus related with Severe DARRIAN. na rising with isotonic Sodium bicarb. Change to NS at 100ml/hr. na rising and is upto 131 today (4) SIRS with acute organ dysfunction due to infectious process: Unclear source. also has Coronovirus. broad spectrum Abx for now S--making urine. Labs better but BP is low. Physical Exam Physical Exam: General- Not in acute distress. still somewhat confused but better than yesterday Head- atraumatic ENT- oropharynx dry Neck- supple, no JVD. Lungs- clear to auscultation no wheezing or crackles Heart- regular rate and rhythm; no murmur, no gallop. Abdomen- normal bowel sounds, soft, nontender, no distension Extremities- chronic skin changes seen in lower extremities. Trace edema Neuro- alert, no dysarthria; moves extremities Results & Data Vital Signs (Past 12 Hours) Vital Signs Temp Pulse Pulse Resp BP Pulse Ox O2 Del Method 09/04/24 08:37 36.4 C L 64 18 78/52 L 94 Room Air 09/04/24 07:34 36.6 C 95 H 18 95/58 L 96 Room Air 09/04/24 03:50 37.0 C 66 18 87/51 L 96 Room Air 09/04/24 00:16 70 09/03/24 23:31 36.6 C 69 18 78/43 L 97 Room Air 09/03/24 23:06 Room Air
[2024-09-04] MEDS: POTASSIUM CHLORIDE CRTAB 20 MEQ TABCR PO SCH (11:50)
[2024-09-04] MEDS: MIDODRINE HCL 2.5 MG TAB PO SCH (11:50)
[2024-09-04] MEDS: POTASSIUM CHLORIDE 20 MEQ/15 ML UDC PO SCH (11:51)
--- NOTE | 2024-09-04 13:19 | Infectious Disease Consult ---
Date of Service September 04, 2024 Telehealth Information I performed this visit using a real-time telehealth connection between my location and the patients location ([facility]). After connecting through interactive tele-video, patient was identified by name and date of and/or wristband check.Patient (or authorized healthcare retail service representative) was informed that this was a telemedicine visit and it was being conducted confidentially over secure lines. My office door was closed and no o ne else was present in the room with me.Patient (or authorized healthcare retail service representative) provided consent to proceed with the visit, expressed an understanding of privacy and security of the telemedicine visit, and gave permission to have a hospital retail service representative in the room in order to assist with the visit and to conduct portions of the visit, as needed. I informed the patient (or authorized healthcare retail service representative) that I reviewed their record and presented the opportunity for them to ask any questions regarding the visit today. The patient agreed to participate. Assessment & Plan (1) Esophageal candidiasis: Plan: On caspofungin for 14-21 days (2) DARRIAN (acute kidney injury): Plan: [facility] nephrology Plan Patient admitted with AMS and found to be COVID19 positive and with acute on chronic kidney injury .He has been started on zosyn and daptomycin but his blood cultures are negative and urine appeared contaminated .He has a history of esophageal candidiasis and was being treated with oral fluconazole despite his elevated QTc .He is currently on caspofungin and as per patient and he no longer has any issues swallowing and so would not recommend further treatment for his esophageal candidiasis .Please discontinue zosyn and daptomycin as there is no clear evidence of a bacterial infection and as per his his mental status has returned to baseline. Thank you for allowing us to participate in the care of this patient ID will sign off History of Present Illness History of Present Illness 63 y/o M male PMHx of neurogenic bladder secondary to childhood polio, CKD, IBS-D, recurrent hypokalemia, mood disorder admitted with DARRIAN on CKD. He has neurogenic bladder and self catheterizes Patient found to have uncompensated metabolic acidosis and was given insulin/dextrose and started on a NaHCO3 infusion.Patient was also started on cefepime and then switched to zosyn and daptomycin.Patient also tested positive for COVID and her previous EGD 08/22/[address] results indicating a 1.9 cm soft tissue density within the distal esophagus, but no mass was found on EGD.The results indicate diffuse mid/distal esophageal candidiasis and esophagitis/gastritis. On 08/22 she was started on fluconazole 100 mg daily.His QTc is 594 and he is on caspofungin .His blood cul tures are NGTD and his urine culture appeared contaminated Allergies Allergy/AdvReac Type Severity Reaction Status Date / Time No Known Allergies Allergy Unverified 09/02/24 15:30 Home Medications Medication Instructions Recorded Confirmed Type calcium 500 mg (as 1 tab PO BID 08/19/24 09/02/24 History carbonate)-vitamin D3 15 mcg (600 unit) tablet citalopram 40 mg tablet 40 mg PO DAILY 08/19/24 09/02/24 History cyanocobalamin (vitamin B-12) 1,000 mcg IM MONTHLY 08/19/24 09/02/24 History 1,000 mcg/mL injection solution doxepin 25 mg capsule 25 - 50 mg PO HS 08/19/24 09/02/24 History metoprolol succinate 25 mg 25 mg PO DAILY 08/19/24 09/02/24 History tablet,extended release 24 hr tramadol 50 mg tablet 50 mg PO BID Pain 08/19/24 09/02/24 History calcitriol 0.25 mcg capsule 0.75 mcg (3 x 0.25 mcg) PO DAILY 08/24/24 09/02/24 Rx #90 caps cholecalciferol (vitamin D3) 125 125 mcg PO QAM #30 tabs 08/24/24 09/02/24 Rx mcg (5,000 unit) tablet dicyclomine 10 mg capsule 10 mg PO QID #120 caps 08/24/24 09/02/24 Rx diphenoxylate-atropine 2.5 1 tab PO TID #90 tabs 08/24/24 09/02/24 Rx mg-0.025 mg tablet fluconazole 100 mg tablet 100 mg PO QAM #16 tabs 08/24/24 09/02/24 Rx (Diflucan) magnesium chloride 64 mg 64 mg PO QAM #30 tabs 08/24/24 09/02/24 Rx (magnesium chloride) tablet,delayed release (Mag 64) pantoprazole 40 mg tablet,delayed 40 mg PO BID #60 tabs 08/24/24 09/02/24 Rx release potassium chloride 20 mEq 40 meq (2 x 20 mEq) PO BID #120 08/24/24 09/02/24 Rx tablet,extended release tabs amiloride 5 mg tablet 5 mg PO UD 09/02/24 09/02/24 History loperamide 2 mg capsule 4 mg PO TID PRN as directed 09/02/24 09/02/24 History Patient History Medical History Renal insufficiency Poliomyelitis as child CKD (chronic kidney disease) stage 4, GFR 15-29 ml/min baseline creat 2 in 2020 Neurogenic bladder Surgical History History of hip surgery Hx of cholecystectomy Family History Other Diabetes Social History Smoking Status: Never smoker Second Hand Exposure: No; Do You Dip or Chew Tobacco: No; Hx Alcohol Use: Yes Hx Substance Use: No Preferred Language: Nepali Communication Ability: Impaired Communication Ability Comment: Hard of Heading Egg Separator Required: No Beliefs That Will Affect Care: None Current Living Situation: Spouse Feels Safe at Home: Yes Assistive Devices: Walker Review of Systems No respiratory distress Physical Exam Awake alert hearing impaired Results & Data Vital Signs (Past 12 Hours) Vital Signs Temp Pulse Resp BP Pulse Ox O2 Del Method 09/04/24 10:39 36.8 C 69 16 90/58 L 94 Room Air 09/04/24 08:37 36.4 C L 64 18 78/52 L 94 Room Air 09/04/24 07:34 36.6 C 95 H 18 95/58 L 96 Room Air 09/04/24 03:50 37.0 C 66 18 87/51 L 96 Room Air Laboratory Results Blood Culture Aerobic Preliminary 09/03/24-1499 No growth in Aerobic bottle after 24 hours. Blood Culture Anaerobic Preliminary 09/03/24-1499 No growth in Anaerobic bottle after 24 hours. Diagnostic Findings FINDINGS: No lines and tubes are seen. The cardiomediastinal silhouette is normal. The lungs are clear. No evidence of pleural effusion or pneumothorax. IMPRESSION: No acute abnormalities and in particular no radiographic evidence of pneumonia. FINDINGS: No acute intracranial hemorrhage, midline shift, intracranial mass, hydrocephalus, territorial ischemia or abnormal extra-axial collection. Involutional changes with white matter hypodensities suggestive of chronic microvascular ischemic disease. Study is motion degraded. Millimeter calcification of the posterior falx cerebri on image 13 series 2. The calvarium is intact. Polypoid mucosal thickening of the maxillary sinuses. The mastoid air cells appear clear. Developmental incomplete bony fusion of all of the posterior arch of C1. IMPRESSION: Motion degraded exam without acute intracranial abnormality identified.
--- NOTE | 2024-09-04 13:38 | Hospitalist Progress Note ---
Date of Service September 04, 2024 Assessment & Plan (1) Acute UTI (urinary tract infection): (2) Sepsis: (3) SIRS with acute organ dysfunction due to infectious process: (4) Elevated procalcitonin: (5) Acute hyponatremia: (6) Acute hyperkalemia: (7) Acute renal failure: (8) Esophageal candidiasis: (9) Neurogenic bladder: (10) Poliomyelitis: Plan 63 year old male w/ history of neurogenic bladder secondary to childhood polio, CKD, IBS-D, recurrent hypokalemia, mood disorder and others below admitted through the ED w/ UTI, DARRIAN on CKD. Patient found to have severe sepsis on arrival with uncompensated metabolic acidosis and was given insulin/dextrose and started on a NaHCO3 infusion. DARRIAN on CKD NAGMA Hyperkalemia unable able to assess degree on po intake, states "less dr pepper than usual" but some intake Holding K supplements and other electrolytes recently discharged with s/p calcium gluconate start valtessa bicarb drip continued from ed, has since been discontinued nephrology consulted, appreciate further recs Metabolic encephalopathy likely multifactorial Pt with noted sepsis and UTI hold tramadol treat above darrian symptom management for URI and sepsis delirium precautions Improved Sepsis Complicated UTI Coronavirus infection UA suggestive of infection, urine Cx pending droplet precautions WBC 19, hypotension Blood Cx x2 sets pending empiric abx with IV dapto and Zosyn follow cultures Hypotension patient with persistently low blood pressures Will hold home metoprolol in the setting of sepsis Continue midodrine Has been receiving IV fluids A.m. cortisol Continue to monitor esophageal candidiasis diffuse candidiasis noted on EGD completed last admission in Jul Throat Cx grew sachi glabarata and few albicans Was on po fluconazole discussed with pharmacy, recommended switching to med like caspo after discussion with ID Formal ID consult placed as well qtc stable continue to monitor IBS: On Lomotil; continue Poliomyelitis: Neurogenic bladder: Polio as a child Difficulty with catheter placement; appreciate Urology assistance Code Status: Full Code VTE Prophylaxis: Heparin SQ Admission and Anticipated Discharge Date Admission Date: September 02, 2024 Subjective patient was seen with his at bedside Denied acute concerns Per nursing staff patient with persistent lower blood pressures patient asymptomatic Case discussed multiple times with nephrology, Dr. Ge Review of Systems Review of Systems: All systems reviewed & are unremarkable except as noted in Subjective Physical Exam Physical Exam: General: Alert, oriented. Skin: bleeding at sites Psych: Appropriate mood and affect Neuro: oriented x 3 HEENT: NC CV: RRR Resp: Breath sounds clear bilaterally, no increased effort of breathing Abdomen: Soft, nontender, nondistended Extremities: edema in lower extremities bilaterally. Results & Data Results & Data Vital Signs (Past 12 Hours) Vital Signs Temp Pulse Resp BP Pulse Ox O2 Del Method 09/04/24 10:39 36.8 C 69 16 90/58 L 94 Room Air 09/04/24 08:37 36.4 C L 64 18 78/52 L 94 Room Air 09/04/24 07:34 36.6 C 95 H 18 95/58 L 96 Room Air 09/04/24 03:50 37.0 C 66 18 87/51 L 96 Room Air
[2024-09-04] MEDS: CASPOFUNGIN 50 MG in SODIUM CHLORIDE 0.9% 250 ML IV SCH (23:48)
[2024-09-05] MEDS ORDERED: NYSTATIN OINT 15 GM TUBE EXT SCH (06:30)
[2024-09-05] MEDS ORDERED: BUTT PASTE (ZINC OXIDE 16%) 171 APPLN/57 GM JAR EXT PRN (06:30)
[2024-09-05] MEDS ORDERED: NYSTATIN POWDER 15GM BTL EXT PRN (07:04)
[2024-09-05 08:31] LABS: Basophils # (auto) 0.15 K/uL (0.00-0.20); Basophils % (auto) 2.4 %; Eosinophils # (auto) 0.16 K/uL (0.00-0.50); Eosinophils % (auto) 2.5 %; Hematocrit (blood only) 28.5 % (42.0-52.0); Hemoglobin 9.1 g/dl (14.0-18.0); Immature Granulocytes # (auto) 0.05 K/uL (0.01-0.20); Immature Granulocytes % (auto) 0.8 %; Lymphocytes # (auto) 0.98 K/uL (1.20-3.40); Lymphocytes % (auto) 15.6 %; Mean Corpuscular Hgb Conc 31.9 g/dL (32.0-36.0); Mean Corpuscular Volume 96.9 fL (80.0-100.0); Mean Platelet Volume 12.9 fL (9.4-12.4); Monocytes # (auto) 0.48 K/uL (0.11-0.59); Monocytes % (auto) 7.6 %; Neutrophils # (auto) 4.48 K/uL (1.40-6.50); Neutrophils % (auto) 71.1 %; Platelet Count 69 K/uL (130-400); RDW Coefficient of Variation 16.9 % (11.5-14.5); RDW Standard Deviation 60.4 fL (36.4-46.3); Red Blood Count 2.94 M/uL (4.70-6.10)
[2024-09-05 08:48] LABS: Albumin Globulin Ratio 0.9 (0.9-2); Albumin Level 2.7 gm/dl (3.4-5.0); BUN Creatinine Ratio 6.6 (10-20); Bilirubin,Total 0.3 mg/dl (0.2-1.0); Calcium 5.8 mg/dl (8.6-10.3); Creatinine Clr Calc Pharmacy 19.3 ml/min; Globulin 2.9 gm/dl (2.5-4.0); Magnesium 1.9 mg/dl (1.7-2.4); Phosphorus 3.3 mg/dl (2.5-4.9); Potassium 2.9 mmol/L (3.5-5.1); Total Protein 5.6 gm/dl (6.0-8.3)
[2024-09-05] MEDS ORDERED: CALCIUM GLUCONATE 1,000 MG/60 ML BAG IV SCH (09:00)
[2024-09-05] MEDS ORDERED: METOPROLOL SUCC 25MG EXT REL TAB PO SCH (09:00)
--- NOTE | 2024-09-05 09:35 | Nephrology Progress Note ---
Date of Service September 05, 2024 Assessment & Plan Admission and Anticipated Discharge Date Admission Date: September 02, 2024 Subjective Assessment & Plan (1) Acute renal failure superimposed on stage 4 chronic kidney disease: 63/M with CKD 3b/4 with baseline creat low to mid 2's. he currently has DARRIAN now with peak creat of 5.6 Likely pre renal in the setting of Low BP and Sepsis. Creat did come down with Iv fluids which is encouraging. Continue to give IVF-- NS at 100 ml /hr. No dialysis needed as of now with improving labs but still not out of d Creat down to 3.4 compared to baseline of low to mid 2's. I also instructed him that he needs to find a client relationship manager for regular care in [place] area given that he is getting closer and closer to dialysis and since she lives in [place] he need to have dialysis there when it is needed (2) Acute hyperkalemia/Hypokalemia : from 6.5 now actually low. he has had super low K mostly in the past. Difficult as he has h/o very very low K last admission. true to his regular pattern he is back being very low. will put him back on kcl 40 bid. Also in the past K never normalizes unless he is also on Amiloride. restart at 5 daily. In the past his stable dose has been Amiloride 5 daily and kcl 20-40 meq daily. Check labs again in PM (3) Acute hyponatremia: Hypovolemic type Plus related with Severe DARRIAN. na rising with isotonic Sodium bicarb. Change to NS at 100ml/hr. na rising and is upto 135 today 4--Hypocalcemia--very low Ca but alb also super low. Check Ionized Ca in AM. give 10 gm Andre gluconate over 10 hrs --IVPB. Called pharmacy for this. (4) SIRS with acute organ dysfunction due to infectious process: Unclear source. also has Coronovirus. Abx stopped and now on oral Caspofungin alone time spent 48 mins. communicated with Primary team RN and Pharmacy. S--making urine. BP not low anymore. very abnormal lytes pattern Physical Exam Physical Exam: General- Not in acute distress. still somewhat confused but better than yesterday Head- atraumatic ENT- oropharynx dry Neck- supple, no JVD. Lungs- clear to auscultation no wheezing or crackles Heart- regular rate and rhythm; no murmur, no gallop. Abdomen- normal bowel sounds, soft, nontender, no distension Extremities- chronic skin changes seen in lower extremities. Trace edema Neuro- alert, no dysarthria; moves extremities Results & Data Vital Signs (Past 12 Hours) Vital Signs Temp Pulse Pulse Resp BP Pulse Ox O2 Del Method 09/05/24 08:40 36.6 C 56 L 18 111/69 96 Room Air 09/05/24 03:18 36.7 C 71 20 106/64 91 Room Air 09/05/24 01:32 67 09/04/24 23:13 36.9 C 68 20 109/67
[2024-09-05] MEDS: NSS IV SCH (10:12)
[2024-09-05] MEDS: CALCIUM GLUCONATE IV SCH (10:12)
[2024-09-05] MEDS: aMILoride HCL 5 MG TAB PO SCH (11:17)
[2024-09-05] MEDS: CALCIUM CARBONATE 1,250 MG/5 ML UDC PO SCH (11:18)
--- NOTE | 2024-09-05 11:49 | Hospitalist Progress Note ---
Date of Service September 05, 2024 Assessment & Plan (1) Acute UTI (urinary tract infection): (2) Sepsis: (3) SIRS with acute organ dysfunction due to infectious process: (4) Elevated procalcitonin: (5) Acute hyponatremia: (6) Acute hyperkalemia: (7) Acute renal failure: (8) Esophageal candidiasis: (9) Neurogenic bladder: (10) Poliomyelitis: Plan 63 year old male w/ history of neurogenic bladder secondary to childhood polio, CKD, IBS-D, recurrent hypokalemia, mood disorder and others below admitted through the ED w/ UTI, DARRIAN on CKD. Patient found to have severe sepsis on arrival with uncompensated metabolic acidosis and was given insulin/dextrose and started on a NaHCO3 infusion. DARRIAN on CKD NAGMA Hyperkalemia and Hypokalemia Hypocalcemia Hypomagnesemia on admission, unable able to assess degree on po intake, states "less dr pepper than usual" but some intake bicarb drip initially, has since been discontinued Supplementing electrolytes nephrology consulted, appreciate further recs Metabolic encephalopathy likely multifactorial Pt with noted sepsis and UTI hold tramadol treat above darrian symptom management for URI and sepsis delirium precautions Improved Sepsis Complicated UTI Coronavirus infection UA suggestive of infection, urine Cx NGTD droplet precautions WBC 19, hypotension Blood Cx x2 sets NGTD empiric abx with IV dapto and Zosyn, day 5/ WBC improved ID consulted, recommended discontinuing abx Continue to monitor Hypotension patient with persistently low blood pressures Will hold home metoprolol in the setting of sepsis Continue midodrine Has been receiving IV fluids A.m. cortisol Continue to monitor Improving esophageal candidiasis diffuse candidiasis noted on EGD completed last admission in Jul Throat Cx grew sachi glabarata and few albicans Was on po fluconazole discussed with pharmacy, recommended switching to med like caspo after discussion with ID Formal ID consult placed as well -recommended discontinuation of rx given resolution of symptoms qtc stable continue to monitor IBS: Diarrhea Repeat c diff negative On Lomotil; continue Poliomyelitis: Neurogenic bladder: Polio as a child Difficulty with catheter placement; appreciate Urology assistance Thrombocytopenia Possibly medication related AM peripheral smear Diet: HH Code Status: Full Code VTE Prophylaxis: SCDs in setting of thrombocytopenia Admission and Anticipated Discharge Date Admission Date: September 02, 2024 Subjective Patient was seen laying in bed, nursing staff and at bedside Denied acute concerns Review of Systems Review of Systems: All systems reviewed & are unremarkable except as noted in Subjective Physical Exam Physical Exam: General: Alert, oriented. Psych: Appropriate mood and affect Neuro: oriented x 3 HEENT: NC CV: RRR Resp: Breath sounds clear bilaterally, no increased effort of breathing Abdomen: Soft, nontender Results & Data Results & Data Vital Signs (Past 12 Hours) Vital Signs Temp Pulse Pulse Resp BP Pulse Ox O2 Del Method 09/05/24 09:00 Room Air 09/05/24 08:40 36.6 C 56 L 18 111/69 96 Room Air 09/05/24 03:18 36.7 C 71 20 106/64 91 Room Air 09/05/24 01:32 67
[2024-09-05] MEDS ORDERED: DIPHENOXYLATE/ATROPINE 2.5/0.025MG 5ML PO PRN (12:45)
[2024-09-05] MEDS ORDERED: POTASSIUM CHLORIDE CRTAB 20 MEQ TABCR PO SCH (13:00)
[2024-09-05] MEDS: POTASSIUM CHLORIDE CRTAB 20 MEQ TABCR PO SCH (20:03)
[2024-09-05] MEDS: traMADol HCL 50 MG TABLET PO SCH (20:03)
[2024-09-05] MEDS: DIPHENOXYLATE/ATROPINE 2.5/0.025MG TAB PO PRN (20:41)
[2024-09-05 22:23] LABS: Albumin Level 2.6 gm/dl (3.4-5.0); BUN Creatinine Ratio 5.8 (10-20); Calcium 7.8 mg/dl (8.6-10.3); Creatinine Clr Calc Pharmacy 21.1 ml/min; Phosphorus 3.8 mg/dl (2.5-4.9); Potassium 3.1 mmol/L (3.5-5.1)
[2024-09-06 06:16] LABS: Basophils # (auto) 0.15 K/uL (0.00-0.20); Basophils % (auto) 2.1 %; Eosinophils % (auto) 4.2 %; Hemoglobin 9.3 g/dl (14.0-18.0); Immature Granulocytes # (auto) 0.06 K/uL (0.01-0.20); Immature Granulocytes % (auto) 0.8 %; Lymphocytes # (auto) 1.16 K/uL (1.20-3.40); Lymphocytes % (auto) 16.3 %; Mean Corpuscular Hemoglobin 31.3 pg (25.0-34.0); Mean Corpuscular Hgb Conc 33.2 g/dL (32.0-36.0); Mean Corpuscular Volume 94.3 fL (80.0-100.0); Mean Platelet Volume 12.5 fL (9.4-12.4); Monocytes # (auto) 0.52 K/uL (0.11-0.59); Monocytes % (auto) 7.3 %; Neutrophils # (auto) 4.93 K/uL (1.40-6.50); Neutrophils % (auto) 69.3 %; Platelet Count 88 K/uL (130-400); RDW Coefficient of Variation 16.6 % (11.5-14.5); RDW Standard Deviation 57.2 fL (36.4-46.3); Red Blood Count 2.97 M/uL (4.70-6.10); White Blood Count 7.12 K/ul (4.8-10.8)
[2024-09-06 06:26] LABS: Albumin Globulin Ratio 0.9 (0.9-2); Albumin Level 2.6 gm/dl (3.4-5.0); BUN Creatinine Ratio 5.9 (10-20); Bilirubin,Total 0.4 mg/dl (0.2-1.0); Calcium 7.3 mg/dl (8.6-10.3); Magnesium 1.5 mg/dl (1.7-2.4); Phosphorus 3.1 mg/dl (2.5-4.9); Potassium 3.3 mmol/L (3.5-5.1); Total Protein 5.6 gm/dl (6.0-8.3)
[2024-09-06 07:26] LABS: Tear Drop Cells Occasional
[2024-09-06] MEDS: MAGNESIUM SULFATE / D5W 1 GM/100 ML BAG IV SCH (10:26)
--- NOTE | 2024-09-06 11:45 | Hospitalist Progress Note ---
Date of Service September 06, 2024 Assessment & Plan (1) Acute UTI (urinary tract infection): (2) Sepsis: (3) SIRS with acute organ dysfunction due to infectious process: (4) Elevated procalcitonin: (5) Acute hyponatremia: (6) Acute hyperkalemia: (7) Acute renal failure: (8) Esophageal candidiasis: (9) Neurogenic bladder: (10) Poliomyelitis: Plan 63 year old male w/ history of neurogenic bladder secondary to childhood polio, CKD, IBS-D, recurrent hypokalemia, mood disorder and others below admitted through the ED w/ UTI, DARRIAN on CKD. Patient found to have severe sepsis on arrival with uncompensated metabolic acidosis and was given insulin/dextrose and started on a NaHCO3 infusion. DARRIAN on CKD NAGMA Hyperkalemia and Hypokalemia Hypocalcemia Hypomagnesemia on admission, unable able to assess degree on po intake, states "less dr pepper than usual" but some intake bicarb drip initially, has since been discontinued Supplementing electrolytes nephrology consulted, appreciate further recs Metabolic encephalopathy likely multifactorial Pt with noted sepsis and UTI hold tramadol treat above darrian symptom management for URI and sepsis delirium precautions Improved Sepsis Complicated UTI Coronavirus infection UA suggestive of infection, urine Cx NGTD droplet precautions WBC 19, hypotension Blood Cx x2 sets NGTD empiric abx with IV dapto and Zosyn, day 5/ WBC improved ID consulted, recommended discontinuing abx Continue to monitor Hypotension patient with persistently low blood pressures Will hold home metoprolol in the setting of sepsis Continue midodrine Has been receiving IV fluids A.m. cortisol Continue to monitor Improving esophageal candidiasis diffuse candidiasis noted on EGD completed last admission in Jul Throat Cx grew sachi glabarata and few albicans Was on po fluconazole discussed with pharmacy, recommended switching to med like caspo after discussion with ID Formal ID consult placed as well -recommended discontinuation of rx given resolution of symptoms qtc stable continue to monitor IBS: Diarrhea Repeat c diff negative On Lomotil; continue Poliomyelitis: Neurogenic bladder: Polio as a child Difficulty with catheter placement; appreciate Urology assistance Thrombocytopenia Possibly medication related AM peripheral smear Diet: HH Code Status: Full Code VTE Prophylaxis: SCDs in setting of thrombocytopenia Admission and Anticipated Discharge Date Admission Date: September 02, 2024 Subjective patient was seen with at bedside States no acute events overnight Anxious for discharge Review of Systems Review of Systems: All systems reviewed & are unremarkable except as noted in Subjective Physical Exam Physical Exam: General: Alert, oriented. Psych: Appropriate mood and affect Neuro: oriented x 3 HEENT: NC CV: RRR Resp: Breath sounds clear bilaterally, no increased effort of breathing Abdomen: Soft, nontender Results & Data Results & Data Vital Signs (Past 12 Hours) Vital Signs Temp Pulse Resp BP Pulse Ox O2 Del Method 09/06/24 11:06 36.8 C 62 18 110/70 98 Room Air 09/06/24 08:04 36.9 C 64 18 115/69 98 Room Air 09/06/24 08:00 Room Air 09/06/24 05:13 36.7 C 62 18 109/69 96 Room Air
--- NOTE | 2024-09-06 16:42 | Nephrology Progress Note ---
Date of Service September 06, 2024 Assessment & Plan (1) Acute renal failure superimposed on stage 4 chronic kidney disease: Plan: 63/M with CKD 3b/4 with baseline creat low to mid 2's. Patient has ATN due to sepsis with peak creat of 5.6 but downtrending to 3 today. Electrolytes are stable no signs of volume overload. No indication for dialysis. Monitor renal function daily. - Avoid nephrotoxins - avoid hypotension (2) Acute hyperkalemia: Plan: patient admitted with hyperkalemia in setting of potassium supplements. This has improved and potassium now on the lower side. - Continue KCl 40 minute equivalents twice daily and amiloride Continue monitor daily. (3) Acute hyponatremia: Plan: Hypovolemic type Plus related with Severe DARRIAN. sodium 134 today. (4) SIRS with acute organ dysfunction due to infectious process: Plan: Unclear source. also has Coronovirus. broad spectrum Abx for now Plan Case complexity moderately high. Total time spent 62 minutes Admission and Anticipated Discharge Date Admission Date: September 02, 2024 Subjective Seen for acute kidney injury and electrolyte abnormalities. Main complaint is diarrhea. No shortness of breath. Still hypokalemia. Creatinine downtrending. Review of Systems 2 Review of Systems: All other systems were reviewed and negative except as noted in HPI Physical Exam 2 Physical Exam: General exam: Appears comfortable, no acute distress HEENT: Pupils are equal and reactive to light Neck: No JVD, neck is supple trachea is midline Respiratory system: Clear breath sounds bilaterally. Gastrointestinal: Abdomen is soft, non distended, non tender, bowel sounds are present CVS: Regular rate and rhythm. No murmurs, rubs or gallops Musculoskeletal: No joint or muscle tenderness Extremities: Non tender, no edema, peripheral pulses are present Neuro: Oriented, no tremors, no focal neurological deficits Skin: No rashes Results & Data Vital Signs (Past 12 Hours) Vital Signs Temp Pulse Resp BP Pulse Ox O2 Del Method 09/06/24 15:14 36.8 C 61 18 115/74 97 Room Air 09/06/24 11:06 36.8 C 62 18 110/70 98 Room Air 09/06/24 08:04 36.9 C 64 18 115/69 98 Room Air 09/06/24 08:00 Room Air 09/06/24 05:13 36.7 C 62 18 109/69 96 Room Air Laboratory Results 09/06/24 05:50 09/05/24 09/06/24 21:02 05:50 WBC 7.12 RBC 2.97 L MCV 94.3 MCH 31.3 MCHC 33.2 RDW Std Deviation 57.2 H RDW Coeff of Thao 16.6 H Plt Count 88 L MPV 12.5 H Phosphorus 3.8 3.1 Albumin 2.6 L 2.6 L
[2024-09-07 06:30] LABS: Basophils # (auto) 0.16 K/uL (0.00-0.20); Eosinophils # (auto) 0.43 K/uL (0.00-0.50); Eosinophils % (auto) 5.4 %; Hematocrit (blood only) 28.8 % (42.0-52.0); Hemoglobin 9.4 g/dl (14.0-18.0); Immature Granulocytes # (auto) 0.07 K/uL (0.01-0.20); Immature Granulocytes % (auto) 0.9 %; Lymphocytes % (auto) 25.3 %; Mean Corpuscular Hemoglobin 30.5 pg (25.0-34.0); Mean Corpuscular Hgb Conc 32.6 g/dL (32.0-36.0); Mean Corpuscular Volume 93.5 fL (80.0-100.0); Mean Platelet Volume 12.1 fL (9.4-12.4); Monocytes # (auto) 0.44 K/uL (0.11-0.59); Monocytes % (auto) 5.6 %; Neutrophils # (auto) 4.82 K/uL (1.40-6.50); Neutrophils % (auto) 60.8 %; Platelet Count 91 K/uL (130-400); RDW Coefficient of Variation 16.8 % (11.5-14.5); RDW Standard Deviation 57.1 fL (36.4-46.3); Red Blood Count 3.08 M/uL (4.70-6.10); White Blood Count 7.92 K/ul (4.8-10.8)
[2024-09-07 07:00] LABS: Albumin Globulin Ratio 0.8 (0.9-2); Albumin Level 2.6 gm/dl (3.4-5.0); BUN Creatinine Ratio 5.6 (10-20); Bilirubin,Total 0.5 mg/dl (0.2-1.0); Calcium 6.9 mg/dl (8.6-10.3); Creatinine Clr Calc Pharmacy 30.7 ml/min; Globulin 3.1 gm/dl (2.5-4.0); Magnesium 1.6 mg/dl (1.7-2.4); Phosphorus 2.3 mg/dl (2.5-4.9); Potassium 3.4 mmol/L (3.5-5.1); Total Protein 5.7 gm/dl (6.0-8.3)
[2024-09-07] MEDS: CHOLECALCIFEROL 125 MCG (5,000 UNITS) TAB PO SCH (09:38)
[2024-09-07] MEDS: MAGNESIUM SULFATE / D5W 1 GM/100 ML BAG IV SCH (09:39)
[2024-09-07] MEDS: CALCIUM GLUCONATE 1,000 MG/60 ML BAG IV SCH (09:39)
--- NOTE | 2024-09-07 10:02 | Gastrointestinal Consultation ---
Date of Consultation September 07, 2024 Assessment & Plan (1) Diarrhea: I suspect the primary cause for his diarrhea is COVID which is associated with diarrhea. It should resolve with resolution of his viral infection. Condition on his med list there are multiple drugs that can contribute to diarrhea inc luding magnesium, potassium and polyethylene glycol to ensure he is not getting any of these. C. difficile gene is negative I will consider getting a complementary test to confirm that he does not have C. difficile. Such as Beverley for toxin gene or the PCR. In addition I would send off a full stool panel to exclude another bacterial infection which is unlikely but needs to be excluded. History of Present Illness Reason for Consultation: Diarrhea Attending Physician: Adrianne Puente MD History of Present Illness Admitted this admission for acute renal injury and hyperkalemia. Found to be COVID-positive. During his hospitalization he has had diarrhea which is C. difficile gene negative. His diarrhea has persisted. Denies any abdominal pain nausea vomiting. No hematemesis no melena. No prior history of significant GI illnesses. Today he feels his diarrhea is slowly getting better. Allergies Allergy/AdvReac Type Severity Reaction Status Date / Time No Known Allergies Allergy Unverified 09/02/24 15:30 Home Medications Medication Instructions Recorded Confirmed Type calcium 500 mg (as 1 tab PO BID 08/19/24 09/02/24 History carbonate)-vitamin D3 15 mcg (600 unit) tablet citalopram 40 mg tablet 40 mg PO DAILY 08/19/24 09/02/24 History cyanocobalamin (vitamin B-12) 1,000 mcg IM MONTHLY 08/19/24 09/02/24 History 1,000 mcg/mL injection solution doxepin 25 mg capsule 25 - 50 mg PO HS 08/19/24 09/02/24 History metoprolol succinate 25 mg 25 mg PO DAILY 08/19/24 09/02/24 History tablet,extended release 24 hr tramadol 50 mg tablet 50 mg PO BID Pain 08/19/24 09/02/24 History calcitriol 0.25 mcg capsule 0.75 mcg (3 x 0.25 mcg) PO DAILY 08/24/24 09/02/24 Rx #90 caps cholecalciferol (vitamin D3) 125 125 mcg PO QAM #30 tabs 08/24/24 09/02/24 Rx mcg (5,000 unit) tablet dicyclomine 10 mg capsule 10 mg PO QID #120 caps 08/24/24 09/02/24 Rx diphenoxylate-atropine 2.5 1 tab PO TID #90 tabs 08/24/24 09/02/24 Rx mg-0.025 mg tablet fluconazole 100 mg tablet 100 mg PO QAM #16 tabs 08/24/24 09/02/24 Rx (Diflucan) magnesium chloride 64 mg 64 mg PO QAM #30 tabs 08/24/24 09/02/24 Rx (magnesium chloride) tablet,delayed release (Mag 64) pantoprazole 40 mg tablet,delayed 40 mg PO BID #60 tabs 08/24/24 09/02/24 Rx release potassium chloride 20 mEq 40 meq (2 x 20 mEq) PO BID #120 08/24/24 09/02/24 Rx tablet,extended release tabs amiloride 5 mg tablet 5 mg PO UD 09/02/24 09/02/24 History loperamide 2 mg capsule 4 mg PO TID PRN as directed 09/02/24 09/02/24 History Patient History Medical History Renal insufficiency Poliomyelitis as child CKD (chronic kidney disease) stage 4, GFR 15-29 ml/min baseline creat 2 in 2020 Neurogenic bladder Surgical History History of hip surgery Hx of cholecystectomy Family History Other Diabetes Social History Smoking Status: Never smoker Second Hand Exposure: No; Do You Dip or Chew Tobacco: No; Hx Alcohol Use: Yes Hx Substance Use: No Preferred Language: [place]an Communication Ability: Impaired Communication Ability Comment: Hard of Heading Composition Roll Maker And Cutter Required: No Beliefs That Will Affect Care: None Current Living Situation: Spouse Feels Safe at Home: Yes Assistive Devices: Walker Review of Systems Review of Systems: No fever No chills No SOB No CP No Abd pain Physical Exam Physical Exam: Eyes; anicteric HENT No masses Chest clear to A Cor S1, S2 physiologic Abd: softer nontender no masses Ext no edema Results & Data Vital Signs (Past 12 Hours) Vital Signs Temp Pulse Resp BP BP Pulse Ox O2 Del Method 09/07/24 08:00 36.6 C 69 18 95/59 L 96 Room Air 09/07/24 03:23 36.6 C 70 16 95/59 L 96 Room Air 09/06/24 23:19 36.7 C 62 18 100/58 L 97 Room Air Laboratory Results Laboratory Results - last 48 hr 09/05/24 09/05/24 09/06/24 21:02 Unknown 05:50 WBC 7.12 RBC 2.97 L Hgb 9.3 L Hct 28.0 L MCV 94.3 MCH 31.3 MCHC 33.2 RDW Std Deviation 57.2 H RDW Coeff of Thao 16.6 H Plt Count 88 L MPV 12.5 H Immature Gran % (Auto) 0.8 Neut % (Auto) 69.3 Lymph % (Auto) 16.3 Posey % (Auto) 7.3 Eos % (Auto) 4.2 Baso % (Auto) 2.1 Neut # (Auto) 4.93 Lymph # (Auto) 1.16 L Posey # (Auto) 0.52 Eos # (Auto) 0.30 Baso # (Auto) 0.15 Immature Gran # (Auto) 0.06 Tear Drop Cells Occasional Sodium 135 L 134 L Potassium 3.1 L 3.3 L Chloride 107 109 H Carbon Dioxide 17 L 19 L Anion Gap 11 6 BUN 20 18 Creatinine 3.45 H D 3.03 H D Est Cr Clr Drug Dosing 21.1 24.0 eGFR 19.25 22.50 BUN/Creatinine Ratio 5.8 L 5.9 L Glucose 127 H 91 Calcium 7.8 L D 7.3 L Ionized Calcium 1.19 1.12 Phosphorus 3.8 3.1 Magnesium 1.5 L Total Bilirubin 0.4 AST 36 ALT 11 Alkaline Phosphatase 85 Total Protein 5.6 L Albumin 2.6 L 2.6 L Globulin 3.0 Albumin/Globulin Ratio 0.9 Stl C. diff Tox B Gene Negative Cdiff Gene 09/07/24 06:15 WBC 7.92 RBC 3.08 L Hgb 9.4 L Hct 28.8 L MCV 93.5 MCH 30.5 MCHC 32.6 RDW Std Deviation 57.1 H RDW Coeff of Thao 16.8 H Plt Count 91 L MPV 12.1 Immature Gran % (Auto) 0.9 Neut % (Auto) 60.8 Lymph % (Auto) 25.3 Posey % (Auto) 5.6 Eos % (Auto) 5.4 Baso % (Auto) 2.0 Neut # (Auto) 4.82 Lymph # (Auto) 2.00 Posey # (Auto) 0.44 Eos # (Auto) 0.43 Baso # (Auto) 0.16 Immature Gran # (Auto) 0.07 Tear Drop Cells Sodium 135 L Potassium 3.4 L Chloride 110 H Carbon Dioxide 18 L Anion Gap 7 BUN 13 Creatinine 2.31 H D Est Cr Clr Drug Dosing 30.7 eGFR 31.16 BUN/Creatinine Ratio 5.6 L Glucose 98 Calcium 6.9 L Ionized Calcium 1.02 L Phosphorus 2.3 L Magnesium 1.6 L Total Bilirubin 0.5 AST 31 ALT 14 Alkaline Phosphatase 87 Total Protein 5.7 L Albumin 2.6 L Globulin 3.1 Albumin/Globulin Ratio 0.8 L Stl C. diff Tox B Gene PG Care Time/CCT Total # of Minutes Spent Total Time Spent with Patient: Total time spent is greater than 50% in coordination of care (as documented) at patient's floor/unit and/or counseling patient: Coding Level of Care Code 71549 IN/OBS CONSULT LVL 4,60M Diagnoses Diarrhea R19.7
--- NOTE | 2024-09-07 12:17 | Hospitalist Progress Note ---
Date of Service September 07, 2024 Assessment & Plan (1) Acute UTI (urinary tract infection): (2) Sepsis: (3) SIRS with acute organ dysfunction due to infectious process: (4) Elevated procalcitonin: (5) Acute hyponatremia: (6) Acute hyperkalemia: (7) Acute renal failure: (8) Esophageal candidiasis: (9) Neurogenic bladder: (10) Poliomyelitis: Plan 63 year old male w/ history of neurogenic bladder secondary to childhood polio, CKD, IBS-D, recurrent hypokalemia, mood disorder and others below admitted through the ED w/ UTI, DARRIAN on CKD. Patient found to have severe sepsis on arrival with uncompensated metabolic acidosis and was given insulin/dextrose and started on a NaHCO3 infusion. DARRIAN on CKD NAGMA Hyperkalemia and Hypokalemia Hypocalcemia Hypomagnesemia on admission, unable able to assess degree on po intake, states "less dr pepper than usual" but some intake bicarb drip initially, has since been discontinued Supplementing electrolytes nephrology consulted, appreciate further recs Metabolic encephalopathy likely multifactorial Pt with noted sepsis and UTI hold tramadol treat above darrian symptom management for URI and sepsis delirium precautions Improved Sepsis Complicated UTI Coronavirus infection UA suggestive of infection, urine Cx NGTD droplet precautions WBC 19, hypotension Blood Cx x2 sets NGTD empiric abx with IV dapto and Zosyn, day 5/ WBC improved ID consulted, recommended discontinuing abx Continue to monitor Hypotension patient with persistently low blood pressures Will hold home metoprolol in the setting of sepsis Continue midodrine Has been receiving IV fluids A.m. cortisol Continue to monitor Improving esophageal candidiasis diffuse candidiasis noted on EGD completed last admission in Jul Throat Cx grew sachi glabarata and few albicans Was on po fluconazole discussed with pharmacy, recommended switching to med like caspo after discussion with ID Formal ID consult placed as well -recommended discontinuation of rx given resolution of symptoms qtc stable continue to monitor IBS: Diarrhea Repeat c diff negative On Lomotil; continue GI consulted, appreciate recs Poliomyelitis: Neurogenic bladder: Polio as a child Difficulty with catheter placement; appreciate Urology assistance Thrombocytopenia Possibly medication related AM peripheral smear Diet: HH Code Status: Full Code VTE Prophylaxis: SCDs in setting of thrombocytopenia Admission and Anticipated Discharge Date Admission Date: September 02, 2024 Subjective Patient and seen later in the day They are anxious for discharge He otherwise denies acute concerns Review of Systems Review of Systems: All systems reviewed & are unremarkable except as noted in Subjective Physical Exam Physical Exam: General: Alert, oriented. Psych: Appropriate mood and affect Neuro: oriented x 3 HEENT: NC CV: RRR Resp: Breath sounds clear bilaterally, no increased effort of breathing Abdomen: Soft, nontender Results & Data Results & Data Vital Signs (Past 12 Hours) Vital Signs Temp Pulse Resp BP BP Pulse Ox O2 Del Method 09/07/24 08:00 Room Air 09/07/24 08:00 36.6 C 69 18 95/59 L 96 Room Air 09/07/24 03:23 36.6 C 70 16 95/59 L 96 Room Air
[2024-09-07 15:50] LABS: BUN Creatinine Ratio 5.1 (10-20); Calcium 7.7 mg/dl (8.6-10.3); Creatinine Clr Calc Pharmacy 32.6 ml/min; Potassium 3.3 mmol/L (3.5-5.1)
[2024-09-07] MEDS ORDERED: POTASSIUM PHOS 3 MMOL/1 ML INFUSION IV STA (15:54)
--- NOTE | 2024-09-07 15:55 | Nephrology Progress Note ---
Date of Service September 07, 2024 Assessment & Plan (1) Acute renal failure superimposed on stage 4 chronic kidney disease: Plan: 63/M with CKD 3b/4 with baseline creat low to mid 2's. Patient has ATN due to sepsis with peak creat of 5.6 but downtrending to 2.3 today. He has hypokalemia of 3.4 and hypomagnesemia, 1.6. Calcium was also low, 6.9. no signs of volume overload. - will start vitamin D3 5000 units daily - continue magnesium and phosphorus supplements as needed. - Avoid nephrotoxins - avoid hypotension (2) Acute hyperkalemia: Plan: patient admitted with hyperkalemia in setting of potassium supplements. This has improved and potassium now on the lower side. - Continue KCl 40 minute equivalents twice daily and amiloride Continue monitor daily. (3) Acute hyponatremia: Plan: Hypovolemic type Plus related with Severe DARRIAN. sodium 134 today. (4) SIRS with acute organ dysfunction due to infectious process: Plan: Unclear source. also has Coronovirus. broad spectrum Abx for now Plan Case complexity moderately high. Total time spent 62 minutes Admission and Anticipated Discharge Date Admission Date: September 02, 2024 Subjective seen for acute kidney injury and electrolyte imbalance. He feels better today. Still has ongoing diarrhea. Potassium and magnesium still low. Calcium is also low. Review of Systems 2 Review of Systems: All other systems were reviewed and negative except as noted in HPI Physical Exam 2 Physical Exam: General exam: Appears comfortable, no acute distress HEENT: Pupils are equal and reactive to light Neck: No JVD, neck is supple trachea is midline Respiratory system: Clear breath sounds bilaterally. Gastrointestinal: Abdomen is soft, non distended, non tender, bowel sounds are present CVS: Regular rate and rhythm. No murmurs, rubs or gallops Musculoskeletal: No joint or muscle tenderness Extremities: Non tender, no edema, peripheral pulses are present Neuro: Oriented, no tremors, no focal neurological deficits Skin: No rashes Results & Data Vital Signs (Past 12 Hours) Vital Signs Temp Pulse Resp BP Pulse Ox O2 Del Method 09/07/24 12:46 36.8 C 62 18 121/73 92 Room Air 09/07/24 08:00 Room Air 09/07/24 08:00 36.6 C 69 18 95/59 L 96 Room Air Laboratory Results 09/07/24 14:57 09/07/24 09/07/24 06:15 14:57 WBC 7.92 RBC 3.08 L MCV 93.5 MCH 30.5 MCHC 32.6 RDW Std Deviation 57.1 H RDW Coeff of Thao 16.8 H Plt Count 91 L MPV 12.1 Phosphorus 2.3 L 2.0 L Albumin 2.6 L
[2024-09-07] MEDS: POTASSIUM PHOSPHATE 21 MMOL in SODIUM CHLORIDE 0.9% 500 ML IV ONE (16:16)
[2024-09-07] MEDS: POTASSIUM CHLORIDE / WTR 10 MEQ/100 ML PLCT IV SCH (16:17)
[2024-09-08 06:09] LABS: Basophils # (auto) 0.14 K/uL (0.00-0.20); Basophils % (auto) 1.4 %; Eosinophils # (auto) 0.48 K/uL (0.00-0.50); Eosinophils % (auto) 4.7 %; Hematocrit (blood only) 31.2 % (42.0-52.0); Immature Granulocytes # (auto) 0.08 K/uL (0.01-0.20); Immature Granulocytes % (auto) 0.8 %; Lymphocytes # (auto) 1.92 K/uL (1.20-3.40); Lymphocytes % (auto) 18.7 %; Mean Corpuscular Hemoglobin 30.8 pg (25.0-34.0); Mean Corpuscular Hgb Conc 32.1 g/dL (32.0-36.0); Mean Platelet Volume 12.5 fL (9.4-12.4); Monocytes # (auto) 0.59 K/uL (0.11-0.59); Monocytes % (auto) 5.7 %; Neutrophils # (auto) 7.06 K/uL (1.40-6.50); Neutrophils % (auto) 68.7 %; Platelet Count 98 K/uL (130-400); RDW Standard Deviation 59.8 fL (36.4-46.3); Red Blood Count 3.25 M/uL (4.70-6.10); White Blood Count 10.27 K/ul (4.8-10.8)
[2024-09-08 06:22] LABS: Albumin Globulin Ratio 0.8 (0.9-2); Albumin Level 2.6 gm/dl (3.4-5.0); BUN Creatinine Ratio 4.8 (10-20); Bilirubin,Total 0.4 mg/dl (0.2-1.0); Calcium 7.1 mg/dl (8.6-10.3); Creatinine Clr Calc Pharmacy 34.4 ml/min; Globulin 3.3 gm/dl (2.5-4.0); Magnesium 1.6 mg/dl (1.7-2.4); Phosphorus 2.6 mg/dl (2.5-4.9); Potassium 3.8 mmol/L (3.5-5.1); Total Protein 5.9 gm/dl (6.0-8.3)
[2024-09-08] MEDS: MAGNESIUM OXIDE 400 MG TAB PO SCH (09:26)
[2024-09-08] MEDS: CALCIUM GLUCONATE 1,000 MG/60 ML BAG IV SCH (09:32)
[2024-09-08] MEDS: MAGNESIUM SULFATE / D5W 1 GM/100 ML BAG IV SCH (09:33)
--- NOTE | 2024-09-08 10:34 | Hospitalist Progress Note ---
Date of Service September 08, 2024 Assessment & Plan (1) Acute UTI (urinary tract infection): (2) Sepsis: (3) SIRS with acute organ dysfunction due to infectious process: (4) Elevated procalcitonin: (5) Acute hyponatremia: (6) Acute hyperkalemia: (7) Acute renal failure: (8) Esophageal candidiasis: (9) Neurogenic bladder: (10) Poliomyelitis: Plan 63 year old male w/ history of neurogenic bladder secondary to childhood polio, CKD, IBS-D, recurrent hypokalemia, mood disorder and others below admitted through the ED w/ UTI, DARRIAN on CKD. Patient found to have severe sepsis on arrival with uncompensated metabolic acidosis and was given insulin/dextrose and started on a NaHCO3 infusion. DARRIAN on CKD NAGMA Hyperkalemia and Hypokalemia Hypocalcemia Hypomagnesemia on admission, unable able to assess degree on po intake bicarb drip initially, has since been discontinued Supplementing electrolytes nephrology consulted, appreciate further recs Metabolic encephalopathy likely multifactorial Pt with noted sepsis and UTI hold tramadol treat above darrian symptom management for URI and sepsis delirium precautions Improved Sepsis Complicated UTI Coronavirus infection UA suggestive of infection, urine Cx NGTD droplet precautions WBC 19, hypotension Blood Cx x2 sets NGTD empiric abx with IV dapto and Zosyn, day 5/5 WBC improved ID consulted, recommended discontinuing abx Continue to monitor Hypotension patient with persistently low blood pressures Will hold home metoprolol in the setting of sepsis Continue midodrine Has been receiving IV fluids A.m. cortisol Continue to monitor Improving esophageal candidiasis diffuse candidiasis noted on EGD completed last admission in Jul Throat Cx grew sachi glabarata and few albicans Was on po fluconazole discussed with pharmacy, recommended switching to med like caspo after discussion with ID Formal ID consult placed as well -recommended discontinuation of rx given resolution of symptoms qtc stable continue to monitor IBS: Diarrhea Repeat c diff negative On Lomotil; continue GI consulted, appreciate recs Poliomyelitis: Neurogenic bladder: Polio as a child Difficulty with catheter placement; appreciate Urology assistance Thrombocytopenia Possibly medication related AM peripheral smear Diet: HH Code Status: Full Code VTE Prophylaxis: SCDs in setting of thrombocytopenia Admission and Anticipated Discharge Date Admission Date: September 02, 2024 Subjective Patient was seen with at bedside Still anxious for discharge Still requiring electrolyte supplementation Otherwise denies acute concerns Review of Systems Review of Systems: All systems reviewed & are unremarkable except as noted in Subjective Physical Exam Physical Exam: General: Alert, oriented. Psych: Appropriate mood and affect Neuro: oriented x 3 HEENT: NC CV: RRR Resp: Breath sounds clear bilaterally, no increased effort of breathing Abdomen: Soft, nontender Results & Data Results & Data Vital Signs (Past 12 Hours) Vital Signs Temp Pulse Pulse Resp BP Pulse Ox O2 Del Method 09/08/24 07:36 63 09/07/24 23:36 36.8 C 68 19 104/68 98 Room Air 09/07/24 23:04 65
--- NOTE | 2024-09-08 12:02 | Nephrology Progress Note ---
Date of Service September 08, 2024 Assessment & Plan (1) Acute renal failure superimposed on stage 4 chronic kidney disease: Plan: resolved nonoliguric Stage 2 nonoliguric DARRIAN on CKD 3b/4 >> 63/M with with baseline creat low to mid 2's. Patient has ATN due to sepsis with peak creat of 5.6 but downtrending further to 2.1 today. He has hypokalemia improved to 3.8 and stable hypomagnesemia, 1.6. Calcium dropped 7.7>7.1; no signs of volume overload. - cont vitamin D3 5000 units daily >>added calcitriol 0.5 mcg and ordered PTH, 25 OHD levels for am - continue magnesium, calcium and phosphorus supplements standing and amiloride >>pls continue daily BMP, phos, mag - Avoid nephrotoxins - avoid hypotension >> continue tid midodrine; would not attempt to wean just yet will need frequent labs at hospital d/c, 2X weekly for a few weeks and close f/u w/ Dr Ge; full d/c recs to follow in am care coordinated w/ Dr Puente via [employer] regarding electrolyte deficits, medications, preparing for d/c home; we are in agreement. (2) Acute hyperkalemia: Plan: patient admitted with hyperkalemia in setting of potassium supplements. This has improved and potassium now on the lower side. was on amiloride and 40 mEq bid K prior to admission > back on these now - Continue KCl 40 minute equivalents twice daily and amiloride 5 mg daily Continue to monitor daily. (3) Acute hyponatremia: Plan: Hypovolemic type Plus related with Severe DARRIAN. sodium 133 today. (4) SIRS with acute organ dysfunction due to infectious process: Plan: Unclear source. also has Coronovirus. off of abtx now Plan Case complexity moderately high. Total time spent 62 minutes Admission and Anticipated Discharge Date Admission Date: September 02, 2024 Subjective seen on afternoon rounds. feels improved; tolerating po; stable chronic diarrhea Review of Systems 2 Review of Systems: All systems reviewed & are unremarkable except as noted in Subjective Physical Exam 2 Constitutional: well developed, + physical limitations and cooperative; no acute distress Eyes: EOM intact bilaterally ENMT: Mouth: oral mucous membranes not dry Respiratory: normal respiratory effort Auscultation: + diminished lung sounds Cardiovascular: Rate/Rhythm: regular rate and regular rhythm Extremities: n o edema Gastrointestinal (Abdomen): Inspection/Auscultation: normal bowel sounds P ercussion/Palpation: abdomen soft; abdomen nontender Musculoskeletal: Extremities: strength 5/5 throughout Skin: no rashes, warm and dry Neurologic: fluent speech, no tremor Results & Data Vital Signs (Past 12 Hours) Vital Signs Temp Pulse Pulse Resp BP Pulse Ox O2 Del Method 09/08/24 11:08 36.6 C 69 18 119/76 98 Room Air 09/08/24 09:43 Room Air 09/08/24 07:36 63 Laboratory Results 09/08/24 05:31 09/08/24 05:31
--- NOTE | 2024-09-08 12:57 | Gastroenterology Progress Note ---
Date of Service September 08, 2024 Assessment & Plan (1) Diarrhea: Plan: Stools are more formed and diarrhea is improving per patient. May have been secondary to covid infection. - would continue to hold miralax. will place a stop order in chart. Admission and Anticipated Discharge Date Admission Date: September 02, 2024 Supervising Physician Co-Signing Physician Notes COVID can be a cause for diarrhea patient was also getting some magnesium and MiraLAX. May contribute. Patient also has a history of underlying IBS-D. At present symptoms improved. GI will sign off reconsult as needed Subjective Diarrhea has been improving per patient. stools more formed today. he did not get miralax today, but did still get magnesium/potassium. no other GI concerns at this time. Review of Systems Review of Systems: All systems reviewed & are unremarkable except as noted in HPI & below Physical Exam Constitutional: WD/WN, vitals as above Respiratory: normal respiratory effort, lungs clear to auscultation Cardiovascular: Rate/Rhythm: regular rate and regular rhythm Gastrointestinal (Abdomen): normal bowel sounds, soft, nontender, no hepatosplenomegaly Psychiatric: Orientation: alert and oriented x 3 Affect: euthymic affect Results & Data Results & Data Vital Signs (Past 12 Hours) Vital Signs Temp Pulse Pulse Resp BP Pulse Ox O2 Del Method 09/08/24 11:08 97.9 F 69 18 119/76 98 Room Air 09/08/24 09:43 Room Air 09/08/24 07:36 63 Coding Level of Care Code 97945 SUB INP/OBS CARE 09/20MIN Diagnoses Diarrhea R19.7
[2024-09-08] MEDS: CALCITRIOL 0.25 MCG CAPSULE PO SCH (21:11)
[2024-09-09 07:38] LABS: Basophils # (auto) 0.15 K/uL (0.00-0.20); Basophils % (auto) 1.6 %; Eosinophils # (auto) 0.48 K/uL (0.00-0.50); Eosinophils % (auto) 5.3 %; Hematocrit (blood only) 32.2 % (42.0-52.0); Hemoglobin 10.4 g/dl (14.0-18.0); Immature Granulocytes # (auto) 0.09 K/uL (0.01-0.20); Lymphocytes # (auto) 1.49 K/uL (1.20-3.40); Lymphocytes % (auto) 16.4 %; Mean Corpuscular Hemoglobin 30.4 pg (25.0-34.0); Mean Corpuscular Hgb Conc 32.3 g/dL (32.0-36.0); Mean Corpuscular Volume 94.2 fL (80.0-100.0); Monocytes # (auto) 0.57 K/uL (0.11-0.59); Monocytes % (auto) 6.3 %; Neutrophils # (auto) 6.33 K/uL (1.40-6.50); Neutrophils % (auto) 69.4 %; Platelet Count 96 K/uL (130-400); RDW Standard Deviation 59.2 fL (36.4-46.3); Red Blood Count 3.42 M/uL (4.70-6.10); White Blood Count 9.11 K/ul (4.8-10.8)
[2024-09-09 07:56] LABS: Albumin Globulin Ratio 0.8 (0.9-2); Albumin Level 2.7 gm/dl (3.4-5.0); BUN Creatinine Ratio 5.3 (10-20); Bilirubin,Total 0.5 mg/dl (0.2-1.0); Calcium 7.7 mg/dl (8.6-10.3); Creatinine Clr Calc Pharmacy 37.7 ml/min; Globulin 3.3 gm/dl (2.5-4.0); Magnesium 1.7 mg/dl (1.7-2.4); Phosphorus 2.3 mg/dl (2.5-4.9); Potassium 4.5 mmol/L (3.5-5.1)
--- NOTE | 2024-09-09 09:19 | Discharge Summary ---
Discharge Summary Date of Service September 09, 2024 Principal Dx & Hospital Course #1 = Principal Diagnosis (1) Acute UTI (urinary tract infection): (2) Sepsis: (3) SIRS with acute organ dysfunction due to infectious process: (4) Elevated procalcitonin: (5) Acute hyponatremia: (6) Acute hyperkalemia: (7) Acute renal failure: (8) Esophageal candidiasis: (9) Neurogenic bladder: (10) Poliomyelitis: Plan 63 year old male w/ history of neurogenic bladder secondary to childhood polio, CKD, IBS-D, recurrent hypokalemia, mood disorder and others below admitted through the ED w/ UTI, DARRIAN on CKD. Patient found to have severe sepsis on arrival with uncompensated metabolic acidosis, extreme electrolyte derangements and acute on chronic kidney disease. DARRIAN on CKD NAGMA Hyperkalemia and Hypokalemia Hypocalcemia Hypomagnesemia on admission, unable able to assess degree of po intake bicarb drip initially for metabolic acidosis, has since been discontinued with resolution Supplemented electrolytes nephrology consulted, recommended or stated the following for discharge: " Discharge on the following -calcitriol 0.75 mcg daily ( 3 x 0.25 mcg tabs) -D3 5000 units/125 mcg daily -amiloride 5 mg daily -magnesium chloride one tablet bid -K phos 2 tabs qid -potassium chloride 20 mEq daily -midodrine 5 mg tid -he has appts with Dr Ge on 09/12 and on 10/08 which he should keep -recommend weekly labs (bmp, phos, magnesium), to be drawn by home nursing, first one starting on 09/11, x 3 wks and to be ordered by nephro nurses (pls have d/c conservation planner reach out to neph nurses to give HHN contact info)" Please ensure close follow-up with nephrology after discharge Sepsis Complicated UTI Coronavirus infection UA suggestive of infection, urine Cx NGTD droplet precautions for coronavirus infection WBC 19 on admission with hypotension leukocytosis has since normalized Blood Cx x2 sets NGTD empiric abx with IV dapto and Zosyn, treated for 5 days ID consulted, recommended discontinuing abx Improved on discharge Metabolic encephalopathy likely multifactorial Pt with noted sepsis and UTI likely contributory DARRIAN above treated symptom management for URI and sepsis delirium precautions Mentation improved on discharge. Hypotension Patient with persistently low blood pressures Will hold home metoprolol in the setting of sepsis- discontinued on discharge Continue midodrine 5mg TID Has been receiving IV fluids Improved on discharge esophageal candidiasis diffuse candidiasis noted on EGD completed last admission in Jul Throat Cx grew sachi glabarata and few albicans Was on po fluconazole discussed with pharmacy, recommended switching to med like caspo after discussion with ID Formal ID consult placed as well -recommended discontinuation of rx given resolution of symptoms qtc stable Fluconazole discontinued. IBS: Diarrhea Repeat c diff negative On Lomotil; continue GI consulted, appreciate recs -covid contributing to diarrhea PCP followup after discharge Poliomyelitis: Neurogenic bladder: Polio as a child Difficulty with catheter placement; appreciate Urology assistance with placement Shea discontinued on discharge Thrombocytopenia Anemia Possibly medication related Peripheral smear noting the following: "1. Normochromic/normocytic red blood cells with anisocytosis are seen.2. The leukocytes are unremarkable and a few enlarged platelets are seen,but the main pathologic finding is decreased numbers of platelets and anemia.3. Blasts, schistocytes and spherocytes are all not seen.4. The etiology of this patient's thrombocytopenia is left to further clinical evaluation..." PCP followup after discharge Notes For Next Care Provider please ensure close monitoring of electrolytes and kidney function. Per nephrology will likely need labs at least twice a week Please ensure close follow-up with nephrology Medication Changes From Visit per nephrology: -calcitriol 0.75 mcg daily ( 3 x 0.25 mcg tabs) -D3 5000 units/125 mcg daily -amiloride 5 mg daily -magnesium chloride one tablet bid -K phos 2 tabs qid -potassium chloride 20 mEq daily -midodrine 5 mg tid Admission HPI Per Admitting Provider Patient presented to the ED with his with visual/auditory hallucinations and altered mental status. His stated that over the past 48 hours he 'just has not been acting like himself' and talking 'nonsense'. He has a recent inpatient hospitalization from 08/22-08/24. His , was at bedside and was providing all of the information. He has not been drinking a lot of water, was drinking [place] but overall intake has been down. He was found to be septic on arrival with leukocytosis 19.19, hyperk+ 6.6m elevated creatinine 5.63 and elevated procalcitonin 0.98. Troponin was normal. His complex PMH includes: neurogenic bladder secondary to childhood polio, CKD, IBS-D, recurrent hypokalemia, mood disorder and others. Nephrology saw him last admission and obstructive uropathy has already been ruled out as he does not have hydronephrosis. He was placed on Lomotil prior to discharge which was going well for him. Patient is arousable to verbal stimuli and is able to answer simple questions but is not not reliable with ROS. He reports that his stomach was hurting and he is confused. See Dr. Scruggs addendum for physical exam findings, but roughly he was able to open his eyes to verbal stimuli, but was quite confused and unable to recall the events leading to his hospital stay. I spent a total of 86 minutes coordinating, documenting, and providing care for this patient excluding time spent in the performance of separately billed services. All of the aforementioned completed while collaborating with the assigned attending physician for a full treatment plan. Please see their addendum for further details. Patient will be admitted for further evaluation and management of his urosepsis and uncompensated metabolic acidosis Please see A/P for further details. Admission Exam Per Admitting Provider GENERAL APPEARANCE: AxOx1, chronically ill appearing man HEENT: dry mucous membranes HEART: Normal rate and regular rhythm, normal S1/S1, no m/r/g LUNGS: CTAB, moving air well. No crackles or wheezes are heard. ABDOMEN: Soft, nontender, nondistended with good bowel sounds heard. EXTREMITIES: Without cyanosis, clubbing or edema. NEUROLOGICAL: Grossly nonfocal. moving all extremities Skin: multiple excoriations on all extremities, venous stasis changes BLE, small abrasions on knees Discharge Exam General: Alert, oriented. Psych: Appropriate mood and affect Neuro: oriented x 3 HEENT: NC CV: RRR Resp: Breath sounds clear bilaterally, no increased effort of breathing Abdomen: Soft, nontender Updated Medication List Medication Instructions Recorded Confirmed Type calcium 500 mg (as 1 tab PO BID 08/19/24 09/02/24 History carbonate)-vitamin D3 15 mcg (600 unit) tablet citalopram 40 mg tablet 40 mg PO DAILY 08/19/24 09/02/24 History cyanocobalamin (vitamin B-12) 1,000 mcg IM MONTHLY 08/19/24 09/02/24 History 1,000 mcg/mL injection solution doxepin 25 mg capsule 25 - 50 mg PO HS 08/19/24 09/02/24 History tramadol 50 mg tablet 50 mg PO BID Pain 08/19/24 09/02/24 History dicyclomine 10 mg capsule 10 mg PO QID #120 caps 08/24/24 09/02/24 Rx diphenoxylate-atropine 2.5 1 tab PO TID #90 tabs 08/24/24 09/02/24 Rx mg-0.025 mg tablet pantoprazole 40 mg tablet,delayed 40 mg PO BID #60 tabs 08/24/24 09/02/24 Rx release amiloride 5 mg tablet 5 mg PO UD 09/02/24 09/02/24 History loperamide 2 mg capsule 4 mg PO TID PRN as directed 09/02/24 09/02/24 History amiloride 5 mg tablet 5 mg PO DAILY #30 tabs 09/09/24 Rx calcitriol 0.25 mcg capsule 0.75 mcg (3 x 0.25 mcg) PO DAILY 09/09/24 Rx #90 caps cholecalciferol (vitamin D3) 125 125 mcg PO QAM #30 tabs 09/09/24 Rx mcg (5,000 unit) tablet magnesium chloride 64 mg 64 mg PO BID #60 tabs 09/09/24 Rx (magnesium chloride) tablet,delayed release (Mag 64) midodrine 5 mg tablet 5 mg PO TID #90 tabs 09/09/24 Rx potassium chloride 20 mEq 20 meq PO DAILY #30 tabs 09/09/24 Rx tablet,extended release(part/cryst) sodium di- and 2 tab PO QID #240 tabs 09/09/24 Rx monophosphate-potassium phos monobasic 250 mg tablet (Phospha Neutral) Hospital Stay Data Consultations 09/02/24 17:29 ED Decision to Admit Stat 09/02/24 18:05 Consult Urology Routine 09/02/24 18:10 Consult Nephrology Routine 09/02/24 20:09 Consult Nephrology Routine 09/03/24 23:12 Consult Infectious Diseases Routine 09/07/24 08:48 Consult Gastroenterology Routine Diagnostic Imagining Performed 09/02/24 14:30 CT head/brain wo con Stat Chest X-Ray 09/02/24 14:29 XR chest 1V portable CLINICAL HISTORY: Sepsis TECHNIQUE: Single frontal radiograph of the chest was obtained. Comparison: Comparison is made to chest radiograph 08/23/2024 FINDINGS: No lines and tubes are seen. The cardiomediastinal silhouette is normal. The lungs are clear. No evidence of pleural effusion or pneumothorax. IMPRESSION: No acute abnormalities and in particular no radiographic evidence of pneumonia. ACT 112: Negative or not required by law. Electronically signed by: Raman Mcgarry M.D. 09/02/2024 2:[address] 09/02/24 14:30 CT head/brain wo con CLINICAL HISTORY: 63 years-old Male with confusion. Acutely altered mental status TECHNIQUE: Multiple axial CT images of the head were obtained without contrast. A dose lowering technique was utilized adhering to the principles of ALARA. CT DOSE: 1016.05 mGy.cm COMPARISON: None. FINDINGS: No acute intracranial hemorrhage, midline shift, intracranial mass, hydrocephalus, territorial ischemia or abnormal extra-axial collection. Involutional changes with white matter hypodensities suggestive of chronic microvascular ischemic disease. Study is motion degraded. Millimeter calcification of the posterior falx cerebri on image 13 series 2. The calvarium is intact. Polypoid mucosal thickening of the maxillary sinuses. The mastoid air cells appear clear. Developmental incomplete bony fusion of all of the posterior arch of C1. IMPRESSION: Motion degraded exam without acute intracranial abnormality identified. ACT 112: Negative or not required by law. The above report was generated using voice recognition software. It may contain grammatical, syntax or spelling errors. Electronically signed by: Jose Redmond M.D. 09/02/2024 3:44 PM Pending Results Patient Have Any Pending Studies at Discharge: No Discharge Instructions Given to Patient (Per Discharging Provider) Bong, You were admitted and treated for acute kidney injury on chronic kidney disease. You were seen by the custody assistant who recommends the following medication changes: -calcitriol 0.75 mcg daily ( 3 x 0.25 mcg tabs) -D3 5000 units/125 mcg daily -amiloride 5 mg daily -magnesium chloride one tablet twice a day -K phos 2 tabs four times a day -potassium chloride 20 mEq daily -midodrine 5 mg three times daily Please try to stay hydrated at home. It is very important that you decrease your intake of soda and try to replace that with more water intake. Your blood pressures were also noted to be very low. You were started on midodrine 3 times daily. Please continue with that per the recommendations of nephrology. Also discontinued your home metoprolol to help with that. Please keep close follow up with your primary care provider and nephrology after discharge for continued monitoring and evaluation. You will need very frequent electrolyte monitoring during the next week after discharge. Please do not hesitate to come back to the emergency room if your symptoms worsen or return. It was a pleasure taking care of you while you were here. Total Time Total Time Spent Total Time Spent (In Minutes): 20
--- NOTE | 2024-09-09 09:29 | Nephrology Progress Note ---
Date of Service September 09, 2024 Assessment & Plan (1) Acute renal failure superimposed on stage 4 chronic kidney disease: Plan: resolved nonoliguric Stage 2 nonoliguric DARRIAN on CKD 3b/4 >> 63/M with with baseline creat low to mid 2's. Patient has ATN due to sepsis with peak creat of 5.6 but downtrending further to 1.9 today. He has hypokalemia uptrending rapidly to 4.5 today on heavy supplements and stable hypomagnesemia, 1.7 on supplements today. Calcium dropped 7.7>7.1> 7.7 on aggressive vitamin D supplementation; no signs of volume overload. - cont vitamin D3 5000 units daily >>added calcitriol 0.5 mcg and ordered PTH, 25 OHD >> D stores are low; PTH suprisingly/ inappropriately suppressed - continue magnesium, calcium and phosphorus supplements standing and amiloride >>pls continue daily BMP, phos, mag - Avoid nephrotoxins - avoid hypotension >> continue tid midodrine; would not attempt to wean just yet Nephrology discharge recommendations Discharge on the following -calcitriol 0.75 mcg daily ( 3 x 0.25 mcg tabs) -D3 5000 units/125 mcg daily -amiloride 5 mg daily -magnesium chloride one tablet bid -K phos 2 tabs qid -potassium chloride 20 mEq daily -midodrine 5 mg tid -he has appts with Dr Ge on 09/12 and on 10/08 which he should keep -recommend weekly labs (bmp, phos, magnesium), to be drawn by home nursing, first one starting on 09/11, x 3 wks and to be ordered by nephro nurses (pls have d/c associate merchandise planner reach out to neph nurses to give HHN contact info) care coordinated w/ Dr Puente in person and via TText regarding d/c [id number], readiness for d/c; we are in agreement. (2) Acute hyperkalemia: Plan: patient admitted with hyperkalemia in setting of potassium supplements. This has improved and potassium now on the lower side. was on amiloride and 40 mEq bid K prior to admission > back on these now - Continue KCl 40 minute equivalents twice daily and amiloride 5 mg daily Continue to monitor daily. (3) Acute hyponatremia: Plan: Hypovolemic type Plus related with Severe DARRIAN. sodium 133 today. (4) SIRS with acute organ dysfunction due to infectious process: Plan: Unclear source. also has Coronovirus. off of abtx now Plan Case complexity moderately high. Total time spent 62 minutes Admission and Anticipated Discharge Date Admission Date: September 02, 2024 Subjective No acute interval events clinically. No edema no shortness of breath. Diarrhea is chronic and stable/manageable. Review of Systems 2 Review of Systems: All systems reviewed & are unremarkable except as noted in Subjective Physical Exam 2 Constitutional: well developed (Sitting up on the side of the bed on room air), + physical limitations and cooperative; no acute distress Eyes: EOM intact bilaterally ENMT: Mouth: oral mucous membranes not dry Respiratory: normal respiratory effort Auscultation: + diminished lung sounds Cardiovascular: Rate/Rhythm: regular rate and regular rhythm Extremities: n o edema Gastrointestinal (Abdomen): Inspection/Auscultation: normal bowel sounds P ercussion/Palpation: abdomen soft; abdomen nontender Musculoskeletal: Extremities: strength 5/5 throughout Skin: no rashes, warm and dry Results & Data Vital Signs (Past 12 Hours) Vital Signs Temp Pulse Pulse Resp BP Pulse Ox O2 Del Method 09/09/24 08:06 36.5 C 78 16 109/70 98 Room Air 09/09/24 04:00 36.9 C 79 18 115/73 96 Room Air 09/08/24 23:56 81 09/08/24 23:35 36.8 C 82 18 117/76 96 Room Air Laboratory Results 09/09/24 07:11 09/09/24 07:11
[2024-09-09] MEDS: POT PHOSPHATE MONOBASIC W/ SOD TAB PO SCH (10:13)
[2024-09-09 11:24] VITALS: BP 106/74; PULSE 91; RESP 20; TEMP 97.9; O2SAT 97
== END 2024-09-09 12:51 | disposition home health service (06) | DRG 871 ==
LOC: ED 14:01 → SUATTDRO 18:13 → EDINP 18:13 → 4W 20:09